=== PATIENT | male | born 1970 | race American Indian/Alaskan Native ===

== ENCOUNTER 2018-09-01 10:14 | Outpatient (CLI) | payer MEDICAID | END 2018-09-01 10:15 | disposition home or self-care (01) | LOC: RAD 10:14 ==

== ENCOUNTER 2018-09-14 21:12 | Inpatient (IN) | payer MEDICAID ==
[2018-09-14] MEDS ORDERED: Sodium Chloride 0.9% 1,000 ML IV STA (21:31)
--- NOTE | 2018-09-14 21:48 | ED PDOC ---
Arrival/HPI - General Chief Complaint: Altered Mental Status Time Seen by Provider: 09/14/18 21:17 Historian: Family EM Caveat: Acuity of Condition - Critical Care Critical Care Minutes: 60 minutes - History of Present Illness Narrative History of Present Illness (Text): 09/14/18 21:47 47 year old male, whose past medical history of craniotomy x 2, hydrocephalus s /p OPEN DIE INSPECTOR shunt(07/19/18), TBI w/intracranial hemorrhage,SEIZURE (1000mg keppra), s/p PEG tube presents to the Emergency Room via EMS accompanied by family with complaint of cough that began today. Per family, the patient with decrease PO intake and decrease responsiveness to external stimuli today. His mothert noted the patient having a blank gaze throughout the day. Patient did not take have his second dose of Keppra today Patient denies any pain at this time. A more complete HPI and ROS are unable to be obtained due to the patient's condition. PMD: Dr. Pena Neurosurgery: Dr. Siegel Time/Duration: Prior to Arrival, 4-6 hours Symptom Course: Unchanged Activities at Onset: Rest, Eating Context: Home Past Medical History - Provider Review Nursing Documentation Reviewed: Yes - Travel History Have you recently traveled outside [place] w/in the past 3 mons?: No - Cardiac Hx Cardiac Disorders: No - Pulmonary Hx Respiratory Disorders: No - Neurological Hx Neurological Disorder: No - HEENT Hx HEENT Disorder: No - Renal Hx Renal Disorder: No - Endocrine/Metabolic Hx Endocrine Disorders: No - Hematological/Oncological Hx Blood Disorders: No Hx AIDS: No - Integumentary Hx Dermatological Disorder: No - Musculoskeletal/Rheumatological Hx Musculoskeletal Disorders: No Hx Falls: No - Gastrointestinal Hx Gastrointestinal Disorders: No Hx Bowel Surgery: Yes (peg tube) - Genitourinary/Gynecological Hx Genitourinary Disorders: Yes Hx Incontinence: Yes - Psychiatric Hx Psychophysiologic Disorder: No Hx Substance Use: No - Surgical History Other/Comment: craniotomyx2 - Anesthesia Hx Anesthesia: Yes Hx Anesthesia Reactions: No Hx Malignant Hyperthermia: No Family/Social History - Physician Review Nursing Documentation Reviewed: Yes Family/Social History: No Known Family HX Smoking Status: Never Smoked Hx Alcohol Use: No Hx Substance Use: No Allergies/Home Meds Allergies/Adverse Reactions: Allergies No Known Allergies Allergy (Verified 07/12/18 11:57) Home Medications: Home Meds Medication Instructions Recorded Confirmed RX: Amantadine [Symmetrel] 20 ml PO QPM 07/12/18 07/21/18 RX: Dantrolene Sodium [Dantrium] 50 mg PO Q8 07/12/18 07/21/18 RX: Vitamin B Complex [Super B-50 1 cap PO DAILY 07/12/18 07/21/18 Complex] RX: levETIRAcetam [Keppra] 500 mg PO Q12 07/12/18 07/21/18 RX: traZODone [Desyrel] 50 mg PO HS 07/12/18 07/21/18 Review of Systems - Physician Review All systems were reviewed & negative as marked: Yes - Review of Systems Systems not reviewed;Unavailable: Acuity of Condition Respiratory: Cough Gastrointestinal: Appetite Changes Physical Exam Vital Signs Reviewed: Yes Temperature: Afebrile Blood Pressure: Hypotensive Pulse: Tachycardic Respiratory Rate: Normal Appearance: Positive for: Well-Appearing, Non-Toxic, Comfortable Pain Distress: None Mental Status: Positive for: other (Alert) - Systems Exam Extroacular Muscles: Present: Other (Horizontal nystagmus ) Respiratory/Chest: Present: Clear to Auscultation. No: Rales, Retracting, Rhonchi Cardiovascular: Present: Tachycardic Abdomen: Present: Feeding Tubes (PEG tube noted to LUQ), Other (Scaphoid). No: Tenderness Rectal: Present: Other (Grade 2 sacral ulcer noted to ) Genitourinary Male: Present: Normal External Genitalia, Circumcised Penis Upper Extremity: Present: Other (Contracted upper extremities b/l) Lower Extremity: Present: Other (Contracted lower extremities b/l w/ feet inversion) Neurological: Present: Other (contracted extremities. Paraplegic) Psychiatric: Present: Alert Medical Decision Making ED Course and Treatment: 09/14/18 21:47 Impression: 47 year old male presents for evaluation of cough, decrease PO intact, and decrease responsiveness to stimuli, as per family. Differential Diagnosis included but are not limited to: --Sepsis --Intracranial bleeding --PNA Plan: -- CT Head -- VBG -- EKG -- labs -- CXR -- Keppra 500mg --Zosyn --Vancomycin --CT a/p --Levophed --IV Fluids -- Blood Culture --Urine Culture -- Urinalysis -- Reassess and disposition Prior Visits: Notes and results from previous visits were reviewed. Progress Notes: 09/14/18 22:23 Labs reviewed with leukocytosis of 35 with shift as well as Hgb 9(previously 11). He still remains hypotensive to 70s SBP. Code sepsis called. Vancomycin and IV Fluids 30CC per kg ordered. 09/14/18 23:19 CTH reviewed with no evidence of intracranial bleed. Nurse states patient has received 2,400mL of fluids with blood pressure largely unchanged. Call placed to Dr. Pelayo(house staff). 09/14/18 23:[address] Pelayo who accepts patient onto ICU service. Call placed to medical educator. 09/14/18 23:38 founder and president updated on patient's status. 09/15/18 00:55 ICU team attempting to obtain consent for lumbar puncture but amenable to central line in the ICU. Patient transferred to ICU. - Lab Interpretations Lab Results: 09/14/18 21:56 09/14/18 21:56 Lab Results 09/14/18 23:23: Urine Color Yellow, Urine Appearance Cloudy, Urine pH 6.0, Ur Specific [place] 1.020, Urine Protein 30 H, Urine Glucose (UA) Negative, Urine K etones Negative, Urine Blood Large H, Urine Nitrate Negative, Urine Bilirubin Negative, Urine Urobilinogen 1.0 H, Ur Leukocyte Esterase Large H, Urine RBC Pending, Urine WBC Pending 09/14/18 22:01: pO2 124 H, VBG pH 7.49 H, VBG pCO2 33.0 L, VBG HCO3 25.1, VBG Total CO2 26.1, VBG O2 Sat (Calc) 100.4 H, VBG Base Excess 2.2 H, VBG Potassium 4.3, Glucose 100, Lactate 2.0, FiO2 21.0, Sodium 137.0, Chloride 104.0, Venous Blood Potassium 4.3 09/14/18 21:56: Sodium 137, Potassium 4.3, Chloride 101, Carbon Dioxide 25, Anion Gap 15, BUN 31 H, Creatinine 1.2, Est GFR ( Amer) > 60, Est GFR (Non-Af Amer) > 60, Random Glucose 104, Calcium 8.9, Phosphorus 4.4, Magnesium 1.9, Total Bilirubin 0.8, AST 244 H D, ALT 177 H, Alkaline Phosphatase 247 H D, Troponin I 0.02, NT-Pro-B Natriuret Pep 945 H, Total Protein 7.4, Albumin 3.4, Globulin 4.0, Albumin/Globulin Ratio 0.8 L 09/14/18 21:56: PT 18.3 H, INR 1.65, APTT 33.9 09/14/18 21:56: WBC 35.9 H*, RBC 3.25 L, Hgb 9.8 L, Hct 29.8 L, MCV 91.7, MCH 30.2, MCHC 32.9, RDW 14.0, Plt Count 523 H, MPV 8.2, Neut % (Auto) 90.8 H, Lymph % (Auto) 5.3 L, [place] % (Auto) 3.8, Eos % (Auto) 0.0 L, Baso % (Auto) 0.1, Lymph # (Auto) 1.9, [place] # (Auto) 1.4 H, Eos # (Auto) 0.0, Baso # (Auto) 0.03, Absolute Neuts (auto) 32.52 H, Neutrophils % (Manual) 86 H, Band Neutrophils % 3 H, Lymphocytes % (Manual) 4 L, Monocytes % (Manual) 5, Metamyelocytes % 2, Platelet Evaluation High 09/14/18 21:49: POC Glucose (mg/dL) 95 I have reviewed the lab results: Yes - RAD Interpretation Narrative RAD Interpretations (Text): 09/15/18 00:30 CXR Impression: As read by me, hyperinflated, prominent vascular markings, no evidence of cardiomegaly, no evidence of consolidation. EXAM: CT Head without Intravenous Contrast. Electronically signed on Sep 15, 2018 12:50:16 AM EST by: Kenia Diez M.D. IMPRESSION: 1. Encephalomalacia is again seen in both frontal lobe regions. This appears little changed. 2. Encephalomalacia of the left cerebellar hemisphere also again noted and appears unchanged. 3. Again noted is severe hydrocephalus including both lateral ventricles as well as the 3rd and 4th ventricle. This appears little changed as well. 4. Again seen is a ventricular shunt catheter which again traverses the lateral ventricles from a right parietal approach. This terminates at the midportion of the body of the left lateral ventricle, unchanged in position. 5. Again seen is evidence of prior left frontal craniotomy and left occipital craniectomy. This also appears unchanged. 6. No convincing evidence for acute intracranial change in comparison with 09/01/2018. Radiology Orders: 09/14/18 21:29 CHEST PORTABLE [RAD] Stat Broth Setter: ED Physician, Radiologist - EKG Interpretation EKG Interpretation (Text): 09/14/18 22:03 EKG shows Sinus Tachycardia at 115 BPM with slightly prolonged QT intervals. No ST elevation. No T wave inversion. Interpreted by me Interpreted by ED Physician: Yes Type: 12 lead EKG - Medication Orders Current Medication Orders: Sodium Chloride (Sodium Chloride 0.9%) 1,000 mls @ 999 mls/hr IV .Q1H1M STA Stop: 09/14/18 22:31 - Scribe Statement The provider has reviewed the documentation as recorded by the Kamran Browning Provider Scribe Attestation: All medical record entries made by the Joselitoibe were at my direction and personally dictated by me. I have reviewed the chart and agree that the record accurately reflects my personal performance of the history, physical exam, medical decision making, and the department course for this patient. I have also personally directed, reviewed, and agree with the discharge instructions and disposition. Disposition/Present on Arrival - Present on Arrival Any Indicators Present on Arrival: No History of DVT/PE: No History of Uncontrolled Diabetes: No Urinary Catheter: No History Surgical Site Infection Following: None - Disposition Have Diagnosis and Disposition been Completed?: Yes Diagnosis: Septic shock Disposition: HOME/ ROUTINE Disposition Time: 23:39 Patient Plan: Admission, ICU Patient Problems: Current Active Problems Problem Status Onset Septic shock Acute Condition: CRITICAL
[2018-09-14] MEDS ORDERED: levETIRAcetam Solution 100 MG/ML BOTTLE PO STA (21:51)
[2018-09-14 21:59] LABS: BASO # 0.03 K/mm3 (0.0-2.0); BASO % 0.1 % (0.0-3.0); HEMOGLOBIN 9.8 g/dL (14.0-18.0); LYMPH # 1.9 (1.2-3.4); LYMPH % 5.3 % (22.0-35.0); MEAN CELL VOLUME 91.7 fl (80.0-105.0); MEAN CORPUSCULAR HEMOGLOBIN 30.2 pg (25.0-35.0); MEAN CORPUSCULAR HGB CONC 32.9 g/dl (31.0-37.0); MEAN PLATELET VOLUME 8.2 fl (7.0-11.0); MONO # 1.4 (0.1-0.6); MONO % 3.8 % (1.0-6.0); PLATELET COUNT 523 10^3/uL (120.0-450.0); RBC 3.25 10^6/uL (3.5-6.1)
[2018-09-14 22:07] LABS: VENOUS BLOOD GAS BASE EXCESS 2.2 mmol/L (0.0-2.0); VENOUS BLOOD GAS PO2 124 mm/Hg (30-55); VENOUS BLOOD PH 7.49 (7.32-7.43)
[2018-09-14 22:08] LABS: INR 1.65; PARTIAL THROMBOPLASTIN TIME 33.9 Seconds (26.9-38.3); PROTHROMBIN TIME 18.3 SECONDS (9.4-12.5)
[2018-09-14 22:10] LABS: ALB/GLOB RATIO 0.8 (1.1-1.8); ALBUMIN 3.4 g/dL (3.0-4.8); ALT/SGPT 177 U/L (7-56); AST/SGOT 244 U/L (17-59); BLOOD UREA NITROGEN 31 mg/dL (7-21); CALCIUM 8.9 mg/dL (8.4-10.5); GFR NON-AFRICAN AMERICAN > 60
[2018-09-14 22:12] LABS: WHITE BLOOD COUNT 35.9 10^3/uL (4.5-11.0)
[2018-09-14 22:18] LABS: BAND 3 % (0-2); LYMPHOCYTE 4 % (22.0-35.0); METAMYELOCYTE 2 %; MONOCYTE 5 % (1.0-6.0); NEUTROPHIL 86 % (50.0-70.0)
[2018-09-14 22:20] LABS: PLATELET ESTIMATE HIGH (NORMAL)
[2018-09-14 22:21] LABS: B-TYPE NATRIURETIC PEPTIDE 945 pg/mL (0-450); TROPONIN I 0.02 ng/mL
[2018-09-14] MEDS ORDERED: Piperacill/Tazo 4.5gm in NS 4.5 GM/100 ML BAG IVPB STA (22:27)
[2018-09-14] MEDS ORDERED: Vancomycin 1gm in NS 250ml 1 GM/250 ML BAG IVPB STA (22:27)
[2018-09-14 23:30] LABS: URINE BILIRUBIN NEGATIVE (NEGATIVE); URINE BLOOD LARGE (NEGATIVE); URINE GLUCOSE (UA) NEGATIVE (NEGATIVE); URINE LEUKOCYTE ESTERASE LARGE Leu/uL (NEGATIVE); URINE PROTEIN 30 mg/dL (<30 mg/dL)
[2018-09-14 23:33] LABS: URINE APPEARANCE CLOUDY (CLEAR); URINE COLOR YELLOW (YELLOW)
[2018-09-14 23:45] LABS: URINE BACTERIA MANY /hpf; URINE EPITHELIAL CELLS 0 - 2 /hpf (0-5); URINE WBC 15 - 20 /hpf (0-6)
--- NOTE | 2018-09-14 23:53 | CP.PCM.CON ---
History of Present Illness - History of Present Illness History of Present Illness: Jerod Ramirez, PGY1 ICU Consult Note for Dr. Pelayo cc: "cough" Patient is a 47 year old male with PMHx CONSULTANT DIETITIAN shunt 2/2 Fall (07/19/18), Brain Injury causing intracranial hemorrhage, Seizure disorder (1000mg keppra), Dysphagia, PEG tube, hypophonic voice, via EMS accompanied by family for complaints of cough that began today. In the ED Vitals: Temp 98.5, HR 102, BP 91/55, RR 18, SaO2 100% (room air). Patient was a code sepsis in the ED. Patient was evaluated for ICU admission. Given that patient is a poor historian, history was obtained from family members present at bedside. Family said that the patient has been having a cough with white phlegm. No recent travel history or sick contacts. As per family, patient was not having any complaints of fever, chills, headache, bowel/bladder changes prior to admission. However, patient does have decreased PO intake recently. Patient also has had diarrhea as per family. Although mental status is poor, patient seems to have a decrease in mental status from his original baseline. From prior history and patient's family at bedside, it was determined that when patient previously had his CONSULTANT DIETITIAN shunt he had blood cultures that grew coagulase negative staph bactermia. Patient follows up with neurosurgeon, Dr. Siegel, for CONSULTANT DIETITIAN shunt. A full 12 point ROS was limited given patient's condition. PMD: Dr. Pena NeuroSx: Dr Siegel PMHX: (from previous records) Brain Injury causing intracranial hemorrhage, , Seizure disorder, Dysphagia, PEG tube, hypophonic voice PShX: (from previous records) 2 Craniotomy's in 02/2018 Medications: Keppra, tylenol, Zofran, nephrovite All: NKDA Sochx: unattainable given mental status and acuity of condition FamHx: non-contributory Review of Systems - Review of Systems All systems: reviewed and no additional remarkable complaints except (as per HPI.) Past Patient History - Past Medical History & Family History Past Medical History?: Yes - Past Social History Smoking Status: Never Smoked - CARDIAC Hx Cardiac Disorders: No - PULMONARY Hx Respiratory Disorders: No - NEUROLOGICAL Hx Neurological Disorder: No - HEENT Hx HEENT Problems: No - RENAL Hx Chronic Kidney Disease: No - ENDOCRINE/METABOLIC Hx Endocrine Disorders: No - HEMATOLOGICAL/ONCOLOGICAL Hx Blood Disorders: No Hx AIDS: No - INTEGUMENTARY Hx Dermatological Problems: No - MUSCULOSKELETAL/RHEUMATOLOGICAL Hx Musculoskeletal Disorders: No Hx Falls: No - GASTROINTESTINAL Hx Gastrointestinal Disorders: No Hx Bowel Surgery: Yes (peg tube) - GENITOURINARY/GYNECOLOGICAL Hx Genitourinary Disorders: Yes Hx Incontinence: Yes - PSYCHIATRIC Hx Psychophysiologic Disorder: No Hx Substance Use: No - SURGICAL HISTORY Other/Comment: craniotomyx2 - ANESTHESIA Hx Anesthesia: Yes Hx Anesthesia Reactions: No Hx Malignant Hyperthermia: No Meds Allergies/Adverse Reactions: Allergies Allergy/AdvReac Type Severity Reaction Status Date / Time No Known Allergies Allergy Verified 07/12/18 11:57 - Medications Medications: Current Medications Vancomycin HCl (Vancomycin 1gm) 1 gm in 250 mls @ 167 mls/hr IVPB STAT STA; Protocol Stop: 09/14/18 23:56 Physical Exam - Constitutional Appears: Confused (Worsened from baseline ), Cachectic - Head Exam Head Exam: ATRAUMATIC, NORMAL INSPECTION, NORMOCEPHALIC Additional comments: Negative Brudsinski sign. No meningeal signs. - Eye Exam Eye Exam: EOMI, Normal appearance Pupil Exam: PERRL - ENT Exam ENT Exam: Mucous Membranes Moist - Respiratory Exam Respiratory Exam: Clear to Auscultation Bilateral. absent: Accessory Muscle Use, Rales, Rhonchi, Wheezes - Cardiovascular Exam Cardiovascular Exam: RRR, +S1, +S2 - GI/Abdominal Exam GI & Abdominal Exam: Normal Bowel Sounds, Soft. absent: Distended, Firm, Guarding, Rigid, Tenderness - Exam Additional comments: Sacral stage IV ulcer was noted. - Extremities Exam Extremities exam: Positive for: normal capillary refill, pedal pulses present. Negative for: joint swelling, pedal edema Additional comments: Patient keeps extremities in a contracted position. - Neurological Exam Neurological exam: Alert Additional comments: Cranial nerve exam difficult to obtain given that patient does not follow commands appropriately. - Skin Skin Exam: Dry, Warm Results - Vital Signs Recent Vital Signs: Last Vital Signs Temp 98.5 F 09/14/18 22:22 Pulse 102 H 09/14/18 23:22 Resp 18 09/14/18 23:22 BP 77/47 L 09/14/18 23:22 Pulse Ox 100 09/14/18 23:22 - Labs Result Diagrams: 09/14/18 21:56 09/14/18 21:56 Labs: Laboratory Results - last 24 hr 09/14/18 09/14/18 09/14/18 21:49 21:56 21:56 WBC 35.9 H* RBC 3.25 L Hgb 9.8 L Hct 29.8 L MCV 91.7 MCH 30.2 MCHC 32.9 RDW 14.0 Plt Count 523 H MPV 8.2 Neut % (Auto) 90.8 H Lymph % (Auto) 5.3 L [place] % (Auto) 3.8 Eos % (Auto) 0.0 L Baso % (Auto) 0.1 Lymph # (Auto) 1.9 [place] # (Auto) 1.4 H Eos # (Auto) 0.0 Baso # (Auto) 0.03 Absolute Neuts (auto) 32.52 H Neutrophils % (Manual) 86 H Band Neutrophils % 3 H Lymphocytes % (Manual) 4 L Monocytes % (Manual) 5 Metamyelocytes % 2 Platelet Evaluation High PT 18.3 H INR 1.65 APTT 33.9 pO2 VBG pH VBG pCO2 VBG HCO3 VBG Total CO2 VBG O2 Sat (Calc) VBG Base Excess VBG Potassium Glucose Lactate FiO2 Sodium Potassium Chloride Carbon Dioxide Anion Gap BUN Creatinine Est GFR ( Amer) Est GFR (Non-Af Amer) POC Glucose (mg/dL) 95 Random Glucose Calcium Phosphorus Magnesium Total Bilirubin AST ALT Alkaline Phosphatase Troponin I NT-Pro-B Natriuret Pep Total Protein Albumin Globulin Albumin/Globulin Ratio Venous Blood Potassium Urine Color Urine Appearance Urine pH Ur Specific [place] Urine Protein Urine Glucose (UA) Urine Ketones Urine Blood Urine Nitrate Urine Bilirubin Urine Urobilinogen Ur Leukocyte Esterase Urine RBC Urine WBC Ur Epithelial Cells Urine Bacteria 09/14/18 09/14/18 09/14/18 21:56 22:01 23:23 WBC RBC Hgb Hct MCV MCH MCHC RDW Plt Count MPV Neut % (Auto) Lymph % (Auto) [place] % (Auto) Eos % (Auto) Baso % (Auto) Lymph # (Auto) [place] # (Auto) Eos # (Auto) Baso # (Auto) Absolute Neuts (auto) Neutrophils % (Manual) Band Neutrophils % Lymphocytes % (Manual) Monocytes % (Manual) Metamyelocytes % Platelet Evaluation PT INR APTT pO2 124 H VBG pH 7.49 H VBG pCO2 33.0 L VBG HCO3 25.1 VBG Total CO2 26.1 VBG O2 Sat (Calc) 100.4 H VBG Base Excess 2.2 H VBG Potassium 4.3 Glucose 100 Lactate 2.0 FiO2 21.0 Sodium 137 137.0 Potassium 4.3 Chloride 101 104.0 Carbon Dioxide 25 Anion Gap 15 BUN 31 H Creatinine 1.2 Est GFR ( Amer) > 60 Est GFR (Non-Af Amer) > 60 POC Glucose (mg/dL) Random Glucose 104 Calcium 8.9 Phosphorus 4.4 Magnesium 1.9 Total Bilirubin 0.8 AST 244 H D ALT 177 H Alkaline Phosphatase 247 H D Troponin I 0.02 NT-Pro-B Natriuret Pep 945 H Total Protein 7.4 Albumin 3.4 Globulin 4.0 Albumin/Globulin Ratio 0.8 L Venous Blood Potassium 4.3 Urine Color Yellow Urine Appearance Cloudy Urine pH 6.0 Ur Specific [place] 1.020 Urine Protein 30 H Urine Glucose (UA) Negative Urine Ketones Negative Urine Blood Large H Urine Nitrate Negative Urine Bilirubin Negative Urine Urobilinogen 1.0 H Ur Leukocyte Esterase Large H Urine RBC 1 - 3 H Urine WBC 15 - 20 H Ur Epithelial Cells 0 - 2 Urine Bacteria Many Assessment & Plan - Assessment and Plan (Free Text) Assessment: Patient is a 47 year old male with PMHx CONSULTANT DIETITIAN shunt 2/2 Fall (07/19/18), Brain Injury causing intracranial hemorrhage, Seizure disorder (1000mg keppra), Dysphagia, PEG tube, hypophonic voice, via EMS accompanied by family for complaints of cough for one day duration and altered mental status. Patient ad mitted for: Septic Shock with MODS: AMS, cardiomyopathy, GEORGINA, ALI, Lactic Acidosis Source: skin, diarrhea, UTI, brain (acquired hospital), hx recent staph bacteremia, ?endocarditis AMS likely 2/2 metabolic encephalopathy due to sepsis, post-ictal state from seizure, meningitis/encephalitis High LDH unlikely hemolytic anemia - trend LDH Elevated CK could be from seizure vs sacral wound vs rhabdo due to nutrient deficiency Chronic [place] cath on leg PEG Diarrhea - r/o c. diff Transaminitis, acute (INR) versus chronic Seizure - neuro, keppra, possible LP Plan: Neuro - AMS likely 2/2 metabolic encephalopathy due to sepsis, post-ictal state from seizure, meningitis/encephalitis - Patient may require lumbar puncture via IR because patient has a stage IV ulcer - Keppra - ativan 1mg q6 prn - EEG - Head CT w/o contrast - Neuro is on consult (Dr. Peterson) - Neurosurgery is on consult (Dr. Siegel) - Seizure precautions, aspiration precautions, fall precautions - Hx CONSULTANT DIETITIAN shunt, Brain injury causing ICH, seizure disorder Cardio - Septic Shock with MODS - Maintain MAP > 65 - Central line was placed at the right femoral - family was refusing central line in the neck but was explained that femoral line is higher risk of infection given stage IV ulcer and diarrhea episode - Administer levophed for BP control - Patient had fluid bolus challenge with 2L and failed resuscitation; caval index was 12.1% - Echo - Strict ins/outs Pulm - Maintain SaO2 > 92% - Saturating well on room air at this time - No evidence of PNA on CXR GI - Acute Liver injury - transaminitis - GI is on consult (Dr. Emmanuel) - NPO - PEG tube - c/w patients diet: eats 3 meals + jevity 1.5 bolus HS with free water flushes 500 BID, if skip 1meal, substitute with jevity Renal - BUN/Cr 31 - Monitor renal function - Avoid nephrotoxic drugs - Elevated CK could be from seizure vs sacral wound vs rhabdo due to nutrient deficiency ID - Septic Shock with MODS 2/2 UTI vs Sacral Decubitus Ulcer vs recent staph bacteremia vs ?endocarditis - vanco and merrem for antibx coverage - UA +blood, large LE, 15-20 wbc, many bacteria - New onset diarrhea; C. diff ordered - Chest/Abdomen/Pelvis CT given septic shock - procal - influenza A/B - wbc 35 in ED with neutrophils 90% - Sacral wound ulcer, stage IV: air mattress, frequent turns, wound care - ID is on consult (Dr. Albright) - Surgery is on consult for sacral ulcer (Dr. Reardon) Heme - LDH elevated - unlikely hemolytic anemia - will trend LDH - Hgb 9.8 DVT ppx: SCD GI ppx: PTX PT is on board Dispo: Patient will be managed in the ICU. Case was discussed and reviewed with Attending Physician, Dr. Pelayo.
[2018-09-15] MEDS ORDERED: Sodium Chloride 0.9% 1,000 ML IV STA (00:22)
[2018-09-15] MEDS ORDERED: Piperacill/Tazo 4.5gm in NS 4.5 GM/100 ML BAG IVPB STA (00:34)
[2018-09-15] MEDS: NOREPINEPHRINE BIT/0.9 % NACL 4 MG/250 ML BAG IV PRN ×2 (00:50→11:28)
[2018-09-15 00:55] LABS: CK-MB 3.9 ng/mL (0.0-3.6)
[2018-09-15 02:03] LABS: VENOUS BLOOD GAS BASE EXCESS -1.5 mmol/L (0.0-2.0); VENOUS BLOOD GAS PO2 34 mm/Hg (30-55); VENOUS BLOOD PH 7.35 (7.32-7.43)
[2018-09-15 04:06] VITALS: BMI 15.6
[2018-09-15] MEDS: Sodium Chloride 0.9% 1,000 ML IV SCH (05:00)
[2018-09-15] MEDS: Meropenem IV 1 gm in NS 1 GM/50 ML BAG IVPB SCH ×3 (05:08→22:15)
--- NOTE | 2018-09-15 05:09 | PCM.PROC ---
Procedures Attestation:: I certify that I have explained the specified Operation(s) or Procedure(s), risks, benefits and reasonable alternatives to the Patient and/or other person responsible. The opportunity was given to ask questions and all questions answered - Central Line Placement Right Femoral Triple Lumen Catheter Aseptic technique was employed throughout the procedure: Hand Hygiene done prior to procedure, Full sterile barriers (mask, hair cover, sterile gown, sterile gloves), Full body sterile drape, Chloraprep Antiseptic: 2 minute prep for Femoral Pt. Placed on Pulse Ox Monitor: Yes Central Line Prep: Chlorhexidine-Alcohol Combination Local Anesthesia Used: Lidocaine 1% Ultrasound Used for Placement: Yes Central Line Lumen Inserted: triple Central Line Length: 20 cm Post Procedure: Sutured in Place Secured by: Suture Post procedure dressing: Chlorhexidine disc (Biopatch) Post Procedure X-Ray: No Immediate Complications: None
[2018-09-15] MEDS ORDERED: Cefepime IV 2 gm in NS 2 GM/100 ML BAG IVPB SCH (06:00)
--- NOTE | 2018-09-15 06:34 | CP.PCM.HP ---
History of Present Illness - History of Present Illness History of Present Illness: Jerod Ramirez, PGY1 ICU Consult Note for Dr. Pelayo cc: "cough" Patient is a 47 year old male with PMHx PASTING INSPECTOR shunt 2/2 Fall (07/19/18), Brain Injury causing intracranial hemorrhage, Seizure disorder (1000mg keppra), Dysphagia, PEG tube, hypophonic voice, via EMS accompanied by family for complaints of cough that began today. In the ED Vitals: Temp 98.5, HR 102, BP 91/55, RR 18, SaO2 100% (room air). Patient was a code sepsis in the ED. Patient was evaluated for ICU admission. Given that patient is a poor historian, history was obtained from family members present at bedside. Family said that the patient has been having a cough with white phlegm. No recent travel history or sick contacts. As per family, patient was not having any complaints of fever, chills, headache, bowel/bladder changes prior to admission. However, patient does have decreased PO intake recently. Patient also has had diarrhea as per family. Although mental status is poor, patient seems to have a decrease in mental status from his original baseline. From prior history and patient's family at bedside, it was determined that when patient previously had his PASTING INSPECTOR shunt he had blood cultures that grew coagulase negative staph bactermia. Patient follows up with neurosurgeon, Dr. Siegel, for PASTING INSPECTOR shunt. A full 12 point ROS was limited given patient's condition. PMD: Dr. Pena NeuroSx: Dr Siegel PMHX: (from previous records) Brain Injury causing intracranial hemorrhage, , Seizure disorder, Dysphagia, PEG tube, hypophonic voice PShX: (from previous records) 2 Craniotomy's in 02/2018 Medications: Keppra, tylenol, Zofran, nephrovite All: NKDA Sochx: unattainable given mental status and acuity of condition FamHx: non-contributory Present on Admission - Present on Admission Any Indicators Present on Admission: Yes Review of Systems - Review of Systems All systems: reviewed and no additional remarkable complaints except (as per HPI) Past Patient History - Past Medical History & Family History Past Medical History?: Yes - Past Social History Smoking Status: Never Smoked - CARDIAC Hx Cardiac Disorders: No - PULMONARY Hx Respiratory Disorders: No - NEUROLOGICAL Hx Neurological Disorder: No - HEENT Hx HEENT Problems: No - RENAL Hx Chronic Kidney Disease: No - ENDOCRINE/METABOLIC Hx Endocrine Disorders: No - HEMATOLOGICAL/ONCOLOGICAL Hx Blood Disorders: No Hx AIDS: No - INTEGUMENTARY Hx Dermatological Problems: No - MUSCULOSKELETAL/RHEUMATOLOGICAL Hx Musculoskeletal Disorders: No Hx Falls: No - GASTROINTESTINAL Hx Gastrointestinal Disorders: No Hx Bowel Surgery: Yes (peg tube) - GENITOURINARY/GYNECOLOGICAL Hx Genitourinary Disorders: Yes Hx Incontinence: Yes - PSYCHIATRIC Hx Psychophysiologic Disorder: No Hx Substance Use: No - SURGICAL HISTORY Other/Comment: craniotomyx2 - ANESTHESIA Hx Anesthesia: Yes Hx Anesthesia Reactions: No Hx Malignant Hyperthermia: No Meds Allergies/Adverse Reactions: Allergies Allergy/AdvReac Type Severity Reaction Status Date / Time No Known Allergies Allergy Verified 07/12/18 11:57 Physical Exam - Constitutional Appears: Confused (Worsened from baseline), Cachectic - Head Exam Head Exam: ATRAUMATIC, NORMAL INSPECTION, NORMOCEPHALIC Additional comments: Negative Brudsinski sign. No meningeal signs. - Eye Exam Eye Exam: EOMI, Normal appearance, PERRL - ENT Exam ENT Exam: Mucous Membranes Moist - Respiratory Exam Respiratory Exam: Clear to Auscultation Bilateral. absent: Accessory Muscle Use, Rales, Rhonchi, Wheezes - Cardiovascular Exam Cardiovascular Exam: RRR, +S1, +S2 - GI/Abdominal Exam GI & Abdominal Exam: Normal Bowel Sounds, Soft. absent: Bruit, Firm, Guarding, Pulsatile Mass, Rebound, Rigid, Tenderness - Exam Additional comments: Sacral stage IV ulcer was noted. - Extremities Exam Extremities exam: Positive for: normal capillary refill, pedal pulses present. Negative for: joint swelling, pedal edema Additional comments: Patient keeps extremities in a contracted position. - Neurological Exam Neurological exam: Alert Additional comments: Cranial nerve exam difficult to obtain given that patient does not follow commands appropriately. Results - Vital Signs Recent Vital Signs: Last Vital Signs Temp 97.5 F L 09/15/18 04:30 Pulse 94 H 09/15/18 04:30 Resp 18 09/15/18 04:30 BP 87/47 L 09/15/18 04:30 Pulse Ox 100 09/15/18 04:30 - Labs Result Diagrams: 09/14/18 21:56 09/14/18 21:56 Labs: Laboratory Results - last 24 hr 09/14/18 09/14/18 09/14/18 21:49 21:56 21:56 WBC 35.9 H* RBC 3.25 L Hgb 9.8 L Hct 29.8 L MCV 91.7 MCH 30.2 MCHC 32.9 RDW 14.0 Plt Count 523 H MPV 8.2 Neut % (Auto) 90.8 H Lymph % (Auto) 5.3 L [place] % (Auto) 3.8 Eos % (Auto) 0.0 L Baso % (Auto) 0.1 Lymph # (Auto) 1.9 [place] # (Auto) 1.4 H Eos # (Auto) 0.0 Baso # (Auto) 0.03 Absolute Neuts (auto) 32.52 H Neutrophils % (Manual) 86 H Band Neutrophils % 3 H Lymphocytes % (Manual) 4 L Monocytes % (Manual) 5 Metamyelocytes % 2 Platelet Evaluation High PT 18.3 H INR 1.65 APTT 33.9 pO2 VBG pH VBG pCO2 VBG HCO3 VBG Total CO2 VBG O2 Sat (Calc) VBG Base Excess VBG Potassium Glucose Lactate FiO2 Crit Value Called To Crit Value Called By Blood Gas Notified Time Sodium Potassium Chloride Carbon Dioxide Anion Gap BUN Creatinine Est GFR ( Amer) Est GFR (Non-Af Amer) POC Glucose (mg/dL) 95 Random Glucose Calcium Phosphorus Magnesium Total Bilirubin AST ALT Alkaline Phosphatase Lactate Dehydrogenase Total Creatine Kinase CK-MB (CK-2) CK-MB (CK-2) % Troponin I NT-Pro-B Natriuret Pep Total Protein Albumin Globulin Albumin/Globulin Ratio Venous Blood Potassium Urine Color Urine Appearance Urine pH Ur Specific [place] Urine Protein Urine Glucose (UA) Urine Ketones Urine Blood Urine Nitrate Urine Bilirubin Urine Urobilinogen Ur Leukocyte Esterase Urine RBC Urine WBC Ur Epithelial Cells Urine Bacteria 09/14/18 09/14/18 09/14/18 21:56 21:56 22:01 WBC RBC Hgb Hct MCV MCH MCHC RDW Plt Count MPV Neut % (Auto) Lymph % (Auto) [place] % (Auto) Eos % (Auto) Baso % (Auto) Lymph # (Auto) [place] # (Auto) Eos # (Auto) Baso # (Auto) Absolute Neuts (auto) Neutrophils % (Manual) Band Neutrophils % Lymphocytes % (Manual) Monocytes % (Manual) Metamyelocytes % Platelet Evaluation PT INR APTT pO2 124 H VBG pH 7.49 H VBG pCO2 33.0 L VBG HCO3 25.1 VBG Total CO2 26.1 VBG O2 Sat (Calc) 100.4 H VBG Base Excess 2.2 H VBG Potassium 4.3 Glucose 100 Lactate 2.0 FiO2 21.0 Crit Value Called To Crit Value Called By Blood Gas Notified Time Sodium 137 137.0 Potassium 4.3 Chloride 101 104.0 Carbon Dioxide 25 Anion Gap 15 BUN 31 H Creatinine 1.2 Est GFR ( Amer) > 60 Est GFR (Non-Af Amer) > 60 POC Glucose (mg/dL) Random Glucose 104 Calcium 8.9 Phosphorus 4.4 Magnesium 1.9 Total Bilirubin 0.8 AST 244 H D ALT 177 H Alkaline Phosphatase 247 H D Lactate Dehydrogenase 1064 H Total Creatine Kinase 505 H CK-MB (CK-2) 3.9 H CK-MB (CK-2) % Cancelled Troponin I 0.02 NT-Pro-B Natriuret Pep 945 H Total Protein 7.4 Albumin 3.4 Globulin 4.0 Albumin/Globulin Ratio 0.8 L Venous Blood Potassium 4.3 Urine Color Urine Appearance Urine pH Ur Specific [place] Urine Protein Urine Glucose (UA) Urine Ketones Urine Blood Urine Nitrate Urine Bilirubin Urine Urobilinogen Ur Leukocyte Esterase Urine RBC Urine WBC Ur Epithelial Cells Urine Bacteria 09/14/18 09/15/18 23:23 01:40 WBC RBC Hgb Hct MCV MCH MCHC RDW Plt Count MPV Neut % (Auto) Lymph % (Auto) [place] % (Auto) Eos % (Auto) Baso % (Auto) Lymph # (Auto) [place] # (Auto) Eos # (Auto) Baso # (Auto) Absolute Neuts (auto) Neutrophils % (Manual) Band Neutrophils % Lymphocytes % (Manual) Monocytes % (Manual) Metamyelocytes % Platelet Evaluation PT INR APTT pO2 34 VBG pH 7.35 VBG pCO2 44.0 VBG HCO3 24.3 VBG Total CO2 25.7 VBG O2 Sat (Calc) 68.3 H VBG Base Excess -1.5 L VBG Potassium 3.8 Glucose 94 Lactate 2.3 H FiO2 21.0 Crit Value Called To Lillian hoffman pattern duplicator Crit Value Called By Jsm Blood Gas Notified Time 202 Sodium 141.0 Potassium Chloride 109.0 H Carbon Dioxide Anion Gap BUN Creatinine Est GFR ( Amer) Est GFR (Non-Af Amer) POC Glucose (mg/dL) Random Glucose Calcium Phosphorus Magnesium Total Bilirubin AST ALT Alkaline Phosphatase Lactate Dehydrogenase Total Creatine Kinase CK-MB (CK-2) CK-MB (CK-2) % Troponin I NT-Pro-B Natriuret Pep Total Protein Albumin Globulin Albumin/Globulin Ratio Venous Blood Potassium 3.8 Urine Color Yellow Urine Appearance Cloudy Urine pH 6.0 Ur Specific [place] 1.020 Urine Protein 30 H Urine Glucose (UA) Negative Urine Ketones Negative Urine Blood Large H Urine Nitrate Negative Urine Bilirubin Negative Urine Urobilinogen 1.0 H Ur Leukocyte Esterase Large H Urine RBC 1 - 3 H Urine WBC 15 - 20 H Ur Epithelial Cells 0 - 2 Urine Bacteria Many Assessment & Plan - Assessment and Plan (Free Text) Assessment: Patient is a 47 year old male with PMHx PASTING INSPECTOR shunt 2/2 Fall (07/19/18), Brain Injury causing intracranial hemorrhage, Seizure disorder (1000mg keppra), Dysphagia, PEG tube, hypophonic voice, via EMS accompanied by family for complaints of cough for one day duration and altered mental status. Patient admitted for: Septic Shock with MODS: AMS, cardiomyopathy, GEORGINA, ALI, Lactic Acidosis Source: skin, diarrhea, UTI, brain ([facility]), hx recent staph bactere milvia, ?endocarditis AMS likely 2/2 metabolic encephalopathy due to sepsis, post-ictal state from seizure, meningitis/encephalitis High LDH unlikely hemolytic anemia - trend LDH Elevated CK could be from seizure vs sacral wound vs rhabdo due to nutrient deficiency Chronic [place] cath on leg PEG Diarrhea - r/o c. diff Transaminitis, acute (INR) versus chronic Seizure - neuro, keppra, possible LP Plan: Neuro - AMS likely 2/2 metabolic encephalopathy due to sepsis, post-ictal state from seizure, meningitis/encephalitis - Patient may require lumbar puncture via IR because patient has a stage IV ulcer - Keppra - ativan 1mg q6 prn - EEG - Head CT w/o contrast - Neuro is on consult (Dr. Peterson) - Neurosurgery is on consult (Dr. Siegel) - Seizure precautions, aspiration precautions, fall precautions - Hx PASTING INSPECTOR shunt, Brain injury causing ICH, seizure disorder Cardio - Septic Shock with MODS - Maintain MAP > 65 - Central line was placed at the right femoral - family was refusing central line in the neck but was explained that femoral line is higher risk of infection given stage IV ulcer and diarrhea episode - Administer levophed for BP control - Patient had fluid bolus challenge with 2L and failed resuscitation; caval index was 12.1% - Echo - Strict ins/outs Pulm - Maintain SaO2 > 92% - Saturating well on room air at this time - No evidence of PNA on CXR GI - Acute Liver injury - transaminitis - GI is on consult (Dr. Emmanuel) - NPO - PEG tube - c/w patients diet: eats 3 meals + jevity 1.5 bolus HS with free water flushes 500 BID, if skip 1meal, substitute with jevity Renal - BUN/Cr 31 - Monitor renal function - Avoid nephrotoxic drugs - Elevated CK could be from seizure vs sacral wound vs rhabdo due to nutrient deficiency ID - Septic Shock with MODS 2/2 UTI vs Sacral Decubitus Ulcer vs recent staph bacteremia vs ?endocarditis - vanco and merrem for antibx coverage - UA +blood, large LE, 15-20 wbc, many bacteria - New onset diarrhea; C. diff ordered - Chest/Abdomen/Pelvis CT given septic shock - procal - influenza A/B - wbc 35 in ED with neutrophils 90% - Sacral wound ulcer, stage IV: air mattress, frequent turns, wound care - ID is on consult (Dr. Albright) - Surgery is on consult for sacral ulcer (Dr. Reardon) Heme - LDH elevated - unlikely hemolytic anemia - will trend LDH - Hgb 9.8 DVT ppx: SCD GI ppx: PTX PT is on board Dispo: Patient will be managed in the ICU. Case was discussed and reviewed with Attending Physician, Dr. Pelayo.
[2018-09-15] MEDS ORDERED: Vancomycin 750mg 750 MG/250 ML BAG IVPB SCH (06:45)
[2018-09-15 08:33] LABS: TROPONIN I 0.01 ng/mL
--- NOTE | 2018-09-15 08:34 | CP.CCUPN ---
<Tal Jeffery - Last Filed: 09/15/18 10:05> CCU Subjective - Physician Review Subjective (Free Text): 09/15/18 08:27 Tal Jeffery PGY1 ICU Progress Note Patient seen and examined at bedside this morning. No acute events reported overnight. Patient currently on levophed at 8 mcg/hr and NS @ 100cc/hr. 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 Patient is lethargic and 12 point ROS is unobtainable at this time. [employer] referral ordered, will resume PEG tube feedings. CCU Objective - Vital Signs / Intake & Output Vital Signs (Last 4 hours): Vital Signs Temp Pulse Resp BP Pulse Ox 09/15/18 07:46 98.1 F 91 H 19 103/66 100 09/15/18 07:40 98.1 F 92 H 14 100 09/15/18 07:30 98.1 F 96 H 17 107/61 100 09/15/18 07:20 97.9 F 88 20 100 09/15/18 07:15 97.9 F 89 16 102/64 100 09/15/18 07:10 97.9 F 90 17 100 09/15/18 07:00 97.9 F 87 18 101/61 100 09/15/18 06:50 97.9 F 91 H 21 100 09/15/18 06:45 97.9 F 88 18 105/64 100 09/15/18 06:40 97.9 F 92 H 19 100 09/15/18 06:30 97.9 F 91 H 16 107/64 100 09/15/18 06:20 97.7 F 95 H 18 100 09/15/18 06:15 97.7 F 94 H 20 101/64 100 09/15/18 06:10 97.7 F 96 H 19 100 09/15/18 06:00 97.5 F L 89 16 100/60 100 09/15/18 05:50 97.5 F L 90 18 100 09/15/18 05:45 97.5 F L 93 H 16 108/64 100 09/15/18 05:40 97.5 F L 93 H 17 100 09/15/18 05:30 97.3 F L 91 H 18 101/66 100 09/15/18 05:20 97.3 F L 89 17 100 09/15/18 05:15 97.3 F L 91 H 20 110/70 100 09/15/18 05:10 97.3 F L 87 22 100 09/15/18 05:00 97.3 F L 88 19 102/64 100 09/15/18 04:56 97.3 F L 88 100 09/15/18 04:50 97.3 F L 84 20 100 09/15/18 04:46 97.3 F L 86 100 09/15/18 04:45 97.3 F L 86 21 101/67 100 09/15/18 04:40 97.3 F L 97 H 20 100 09/15/18 04:30 97.5 F L 94 H 18 87/47 L 100 Intake and Output (Last 8hrs): Intake & Output 09/14/18 09/15/18 09/15/18 22:59 06:59 14:59 Intake Total 215 Output Total 0 Balance 215 Weight 104 lb 100 lb 1.6 oz Intake: IV 215 Right Femoral 200 Output: Urine 0 Condom 0 - Physical Exam Head: Positive for: Normocephalic Pupils: Positive for: PERRL Extroacular Muscles: Positive for: EOMI Mouth: Positive for: Moist Mucous Membranes Respiratory/Chest: Positive for: Clear to Auscultation. Negative for: Respiratory Distress, Accessory Muscle Use, Rales, Retracting, Rhonchi Cardiovascular: Positive for: Normal S1, S2, Peripheal Pulses Present Abdomen: Positive for: Normal Bowel Sounds, Other (Scaphoid, cachextic ). Negative for: Tenderness Upper Extremity: Positive for: Normal Inspection Lower Extremity: Positive for: Normal Inspection, NORMAL PULSES, Other (stage IV decubitus ulcer noted on posteior right hip, no gross drainage appreciated ). Negative for: Tenderness Neurological: Positive for: Other (contracted extremities. Paraplegic, lethargic ) Psychiatric: Positive for: Alert - Medications Active Medications: Active Medications Generic Name Dose Route Start Last Admin Trade Name Freq PRN Reason Stop Dose Admin NOREPINEPHRINE BIT/0.9 % NACL 4 mg in 250 mls @ 15 mls/hr 09/15/18 00:22 09/15/18 05:00 Levophed 4 Mg/ 250 Ml Ns Premixed IV 8 mcg/min .[id number] PRN 30 mls/hr TITRATE PER MD ORDER Titration Protocol 4 MCG/MIN Sodium Chloride 1,000 mls @ 100 mls/hr 09/15/18 00:30 09/15/18 05:00 Sodium Chloride 0.9% IV 100 mls/hr .Q10H KEYON Administration Meropenem 1 gm in 50 mls @ 100 mls/hr 09/15/18 06:00 09/15/18 05:08 Merrem Iv 1 Gm Premix IVPB 09/22/18 06:01 100 mls/hr Q8 KEYON Administration Protocol Levetiracetam 500 mg in 100 mls @ 400 mls/hr 09/15/18 10:00 Keppra 500mg Ivpb IV Q12 KEYON Vancomycin HCl 750 mg in 250 mls @ 167 mls/hr 09/15/18 06:45 Vancomycin 750 Mg In Ns IVPB Q12H KEYON Protocol Acyclovir 450 mg/ Sodium 100 mls @ 100 mls/hr 09/15/18 07:00 Chloride IV Q8 KEYON Protocol Lorazepam 1 mg 09/15/18 04:04 Ativan IVP Q6H PRN Seizure activity Protocol Pantoprazole Sodium 40 mg 09/15/18 10:00 Protonix Inj IVP DAILY KEYON - Patient Studies Lab Studies: Lab Studies 09/15/18 09/15/18 09/15/18 Range/Units 07:00 06:00 01:40 WBC (4.5-11.0) 10^3/uL RBC (3.5-6.1) 10^6/uL Hgb (14.0-18.0) g/dL Hct (42.0-52.0) % MCV (80.0-105.0) fl MCH (25.0-35.0) pg MCHC (31.0-37.0) g/dl RDW (11.5-14.5) % Plt Count (120.0-450.0) 10^3/uL MPV (7.0-11.0) fl Neut % (Auto) (50.0-68.0) % Lymph % (Auto) (22.0-35.0) % [place] % (Auto) (1.0-6.0) % Eos % (Auto) (1.5-5.0) % Baso % (Auto) (0.0-3.0) % Lymph # (Auto) (1.2-3.4) [place] # (Auto) (0.1-0.6) Eos # (Auto) (0.0-0.7) Baso # (Auto) (0.0-2.0) K/mm3 Absolute Neuts (auto) (1.4-6.5) Neutrophils % (Manual) (50.0-70.0) % Band Neutrophils % (0-2) % Lymphocytes % (Manual) (22.0-35.0) % Monocytes % (Manual) (1.0-6.0) % Metamyelocytes % % Platelet Evaluation (NORMAL) PT (9.4-12.5) SECONDS INR APTT (26.9-38.3) Seconds pO2 34 (30-55) mm/Hg VBG pH 7.35 (7.32-7.43) VBG pCO2 44.0 (40-60) VBG HCO3 24.3 (21-28) mmol/l VBG Total CO2 25.7 (22-28) mmol.L VBG O2 Sat (Calc) 68.3 H (40-65) % VBG Base Excess -1.5 L (0.0-2.0) mmol/L VBG Potassium 3.8 (3.6-5.2) mmol/L Glucose 94 (75-110) mg/dl Lactate 2.3 H (0.7-2.1) mmol/L FiO2 21.0 % Crit Value Called To Lillian hoffman [employer] Crit Value Called By [facility] Blood Gas Notified Time 202 Sodium 141.0 (132-148) mmol/L Potassium (3.6-5.0) mmol/L Chloride 109.0 H (98-107) mmol/L Carbon Dioxide (21-33) mmol/L Anion Gap (10-20) BUN (7-21) mg/dL Creatinine (0.8-1.5) mg/dl Est GFR ( Amer) Est GFR (Non-Af Amer) POC Glucose (mg/dL) (65-110) mg/dL Random Glucose (70-110) mg/dL Calcium (8.4-10.5) mg/dL Phosphorus (2.5-4.5) mg/dL Magnesium (1.7-2.2) mg/dL Total Bilirubin (0.2-1.3) mg/dL GGT 150 H (8-78) U/L AST (17-59) U/L ALT (7-56) U/L Alkaline Phosphatase (38-126) U/L Lactate Dehydrogenase 487 (333-699) U/L Total Creatine Kinase 640 H (35-230) U/L CK-MB (CK-2) (0.0-3.6) ng/mL CK-MB (CK-2) % Troponin I ng/mL NT-Pro-B Natriuret Pep (0-450) pg/mL Total Protein (5.8-8.3) g/dL Albumin (3.0-4.8) g/dL Globulin gm/dL Albumin/Globulin Ratio (1.1-1.8) Venous Blood Potassium 3.8 (3.6-5.2) mmol/L Urine Color (YELLOW) Urine Appearance (CLEAR) Urine pH (4.7-8.0) Ur Specific [place] (1.005-1.035) Urine Protein (<30 mg/dL) mg/dL Urine Glucose (UA) (NEGATIVE) mg/dL Urine Ketones (NEGATIVE) mg/dL Urine Blood (NEGATIVE) Urine Nitrate (NEGATIVE) Urine Bilirubin (NEGATIVE) Urine Urobilinogen (<1 E.U./dL) E.U./dL Ur Leukocyte Esterase (NEGATIVE) Cyril/uL Urine RBC (0-2) /hpf Urine WBC (0-6) /hpf Ur Epithelial Cells (0-5) /hpf Urine Bacteria (NONE) /hpf Influenza Typ A,B (EIA) Negative for flu a/b (NEGATIVE) 09/14/18 09/14/18 09/14/18 Range/Units 23:23 22:01 21:56 WBC (4.5-11.0) 10^3/uL RBC (3.5-6.1) 10^6/uL Hgb (14.0-18.0) g/dL Hct (42.0-52.0) % MCV (80.0-105.0) fl MCH (25.0-35.0) pg MCHC (31.0-37.0) g/dl RDW (11.5-14.5) % Plt Count (120.0-450.0) 10^3/uL MPV (7.0-11.0) fl Neut % (Auto) (50.0-68.0) % Lymph % (Auto) (22.0-35.0) % [place] % (Auto) (1.0-6.0) % Eos % (Auto) (1.5-5.0) % Baso % (Auto) (0.0-3.0) % Lymph # (Auto) (1.2-3.4) [place] # (Auto) (0.1-0.6) Eos # (Auto) (0.0-0.7) Baso # (Auto) (0.0-2.0) K/mm3 Absolute Neuts (auto) (1.4-6.5) Neutrophils % (Manual) (50.0-70.0) % Band Neutrophils % (0-2) % Lymphocytes % (Manual) (22.0-35.0) % Monocytes % (Manual) (1.0-6.0) % Metamyelocytes % % Platelet Evaluation (NORMAL) PT (9.4-12.5) SECONDS INR APTT (26.9-38.3) Seconds pO2 124 H (30-55) mm/Hg VBG pH 7.49 H (7.32-7.43) VBG pCO2 33.0 L (40-60) VBG HCO3 25.1 (21-28) mmol/l VBG Total CO2 26.1 (22-28) mmol.L VBG O2 Sat (Calc) 100.4 H (40-65) % VBG Base Excess 2.2 H (0.0-2.0) mmol/L VBG Potassium 4.3 (3.6-5.2) mmol/L Glucose 100 (75-110) mg/dl Lactate 2.0 (0.7-2.1) mmol/L FiO2 21.0 % Crit Value Called To Crit Value Called By Blood Gas Notified Time Sodium 137.0 (132-148) mmol/L Potassium (3.6-5.0) mmol/L Chloride 104.0 (98-107) mmol/L Carbon Dioxide (21-33) mmol/L Anion Gap (10-20) BUN (7-21) mg/dL Creatinine (0.8-1.5) mg/dl Est GFR ( Amer) Est GFR (Non-Af Amer) POC Glucose (mg/dL) (65-110) mg/dL Random Glucose (70-110) mg/dL Calcium (8.4-10.5) mg/dL Phosphorus (2.5-4.5) mg/dL Magnesium (1.7-2.2) mg/dL Total Bilirubin (0.2-1.3) mg/dL GGT (8-78) U/L AST (17-59) U/L ALT (7-56) U/L Alkaline Phosphatase (38-126) U/L Lactate Dehydrogenase 1064 H (333-699) U/L Total Creatine Kinase 505 H (35-230) U/L CK-MB (CK-2) 3.9 H (0.0-3.6) ng/mL CK-MB (CK-2) % Cancelled Troponin I ng/mL NT-Pro-B Natriuret Pep (0-450) pg/mL Total Protein (5.8-8.3) g/dL Albumin (3.0-4.8) g/dL Globulin gm/dL Albumin/Globulin Ratio (1.1-1.8) Venous Blood Potassium 4.3 (3.6-5.2) mmol/L Urine Color Yellow (YELLOW) Urine Appearance Cloudy (CLEAR) Urine pH 6.0 (4.7-8.0) Ur Specific [place] 1.020 (1.005-1.035) Urine Protein 30 H (<30 mg/dL) mg/dL Urine Glucose (UA) Negative (NEGATIVE) mg/dL Urine Ketones Negative (NEGATIVE) mg/dL Urine Blood Large H (NEGATIVE) Urine Nitrate Negative (NEGATIVE) Urine Bilirubin Negative (NEGATIVE) Urine Urobilinogen 1.0 H (<1 E.U./dL) E.U./dL Ur Leukocyte Esterase Large H (NEGATIVE) Cyril/uL Urine RBC 1 - 3 H (0-2) /hpf Urine WBC 15 - 20 H (0-6) /hpf Ur Epithelial Cells 0 - 2 (0-5) /hpf Urine Bacteria Many (NONE) /hpf Influenza Typ A,B (EIA) (NEGATIVE) 09/14/18 09/14/18 09/14/18 Range/Units 21:56 21:56 21:56 WBC 35.9 H* (4.5-11.0) 10^3/uL RBC 3.25 L (3.5-6.1) 10^6/uL Hgb 9.8 L (14.0-18.0) g/dL Hct 29.8 L (42.0-52.0) % MCV 91.7 (80.0-105.0) fl MCH 30.2 (25.0-35.0) pg MCHC 32.9 (31.0-37.0) g/dl RDW 14.0 (11.5-14.5) % Plt Count 523 H (120.0-450.0) 10^3/uL MPV 8.2 (7.0-11.0) fl Neut % (Auto) 90.8 H (50.0-68.0) % Lymph % (Auto) 5.3 L (22.0-35.0) % [place] % (Auto) 3.8 (1.0-6.0) % Eos % (Auto) 0.0 L (1.5-5.0) % Baso % (Auto) 0.1 (0.0-3.0) % Lymph # (Auto) 1.9 (1.2-3.4) [place] # (Auto) 1.4 H (0.1-0.6) Eos # (Auto) 0.0 (0.0-0.7) Baso # (Auto) 0.03 (0.0-2.0) K/mm3 Absolute Neuts (auto) 32.52 H (1.4-6.5) Neutrophils % (Manual) 86 H (50.0-70.0) % Band Neutrophils % 3 H (0-2) % Lymphocytes % (Manual) 4 L (22.0-35.0) % Monocytes % (Manual) 5 (1.0-6.0) % Metamyelocytes % 2 % Platelet Evaluation High (NORMAL) PT 18.3 H (9.4-12.5) SECONDS INR 1.65 APTT 33.9 (26.9-38.3) Seconds pO2 (30-55) mm/Hg VBG pH (7.32-7.43) VBG pCO2 (40-60) VBG HCO3 (21-28) mmol/l VBG Total CO2 (22-28) mmol.L VBG O2 Sat (Calc) (40-65) % VBG Base Excess (0.0-2.0) mmol/L VBG Potassium (3.6-5.2) mmol/L Glucose (75-110) mg/dl Lactate (0.7-2.1) mmol/L FiO2 % Crit Value Called To Crit Value Called By Blood Gas Notified Time Sodium 137 (132-148) mmol/L Potassium 4.3 (3.6-5.0) mmol/L Chloride 101 (98-107) mmol/L Carbon Dioxide 25 (21-33) mmol/L Anion Gap 15 (10-20) BUN 31 H (7-21) mg/dL Creatinine 1.2 (0.8-1.5) mg/dl Est GFR ( Amer) > 60 Est GFR (Non-Af Amer) > 60 POC Glucose (mg/dL) (65-110) mg/dL Random Glucose 104 (70-110) mg/dL Calcium 8.9 (8.4-10.5) mg/dL Phosphorus 4.4 (2.5-4.5) mg/dL Magnesium 1.9 (1.7-2.2) mg/dL Total Bilirubin 0.8 (0.2-1.3) mg/dL GGT (8-78) U/L AST 244 H D (17-59) U/L ALT 177 H (7-56) U/L Alkaline Phosphatase 247 H D (38-126) U/L Lactate Dehydrogenase (333-699) U/L Total Creatine Kinase (35-230) U/L CK-MB (CK-2) (0.0-3.6) ng/mL CK-MB (CK-2) % Troponin I 0.02 ng/mL NT-Pro-B Natriuret Pep 945 H (0-450) pg/mL Total Protein 7.4 (5.8-8.3) g/dL Albumin 3.4 (3.0-4.8) g/dL Globulin 4.0 gm/dL Albumin/Globulin Ratio 0.8 L (1.1-1.8) Venous Blood Potassium (3.6-5.2) mmol/L Urine Color (YELLOW) Urine Appearance (CLEAR) Urine pH (4.7-8.0) Ur Specific [place] (1.005-1.035) Urine Protein (<30 mg/dL) mg/dL Urine Glucose (UA) (NEGATIVE) mg/dL Urine Ketones (NEGATIVE) mg/dL Urine Blood (NEGATIVE) Urine Nitrate (NEGATIVE) Urine Bilirubin (NEGATIVE) Urine Urobilinogen (<1 E.U./dL) E.U./dL Ur Leukocyte Esterase (NEGATIVE) Cyril/uL Urine RBC (0-2) /hpf Urine WBC (0-6) /hpf Ur Epithelial Cells (0-5) /hpf Urine Bacteria (NONE) /hpf Influenza Typ A,B (EIA) (NEGATIVE) 09/14/18 Range/Units 21:49 WBC (4.5-11.0) 10^3/uL RBC (3.5-6.1) 10^6/uL Hgb (14.0-18.0) g/dL Hct (42.0-52.0) % MCV (80.0-105.0) fl MCH (25.0-35.0) pg MCHC (31.0-37.0) g/dl RDW (11.5-14.5) % Plt Count (120.0-450.0) 10^3/uL MPV (7.0-11.0) fl Neut % (Auto) (50.0-68.0) % Lymph % (Auto) (22.0-35.0) % [place] % (Auto) (1.0-6.0) % Eos % (Auto) (1.5-5.0) % Baso % (Auto) (0.0-3.0) % Lymph # (Auto) (1.2-3.4) [place] # (Auto) (0.1-0.6) Eos # (Auto) (0.0-0.7) Baso # (Auto) (0.0-2.0) K/mm3 Absolute Neuts (auto) (1.4-6.5) Neutrophils % (Manual) (50.0-70.0) % Band Neutrophils % (0-2) % Lymphocytes % (Manual) (22.0-35.0) % Monocytes % (Manual) (1.0-6.0) % Metamyelocytes % % Platelet Evaluation (NORMAL) PT (9.4-12.5) SECONDS INR APTT (26.9-38.3) Seconds pO2 (30-55) mm/Hg VBG pH (7.32-7.43) VBG pCO2 (40-60) VBG HCO3 (21-28) mmol/l VBG Total CO2 (22-28) mmol.L VBG O2 Sat (Calc) (40-65) % VBG Base Excess (0.0-2.0) mmol/L VBG Potassium (3.6-5.2) mmol/L Glucose (75-110) mg/dl Lactate (0.7-2.1) mmol/L FiO2 % Crit Value Called To Crit Value Called By Blood Gas Notified Time Sodium (132-148) mmol/L Potassium (3.6-5.0) mmol/L Chloride (98-107) mmol/L Carbon Dioxide (21-33) mmol/L Anion Gap (10-20) BUN (7-21) mg/dL Creatinine (0.8-1.5) mg/dl Est GFR ( Amer) Est GFR (Non-Af Amer) POC Glucose (mg/dL) 95 (65-110) mg/dL Random Glucose (70-110) mg/dL Calcium (8.4-10.5) mg/dL Phosphorus (2.5-4.5) mg/dL Magnesium (1.7-2.2) mg/dL Total Bilirubin (0.2-1.3) mg/dL GGT (8-78) U/L AST (17-59) U/L ALT (7-56) U/L Alkaline Phosphatase (38-126) U/L Lactate Dehydrogenase (333-699) U/L Total Creatine Kinase (35-230) U/L CK-MB (CK-2) (0.0-3.6) ng/mL CK-MB (CK-2) % Troponin I ng/mL NT-Pro-B Natriuret Pep (0-450) pg/mL Total Protein (5.8-8.3) g/dL Albumin (3.0-4.8) g/dL Globulin gm/dL Albumin/Globulin Ratio (1.1-1.8) Venous Blood Potassium (3.6-5.2) mmol/L Urine Color (YELLOW) Urine Appearance (CLEAR) Urine pH (4.7-8.0) Ur Specific [place] (1.005-1.035) Urine Protein (<30 mg/dL) mg/dL Urine Glucose (UA) (NEGATIVE) mg/dL Urine Ketones (NEGATIVE) mg/dL Urine Blood (NEGATIVE) Urine Nitrate (NEGATIVE) Urine Bilirubin (NEGATIVE) Urine Urobilinogen (<1 E.U./dL) E.U./dL Ur Leukocyte Esterase (NEGATIVE) Cyril/uL Urine RBC (0-2) /hpf Urine WBC (0-6) /hpf Ur Epithelial Cells (0-5) /hpf Urine Bacteria (NONE) /hpf Influenza Typ A,B (EIA) (NEGATIVE) Laboratory Results - last 24 hr 09/14/18 09/14/18 09/14/18 21:49 21:56 21:56 WBC 35.9 H* RBC 3.25 L Hgb 9.8 L Hct 29.8 L MCV 91.7 MCH 30.2 MCHC 32.9 RDW 14.0 Plt Count 523 H MPV 8.2 Neut % (Auto) 90.8 H Lymph % (Auto) 5.3 L [place] % (Auto) 3.8 Eos % (Auto) 0.0 L Baso % (Auto) 0.1 Lymph # (Auto) 1.9 [place] # (Auto) 1.4 H Eos # (Auto) 0.0 Baso # (Auto) 0.03 Absolute Neuts (auto) 32.52 H Neutrophils % (Manual) 86 H Band Neutrophils % 3 H Lymphocytes % (Manual) 4 L Monocytes % (Manual) 5 Metamyelocytes % 2 Platelet Evaluation High PT 18.3 H INR 1.65 APTT 33.9 pO2 VBG pH VBG pCO2 VBG HCO3 VBG Total CO2 VBG O2 Sat (Calc) VBG Base Excess VBG Potassium Glucose Lactate FiO2 Crit Value Called To Crit Value Called By Blood Gas Notified Time Sodium Potassium Chloride Carbon Dioxide Anion Gap BUN Creatinine Est GFR ( Amer) Est GFR (Non-Af Amer) POC Glucose (mg/dL) 95 Random Glucose Calcium Phosphorus Magnesium Total Bilirubin GGT AST ALT Alkaline Phosphatase Lactate Dehydrogenase Total Creatine Kinase CK-MB (CK-2) CK-MB (CK-2) % Troponin I NT-Pro-B Natriuret Pep Total Protein Albumin Globulin Albumin/Globulin Ratio Venous Blood Potassium Urine Color Urine Appearance Urine pH Ur Specific [place] Urine Protein Urine Glucose (UA) Urine Ketones Urine Blood Urine Nitrate Urine Bilirubin Urine Urobilinogen Ur Leukocyte Esterase Urine RBC Urine WBC Ur Epithelial Cells Urine Bacteria Influenza Typ A,B (EIA) 09/14/18 09/14/18 09/14/18 21:56 21:56 22:01 WBC RBC Hgb Hct MCV MCH MCHC RDW Plt Count MPV Neut % (Auto) Lymph % (Auto) [place] % (Auto) Eos % (Auto) Baso % (Auto) Lymph # (Auto) [place] # (Auto) Eos # (Auto) Baso # (Auto) Absolute Neuts (auto) Neutrophils % (Manual) Band Neutrophils % Lymphocytes % (Manual) Monocytes % (Manual) Metamyelocytes % Platelet Evaluation PT INR APTT pO2 124 H VBG pH 7.49 H VBG pCO2 33.0 L VBG HCO3 25.1 VBG Total CO2 26.1 VBG O2 Sat (Calc) 100.4 H VBG Base Excess 2.2 H VBG Potassium 4.3 Glucose 100 Lactate 2.0 FiO2 21.0 Crit Value Called To Crit Value Called By Blood Gas Notified Time Sodium 137 137.0 Potassium 4.3 Chloride 101 104.0 Carbon Dioxide 25 Anion Gap 15 BUN 31 H Creatinine 1.2 Est GFR ( Amer) > 60 Est GFR (Non-Af Amer) > 60 POC Glucose (mg/dL) Random Glucose 104 Calcium 8.9 Phosphorus 4.4 Magnesium 1.9 Total Bilirubin 0.8 GGT AST 244 H D ALT 177 H Alkaline Phosphatase 247 H D Lactate Dehydrogenase 1064 H Total Creatine Kinase 505 H CK-MB (CK-2) 3.9 H CK-MB (CK-2) % Cancelled Troponin I 0.02 NT-Pro-B Natriuret Pep 945 H Total Protein 7.4 Albumin 3.4 Globulin 4.0 Albumin/Globulin Ratio 0.8 L Venous Blood Potassium 4.3 Urine Color Urine Appearance Urine pH Ur Specific [place] Urine Protein Urine Glucose (UA) Urine Ketones Urine Blood Urine Nitrate Urine Bilirubin Urine Urobilinogen Ur Leukocyte Esterase Urine RBC Urine WBC Ur Epithelial Cells Urine Bacteria Influenza Typ A,B (EIA) 09/14/18 09/15/18 09/15/18 23:23 01:40 06:00 WBC RBC Hgb Hct MCV MCH MCHC RDW Plt Count MPV Neut % (Auto) Lymph % (Auto) [place] % (Auto) Eos % (Auto) Baso % (Auto) Lymph # (Auto) [place] # (Auto) Eos # (Auto) Baso # (Auto) Absolute Neuts (auto) Neutrophils % (Manual) Band Neutrophils % Lymphocytes % (Manual) Monocytes % (Manual) Metamyelocytes % Platelet Evaluation PT INR APTT pO2 34 VBG pH 7.35 VBG pCO2 44.0 VBG HCO3 24.3 VBG Total CO2 25.7 VBG O2 Sat (Calc) 68.3 H VBG Base Excess -1.5 L VBG Potassium 3.8 Glucose 94 Lactate 2.3 H FiO2 21.0 Crit Value Called To Lillian hoffman [employer] Crit Value Called By m Blood Gas Notified Time 202 Sodium 141.0 Potassium Chloride 109.0 H Carbon Dioxide Anion Gap BUN Creatinine Est GFR ( Amer) Est GFR (Non-Af Amer) POC Glucose (mg/dL) Random Glucose Calcium Phosphorus Magnesium Total Bilirubin GGT AST ALT Alkaline Phosphatase Lactate Dehydrogenase Total Creatine Kinase CK-MB (CK-2) CK-MB (CK-2) % Troponin I NT-Pro-B Natriuret Pep Total Protein Albumin Globulin Albumin/Globulin Ratio Venous Blood Potassium 3.8 Urine Color Yellow Urine Appearance Cloudy Urine pH 6.0 Ur Specific [place] 1.020 Urine Protein 30 H Urine Glucose (UA) Negative Urine Ketones Negative Urine Blood Large H Urine Nitrate Negative Urine Bilirubin Negative Urine Urobilinogen 1.0 H Ur Leukocyte Esterase Large H Urine RBC 1 - 3 H Urine WBC 15 - 20 H Ur Epithelial Cells 0 - 2 Urine Bacteria Many Influenza Typ A,B (EIA) Negative for flu a/b 09/15/18 07:00 WBC RBC Hgb Hct MCV MCH MCHC RDW Plt Count MPV Neut % (Auto) Lymph % (Auto) [place] % (Auto) Eos % (Auto) Baso % (Auto) Lymph # (Auto) [place] # (Auto) Eos # (Auto) Baso # (Auto) Absolute Neuts (auto) Neutrophils % (Manual) Band Neutrophils % Lymphocytes % (Manual) Monocytes % (Manual) Metamyelocytes % Platelet Evaluation PT INR APTT pO2 VBG pH VBG pCO2 VBG HCO3 VBG Total CO2 VBG O2 Sat (Calc) VBG Base Excess VBG Potassium Glucose Lactate FiO2 Crit Value Called To Crit Value Called By Blood Gas Notified Time Sodium Potassium Chloride Carbon Dioxide Anion Gap BUN Creatinine Est GFR ( Amer) Est GFR (Non-Af Amer) POC Glucose (mg/dL) Random Glucose Calcium Phosphorus Magnesium Total Bilirubin GGT 150 H AST ALT Alkaline Phosphatase Lactate Dehydrogenase 487 Total Creatine Kinase 640 H CK-MB (CK-2) CK-MB (CK-2) % Troponin I NT-Pro-B Natriuret Pep Total Protein Albumin Globulin Albumin/Globulin Ratio Venous Blood Potassium Urine Color Urine Appearance Urine pH Ur Specific [place] Urine Protein Urine Glucose (UA) Urine Ketones Urine Blood Urine Nitrate Urine Bilirubin Urine Urobilinogen Ur Leukocyte Esterase Urine RBC Urine WBC Ur Epithelial Cells Urine Bacteria Influenza Typ A,B (EIA) EKG/Cardiology Studies: Cardiology / EKG Studies 09/15/18 07:00 EKG [ELECTROCARDIOGRAM] DAILY Comment: Reason For Exam: r/o demand ischemia 09/15/18 22:03 EKG [ELECTROCARDIOGRAM] Stat Comment: Reason For Exam: general weakness Critical Care Progress Note - Nutrition Nutrition: Nutrition Category Date Time Status NPO Diet [DIET] Diets 09/15/18 Breakfast Ordered Assessment/Plan - Assessment and Plan (Free Text) Assessment: Patient is a 47 year old male with PMHx [employer] shunt 2/2 Fall (07/19/18), Brain Injury causing intracranial hemorrhage, Seizure disorder (1000mg keppra), Dysphagia, PEG tube, hypophonic voice presenting to the hospital for cough for one day duration and altered mental status. Patient admitted to ICU for septic shock 2/2 UTI vs stage IV decubitus ulcer complicated by multi organ dysfunction including GEORGINA, ALI and lactic acidosis. Plan: Septic Shock 2/2 UTI vs stage IV ulcer complicated by multi organ dysfunction (GEORGINA, ALI, lactic acidosis) - AMS likely 2/2 metabolic encephalopathy due to sepsis - hx of chronic [place] cath as well as stage IV decubitus ulcer - afebrile, elevated WBC - continue merrem, vancomycin day 1 - continue acyclovir day 1 to cover for encephalitis - flu negative, procalc pending - ID on consult, Dr. Albright - currently on levophed at 8 mcg/hr - continue NS @ 100cc/hr - maintain MAP > 65 - echo pending - blood, sputum, urine, wound cultures pending, c diff toxin/antigen pending - UA +blood, large LE, 15-20 wbc, many bacteria - CXR shows no acute findings per my read, f/u official read - Neuro is on consult (Dr. Peterson) - Neurointensivist is on consult (Dr. Siegel) - Surgery is on consult for sacral ulcer (Dr. Reardon) - Seizure precautions, aspiration precautions, fall precautions Post-ictal state 2/2 seizure, meningitis/encephalitis - Hx APP[employer] shunt, Brain injury causing ICH, seizure disorder - Continue Keppra 500mg IV BID - EEG pending - ativan 1mg q6 prn Hx of PEG tube -will resume PEG tube feedings, goal of 45cc/hr, flushes 500cc q12h -ALI likely 2/2 shock liver, monitor LFT's -GI on consult, Dr. Emmanuel -CT abd/pelvix pending -hepatitis panel pending DVT ppx: SCD GI ppx: PTX Patient seen and case discussed with attending, Dr. Fuentes <Gautam Fuentes - Last Filed: 09/15/18 10:16> CCU Objective - Vital Signs / Intake & Output Vital Signs (Last 4 hours): Vital Signs Temp Pulse Resp BP Pulse Ox 09/15/18 09:26 91 H 09/15/18 07:46 98.1 F 91 H 19 103/66 100 09/15/18 07:40 98.1 F 92 H 14 100 09/15/18 07:30 98.1 F 96 H 17 107/61 100 09/15/18 07:20 97.9 F 88 20 100 09/15/18 07:15 97.9 F 89 16 102/64 100 09/15/18 07:10 97.9 F 90 17 100 09/15/18 07:00 97.9 F 87 18 101/61 100 09/15/18 06:50 97.9 F 91 H 21 100 09/15/18 06:45 97.9 F 88 18 105/64 100 09/15/18 06:40 97.9 F 92 H 19 100 09/15/18 06:30 97.9 F 91 H 16 107/64 100 09/15/18 06:20 97.7 F 95 H 18 100 09/15/18 06:15 97.7 F 94 H 20 101/64 100 Intake and Output (Last 8hrs): Intake & Output 09/14/18 09/15/18 09/15/18 22:59 06:59 14:59 Intake Total 215 Output Total 0 Balance 215 Weight 104 lb 100 lb 1.6 oz Intake: IV 215 Right Femoral 200 Output: Urine 0 Condom 0 - Medications Active Medications: Active Medications Generic Name Dose Route Start Last Admin Trade Name Freq PRN Reason Stop Dose Admin NOREPINEPHRINE BIT/0.9 % NACL 4 mg in 250 mls @ 15 mls/hr 09/15/18 00:22 09/15/18 05:00 Levophed 4 Mg/ 250 Ml Ns Premixed IV 8 mcg/min .[id number] PRN 30 mls/hr TITRATE PER MD ORDER Titration Protocol 4 MCG/MIN Sodium Chloride 1,000 mls @ 100 mls/hr 09/15/18 00:30 09/15/18 05:00 Sodium Chloride 0.9% IV 100 mls/hr .Q10H KEYON Administration Meropenem 1 gm in 50 mls @ 100 mls/hr 09/15/18 06:00 09/15/18 05:08 Merrem Iv 1 Gm Premix IVPB 09/22/18 06:01 100 mls/hr Q8 KEYON Administration Protocol Levetiracetam 500 mg in 100 mls @ 400 mls/hr 09/15/18 10:00 09/15/18 09:08 Keppra 500mg Ivpb IV 400 mls/hr Q12 KEYON Administration Acyclovir 450 mg/ Sodium 100 mls @ 100 mls/hr 09/15/18 07:00 09/15/18 09:01 Chloride IV 100 mls/hr Q8 KEYON Administration Protocol Vancomycin HCl 750 mg in 250 mls @ 167 mls/hr 09/15/18 09:06 Vancomycin 750 Mg In Ns IVPB 0000,1200 KEYON Protocol Lorazepam 1 mg 09/15/18 04:04 Ativan IVP Q6H PRN Seizure activity Protocol Pantoprazole Sodium 40 mg 09/15/18 10:00 09/15/18 09:08 Protonix Inj IVP 40 mg DAILY KEYON Administration - Patient Studies Lab Studies: Lab Studies 09/15/18 09/15/18 09/15/18 Range/Units 07:00 06:00 01:40 WBC (4.5-11.0) 10^3/uL RBC (3.5-6.1) 10^6/uL Hgb (14.0-18.0) g/dL Hct (42.0-52.0) % MCV (80.0-105.0) fl MCH (25.0-35.0) pg MCHC (31.0-37.0) g/dl RDW (11.5-14.5) % Plt Count (120.0-450.0) 10^3/uL MPV (7.0-11.0) fl Neut % (Auto) (50.0-68.0) % Lymph % (Auto) (22.0-35.0) % [place] % (Auto) (1.0-6.0) % Eos % (Auto) (1.5-5.0) % Baso % (Auto) (0.0-3.0) % Lymph # (Auto) (1.2-3.4) [place] # (Auto) (0.1-0.6) Eos # (Auto) (0.0-0.7) Baso # (Auto) (0.0-2.0) K/mm3 Absolute Neuts (auto) (1.4-6.5) Neutrophils % (Manual) (50.0-70.0) % Band Neutrophils % (0-2) % Lymphocytes % (Manual) (22.0-35.0) % Monocytes % (Manual) (1.0-6.0) % Metamyelocytes % % Platelet Evaluation (NORMAL) PT (9.4-12.5) SECONDS INR APTT (26.9-38.3) Seconds pO2 34 (30-55) mm/Hg VBG pH 7.35 (7.32-7.43) VBG pCO2 44.0 (40-60) VBG HCO3 24.3 (21-28) mmol/l VBG Total CO2 25.7 (22-28) mmol.L VBG O2 Sat (Calc) 68.3 H (40-65) % VBG Base Excess -1.5 L (0.0-2.0) mmol/L VBG Potassium 3.8 (3.6-5.2) mmol/L Glucose 94 (75-110) mg/dl Lactate 2.3 H (0.7-2.1) mmol/L FiO2 21.0 % Crit Value Called To Lillian hoffman rn [facility] Crit Value Called By [facility] Blood Gas Notified Time 202 Sodium 141.0 (132-148) mmol/L Potassium (3.6-5.0) mmol/L Chloride 109.0 H (98-107) mmol/L Carbon Dioxide (21-33) mmol/L Anion Gap (10-20) BUN (7-21) mg/dL Creatinine (0.8-1.5) mg/dl Est GFR ( Amer) Est GFR (Non-Af Amer) POC Glucose (mg/dL) (65-110) mg/dL Random Glucose (70-110) mg/dL Calcium (8.4-10.5) mg/dL Phosphorus (2.5-4.5) mg/dL Magnesium (1.7-2.2) mg/dL Total Bilirubin (0.2-1.3) mg/dL GGT 150 H (8-78) U/L AST (17-59) U/L ALT (7-56) U/L Alkaline Phosphatase (38-126) U/L Lactate Dehydrogenase 487 (333-699) U/L Total Creatine Kinase 640 H (35-230) U/L CK-MB (CK-2) 7.5 H (0.0-3.6) ng/mL CK-MB (CK-2) % 1.2 L Troponin I 0.01 D ng/mL NT-Pro-B Natriuret Pep (0-450) pg/mL Total Protein (5.8-8.3) g/dL Albumin (3.0-4.8) g/dL Globulin gm/dL Albumin/Globulin Ratio (1.1-1.8) Venous Blood Potassium 3.8 (3.6-5.2) mmol/L Urine Color (YELLOW) Urine Appearance (CLEAR) Urine pH (4.7-8.0) Ur Specific [place] (1.005-1.035) Urine Protein (<30 mg/dL) mg/dL Urine Glucose (UA) (NEGATIVE) mg/dL Urine Ketones (NEGATIVE) mg/dL Urine Blood (NEGATIVE) Urine Nitrate (NEGATIVE) Urine Bilirubin (NEGATIVE) Urine Urobilinogen (<1 E.U./dL) E.U./dL Ur Leukocyte Esterase (NEGATIVE) Cyril/uL Urine RBC (0-2) /hpf Urine WBC (0-6) /hpf Ur Epithelial Cells (0-5) /hpf Urine Bacteria (NONE) /hpf Influenza Typ A,B (EIA) Negative for flu a/b (NEGATIVE) 09/14/18 09/14/18 09/14/18 Range/Units 23:23 22:01 21:56 WBC (4.5-11.0) 10^3/uL RBC (3.5-6.1) 10^6/uL Hgb (14.0-18.0) g/dL Hct (42.0-52.0) % MCV (80.0-105.0) fl MCH (25.0-35.0) pg MCHC (31.0-37.0) g/dl RDW (11.5-14.5) % Plt Count (120.0-450.0) 10^3/uL MPV (7.0-11.0) fl Neut % (Auto) (50.0-68.0) % Lymph % (Auto) (22.0-35.0) % [place] % (Auto) (1.0-6.0) % Eos % (Auto) (1.5-5.0) % Baso % (Auto) (0.0-3.0) % Lymph # (Auto) (1.2-3.4) [place] # (Auto) (0.1-0.6) Eos # (Auto) (0.0-0.7) Baso # (Auto) (0.0-2.0) K/mm3 Absolute Neuts (auto) (1.4-6.5) Neutrophils % (Manual) (50.0-70.0) % Band Neutrophils % (0-2) % Lymphocytes % (Manual) (22.0-35.0) % Monocytes % (Manual) (1.0-6.0) % Metamyelocytes % % Platelet Evaluation (NORMAL) PT (9.4-12.5) SECONDS INR APTT (26.9-38.3) Seconds pO2 124 H (30-55) mm/Hg VBG pH 7.49 H (7.32-7.43) VBG pCO2 33.0 L (40-60) VBG HCO3 25.1 (21-28) mmol/l VBG Total CO2 26.1 (22-28) mmol.L VBG O2 Sat (Calc) 100.4 H (40-65) % VBG Base Excess 2.2 H (0.0-2.0) mmol/L VBG Potassium 4.3 (3.6-5.2) mmol/L Glucose 100 (75-110) mg/dl Lactate 2.0 (0.7-2.1) mmol/L FiO2 21.0 % Crit Value Called To Crit Value Called By Blood Gas Notified Time Sodium 137.0 (132-148) mmol/L Potassium (3.6-5.0) mmol/L Chloride 104.0 (98-107) mmol/L Carbon Dioxide (21-33) mmol/L Anion Gap (10-20) BUN (7-21) mg/dL Creatinine (0.8-1.5) mg/dl Est GFR ( Amer) Est GFR (Non-Af Amer) POC Glucose (mg/dL) (65-110) mg/dL Random Glucose (70-110) mg/dL Calcium (8.4-10.5) mg/dL Phosphorus (2.5-4.5) mg/dL Magnesium (1.7-2.2) mg/dL Total Bilirubin (0.2-1.3) mg/dL GGT (8-78) U/L AST (17-59) U/L ALT (7-56) U/L Alkaline Phosphatase (38-126) U/L Lactate Dehydrogenase 1064 H (333-699) U/L Total Creatine Kinase 505 H (35-230) U/L CK-MB (CK-2) 3.9 H (0.0-3.6) ng/mL CK-MB (CK-2) % Cancelled Troponin I ng/mL NT-Pro-B Natriuret Pep (0-450) pg/mL Total Protein (5.8-8.3) g/dL Albumin (3.0-4.8) g/dL Globulin gm/dL Albumin/Globulin Ratio (1.1-1.8) Venous Blood Potassium 4.3 (3.6-5.2) mmol/L Urine Color Yellow (YELLOW) Urine Appearance Cloudy (CLEAR) Urine pH 6.0 (4.7-8.0) Ur Specific [place] 1.020 (1.005-1.035) Urine Protein 30 H (<30 mg/dL) mg/dL Urine Glucose (UA) Negative (NEGATIVE) mg/dL Urine Ketones Negative (NEGATIVE) mg/dL Urine Blood Large H (NEGATIVE) Urine Nitrate Negative (NEGATIVE) Urine Bilirubin Negative (NEGATIVE) Urine Urobilinogen 1.0 H (<1 E.U./dL) E.U./dL Ur Leukocyte Esterase Large H (NEGATIVE) Cyril/uL Urine RBC 1 - 3 H (0-2) /hpf Urine WBC 15 - 20 H (0-6) /hpf Ur Epithelial Cells 0 - 2 (0-5) /hpf Urine Bacteria Many (NONE) /hpf Influenza Typ A,B (EIA) (NEGATIVE) 09/14/18 09/14/18 09/14/18 Range/Units 21:56 21:56 21:56 WBC 35.9 H* (4.5-11.0) 10^3/uL RBC 3.25 L (3.5-6.1) 10^6/uL Hgb 9.8 L (14.0-18.0) g/dL Hct 29.8 L (42.0-52.0) % MCV 91.7 (80.0-105.0) fl MCH 30.2 (25.0-35.0) pg MCHC 32.9 (31.0-37.0) g/dl RDW 14.0 (11.5-14.5) % Plt Count 523 H (120.0-450.0) 10^3/uL MPV 8.2 (7.0-11.0) fl Neut % (Auto) 90.8 H (50.0-68.0) % Lymph % (Auto) 5.3 L (22.0-35.0) % [place] % (Auto) 3.8 (1.0-6.0) % Eos % (Auto) 0.0 L (1.5-5.0) % Baso % (Auto) 0.1 (0.0-3.0) % Lymph # (Auto) 1.9 (1.2-3.4) [place] # (Auto) 1.4 H (0.1-0.6) Eos # (Auto) 0.0 (0.0-0.7) Baso # (Auto) 0.03 (0.0-2.0) K/mm3 Absolute Neuts (auto) 32.52 H (1.4-6.5) Neutrophils % (Manual) 86 H (50.0-70.0) % Band Neutrophils % 3 H (0-2) % Lymphocytes % (Manual) 4 L (22.0-35.0) % Monocytes % (Manual) 5 (1.0-6.0) % Metamyelocytes % 2 % Platelet Evaluation High (NORMAL) PT 18.3 H (9.4-12.5) SECONDS INR 1.65 APTT 33.9 (26.9-38.3) Seconds pO2 (30-55) mm/Hg VBG pH (7.32-7.43) VBG pCO2 (40-60) VBG HCO3 (21-28) mmol/l VBG Total CO2 (22-28) mmol.L VBG O2 Sat (Calc) (40-65) % VBG Base Excess (0.0-2.0) mmol/L VBG Potassium (3.6-5.2) mmol/L Glucose (75-110) mg/dl Lactate (0.7-2.1) mmol/L FiO2 % Crit Value Called To Crit Value Called By Blood Gas Notified Time Sodium 137 (132-148) mmol/L Potassium 4.3 (3.6-5.0) mmol/L Chloride 101 (98-107) mmol/L Carbon Dioxide 25 (21-33) mmol/L Anion Gap 15 (10-20) BUN 31 H (7-21) mg/dL Creatinine 1.2 (0.8-1.5) mg/dl Est GFR ( Amer) > 60 Est GFR (Non-Af Amer) > 60 POC Glucose (mg/dL) (65-110) mg/dL Random Glucose 104 (70-110) mg/dL Calcium 8.9 (8.4-10.5) mg/dL Phosphorus 4.4 (2.5-4.5) mg/dL Magnesium 1.9 (1.7-2.2) mg/dL Total Bilirubin 0.8 (0.2-1.3) mg/dL GGT (8-78) U/L AST 244 H D (17-59) U/L ALT 177 H (7-56) U/L Alkaline Phosphatase 247 H D (38-126) U/L Lactate Dehydrogenase (333-699) U/L Total Creatine Kinase (35-230) U/L CK-MB (CK-2) (0.0-3.6) ng/mL CK-MB (CK-2) % Troponin I 0.02 ng/mL NT-Pro-B Natriuret Pep 945 H (0-450) pg/mL Total Protein 7.4 (5.8-8.3) g/dL Albumin 3.4 (3.0-4.8) g/dL Globulin 4.0 gm/dL Albumin/Globulin Ratio 0.8 L (1.1-1.8) Venous Blood Potassium (3.6-5.2) mmol/L Urine Color (YELLOW) Urine Appearance (CLEAR) Urine pH (4.7-8.0) Ur Specific [place] (1.005-1.035) Urine Protein (<30 mg/dL) mg/dL Urine Glucose (UA) (NEGATIVE) mg/dL Urine Ketones (NEGATIVE) mg/dL Urine Blood (NEGATIVE) Urine Nitrate (NEGATIVE) Urine Bilirubin (NEGATIVE) Urine Urobilinogen (<1 E.U./dL) E.U./dL Ur Leukocyte Esterase (NEGATIVE) Cyril/uL Urine RBC (0-2) /hpf Urine WBC (0-6) /hpf Ur Epithelial Cells (0-5) /hpf Urine Bacteria (NONE) /hpf Influenza Typ A,B (EIA) (NEGATIVE) 09/14/18 Range/Units 21:49 WBC (4.5-11.0) 10^3/uL RBC (3.5-6.1) 10^6/uL Hgb (14.0-18.0) g/dL Hct (42.0-52.0) % MCV (80.0-105.0) fl MCH (25.0-35.0) pg MCHC (31.0-37.0) g/dl RDW (11.5-14.5) % Plt Count (120.0-450.0) 10^3/uL MPV (7.0-11.0) fl Neut % (Auto) (50.0-68.0) % Lymph % (Auto) (22.0-35.0) % [place] % (Auto) (1.0-6.0) % Eos % (Auto) (1.5-5.0) % Baso % (Auto) (0.0-3.0) % Lymph # (Auto) (1.2-3.4) [place] # (Auto) (0.1-0.6) Eos # (Auto) (0.0-0.7) Baso # (Auto) (0.0-2.0) K/mm3 Absolute Neuts (auto) (1.4-6.5) Neutrophils % (Manual) (50.0-70.0) % Band Neutrophils % (0-2) % Lymphocytes % (Manual) (22.0-35.0) % Monocytes % (Manual) (1.0-6.0) % Metamyelocytes % % Platelet Evaluation (NORMAL) PT (9.4-12.5) SECONDS INR APTT (26.9-38.3) Seconds pO2 (30-55) mm/Hg VBG pH (7.32-7.43) VBG pCO2 (40-60) VBG HCO3 (21-28) mmol/l VBG Total CO2 (22-28) mmol.L VBG O2 Sat (Calc) (40-65) % VBG Base Excess (0.0-2.0) mmol/L VBG Potassium (3.6-5.2) mmol/L Glucose (75-110) mg/dl Lactate (0.7-2.1) mmol/L FiO2 % Crit Value Called To Crit Value Called By Blood Gas Notified Time Sodium (132-148) mmol/L Potassium (3.6-5.0) mmol/L Chloride (98-107) mmol/L Carbon Dioxide (21-33) mmol/L Anion Gap (10-20) BUN (7-21) mg/dL Creatinine (0.8-1.5) mg/dl Est GFR ( Amer) Est GFR (Non-Af Amer) POC Glucose (mg/dL) 95 (65-110) mg/dL Random Glucose (70-110) mg/dL Calcium (8.4-10.5) mg/dL Phosphorus (2.5-4.5) mg/dL Magnesium (1.7-2.2) mg/dL Total Bilirubin (0.2-1.3) mg/dL GGT (8-78) U/L AST (17-59) U/L ALT (7-56) U/L Alkaline Phosphatase (38-126) U/L Lactate Dehydrogenase (333-699) U/L Total Creatine Kinase (35-230) U/L CK-MB (CK-2) (0.0-3.6) ng/mL CK-MB (CK-2) % Troponin I ng/mL NT-Pro-B Natriuret Pep (0-450) pg/mL Total Protein (5.8-8.3) g/dL Albumin (3.0-4.8) g/dL Globulin gm/dL Albumin/Globulin Ratio (1.1-1.8) Venous Blood Potassium (3.6-5.2) mmol/L Urine Color (YELLOW) Urine Appearance (CLEAR) Urine pH (4.7-8.0) Ur Specific [place] (1.005-1.035) Urine Protein (<30 mg/dL) mg/dL Urine Glucose (UA) (NEGATIVE) mg/dL Urine Ketones (NEGATIVE) mg/dL Urine Blood (NEGATIVE) Urine Nitrate (NEGATIVE) Urine Bilirubin (NEGATIVE) Urine Urobilinogen (<1 E.U./dL) E.U./dL Ur Leukocyte Esterase (NEGATIVE) Cyril/uL Urine RBC (0-2) /hpf Urine WBC (0-6) /hpf Ur Epithelial Cells (0-5) /hpf Urine Bacteria (NONE) /hpf Influenza Typ A,B (EIA) (NEGATIVE) Laboratory Results - last 24 hr 09/14/18 09/14/18 09/14/18 21:49 21:56 21:56 WBC 35.9 H* RBC 3.25 L Hgb 9.8 L Hct 29.8 L MCV 91.7 MCH 30.2 MCHC 32.9 RDW 14.0 Plt Count 523 H MPV 8.2 Neut % (Auto) 90.8 H Lymph % (Auto) 5.3 L [place] % (Auto) 3.8 Eos % (Auto) 0.0 L Baso % (Auto) 0.1 Lymph # (Auto) 1.9 [place] # (Auto) 1.4 H Eos # (Auto) 0.0 Baso # (Auto) 0.03 Absolute Neuts (auto) 32.52 H Neutrophils % (Manual) 86 H Band Neutrophils % 3 H Lymphocytes % (Manual) 4 L Monocytes % (Manual) 5 Metamyelocytes % 2 Platelet Evaluation High PT 18.3 H INR 1.65 APTT 33.9 pO2 VBG pH VBG pCO2 VBG HCO3 VBG Total CO2 VBG O2 Sat (Calc) VBG Base Excess VBG Potassium Glucose Lactate FiO2 Crit Value Called To Crit Value Called By Blood Gas Notified Time Sodium Potassium Chloride Carbon Dioxide Anion Gap BUN Creatinine Est GFR ( Amer) Est GFR (Non-Af Amer) POC Glucose (mg/dL) 95 Random Glucose Calcium Phosphorus Magnesium Total Bilirubin GGT AST ALT Alkaline Phosphatase Lactate Dehydrogenase Total Creatine Kinase CK-MB (CK-2) CK-MB (CK-2) % Troponin I NT-Pro-B Natriuret Pep Total Protein Albumin Globulin Albumin/Globulin Ratio Venous Blood Potassium Urine Color Urine Appearance Urine pH Ur Specific [place] Urine Protein Urine Glucose (UA) Urine Ketones Urine Blood Urine Nitrate Urine Bilirubin Urine Urobilinogen Ur Leukocyte Esterase Urine RBC Urine WBC Ur Epithelial Cells Urine Bacteria Influenza Typ A,B (EIA) 09/14/18 09/14/18 09/14/18 21:56 21:56 22:01 WBC RBC Hgb Hct MCV MCH MCHC RDW Plt Count MPV Neut % (Auto) Lymph % (Auto) [place] % (Auto) Eos % (Auto) Baso % (Auto) Lymph # (Auto) [place] # (Auto) Eos # (Auto) Baso # (Auto) Absolute Neuts (auto) Neutrophils % (Manual) Band Neutrophils % Lymphocytes % (Manual) Monocytes % (Manual) Metamyelocytes % Platelet Evaluation PT INR APTT pO2 124 H VBG pH 7.49 H VBG pCO2 33.0 L VBG HCO3 25.1 VBG Total CO2 26.1 VBG O2 Sat (Calc) 100.4 H VBG Base Excess 2.2 H VBG Potassium 4.3 Glucose 100 Lactate 2.0 FiO2 21.0 Crit Value Called To Crit Value Called By Blood Gas Notified Time Sodium 137 137.0 Potassium 4.3 Chloride 101 104.0 Carbon Dioxide 25 Anion Gap 15 BUN 31 H Creatinine 1.2 Est GFR ( Amer) > 60 Est GFR (Non-Af Amer) > 60 POC Glucose (mg/dL) Random Glucose 104 Calcium 8.9 Phosphorus 4.4 Magnesium 1.9 Total Bilirubin 0.8 GGT AST 244 H D ALT 177 H Alkaline Phosphatase 247 H D Lactate Dehydrogenase 1064 H Total Creatine Kinase 505 H CK-MB (CK-2) 3.9 H CK-MB (CK-2) % Cancelled Troponin I 0.02 NT-Pro-B Natriuret Pep 945 H Total Protein 7.4 Albumin 3.4 Globulin 4.0 Albumin/Globulin Ratio 0.8 L Venous Blood Potassium 4.3 Urine Color Urine Appearance Urine pH Ur Specific [place] Urine Protein Urine Glucose (UA) Urine Ketones Urine Blood Urine Nitrate Urine Bilirubin Urine Urobilinogen Ur Leukocyte Esterase Urine RBC Urine WBC Ur Epithelial Cells Urine Bacteria Influenza Typ A,B (EIA) 09/14/18 09/15/18 09/15/18 23:23 01:40 06:00 WBC RBC Hgb Hct MCV MCH MCHC RDW Plt Count MPV Neut % (Auto) Lymph % (Auto) [place] % (Auto) Eos % (Auto) Baso % (Auto) Lymph # (Auto) [place] # (Auto) Eos # (Auto) Baso # (Auto) Absolute Neuts (auto) Neutrophils % (Manual) Band Neutrophils % Lymphocytes % (Manual) Monocytes % (Manual) Metamyelocytes % Platelet Evaluation PT INR APTT pO2 34 VBG pH 7.35 VBG pCO2 44.0 VBG HCO3 24.3 VBG Total CO2 25.7 VBG O2 Sat (Calc) 68.3 H VBG Base Excess -1.5 L VBG Potassium 3.8 Glucose 94 Lactate 2.3 H FiO2 21.0 Crit Value Called To Lillian hoffman [employer] Crit Value Called By Sherrill Blood Gas Notified Time 202 Sodium 141.0 Potassium Chloride 109.0 H Carbon Dioxide Anion Gap BUN Creatinine Est GFR ( Amer) Est GFR (Non-Af Amer) POC Glucose (mg/dL) Random Glucose Calcium Phosphorus Magnesium Total Bilirubin GGT AST ALT Alkaline Phosphatase Lactate Dehydrogenase Total Creatine Kinase CK-MB (CK-2) CK-MB (CK-2) % Troponin I NT-Pro-B Natriuret Pep Total Protein Albumin Globulin Albumin/Globulin Ratio Venous Blood Potassium 3.8 Urine Color Yellow Urine Appearance Cloudy Urine pH 6.0 Ur Specific [place] 1.020 Urine Protein 30 H Urine Glucose (UA) Negative Urine Ketones Negative Urine Blood Large H Urine Nitrate Negative Urine Bilirubin Negative Urine Urobilinogen 1.0 H Ur Leukocyte Esterase Large H Urine RBC 1 - 3 H Urine WBC 15 - 20 H Ur Epithelial Cells 0 - 2 Urine Bacteria Many Influenza Typ A,B (EIA) Negative for flu a/b 09/15/18 07:00 WBC RBC Hgb Hct MCV MCH MCHC RDW Plt Count MPV Neut % (Auto) Lymph % (Auto) [place] % (Auto) Eos % (Auto) Baso % (Auto) Lymph # (Auto) [place] # (Auto) Eos # (Auto) Baso # (Auto) Absolute Neuts (auto) Neutrophils % (Manual) Band Neutrophils % Lymphocytes % (Manual) Monocytes % (Manual) Metamyelocytes % Platelet Evaluation PT INR APTT pO2 VBG pH VBG pCO2 VBG HCO3 VBG Total CO2 VBG O2 Sat (Calc) VBG Base Excess VBG Potassium Glucose Lactate FiO2 Crit Value Called To Crit Value Called By Blood Gas Notified Time Sodium Potassium Chloride Carbon Dioxide Anion Gap BUN Creatinine Est GFR ( Amer) Est GFR (Non-Af Amer) POC Glucose (mg/dL) Random Glucose Calcium Phosphorus Magnesium Total Bilirubin GGT 150 H AST ALT Alkaline Phosphatase Lactate Dehydrogenase 487 Total Creatine Kinase 640 H CK-MB (CK-2) 7.5 H CK-MB (CK-2) % 1.2 L Troponin I 0.01 D NT-Pro-B Natriuret Pep Total Protein Albumin Globulin Albumin/Globulin Ratio Venous Blood Potassium Urine Color Urine Appearance Urine pH Ur Specific [place] Urine Protein Urine Glucose (UA) Urine Ketones Urine Blood Urine Nitrate Urine Bilirubin Urine Urobilinogen Ur Leukocyte Esterase Urine RBC Urine WBC Ur Epithelial Cells Urine Bacteria Influenza Typ A,B (EIA) Radiology Impressions: Radiology Impressions Chest X-Ray 09/14/18 21:29 IMPRESSION: No active disease. Head CT 09/14/18 21:47 IMPRESSION: No acute intracranial findings. No change in hydrocephalus. No change in left cerebellar encephalomalacia EKG/Cardiology Studies: Cardiology / EKG Studies 09/15/18 07:00 EKG [ELECTROCARDIOGRAM] DAILY Comment: Reason For Exam: r/o demand ischemia 09/15/18 22:03 EKG [ELECTROCARDIOGRAM] Stat Comment: Reason For Exam: general weakness Attending/Attestation - Attestation I have personally seen and examined this patient.: Yes I have fully participated in the care of the patient.: Yes I have reviewed all pertinent clinical information: Yes Notes (Text): 09/15/18 10:12 The patient was seen and examined at the bedside. Patient care was discussed with resident Medical records, lab studies were reviewed and management issues were discussed and formulated. 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
--- NOTE | 2018-09-15 08:35 | CT ---
Date of service: 09/14/2018 PROCEDURE: CT HEAD WITHOUT CONTRAST. 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 Radiation dose: Total exam DLP = 864.12 mGy-cm. This CT exam was performed using one or more of the following dose reduction techniques: Automated exposure control, adjustment of the mA and/or kV according to patient size, and/or use of iterative reconstruction technique. FINDINGS: HEMORRHAGE: No intracranial hemorrhage. BRAIN: No mass effect or edema. Chronic encephalomalacia is seen in the left cerebellar hemisphere. VENTRICLES: There is severe hydrocephalus which is unchanged. A ventricular shunt catheter is unchanged in position. CALVARIUM: Unremarkable. PARANASAL SINUSES: Unremarkable as visualized. No significant inflammatory changes. MASTOID AIR CELLS: Unremarkable as visualized. No inflammatory changes. OTHER FINDINGS: The report concurs with the preliminary [facility] report IMPRESSION: No acute intracranial findings. No change in hydrocephalus. No change in left cerebellar encephalomalacia
[2018-09-15 08:46] LABS: CK MB% 1.2 % (2.5-3.0); CK-MB 7.5 ng/mL (0.0-3.6)
[2018-09-15] MEDS: Acyclovir 450 MG in Sodium Chloride 0.9% 100 ML IV SCH ×3 (09:01→22:16)
[2018-09-15] MEDS: levETIRAcetam 500mg IVPB 500 MG/100 ML BAG IV SCH ×2 (09:08→22:20)
--- NOTE | 2018-09-15 09:39 | CP.PCM.CON ---
History of Present Illness - History of Present Illness History of Present Illness: Surgery consult note, Dr Mcintosh Re: Sacral decubitis ulcer 47M presented to ED with productive cough . Family was not present for surgical rounds and unable to obtain history from patient because of previous brain injury. Code sepsis was called in ED, patient had altered mental status compared to normal baseline, patient was admitted to CCU. Patient has a 3x3cm grade 4 sacral decubitis ulcer. There is minor bloody/serus leakage from superficial wounds on the scrotum. ROS unable to obtain due to patient's condition PMHX: (from previous records) Brain Injury causing intracranial hemorrhage, Seizure disorder, Dysphagia, PEG tube, hypophonic voice, Hydrocephalus s/p [employer] shunt (07/19/18) PShX: (from previous records) Craniotomy x2 (02/2018) Medications: Keppra, tylenol, Zofran, nephrovite All: NKDA Sochx: unattainable FamHx: non-contributory Past Patient History - Past Medical History & Family History Past Medical History?: Yes - Past Social History Smoking Status: Never Smoked - CARDIAC Hx Cardiac Disorders: No - PULMONARY Hx Respiratory Disorders: No - NEUROLOGICAL Hx Neurological Disorder: No - HEENT Hx HEENT Problems: No - RENAL Hx Chronic Kidney Disease: No - ENDOCRINE/METABOLIC Hx Endocrine Disorders: No - HEMATOLOGICAL/ONCOLOGICAL Hx Blood Disorders: No Hx AIDS: No - INTEGUMENTARY Hx Dermatological Problems: No - MUSCULOSKELETAL/RHEUMATOLOGICAL Hx Musculoskeletal Disorders: No Hx Falls: No - GASTROINTESTINAL Hx Gastrointestinal Disorders: No Hx Bowel Surgery: Yes (peg tube) - GENITOURINARY/GYNECOLOGICAL Hx Genitourinary Disorders: Yes Hx Incontinence: Yes - PSYCHIATRIC Hx Psychophysiologic Disorder: No Hx Substance Use: No - SURGICAL HISTORY Other/Comment: craniotomyx2 - ANESTHESIA Hx Anesthesia: Yes Hx Anesthesia Reactions: No Hx Malignant Hyperthermia: No Meds Allergies/Adverse Reactions: Allergies Allergy/AdvReac Type Severity Reaction Status Date / Time No Known Allergies Allergy Verified 07/12/18 11:57 - Medications Medications: Current Medications NOREPINEPHRINE BIT/0.9 % NACL (Levophed 4 Mg/ 250 Ml Ns Premixed) 4 mg in 250 mls @ 15 mls/hr IV .[id number] PRN; Protocol PRN Reason: TITRATE PER MD ORDER Last Titration: 09/15/18 05:00 Dose: 8 mcg/min, 30 mls/hr Sodium Chloride (Sodium Chloride 0.9%) 1,000 mls @ 100 mls/hr IV .Q10H KEYON Last Admin: 09/15/18 05:00 Dose: 100 mls/hr Meropenem (Merrem Iv 1 Gm Premix) 1 gm in 50 mls @ 100 mls/hr IVPB Q8 KEYON; Protocol Stop: 09/22/18 06:01 Last Admin: 09/15/18 05:08 Dose: 100 mls/hr Levetiracetam (Keppra 500mg Ivpb) 500 mg in 100 mls @ 400 mls/hr IV Q12 KEYON Last Admin: 09/15/18 09:08 Dose: 400 mls/hr Acyclovir 450 mg/ Sodium (Chloride) 100 mls @ 100 mls/hr IV Q8 KEYON; Protocol Last Admin: 09/15/18 09:01 Dose: 100 mls/hr Vancomycin HCl (Vancomycin 750 Mg In Ns) 750 mg in 250 mls @ 167 mls/hr IVPB 0000,1200 KEYON; Protocol Lorazepam (Ativan) 1 mg IVP Q6H PRN; Protocol PRN Reason: Seizure activity Pantoprazole Sodium (Protonix Inj) 40 mg IVP DAILY KEYON Last Admin: 09/15/18 09:08 Dose: 40 mg Physical Exam - Constitutional Appears: Confused, Cachectic, Chronically Ill - Head Exam Head Exam: ATRAUMATIC, NORMAL INSPECTION, NORMOCEPHALIC - ENT Exam ENT Exam: Mucous Membranes Dry - Neck Exam Neck exam: Positive for: Normal Inspection - Respiratory Exam Respiratory Exam: Clear to Auscultation Bilateral, NORMAL BREATHING PATTERN - Cardiovascular Exam Cardiovascular Exam: RRR, +S1, +S2 - GI/Abdominal Exam GI & Abdominal Exam: Normal Bowel Sounds, Soft. absent: Tenderness - Back Exam Additional comments: stage 4 sacral decubitus ulcer with minimal ischar at the edge and pink tissue in ulcer base - Neurological Exam Neurological exam: Altered - Skin Additional comments: sacral decubitus ulcer Results - Vital Signs Recent Vital Signs: Last Vital Signs Temp 98.1 F 09/15/18 07:46 Pulse 91 H 09/15/18 07:46 Resp 19 09/15/18 07:46 BP 103/66 09/15/18 07:46 Pulse Ox 100 09/15/18 07:46 - Labs Result Diagrams: 09/15/18 09:45 09/15/18 09:45 Labs: Laboratory Results - last 24 hr 09/14/18 09/14/18 09/14/18 21:49 21:56 21:56 WBC 35.9 H* RBC 3.25 L Hgb 9.8 L Hct 29.8 L MCV 91.7 MCH 30.2 MCHC 32.9 RDW 14.0 Plt Count 523 H MPV 8.2 Neut % (Auto) 90.8 H Lymph % (Auto) 5.3 L [place] % (Auto) 3.8 Eos % (Auto) 0.0 L Baso % (Auto) 0.1 Lymph # (Auto) 1.9 [place] # (Auto) 1.4 H Eos # (Auto) 0.0 Baso # (Auto) 0.03 Absolute Neuts (auto) 32.52 H Neutrophils % (Manual) 86 H Band Neutrophils % 3 H Lymphocytes % (Manual) 4 L Monocytes % (Manual) 5 Metamyelocytes % 2 Platelet Evaluation High PT 18.3 H INR 1.65 APTT 33.9 pO2 VBG pH VBG pCO2 VBG HCO3 VBG Total CO2 VBG O2 Sat (Calc) VBG Base Excess VBG Potassium Glucose Lactate FiO2 Crit Value Called To Crit Value Called By Blood Gas Notified Time Sodium Potassium Chloride Carbon Dioxide Anion Gap BUN Creatinine Est GFR ( Amer) Est GFR (Non-Af Amer) POC Glucose (mg/dL) 95 Random Glucose Calcium Phosphorus Magnesium Total Bilirubin GGT AST ALT Alkaline Phosphatase Lactate Dehydrogenase Total Creatine Kinase CK-MB (CK-2) CK-MB (CK-2) % Troponin I NT-Pro-B Natriuret Pep Total Protein Albumin Globulin Albumin/Globulin Ratio Venous Blood Potassium Urine Color Urine Appearance Urine pH Ur Specific [place] Urine Protein Urine Glucose (UA) Urine Ketones Urine Blood Urine Nitrate Urine Bilirubin Urine Urobilinogen Ur Leukocyte Esterase Urine RBC Urine WBC Ur Epithelial Cells Urine Bacteria Influenza Typ A,B (EIA) 09/14/18 09/14/18 09/14/18 21:56 21:56 22:01 WBC RBC Hgb Hct MCV MCH MCHC RDW Plt Count MPV Neut % (Auto) Lymph % (Auto) [place] % (Auto) Eos % (Auto) Baso % (Auto) Lymph # (Auto) [place] # (Auto) Eos # (Auto) Baso # (Auto) Absolute Neuts (auto) Neutrophils % (Manual) Band Neutrophils % Lymphocytes % (Manual) Monocytes % (Manual) Metamyelocytes % Platelet Evaluation PT INR APTT pO2 124 H VBG pH 7.49 H VBG pCO2 33.0 L VBG HCO3 25.1 VBG Total CO2 26.1 VBG O2 Sat (Calc) 100.4 H VBG Base Excess 2.2 H VBG Potassium 4.3 Glucose 100 Lactate 2.0 FiO2 21.0 Crit Value Called To Crit Value Called By Blood Gas Notified Time Sodium 137 137.0 Potassium 4.3 Chloride 101 104.0 Carbon Dioxide 25 Anion Gap 15 BUN 31 H Creatinine 1.2 Est GFR ( Amer) > 60 Est GFR (Non-Af Amer) > 60 POC Glucose (mg/dL) Random Glucose 104 Calcium 8.9 Phosphorus 4.4 Magnesium 1.9 Total Bilirubin 0.8 GGT AST 244 H D ALT 177 H Alkaline Phosphatase 247 H D Lactate Dehydrogenase 1064 H Total Creatine Kinase 505 H CK-MB (CK-2) 3.9 H CK-MB (CK-2) % Cancelled Troponin I 0.02 NT-Pro-B Natriuret Pep 945 H Total Protein 7.4 Albumin 3.4 Globulin 4.0 Albumin/Globulin Ratio 0.8 L Venous Blood Potassium 4.3 Urine Color Urine Appearance Urine pH Ur Specific [place] Urine Protein Urine Glucose (UA) Urine Ketones Urine Blood Urine Nitrate Urine Bilirubin Urine Urobilinogen Ur Leukocyte Esterase Urine RBC Urine WBC Ur Epithelial Cells Urine Bacteria Influenza Typ A,B (EIA) 09/14/18 09/15/18 09/15/18 23:23 01:40 06:00 WBC RBC Hgb Hct MCV MCH MCHC RDW Plt Count MPV Neut % (Auto) Lymph % (Auto) [place] % (Auto) Eos % (Auto) Baso % (Auto) Lymph # (Auto) [place] # (Auto) Eos # (Auto) Baso # (Auto) Absolute Neuts (auto) Neutrophils % (Manual) Band Neutrophils % Lymphocytes % (Manual) Monocytes % (Manual) Metamyelocytes % Platelet Evaluation PT INR APTT pO2 34 VBG pH 7.35 VBG pCO2 44.0 VBG HCO3 24.3 VBG Total CO2 25.7 VBG O2 Sat (Calc) 68.3 H VBG Base Excess -1.5 L VBG Potassium 3.8 Glucose 94 Lactate 2.3 H FiO2 21.0 Crit Value Called To Lillian hoffman rn ccu Crit Value Called By Sherrill Blood Gas Notified Time 202 Sodium 141.0 Potassium Chloride 109.0 H Carbon Dioxide Anion Gap BUN Creatinine Est GFR ( Amer) Est GFR (Non-Af Amer) POC Glucose (mg/dL) Random Glucose Calcium Phosphorus Magnesium Total Bilirubin GGT AST ALT Alkaline Phosphatase Lactate Dehydrogenase Total Creatine Kinase CK-MB (CK-2) CK-MB (CK-2) % Troponin I NT-Pro-B Natriuret Pep Total Protein Albumin Globulin Albumin/Globulin Ratio Venous Blood Potassium 3.8 Urine Color Yellow Urine Appearance Cloudy Urine pH 6.0 Ur Specific [place] 1.020 Urine Protein 30 H Urine Glucose (UA) Negative Urine Ketones Negative Urine Blood Large H Urine Nitrate Negative Urine Bilirubin Negative Urine Urobilinogen 1.0 H Ur Leukocyte Esterase Large H Urine RBC 1 - 3 H Urine WBC 15 - 20 H Ur Epithelial Cells 0 - 2 Urine Bacteria Many Influenza Typ A,B (EIA) Negative for flu a/b 09/15/18 07:00 WBC RBC Hgb Hct MCV MCH MCHC RDW Plt Count MPV Neut % (Auto) Lymph % (Auto) [place] % (Auto) Eos % (Auto) Baso % (Auto) Lymph # (Auto) [place] # (Auto) Eos # (Auto) Baso # (Auto) Absolute Neuts (auto) Neutrophils % (Manual) Band Neutrophils % Lymphocytes % (Manual) Monocytes % (Manual) Metamyelocytes % Platelet Evaluation PT INR APTT pO2 VBG pH VBG pCO2 VBG HCO3 VBG Total CO2 VBG O2 Sat (Calc) VBG Base Excess VBG Potassium Glucose Lactate FiO2 Crit Value Called To Crit Value Called By Blood Gas Notified Time Sodium Potassium Chloride Carbon Dioxide Anion Gap BUN Creatinine Est GFR ( Amer) Est GFR (Non-Af Amer) POC Glucose (mg/dL) Random Glucose Calcium Phosphorus Magnesium Total Bilirubin GGT 150 H AST ALT Alkaline Phosphatase Lactate Dehydrogenase 487 Total Creatine Kinase 640 H CK-MB (CK-2) 7.5 H CK-MB (CK-2) % 1.2 L Troponin I 0.01 D NT-Pro-B Natriuret Pep Total Protein Albumin Globulin Albumin/Globulin Ratio Venous Blood Potassium Urine Color Urine Appearance Urine pH Ur Specific [place] Urine Protein Urine Glucose (UA) Urine Ketones Urine Blood Urine Nitrate Urine Bilirubin Urine Urobilinogen Ur Leukocyte Esterase Urine RBC Urine WBC Ur Epithelial Cells Urine Bacteria Influenza Typ A,B (EIA) Assessment & Plan - Assessment and Plan (Free Text) Assessment: 47 y/o male admitted for septic shock, found to have stage 4 sacral decubitus ulcer Plan: -wound care -air mattress, turn q2, dakin -MRI if concerned about osteomyelitis -continue management per primary team -further recs per surgical attending Dr. Arnaldo Strauss, DO
--- NOTE | 2018-09-15 09:43 | RAD ---
Date of service: 09/14/2018 HISTORY: Sepsis Patient COMPARISON: No prior. FINDINGS: LUNGS: No active pulmonary disease. PLEURA: No significant pleural effusion identified, no pneumothorax apparent. CARDIOVASCULAR: No aortic atherosclerotic calcification present. Normal cardiac size. No pulmonary vascular congestion. OSSEOUS STRUCTURES: No significant abnormalities. VISUALIZED UPPER ABDOMEN: Normal. OTHER FINDINGS: Right IJ line terminates in the right atrium. There is no pneumothorax IMPRESSION: No active disease.
[2018-09-15] MEDS ORDERED: Vancomycin 1gm in NS 250ml 1 GM/250 ML BAG IVPB SCH (10:00)
[2018-09-15] MEDS ORDERED: MethylPREDNISolone 40 mg Vial IVP SCH (10:00)
[2018-09-15 10:03] LABS: BASO # 0.02 K/mm3 (0.0-2.0); BASO % 0.1 % (0.0-3.0); EOS % 0.1 % (1.5-5.0); HEMOGLOBIN 8.4 g/dL (14.0-18.0); LYMPH # 1.1 (1.2-3.4); LYMPH % 3.5 % (22.0-35.0); MEAN CELL VOLUME 91.9 fl (80.0-105.0); MEAN CORPUSCULAR HEMOGLOBIN 29.6 pg (25.0-35.0); MEAN CORPUSCULAR HGB CONC 32.2 g/dl (31.0-37.0); MEAN PLATELET VOLUME 8.3 fl (7.0-11.0); MONO # 0.6 (0.1-0.6); MONO % 1.9 % (1.0-6.0); RBC 2.84 10^6/uL (3.5-6.1)
--- NOTE | 2018-09-15 10:11 | CP.PCM.CON ---
<Ramone Chacon - Last Filed: 09/15/18 09:37> History of Present Illness - History of Present Illness History of Present Illness: GI Consult Note for Dr. Emmanuel Reason for Consultation: Transaminitis Patient is a 47 yo M with PMH of hydrocephalus s/p SIGHTSEEING GUIDE shunt (07/2018), ICH, seizures, dysphagia 2/2 PEG tube, and hypophonic voice presents to [facility] [place] initially due to persistent cough and altered mental status. Patient was found to be in septic shock with multiorgan dysfunction 2/2 UTI vs stage IV decubitus ulcer. History was obtained through chart review as patient is non-verbal. GI is con sulted due to elevated liver enzymes. Patient is also noted to have diarrhea. History is significant for coagulase negative staph bacteremia assocaited with his SIGHTSEEING GUIDE shunt. ROS limited 2/2 to patient's current mental status. PMH: as above Surg: Craniotomy x2, SIGHTSEEING GUIDE shunt, IVC filter, PEG tube All: NKDA SH: unable to obtain FHx: unable to obtain Review of Systems - Review of Systems Systems not reviewed;Unavailable: Altered Mental Status Past Patient History - Past Medical History & Family History Past Medical History?: Yes - Past Social History Smoking Status: Never Smoked - CARDIAC Hx Cardiac Disorders: No - PULMONARY Hx Respiratory Disorders: No - NEUROLOGICAL Hx Neurological Disorder: No - HEENT Hx HEENT Problems: No - RENAL Hx Chronic Kidney Disease: No - ENDOCRINE/METABOLIC Hx Endocrine Disorders: No - HEMATOLOGICAL/ONCOLOGICAL Hx Blood Disorders: No Hx AIDS: No - INTEGUMENTARY Hx Dermatological Problems: No - MUSCULOSKELETAL/RHEUMATOLOGICAL Hx Musculoskeletal Disorders: No Hx Falls: No - GASTROINTESTINAL Hx Gastrointestinal Disorders: No Hx Bowel Surgery: Yes (peg tube) - GENITOURINARY/GYNECOLOGICAL Hx Genitourinary Disorders: Yes Hx Incontinence: Yes - PSYCHIATRIC Hx Psychophysiologic Disorder: No Hx Substance Use: No - SURGICAL HISTORY Other/Comment: craniotomyx2 - ANESTHESIA Hx Anesthesia: Yes Hx Anesthesia Reactions: No Hx Malignant Hyperthermia: No Meds Allergies/Adverse Reactions: Allergies Allergy/AdvReac Type Severity Reaction Status Date / Time No Known Allergies Allergy Verified 07/12/18 11:57 - Medications Medications: Current Medications NOREPINEPHRINE BIT/0.9 % NACL (Levophed 4 Mg/ 250 Ml Ns Premixed) 4 mg in 250 mls @ 15 mls/hr IV .[id number] PRN; Protocol PRN Reason: TITRATE PER MD ORDER Last Titration: 09/15/18 05:00 Dose: 8 mcg/min, 30 mls/hr Sodium Chloride (Sodium Chloride 0.9%) 1,000 mls @ 100 mls/hr IV .Q10H KEYON Last Admin: 09/15/18 05:00 Dose: 100 mls/hr Meropenem (Merrem Iv 1 Gm Premix) 1 gm in 50 mls @ 100 mls/hr IVPB Q8 KEYON; Protocol Stop: 09/22/18 06:01 Last Admin: 09/15/18 05:08 Dose: 100 mls/hr Levetiracetam (Keppra 500mg Ivpb) 500 mg in 100 mls @ 400 mls/hr IV Q12 KEYON Last Admin: 09/15/18 09:08 Dose: 400 mls/hr Acyclovir 450 mg/ Sodium (Chloride) 100 mls @ 100 mls/hr IV Q8 KEYON; Protocol Last Admin: 09/15/18 09:01 Dose: 100 mls/hr Vancomycin HCl (Vancomycin 750 Mg In Ns) 750 mg in 250 mls @ 167 mls/hr IVPB 0000,1200 KEYON; Protocol Lorazepam (Ativan) 1 mg IVP Q6H PRN; Protocol PRN Reason: Seizure activity Pantoprazole Sodium (Protonix Inj) 40 mg IVP DAILY KEYON Last Admin: 09/15/18 09:08 Dose: 40 mg Physical Exam - Constitutional Appears: No Acute Distress - Head Exam Head Exam: NORMAL INSPECTION - Eye Exam Eye Exam: Normal appearance - ENT Exam ENT Exam: Mucous Membranes Moist, Normal Exam - Neck Exam Neck exam: Positive for: Normal Inspection - Respiratory Exam Respiratory Exam: Clear to Auscultation Bilateral. absent: Rales, Rhonchi, Wheezes - Cardiovascular Exam Cardiovascular Exam: RRR, +S1, +S2. absent: Diastolic murmur, Gallop, Rubs, Systolic Murmur - GI/Abdominal Exam GI & Abdominal Exam: Soft. absent: Distended, Guarding, Rebound, Tenderness Additional comments: tube extending from neck, chest, and abdomen under skin, consistent with SIGHTSEEING GUIDE shunt - Extremities Exam Extremities exam: Positive for: normal inspection - Back Exam Additional comments: stage IV decubitus ulcer - Neurological Exam Neurological exam: Altered - Skin Skin Exam: Normal Color, Warm Results - Vital Signs Recent Vital Signs: Last Vital Signs Temp 98.1 F 09/15/18 07:46 Pulse 91 H 09/15/18 09:26 Resp 19 09/15/18 07:46 BP 103/66 09/15/18 07:46 Pulse Ox 100 09/15/18 07:46 - Labs Result Diagrams: 09/14/18 21:56 09/14/18 21:56 Labs: Laboratory Results - last 24 hr 09/14/18 09/14/18 09/14/18 21:49 21:56 21:56 WBC 35.9 H* RBC 3.25 L Hgb 9.8 L Hct 29.8 L MCV 91.7 MCH 30.2 MCHC 32.9 RDW 14.0 Plt Count 523 H MPV 8.2 Neut % (Auto) 90.8 H Lymph % (Auto) 5.3 L [place] % (Auto) 3.8 Eos % (Auto) 0.0 L Baso % (Auto) 0.1 Lymph # (Auto) 1.9 [place] # (Auto) 1.4 H Eos # (Auto) 0.0 Baso # (Auto) 0.03 Absolute Neuts (auto) 32.52 H Neutrophils % (Manual) 86 H Band Neutrophils % 3 H Lymphocytes % (Manual) 4 L Monocytes % (Manual) 5 Metamyelocytes % 2 Platelet Evaluation High PT 18.3 H INR 1.65 APTT 33.9 pO2 VBG pH VBG pCO2 VBG HCO3 VBG Total CO2 VBG O2 Sat (Calc) VBG Base Excess VBG Potassium Glucose Lactate FiO2 Crit Value Called To Crit Value Called By Blood Gas Notified Time Sodium Potassium Chloride Carbon Dioxide Anion Gap BUN Creatinine Est GFR ( Amer) Est GFR (Non-Af Amer) POC Glucose (mg/dL) 95 Random Glucose Calcium Phosphorus Magnesium Total Bilirubin GGT AST ALT Alkaline Phosphatase Lactate Dehydrogenase Total Creatine Kinase CK-MB (CK-2) CK-MB (CK-2) % Troponin I NT-Pro-B Natriuret Pep Total Protein Albumin Globulin Albumin/Globulin Ratio Venous Blood Potassium Urine Color Urine Appearance Urine pH Ur Specific [place] Urine Protein Urine Glucose (UA) Urine Ketones Urine Blood Urine Nitrate Urine Bilirubin Urine Urobilinogen Ur Leukocyte Esterase Urine RBC Urine WBC Ur Epithelial Cells Urine Bacteria Influenza Typ A,B (EIA) 09/14/18 09/14/1819 21:56 21:56 22:01 WBC RBC Hgb Hct MCV MCH MCHC RDW Plt Count MPV Neut % (Auto) Lymph % (Auto) [place] % (Auto) Eos % (Auto) Baso % (Auto) Lymph # (Auto) [place] # (Auto) Eos # (Auto) Baso # (Auto) Absolute Neuts (auto) Neutrophils % (Manual) Band Neutrophils % Lymphocytes % (Manual) Monocytes % (Manual) Metamyelocytes % Platelet Evaluation PT INR APTT pO2 124 H VBG pH 7.49 H VBG pCO2 33.0 L VBG HCO3 25.1 VBG Total CO2 26.1 VBG O2 Sat (Calc) 100.4 H VBG Base Excess 2.2 H VBG Potassium 4.3 Glucose 100 Lactate 2.0 FiO2 21.0 Crit Value Called To Crit Value Called By Blood Gas Notified Time Sodium 137 137.0 Potassium 4.3 Chloride 101 104.0 Carbon Dioxide 25 Anion Gap 15 BUN 31 H Creatinine 1.2 Est GFR ( Amer) > 60 Est GFR (Non-Af Amer) > 60 POC Glucose (mg/dL) Random Glucose 104 Calcium 8.9 Phosphorus 4.4 Magnesium 1.9 Total Bilirubin 0.8 GGT AST 244 H D ALT 177 H Alkaline Phosphatase 247 H D Lactate Dehydrogenase 1064 H Total Creatine Kinase 505 H CK-MB (CK-2) 3.9 H CK-MB (CK-2) % Cancelled Troponin I 0.02 NT-Pro-B Natriuret Pep 945 H Total Protein 7.4 Albumin 3.4 Globulin 4.0 Albumin/Globulin Ratio 0.8 L Venous Blood Potassium 4.3 Urine Color Urine Appearance Urine pH Ur Specific [place] Urine Protein Urine Glucose (UA) Urine Ketones Urine Blood Urine Nitrate Urine Bilirubin Urine Urobilinogen Ur Leukocyte Esterase Urine RBC Urine WBC Ur Epithelial Cells Urine Bacteria Influenza Typ A,B (EIA) 09/14/18 09/15/18 09/15/18 23:23 01:40 06:00 WBC RBC Hgb Hct MCV MCH MCHC RDW Plt Count MPV Neut % (Auto) Lymph % (Auto) [place] % (Auto) Eos % (Auto) Baso % (Auto) Lymph # (Auto) [place] # (Auto) Eos # (Auto) Baso # (Auto) Absolute Neuts (auto) Neutrophils % (Manual) Band Neutrophils % Lymphocytes % (Manual) Monocytes % (Manual) Metamyelocytes % Platelet Evaluation PT INR APTT pO2 34 VBG pH 7.35 VBG pCO2 44.0 VBG HCO3 24.3 VBG Total CO2 25.7 VBG O2 Sat (Calc) 68.3 H VBG Base Excess -1.5 L VBG Potassium 3.8 Glucose 94 Lactate 2.3 H FiO2 21.0 Crit Value 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 Crit Value Called By [facility] Blood Gas Notified Time 202 Sodium 141.0 Potassium Chloride 109.0 H Carbon Dioxide Anion Gap BUN Creatinine Est GFR ( Amer) Est GFR (Non-Af Amer) POC Glucose (mg/dL) Random Glucose Calcium Phosphorus Magnesium Total Bilirubin GGT AST ALT Alkaline Phosphatase Lactate Dehydrogenase Total Creatine Kinase CK-MB (CK-2) CK-MB (CK-2) % Troponin I NT-Pro-B Natriuret Pep Total Protein Albumin Globulin Albumin/Globulin Ratio Venous Blood Potassium 3.8 Urine Color Yellow Urine Appearance Cloudy Urine pH 6.0 Ur Specific [place] 1.020 Urine Protein 30 H Urine Glucose (UA) Negative Urine Ketones Negative Urine Blood Large H Urine Nitrate Negative Urine Bilirubin Negative Urine Urobilinogen 1.0 H Ur Leukocyte Esterase Large H Urine RBC 1 - 3 H Urine WBC 15 - 20 H Ur Epithelial Cells 0 - 2 Urine Bacteria Many Influenza Typ A,B (EIA) Negative for flu a/b 09/15/18 07:00 WBC RBC Hgb Hct MCV MCH MCHC RDW Plt Count MPV Neut % (Auto) Lymph % (Auto) [place] % (Auto) Eos % (Auto) Baso % (Auto) Lymph # (Auto) [place] # (Auto) Eos # (Auto) Baso # (Auto) Absolute Neuts (auto) Neutrophils % (Manual) Band Neutrophils % Lymphocytes % (Manual) Monocytes % (Manual) Metamyelocytes % Platelet Evaluation PT INR APTT pO2 VBG pH VBG pCO2 VBG HCO3 VBG Total CO2 VBG O2 Sat (Calc) VBG Base Excess VBG Potassium Glucose Lactate FiO2 Crit Value Called To Crit Value Called By Blood Gas Notified Time Sodium Potassium Chloride Carbon Dioxide Anion Gap BUN Creatinine Est GFR ( Amer) Est GFR (Non-Af Amer) POC Glucose (mg/dL) Random Glucose Calcium Phosphorus Magnesium Total Bilirubin GGT 150 H AST ALT Alkaline Phosphatase Lactate Dehydrogenase 487 Total Creatine Kinase 640 H CK-MB (CK-2) 7.5 H CK-MB (CK-2) % 1.2 L Troponin I 0.01 D NT-Pro-B Natriuret Pep Total Protein Albumin Globulin Albumin/Globulin Ratio Venous Blood Potassium Urine Color Urine Appearance Urine pH Ur Specific [place] Urine Protein Urine Glucose (UA) Urine Ketones Urine Blood Urine Nitrate Urine Bilirubin Urine Urobilinogen Ur Leukocyte Esterase Urine RBC Urine WBC Ur Epithelial Cells Urine Bacteria Influenza Typ A,B (EIA) Assessment & Plan - Assessment and Plan (Free Text) Assessment: 47 yo F with PMH of hydrocephalus s/p SIGHTSEEING GUIDE shunt (07/2018), ICH, seizures, dysphagia 2/2 PEG tube, and hypophonic voice is admitted to [facility] [place] for septic shock with MODS. GI consulted due to elevated liver enzymes. Transaminitis likely due hypoperfusion in the setting of septic shock. 1. Septic Shock with MODS 2/2 UTI vs sacral decub vs SIGHTSEEING GUIDE associated bacteremia 2. Transaminitis likely 2/2 hypoperfusion 3. Diarrhea 4. Stage IV sacral decubitus 5. UTI 6. Hydrocephalus s/p SIGHTSEEING GUIDE shunt 7. PEG tube Plan: - Cont trend LFTs - F/u C. diff - F/u CT C/A/P - F/u Abdomen US - F/u Hepatitis panel - IV abx per ID - Further medical management per primary/ID/neuro Patient discussed with Dr. Emmanuel. Santosh Chacon DO PGY2 <Arianne Emmanuel V - Last Filed: 09/16/18 00:07> Meds - Medications Medications: Current Medications NOREPINEPHRINE BIT/0.9 % NACL (Levophed 4 Mg/ 250 Ml Ns Premixed) 4 mg in 250 mls @ 15 mls/hr IV .[id number] PRN; Protocol PRN Reason: TITRATE PER MD ORDER Last Admin: 09/15/18 11:28 Dose: 8 mcg/min, 30 mls/hr Sodium Chloride (Sodium Chloride 0.9%) 1,000 mls @ 100 mls/hr IV .Q10H KEYON Last Admin: 09/15/18 05:00 Dose: 100 mls/hr Meropenem (Merrem Iv 1 Gm Premix) 1 gm in 50 mls @ 100 mls/hr IVPB Q8 KEYON; Protocol Stop: 09/22/18 06:01 Last Admin: 09/15/18 22:15 Dose: 100 mls/hr Levetiracetam (Keppra 500mg Ivpb) 500 mg in 100 mls @ 400 mls/hr IV Q12 KEYON Last Admin: 09/15/18 22:20 Dose: 400 mls/hr Acyclovir 450 mg/ Sodium (Chloride) 100 mls @ 100 mls/hr IV Q8 KEYON; Protocol Last Admin: 09/15/18 22:16 Dose: 100 mls/hr Vancomycin HCl (Vancomycin 750 Mg In Ns) 750 mg in 250 mls @ 167 mls/hr IVPB 0000,1200 KEYON; Protocol Last Admin: 09/15/18 11:26 Dose: 167 mls/hr Lorazepam (Ativan) 1 mg IVP Q6H PRN; Protocol PRN Reason: Seizure activity Pantoprazole Sodium (Protonix Inj) 40 mg IVP DAILY KEYON Last Admin: 09/15/18 09:08 Dose: 40 mg Sodium Hypochlorite (Dakins Solution 0.5%) 0 ml TOP DAILY KEYON Last Admin: 09/15/18 13:07 Dose: 1 deloris Results - Vital Signs Recent Vital Signs: Last Vital Signs Temp 99.0 F 09/15/18 20:00 Pulse 94 H 09/15/18 20:00 Resp 13 09/15/18 20:00 BP 92/49 L 09/15/18 20:00 Pulse Ox 100 09/15/18 20:00 - Labs Result Diagrams: 09/15/18 09:45 09/15/18 09:45 Labs: Laboratory Results - last 24 hr 09/14/18 09/15/18 09/15/18 21:56 01:40 01:40 WBC RBC Hgb Hct MCV MCH MCHC RDW Plt Count MPV Neut % (Auto) Lymph % (Auto) [place] % (Auto) Eos % (Auto) Baso % (Auto) Lymph # (Auto) [place] # (Auto) Eos # (Auto) Baso # (Auto) Absolute Neuts (auto) pO2 34 VBG pH 7.35 VBG pCO2 44.0 VBG HCO3 24.3 VBG Total CO2 25.7 VBG O2 Sat (Calc) 68.3 H VBG Base Excess -1.5 L VBG Potassium 3.8 Sodium 141.0 Chloride 109.0 H Glucose 94 Lactate 2.3 H FiO2 21.0 Crit Value Called To Lillian hoffman rn ccu Crit Value Called By [facility] Blood Gas Notified Time 202 Potassium Carbon Dioxide Anion Gap BUN Creatinine Est GFR ( Amer) Est GFR (Non-Af Amer) Random Glucose Calcium Total Bilirubin GGT AST ALT Alkaline Phosphatase Lactate Dehydrogenase 1064 H Total Creatine Kinase 505 H CK-MB (CK-2) 3.9 H CK-MB (CK-2) % Cancelled Troponin I Total Protein Albumin Globulin Albumin/Globulin Ratio Procalcitonin > 200.00 H Venous Blood Potassium 3.8 Hepatitis A IgM Ab Hep Bs Antigen Hep B Core IgM Ab Hepatitis C Antibody Influenza Typ A,B (EIA) 09/15/18 09/15/18 09/15/18 06:00 07:00 09:45 WBC RBC Hgb Hct MCV MCH MCHC RDW Plt Count MPV Neut % (Auto) Lymph % (Auto) [place] % (Auto) Eos % (Auto) Baso % (Auto) Lymph # (Auto) [place] # (Auto) Eos # (Auto) Baso # (Auto) Absolute Neuts (auto) pO2 VBG pH VBG pCO2 VBG HCO3 VBG Total CO2 VBG O2 Sat (Calc) VBG Base Excess VBG Potassium Sodium 142 Chloride 111 H Glucose Lactate FiO2 Crit Value Called To Crit Value Called By Blood Gas Notified Time Potassium 3.0 L Carbon Dioxide 23 Anion Gap 11 BUN 21 Creatinine 0.8 Est GFR ( Amer) > 60 Est GFR (Non-Af Amer) > 60 Random Glucose 93 Calcium 8.4 Total Bilirubin 0.5 GGT 150 H AST 110 H D ALT 112 H Alkaline Phosphatase 193 H D Lactate Dehydrogenase 487 445 Total Creatine Kinase 640 H 592 H CK-MB (CK-2) 7.5 H 7.2 H CK-MB (CK-2) % 1.2 L Troponin I 0.01 D 0.01 Total Protein 6.2 Albumin 2.7 L Globulin 3.5 Albumin/Globulin Ratio 0.8 L Procalcitonin Venous Blood Potassium Hepatitis A IgM Ab Hep Bs Antigen Hep B Core IgM Ab Hepatitis C Antibody Influenza Typ A,B (EIA) Negative for flu a/b 09/15/18 09/15/18 09:45 09:45 WBC 30.5 H* RBC 2.84 L Hgb 8.4 L Hct 26.1 L MCV 91.9 MCH 29.6 MCHC 32.2 RDW 14.0 Plt Count 508 H MPV 8.3 Neut % (Auto) 94.4 H Lymph % (Auto) 3.5 L [place] % (Auto) 1.9 Eos % (Auto) 0.1 L Baso % (Auto) 0.1 Lymph # (Auto) 1.1 L [place] # (Auto) 0.6 Eos # (Auto) 0.0 Baso # (Auto) 0.02 Absolute Neuts (auto) 28.79 H pO2 VBG pH VBG pCO2 VBG HCO3 VBG Total CO2 VBG O2 Sat (Calc) VBG Base Excess VBG Potassium Sodium Chloride Glucose Lactate FiO2 Crit Value Called To Crit Value Called By Blood Gas Notified Time Potassium Carbon Dioxide Anion Gap BUN Creatinine Est GFR ( Amer) Est GFR (Non-Af Amer) Random Glucose Calcium Total Bilirubin GGT AST ALT Alkaline Phosphatase Lactate Dehydrogenase Total Creatine Kinase CK-MB (CK-2) CK-MB (CK-2) % Troponin I Total Protein Albumin Globulin Albumin/Globulin Ratio Procalcitonin Venous Blood Potassium Hepatitis A IgM Ab Negative Hep Bs Antigen Negative Hep B Core IgM Ab Negative Hepatitis C Antibody Negative Influenza Typ A,B (EIA) Attending/Attestation - Attestation I have personally seen and examined this patient.: Yes I have fully participated in the care of the patient.: Yes I have reviewed all pertinent clinical information: Yes Notes (Text): morro 09/16/18 00:07
[2018-09-15 10:16] LABS: ALB/GLOB RATIO 0.8 (1.1-1.8); ALBUMIN 2.7 g/dL (3.0-4.8); ALT/SGPT 112 U/L (7-56); AST/SGOT 110 U/L (17-59); BLOOD UREA NITROGEN 21 mg/dL (7-21); CALCIUM 8.4 mg/dL (8.4-10.5); GFR NON-AFRICAN AMERICAN > 60
[2018-09-15 10:19] LABS: WHITE BLOOD COUNT 30.5 10^3/uL (4.5-11.0)
[2018-09-15] MEDS ORDERED: Potassium Chloride 20 mEq ER Tab PO STA (10:19)
[2018-09-15 10:26] LABS: TROPONIN I 0.01 ng/mL
--- NOTE | 2018-09-15 10:26 | CT ---
Date of service: 09/15/2018 PROCEDURE: CT Chest, Abdomen and Pelvis without intravenous contrast HISTORY: Septic shock, anemia. COMPARISON: September 15, 2018. Abdominal ultrasound. TECHNIQUE: Radiation dose: Total exam DLP = 400.58 mGy-cm. This CT exam was performed using one or more of the following dose reduction techniques: Automated exposure control, adjustment of the mA and/or kV according to patient size, and/or use of iterative reconstruction technique. FINDINGS: CT CHEST WITHOUT CONTRAST: LUNGS: Dependent atelectasis at the lung bases. No suspicious pulmonary nodules, masses or infiltrates. MEDIASTINUM: Unremarkable. Normal caliber aorta and pulmonary arterial trunk. Normal size heart. LYMPH NODES: Unremarkable. PLEURA: Unremarkable. No pneumothorax. No pleural fluid. BONES: Unremarkable. OTHER FINDINGS: None. CT ABDOMEN AND PELVIS: LIVER: Unremarkable. No gross lesion or ductal dilatation. GALLBLADDER AND BILE DUCTS: Unremarkable. PANCREAS: Unremarkable. No gross lesion or ductal dilatation. SPLEEN: Unremarkable. ADRENALS: Unremarkable. No mass. KIDNEYS AND URETERS: Bilateral nonobstructing calculi. None larger than 3.5 mm.. No hydronephrosis. No solid mass. VASCULATURE: No aortic atherosclerotic calcification or mural plaque present. Unremarkable. No aortic aneurysm. BOWEL: Unremarkable. No obstruction. No gross mural thickening. Rectal catheter identified. Constipation without fecal impaction or obstruction. Gastrostomy tube identified in satisfactory position. APPENDIX: Normal appendix. PERITONEUM: Unremarkable. No free fluid. No free air. LYMPH NODES: Unremarkable. No enlarged lymph nodes. BLADDER: Unremarkable. REPRODUCTIVE: Unremarkable. BONES: No acute fracture. OTHER FINDINGS: D[employer] shunt catheter identified. IVC filter identified. Vascular access catheter identified inserted via right common femoral vein. Catheter tip is in the distal SVC. IMPRESSION: No significant or acute findings to account for/ related to the clinical presentation. Additional benign and/or incidental findings described above.
[2018-09-15 10:36] LABS: CK-MB 7.2 ng/mL (0.0-3.6)
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
[2018-09-15] MEDS: Vancomycin 750mg 750 MG/250 ML BAG IVPB SCH ×2 (11:26→23:28)
--- NOTE | 2018-09-15 12:11 | US ---
Date of service: 09/15/2018 HISTORY: transaminitis COMPARISON: None. TECHNIQUE: Sonographic evaluation of the abdomen. FINDINGS: LIVER: Measures 19.1 cm. Hepatopedal blood flow. Fatty infiltration manifest ultrasonographically as increased echogenicity of the liver parenchyma. No mass. No intrahepatic bile duct dilatation. GALLBLADDER: Sludge identified, otherwise unremarkable. No gallstones. COMMON BILE DUCT: Measures 5.5 mm. No stones. No dilatation. PANCREAS: Unremarkable as visualized. No mass. No ductal dilatation. RIGHT KIDNEY: Measures 4.1 x 10.0cm. Normal echogenicity. No calculus, mass, or hydronephrosis. Incidental simple cyst lower pole 10 mm. LEFT KIDNEY: Measures 4.5 x 9.4 iscm. Normal echogenicity. No calculus, mass, or hydronephrosis. SPLEEN: Normal in size and contour. No mass. AORTA: No aneurysmal dilatation. IVC: Unremarkable. OTHER FINDINGS: None. IMPRESSION: No significant or acute findings to account for/ related to the clinical presentation. Nonvisualization of small calculi identified on concurrent CT. Tumefactive sludge identified
[2018-09-15] MEDS: Dakin's Topical 0.5%-Full Strength (480 ml) TOP SCH (13:07)
--- NOTE | 2018-09-15 15:31 | CARD ---
APPROVED REPORT Date of service: 09/15/2018 EKG Measurement Heart [id number] <Conclusion> Sinus tachycardia Nonspecific T wave abnormality Abnormal ECG
--- NOTE | 2018-09-15 16:18 | CP.PCM.PN ---
Subjective - Date & Time of Evaluation Date of Evaluation: 09/15/18 Time of Evaluation: 16:18 - Subjective Subjective: UTI - Septic shock on Levophed with coagulopathy would have no recommendations at this time/scenario Objective - Vital Signs/Intake and Output Vital Signs (last 24 hours): Temp Pulse Resp BP Pulse Ox 98.1 F 103 H 17 123/65 100 09/15/18 11:30 09/15/18 11:30 09/15/18 11:30 09/15/18 11:30 09/15/18 11:30 Intake and Output: 09/15/18 09/15/18 06:59 18:59 Intake Total 215 235 Output Total 0 Balance 215 235 - Medications Medications: Current Medications NOREPINEPHRINE BIT/0.9 % NACL (Levophed 4 Mg/ 250 Ml Ns Premixed) 4 mg in 250 mls @ 15 mls/hr IV .[id number] PRN; Protocol PRN Reason: TITRATE PER MD ORDER Last Admin: 09/15/18 11:28 Dose: 8 mcg/min, 30 mls/hr Sodium Chloride (Sodium Chloride 0.9%) 1,000 mls @ 100 mls/hr IV .Q10H KEYON Last Admin: 09/15/18 05:00 Dose: 100 mls/hr Meropenem (Merrem Iv 1 Gm Premix) 1 gm in 50 mls @ 100 mls/hr IVPB Q8 KEYON; Protocol Stop: 09/22/18 06:01 Last Admin: 09/15/18 13:06 Dose: 100 mls/hr Levetiracetam (Keppra 500mg Ivpb) 500 mg in 100 mls @ 400 mls/hr IV Q12 KEYON Last Admin: 09/15/18 09:08 Dose: 400 mls/hr Acyclovir 450 mg/ Sodium (Chloride) 100 mls @ 100 mls/hr IV Q8 KEYON; Protocol Last Admin: 09/15/18 14:07 Dose: 100 mls/hr Vancomycin HCl (Vancomycin 750 Mg In Ns) 750 mg in 250 mls @ 167 mls/hr IVPB 0000,1200 KEYON; Protocol Last Admin: 09/15/18 11:26 Dose: 167 mls/hr Lorazepam (Ativan) 1 mg IVP Q6H PRN; Protocol PRN Reason: Seizure activity Pantoprazole Sodium (Protonix Inj) 40 mg IVP DAILY KEYON Last Admin: 09/15/18 09:08 Dose: 40 mg Sodium Hypochlorite (Dakins Solution 0.5%) 0 ml TOP DAILY KEYON Last Admin: 09/15/18 13:07 Dose: 1 deloris - Labs Labs: 09/15/18 09:45 09/15/18 09:45 PT 18.3 SECONDS (9.4-12.5) H 09/14/18 21:56 INR 1.65 09/14/18 21:56 APTT 33.9 Seconds (26.9-38.3) 09/14/18 21:56
--- NOTE | 2018-09-15 16:21 | CARD ---
APPROVED REPORT Date of service: 09/15/2018 EXAM: Two-dimensional and M-mode echocardiogram with Doppler and color Doppler. INDICATION elevated bnp R/O HEART STRAIN CARDIOMYOPATHY 2D DIMENSIONS Left Atrium (2D)3.0 (1.6-4.0cm)IVSd1.1 (0.7-1.1cm) LVDd4.2 (3.9-5.9cm)PWd1.1 (0.7-1.1cm) LVDs2.7 (2.5-4.0cm)FS (%) 36.8 % LVEF (%)67.0 (>50%) M-Mode DIMENSIONS Aortic Root3.10 (2.2-3.7cm)Aortic Cusp Exc.2.00 (1.5-2.0cm) Aortic Valve AoV Peak Hiiaqllz039.0cm/Krish Peak GR.7mmHg Mitral Valve E/A ratio0.0 TDI E/Lateral E'0.0E/Medial E'0.0 Tricuspid Valve TR Peak [id number] [id number] Peak Gr.32mmHg [id number] LEFT VENTRICLE The left ventricle is normal size. There is normal left ventricular wall thickness. The left ventricular function is normal. The left ventricular ejection fraction is within the normal range. There is normal LV segmental wall motion. The left ventricular diastolic function is normal. RIGHT VENTRICLE The right ventricle is normal size. There is normal right ventricular wall thickness. The right ventricular systolic function is normal. ATRIA The left atrium size is normal. The right atrium size is normal. AORTIC VALVE The aortic valve is not well visualized. No aortic regurgitation is present. There is no aortic valvular stenosis. MITRAL VALVE The mitral valve is normal in structure. There is no mitral valve regurgitation noted. There is no mitral valve stenosis. TRICUSPID VALVE The tricuspid valve is normal in structure. There is mild tricuspid regurgitation. There is mild pulmonary hypertension. PULMONIC VALVE The pulmonary valve is normal in structure. There is trace pulmonic valvular regurgitation. GREAT VESSELS The aortic root is normal in size. The IVC is normal in size and collapses >50% with inspiration. PERICARDIAL EFFUSION There is no pericardial effusion. <Conclusion> There is normal left ventricular wall thickness. The left ventricular function is normal. The left ventricular ejection fraction is within the normal range. There is normal LV segmental wall motion. The left ventricular diastolic function is normal. There is mild tricuspid regurgitation. There is mild pulmonary hypertension.
[2018-09-15 16:39] LABS: HEPATITIS B SURFACE AG Negative (NEGATIVE)
[2018-09-15 16:44] LABS: HEPATITIS A IGM NEGATIVE (NEGATIVE); HEPATITIS B CORE AB NEGATIVE (NEGATIVE)
[2018-09-15 16:56] LABS: HEPATITIS C ANTIBODY NEGATIVE (NEGATIVE)
--- NOTE | 2018-09-15 17:32 | CARD ---
APPROVED REPORT Date of service: 09/14/2018 EKG Measurement Heart [id number] <Conclusion> Sinus tachycardia Left axis deviation Abnormal ECG
[2018-09-16] MEDS: Sodium Chloride 0.9% 1,000 ML IV SCH ×2 (00:53→15:44)
[2018-09-16] MEDS: Meropenem IV 1 gm in NS 1 GM/50 ML BAG IVPB SCH ×3 (05:39→21:19)
[2018-09-16] MEDS: Acyclovir 450 MG in Sodium Chloride 0.9% 100 ML IV SCH (05:43)
[2018-09-16 06:04] LABS: BASO # 0.03 K/mm3 (0.0-2.0); BASO % 0.1 % (0.0-3.0); EOS # 0.1 (0.0-0.7); EOS % 0.3 % (1.5-5.0); HEMOGLOBIN 9.7 g/dL (14.0-18.0); LYMPH # 1.7 (1.2-3.4); LYMPH % 6.4 % (22.0-35.0); MEAN CELL VOLUME 94.2 fl (80.0-105.0); MEAN CORPUSCULAR HEMOGLOBIN 29.6 pg (25.0-35.0); MEAN CORPUSCULAR HGB CONC 31.4 g/dl (31.0-37.0); MEAN PLATELET VOLUME 8.4 fl (7.0-11.0); MONO # 0.7 (0.1-0.6); MONO % 2.6 % (1.0-6.0); RBC 3.28 10^6/uL (3.5-6.1); RED CELL DISTRIBUTION WIDTH 14.3 % (11.5-14.5)
[2018-09-16 06:22] LABS: WHITE BLOOD COUNT 26.9 10^3/uL (4.5-11.0)
[2018-09-16 06:32] LABS: ARTERIAL BLOOD GAS HCO3 20.3 mmol/L (21-28); ARTERIAL BLOOD GAS O2 SAT 99.2 % (95-98); ARTERIAL BLOOD GAS PCO2 32 mm/Hg (35-45); ARTERIAL BLOOD GAS PH 7.41 (7.35-7.45); ARTERIAL BLOOD GAS TCO2 21.3 mmol.L (22-28)
[2018-09-16 06:37] LABS: ALB/GLOB RATIO 0.8 (1.1-1.8); ALBUMIN 2.9 g/dL (3.0-4.8); ALT/SGPT 87 U/L (7-56); AST/SGOT 80 U/L (17-59); BLOOD UREA NITROGEN 13 mg/dL (7-21); CALCIUM 8.8 mg/dL (8.4-10.5); GFR NON-AFRICAN AMERICAN > 60
[2018-09-16] MEDS: NOREPINEPHRINE BIT/0.9 % NACL 4 MG/250 ML BAG IV PRN (09:05)
[2018-09-16] MEDS: levETIRAcetam 500mg IVPB 500 MG/100 ML BAG IV SCH ×2 (09:06→21:21)
[2018-09-16] MEDS: Dakin's Topical 0.5%-Full Strength (480 ml) TOP SCH (09:07)
[2018-09-16 10:06] LABS: URINE BILIRUBIN NEGATIVE (NEGATIVE); URINE BLOOD NEGATIVE (NEGATIVE); URINE GLUCOSE (UA) NEGATIVE (NEGATIVE); URINE LEUKOCYTE ESTERASE SMALL Leu/uL (NEGATIVE); URINE PROTEIN NEGATIVE mg/dL (<30 mg/dL); URINE UROBILINOGEN 0.2 E.U./dL (<1 E.U./dL)
[2018-09-16 10:07] LABS: URINE APPEARANCE CLEAR (CLEAR); URINE COLOR YELLOW (YELLOW)
[2018-09-16 10:43] LABS: URINE AMORPHOUS SEDIMENT SMALL /hpf; URINE BACTERIA MANY /hpf
--- NOTE | 2018-09-16 11:46 | PN ---
DATE: 09/16/2018 SUBJECTIVE: The patient is awake, but still has altered mental status and respond to questions. The patient is on Levophed to support his blood pressure and has no respiratory distress on room air. The patient does have some upper extremity contractions secondary to traumatic brain injury and hydrocephalous. PHYSICAL EXAMINATION: VITAL SIGNS: His temperature is 97.2, pulse is 111, respirations of 21 and his BP is 95/64. O2 saturation is 100%. HEENT: Head is atraumatic, normocephalic. Eyes; reactive to light. Ears, nose, and throat seemed to be within normal limits. NECK: Supple. No JVD. No thyroid enlargement or lymph nodes. HEART: Has regular rate and rhythm. Normal S1, S2. LUNGS: Reveal decreased breath sounds at the bases. ABDOMEN: Soft. Decreased bowel sounds. GENITALIA: Deferred. RECTAL: Deferred. MUSCULOSKELETAL: Note that there is some upper extremity hand contractions. EXTREMITIES: Lower extremity 1+ edema. NEUROLOGIC: The patient has altered mental status and decreased function secondary to hydrocephalus and traumatic brain injury. LABORATORY DATA: As far as his laboratories are concerned; white count is 26.9, hemoglobin is 9.7, hematocrit 30.9 with platelets of 564,000. Sodium is 144, potassium 3.7, chloride 115, CO2 of 25. BUN of 13 with a creatinine of 0.5 and a glucose of 93. IMPRESSION: This patient has septic shock with a Gram-negative sepsis from urinary tract infection. 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 He has altered mental status as well as anemia. The patient does have upper extremity contractions. PLAN: We will continue with Levophed to support his blood pressure. The patient is getting some Ativan and is having a potassium given to correct his K. He is on Keppra and meropenem as stated above Levophed, Protonix, IV fluids, vancomycin, and acyclovir. We will continue to treat aggressively along with the other consultants and the primary care doctor. Jovani Thurston MD
--- NOTE | 2018-09-16 12:24 | CP.PCM.PN ---
<Chris Ortez - Last Filed: 09/16/18 21:20> Subjective - Date & Time of Evaluation Date of Evaluation: 09/16/18 Time of Evaluation: 12:21 - Subjective Subjective: INTERNAL MEDICINE PROGRESS NOTE FOR DR. SAMEER Ortez PGY1 Pt seen and examined at bedside this am. Pt appears more awake and alert today. He is responsive to commands. He denies ROS Objective - Vital Signs/Intake and Output Vital Signs (last 24 hours): Temp Pulse Resp BP Pulse Ox 97.2 F L 91 H 21 95/64 L 100 09/16/18 05:50 09/16/18 10:00 09/16/18 05:50 09/16/18 05:31 09/16/18 05:50 Intake and Output: 09/16/18 09/16/18 06:59 18:59 Intake Total 2600 100 Output Total 800 Balance 1800 100 - Medications Medications: Current Medications NOREPINEPHRINE BIT/0.9 % NACL (Levophed 4 Mg/ 250 Ml Ns Premixed) 4 mg in 250 mls @ 15 mls/hr IV .[id number] PRN; Protocol PRN Reason: TITRATE PER MD ORDER Last Admin: 09/16/18 09:05 Dose: 5 mcg/min, 18.75 mls/hr Sodium Chloride (Sodium Chloride 0.9%) 1,000 mls @ 100 mls/hr IV .Q10H KEYON Last Admin: 09/16/18 00:53 Dose: 100 mls/hr Meropenem (Merrem Iv 1 Gm Premix) 1 gm in 50 mls @ 100 mls/hr IVPB Q8 KEYON; P rotocol Stop: 09/22/18 06:01 Last Admin: 09/16/18 05:39 Dose: 100 mls/hr Levetiracetam (Keppra 500mg Ivpb) 500 mg in 100 mls @ 400 mls/hr IV Q12 KEYON Last Admin: 09/16/18 09:06 Dose: 400 mls/hr Lorazepam (Ativan) 1 mg IVP Q6H PRN; Protocol PRN Reason: Seizure activity Pantoprazole Sodium (Protonix Inj) 40 mg IVP DAILY KEYON Last Admin: 09/16/18 09:06 Dose: 40 mg Sodium Hypochlorite (Dakins Solution 0.5%) 0 ml TOP DAILY KEYON Last Admin: 09/16/18 09:07 Dose: 1 deloris - Labs Labs: 09/16/18 05:00 09/16/18 05:00 PT 18.3 SECONDS (9.4-12.5) H 09/14/18 21:56 INR 1.65 09/14/18 21:56 APTT 33.9 Seconds (26.9-38.3) 09/14/18 21:56 - Constitutional Appears: Unkempt, Cachectic, Chronically Ill - Head Exam Additional comments: craniotomy scars noted - Eye Exam Eye Exam: Nystagmus Pupil Exam: PERRL - ENT Exam ENT Exam: Mucous Membranes Moist, Normal Exam - Neck Exam Neck Exam: Normal Inspection. absent: Meningismus, Tenderness Additional comments: subcutaneous palpable MILKING WORKER line along R neck - Respiratory Exam Respiratory Exam: Clear to Ausculation Bilateral, NORMAL BREATHING PATTERN - Cardiovascular Exam Cardiovascular Exam: Tachycardia, REGULAR RHYTHM, +S1, +S2 - GI/Abdominal Exam GI & Abdominal Exam: Soft. absent: Distended, Guarding, Rigid - Exam Additional comments: soliman in place, draining non-bloody urine - Extremities Exam Extremities Exam: Normal Inspection. 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 Plan: Septic Shock w/ MODS Wound culture:GNR, GPC. Blood Culture: GNR. Urine Culture: GNR 2/2 sacral decubitus ulcer vs UTI wound care per surgery team. air mattress, turn q2, dakin solution continue meropenem continue NS@100 continue levophed titration to maintain MAP>65 ID following. recs appreciated Hx of seizures continue ativan 1mg Q6H continue Keppra seizures precautions/aspiration precautions f/u EEG neurology following Diarrhea f/u stool c.diff continue meropenem Transaminitis likely 2/2 hypoperfusion in the setting of septic shock currently receiving tube feedings Hydrocephalus s/p ICH Neurosurgery following. No surgical intervention at this time Case seen, examined and discussed with attending physician, Dr. Sameer Ortez PGY1 <Escobar Johnson - Last Filed: 09/17/18 12:30> Objective - Vital Signs/Intake and Output Vital Signs (last 24 hours): Temp Pulse Resp BP Pulse Ox 97.3 F L 79 14 102/64 100 09/17/18 05:04 09/17/18 05:06 09/17/18 05:00 09/17/18 05:00 09/17/18 05:00 Intake and Output: 09/17/18 09/17/18 06:59 18:59 Intake Total 1427.5 Output Total 550 Balance 877.5 - Medications Medications: Current Medications Enoxaparin Sodium (Lovenox) 40 mg SC DAILY KEYON; Protocol NOREPINEPHRINE BIT/0.9 % NACL (Levophed 4 Mg/ 250 Ml Ns Premixed) 4 mg in 250 mls @ 15 mls/hr IV .[id number] PRN; Protocol PRN Reason: TITRATE PER MD ORDER Last Titration: 09/16/18 19:30 Dose: 0 mcg/min, 0 mls/hr Sodium Chloride (Sodium Chloride 0.9%) 1,000 mls @ 100 mls/hr IV .Q10H KEYON Last Admin: 09/17/18 02:45 Dose: 100 mls/hr Meropenem (Merrem Iv 1 Gm Premix) 1 gm in 50 mls @ 100 mls/hr IVPB Q8 KEYON; Protocol Stop: 09/22/18 06:01 Last Admin: 09/17/18 05:35 Dose: 100 mls/hr Levetiracetam (Keppra 500mg Ivpb) 500 mg in 100 mls @ 400 mls/hr IV Q12 KEYON Last Admin: 09/16/18 21:21 Dose: 400 mls/hr Potassium Phosphate 30 mmole/ (Sodium Chloride) 260 mls @ 42.5 mls/hr IVPB ONCE ONE Stop: 09/17/18 15:07 Lorazepam (Ativan) 1 mg IVP Q6H PRN; Protocol PRN Reason: Seizure activity Pantoprazole Sodium (Protonix Inj) 40 mg IVP DAILY [facility] Last Admin: 09/16/18 09:06 Dose: 40 mg Sodium Hypochlorite (Dakins Solution 0.5%) 0 ml TOP DAILY [facility] Last Admin: 09/16/18 09:07 Dose: 1 deloris - Labs Labs: 09/17/18 05:20 09/17/18 05:20 PT 18.3 SECONDS (9.4-12.5) H 09/14/18 21:56 INR 1.65 09/14/18 21:56 APTT 33.9 Seconds (26.9-38.3) 09/14/18 21:56 Attending/Attestation - Attestation I have personally seen and examined this patient.: Yes I have fully participated in the care of the patient.: Yes I have reviewed all pertinent clinical information, including history, physical exam and plan: Yes Notes (Text): 09/17/18 11:53 Attending note; Patient seen and examined with resident in ICU. Patient is alert and awake. Currently on IV Levophed drip. Not in any acute distress. Patient is a 47 year old male with PMHx of craniotomy x 2, hydrocephalus s/p MILKING WORKER shunt(07/19/18), TBI w/intracranial hemorrhage,SEIZURE (1000mg keppra), Dysphagia, PEG tube, hypophonic voice presents to the Emergency Room via EMS accompanied by family with complaint of cough that began today. 1. Altered mental status/lethargy; mostly secondary to toxic metabolic encephalopathy. Currently in septic shock. Continue IV fluids. Continue IV Levophed. Monitor closely in ICU. Blood culture, urine culture ordered. currently on IV Merem. Patient had stage IV decubitus. Wound culture ordered. ID evaluation appreciated. possible seizure. 2. past craniotomy x 2, hydrocephalus s/p MILKING WORKER shunt(07/19/18), TBI w/intracranial hemorrhage. Follow-up with neurosurgery. 3. seizure: continue ativan 1mg Q6H .continue Keppra seizures precautions/aspiration precautions 4.Transaminitis; likely 2/2 hypoperfusion in the setting of septic shock 5. PEG feeding;currently receiving tube feedings with Jevity. 6. Stage IV sacral decubitus; continue wound care. Surgery evaluation requested. Continue to monitor the patient closely in ICU. 09/17/18 12:30
--- NOTE | 2018-09-16 12:32 | CP.PCM.PN ---
<CourtjuanperfectoShad - Last Filed: 09/16/18 13:18> Subjective - Date & Time of Evaluation Date of Evaluation: 09/16/18 Time of Evaluation: 12:29 - Subjective Subjective: patient examined at bedside. He is not oriented but is awake. He is currently on low-dose IV pressors and tube feeds are running. Patient does not appear to be in pain or uncomfortable. Objective - Vital Signs/Intake and Output Vital Signs (last 24 hours): Temp Pulse Resp BP Pulse Ox 97.2 F L 91 H 21 95/64 L 100 09/16/18 05:50 09/16/18 10:00 09/16/18 05:50 09/16/18 05:31 09/16/18 05:50 Intake and Output: 09/16/18 09/16/18 06:59 18:59 Intake Total 2600 100 Output Total 800 Balance 1800 100 - Medications Medications: Current Medications NOREPINEPHRINE BIT/0.9 % NACL (Levophed 4 Mg/ 250 Ml Ns Premixed) 4 mg in 250 mls @ 15 mls/hr IV .[id number] PRN; Protocol PRN Reason: TITRATE PER MD ORDER Last Admin: 09/16/18 09:05 Dose: 5 mcg/min, 18.75 mls/hr Sodium Chloride (Sodium Chloride 0.9%) 1,000 mls @ 100 mls/hr IV .Q10H KEYON Last Admin: 09/16/18 00:53 Dose: 100 mls/hr Meropenem (Merrem Iv 1 Gm Premix) 1 gm in 50 mls @ 100 mls/hr IVPB Q8 KEYON; Protocol Stop: 09/22/18 06:01 Last Admin: 09/16/18 05:39 Dose: 100 mls/hr Levetiracetam (Keppra 500mg Ivpb) 500 mg in 100 mls @ 400 mls/hr IV Q12 KEYON Last Admin: 09/16/18 09:06 Dose: 400 mls/hr Lorazepam (Ativan) 1 mg IVP Q6H PRN; Protocol PRN Reason: Seizure activity Pantoprazole Sodium (Protonix Inj) 40 mg IVP DAILY KEYON Last Admin: 09/16/18 09:06 Dose: 40 mg Sodium Hypochlorite (Dakins Solution 0.5%) 0 ml TOP DAILY KEYON Last Admin: 09/16/18 09:07 Dose: 1 deloris - Labs Labs: 09/16/18 05:00 09/16/18 05:00 PT 18.3 SECONDS (9.4-12.5) H 09/14/18 21:56 INR 1.65 09/14/18 21:56 APTT 33.9 Seconds (26.9-38.3) 09/14/18 21:56 - Constitutional Appears: Non-toxic, No Acute Distress, Confused, Chronically Ill - Eye Exam Eye Exam: EOMI, Normal appearance - Respiratory Exam Respiratory Exam: Clear to Ausculation Bilateral, NORMAL BREATHING PATTERN - GI/Abdominal Exam GI & Abdominal Exam: Soft, Normal Bowel Sounds. absent: Tenderness - Neurological Exam Neurological Exam: Alert, Awake. absent: Oriented x3 - Psychiatric Exam Psychiatric exam: Flat Affect - Skin Skin Exam: Normal Color, Warm Assessment and Plan - Assessment and Plan (Free Text) Assessment: 47 yo F with PMH of hydrocephalus s/p SOD STRIPPER shunt (07/2018), ICH, seizures, dysphagia 2/2 PEG tube, and hypophonic voice is admitted to [facility] for septic shock with MODS. GI consulted due to elevated liver enzymes. Transaminitis likely due hypoperfusion in the setting of septic shock. 1. Septic Shock with MODS 2/2 UTI vs sacral decub vs SOD STRIPPER associated GNR bacteremia 2. Transaminitis likely 2/2 hypoperfusion 3. Diarrhea 4. Stage IV sacral decubitus 5. UTI 6. Hydrocephalus s/p SOD STRIPPER shunt 7. PEG tube Plan: - Cont trend LFTs - F/u C. diff - IV abx per ID - Further medical management per primary/ID/neuro -nursing states patient is being weaned off vasopressors at this time. I advised to stop tube foods if patient remains on pressor support. There is a risk of gastric or small bowel ischemia with continued tube feeds and hypotension. Patient discussed with Dr. Emmanuel. <Arianne Emmanuel V - Last Filed: 09/17/18 00:44> Objective - Vital Signs/Intake and Output Vital Signs (last 24 hours): Temp Pulse Resp BP Pulse Ox 98.2 F 79 16 99/63 L 100 09/16/18 19:31 09/16/18 19:31 09/16/18 19:31 09/16/18 19:30 09/16/18 19:29 Intake and Output: 09/16/18 09/17/18 18:59 06:59 Intake Total 2340 187.5 Output Total 800 Balance 1540 187.5 - Medications Medications: Current Medications Enoxaparin Sodium (Lovenox) 40 mg SC DAILY KEYON; Protocol NOREPINEPHRINE BIT/0.9 % NACL (Levophed 4 Mg/ 250 Ml Ns Premixed) 4 mg in 250 mls @ 15 mls/hr IV .[id number] PRN; Protocol PRN Reason: TITRATE PER MD ORDER Last Titration: 09/16/18 19:30 Dose: 0 mcg/min, 0 mls/hr Sodium Chloride (Sodium Chloride 0.9%) 1,000 mls @ 100 mls/hr IV .Q10H KEYON Last Admin: 09/16/18 15:44 Dose: 100 mls/hr Meropenem (Merrem Iv 1 Gm Premix) 1 gm in 50 mls @ 100 mls/hr IVPB Q8 KEYON; Protocol Stop: 09/22/18 06:01 Last Admin: 09/16/18 21:19 Dose: 100 mls/hr Levetiracetam (Keppra 500mg Ivpb) 500 mg in 100 mls @ 400 mls/hr IV Q12 KEYON Last Admin: 09/16/18 21:21 Dose: 400 mls/hr Lorazepam (Ativan) 1 mg IVP Q6H PRN; Protocol PRN Reason: Seizure activity Pantoprazole Sodium (Protonix Inj) 40 mg IVP DAILY KEYON Last Admin: 09/16/18 09:06 Dose: 40 mg Sodium Hypochlorite (Dakins Solution 0.5%) 0 ml TOP DAILY KEYON Last Admin: 09/16/18 09:07 Dose: 1 deloris - Labs Labs: 09/16/18 05:00 09/16/18 05:00 PT 18.3 SECONDS (9.4-12.5) H 09/14/18 21:56 INR 1.65 09/14/18 21:56 APTT 33.9 Seconds (26.9-38.3) 09/14/18 21:56 Attending/Attestation - Attestation I have personally seen and examined this patient.: Yes I have fully participated in the care of the patient.: Yes I have reviewed all pertinent clinical information, including history, physical exam and plan: Yes Notes (Text): morro 09/17/18 00:31
--- NOTE | 2018-09-16 13:38 | PN ---
DATE: 09/16/2018 SUBJECTIVE: The patient is in bed, in no acute distress, nontoxic. OBJECTIVE: VITAL SIGNS: Temperature is 98, blood pressure is 95/60, respiratory rate of 21, heart rate of 107. HEENT: Unremarkable. NECK: Supple. LUNGS: Have decreased breath sounds. HEART: Normal S1 and S2. ABDOMEN: Soft, nontender. LABORATORY EXAMINATION: Reveals a white count this morning is 26,900, hemoglobin of 9, platelets of 564. Chemistries reveals a BUN of 13, creatinine of 0.5. Urinalysis is noted. Patient's serology, influenza is negative. Hepatitis profile is negative. Microbiology reveals the blood cultures have gram-negative rods as is in the urine culture is gram-negative rods and review of orders reveals the patient to be on meropenem and intermittent vancomycin... The patient is also on acyclovir. LFTs are also elevated. Blood cultures are reported to be a gram-negative. I was not notified of these results as of this morning. ASSESSMENT AND PLAN: This is a 47-year-old male who was in the ICU 129, bed 4 with septic shock, currently on Levophed with gram-negative nupur bacteremia secondary to gram-negative nupur in the urine as the source. We will discontinue the vancomycin, continue the meropenem. We will also discontinue the acyclovir. We will check on the identification and sensitivity of the gram-negative nupur in blood and the urine, must also rule out GI as the source. The patient did have a CAT scan of the abdomen and pelvis, which reveals the gallbladder and biliary system to be unremarkable, the liver to be unremarkable. No biliary dilatation. We will follow closely with you, should have urology evaluation and a PSA to rule out underlying prostate disease in this male with gram-negative nupur, septic shock and in the blood and in the urine. Santi Jones MD
--- NOTE | 2018-09-16 17:40 | CP.PCM.PN ---
Subjective - Date & Time of Evaluation Date of Evaluation: 09/16/18 Time of Evaluation: 17:13 - Subjective Subjective: Surgery PT seen and examined. dressing changed by nursing w dakin solution. Denies ferver, nausea, vomiting, diarrhea. WOund appears clean. Objective - Vital Signs/Intake and Output Vital Signs (last 24 hours): Temp Pulse Resp BP Pulse Ox 97.2 F L 89 21 95/64 L 100 09/16/18 05:50 09/16/18 14:00 09/16/18 05:50 09/16/18 05:31 09/16/18 05:50 Intake and Output: 09/16/18 09/16/18 06:59 18:59 Intake Total 2600 100 Output Total 800 Balance 1800 100 - Medications Medications: Current Medications NOREPINEPHRINE BIT/0.9 % NACL (Levophed 4 Mg/ 250 Ml Ns Premixed) 4 mg in 250 mls @ 15 mls/hr IV .[id number] PRN; Protocol PRN Reason: TITRATE PER MD ORDER Last Admin: 09/16/18 09:05 Dose: 5 mcg/min, 18.75 mls/hr Sodium Chloride (Sodium Chloride 0.9%) 1,000 mls @ 100 mls/hr IV .Q10H KEYON Last Admin: 09/16/18 15:44 Dose: 100 mls/hr Meropenem (Merrem Iv 1 Gm Premix) 1 gm in 50 mls @ 100 mls/hr IVPB Q8 KEYON; Protocol Stop: 09/22/18 06:01 Last Admin: 09/16/18 14:00 Dose: 100 mls/hr Levetiracetam (Keppra 500mg Ivpb) 500 mg in 100 mls @ 400 mls/hr IV Q12 KEYON Last Admin: 09/16/18 09:06 Dose: 400 mls/hr Lorazepam (Ativan) 1 mg IVP Q6H PRN; Protocol PRN Reason: Seizure activity Pantoprazole Sodium (Protonix Inj) 40 mg IVP DAILY KEYON Last Admin: 09/16/18 09:06 Dose: 40 mg Sodium Hypochlorite (Dakins Solution 0.5%) 0 ml TOP DAILY KEYON Last Admin: 09/16/18 09:07 Dose: 1 deloris - Labs Labs: 09/16/18 05:00 09/16/18 05:00 PT 18.3 SECONDS (9.4-12.5) H 09/14/18 21:56 INR 1.65 09/14/18 21:56 APTT 33.9 Seconds (26.9-38.3) 09/14/18 21:56 - Constitutional Appears: No Acute Distress - Head Exam Head Exam: ATRAUMATIC, NORMAL INSPECTION, NORMOCEPHALIC - Eye Exam Eye Exam: EOMI, Normal appearance, PERRL Pupil Exam: NORMAL ACCOMODATION, PERRL - ENT Exam ENT Exam: Mucous Membranes Moist - Neck Exam Neck Exam: Normal Inspection - Respiratory Exam Respiratory Exam: NORMAL BREATHING PATTERN - Cardiovascular Exam Cardiovascular Exam: REGULAR RHYTHM - GI/Abdominal Exam GI & Abdominal Exam: Soft - Rectal Exam Rectal Exam: NORMAL INSPECTION - Exam Exam: NORMAL INSPECTION - Extremities Exam Extremities Exam: absent: Full ROM - Back Exam Back Exam: absent: NORMAL INSPECTION Additional comments: sacral wound [id number] sacral ulcer stage 4. fibrinic tissues, - Neurological Exam Neurological Exam: Alert, Awake, Oriented x3 - Psychiatric Exam Psychiatric exam: Normal Affect, Normal Mood - Skin Skin Exam: Erythema, Warm. absent: Intact Assessment and Plan - Assessment and Plan (Free Text) Assessment: 47 y/o male admitted for septic shock, found to have stage 4 sacral decubitus ulcer Plan: -wound care -air mattress, turn q2, dakin -MRI if concerned about osteomyelitis -continue management per primary team -further recs per surgical attending Dr. Mcintosh
[2018-09-17] MEDS: Sodium Chloride 0.9% 1,000 ML IV SCH (02:45)
[2018-09-17] MEDS: Meropenem IV 1 gm in NS 1 GM/50 ML BAG IVPB SCH ×3 (05:35→21:44)
[2018-09-17 05:46] LABS: BASO # 0.02 K/mm3 (0.0-2.0); BASO % 0.2 % (0.0-3.0); EOS # 0.1 (0.0-0.7); EOS % 0.9 % (1.5-5.0); HEMOGLOBIN 8.7 g/dL (14.0-18.0); LYMPH # 1.9 (1.2-3.4); MEAN CELL VOLUME 92.3 fl (80.0-105.0); MEAN CORPUSCULAR HEMOGLOBIN 29.2 pg (25.0-35.0); MEAN CORPUSCULAR HGB CONC 31.6 g/dl (31.0-37.0); MEAN PLATELET VOLUME 8.1 fl (7.0-11.0); MONO # 0.5 (0.1-0.6); RBC 2.98 10^6/uL (3.5-6.1); RED CELL DISTRIBUTION WIDTH 14.3 % (11.5-14.5); WHITE BLOOD COUNT 11.9 10^3/uL (4.5-11.0)
[2018-09-17 06:04] LABS: ALB/GLOB RATIO 0.7 (1.1-1.8); ALBUMIN 2.3 g/dL (3.0-4.8); ALT/SGPT 66 U/L (7-56); AST/SGOT 50 U/L (17-59); BLOOD UREA NITROGEN 8 mg/dL (7-21); GFR NON-AFRICAN AMERICAN > 60
[2018-09-17] MEDS ORDERED: Potassium Phosphate 3 mmol/ml Inj IV STA (07:46)
[2018-09-17] MEDS ORDERED: Calcium Chloride 1000 mg/10 ml Syringe IV ONE (07:47)
[2018-09-17] MEDS ORDERED: Potassium Phosphate 30 MMOLE in Sodium Chloride 0.9% 250 ML IVPB ONE (09:00)
[2018-09-17] MEDS: Dakin's Topical 0.5%-Full Strength (480 ml) TOP SCH (09:40)
[2018-09-17] MEDS: Enoxaparin 40 mg Syringe SC SCH (09:40)
[2018-09-17] MEDS: levETIRAcetam 500mg IVPB 500 MG/100 ML BAG IV SCH ×2 (09:40→21:44)
--- NOTE | 2018-09-17 11:00 | CP.PCM.PN ---
<Chris Ortez - Last Filed: 09/17/18 10:57> Subjective - Date & Time of Evaluation Date of Evaluation: 09/17/18 Time of Evaluation: 10:57 - Subjective Subjective: INTERNAL MEDICINE PROGRESS NOTE FOR DR. SAMEER Ortez PGY1 Pt seen and examined at bedside this am. Pt is awake, still on PEG tube feeds. He has been off vasopressors upon interview. Currently still on IVF. Denies complaints upon questioning. Objective - Vital Signs/Intake and Output Vital Signs (last 24 hours): Temp Pulse Resp BP Pulse Ox 97.3 F L 79 14 102/64 100 09/17/18 05:04 09/17/18 05:06 09/17/18 05:00 09/17/18 05:00 09/17/18 05:00 Intake and Output: 09/17/18 09/17/18 06:59 18:59 Intake Total 1427.5 Output Total 550 Balance 877.5 - Medications Medications: Current Medications Enoxaparin Sodium (Lovenox) 40 mg SC DAILY KEYON; Protocol NOREPINEPHRINE BIT/0.9 % NACL (Levophed 4 Mg/ 250 Ml Ns Premixed) 4 mg in 250 mls @ 15 mls/hr IV .[id number] PRN; Protocol PRN Reason: TITRATE PER MD ORDER Last Titration: 09/16/18 19:30 Dose: 0 mcg/min, 0 mls/hr Sodium Chloride (Sodium Chloride 0.9%) 1,000 mls @ 100 mls/hr IV .Q10H KEYON Last Admin: 09/17/18 02:45 Dose: 100 mls/hr Meropenem (Merrem Iv 1 Gm Premix) 1 gm in 50 mls @ 100 mls/hr IVPB Q8 KEYON; Protocol Stop: 09/22/18 06:01 Last Admin: 09/17/18 05:35 Dose: 100 mls/hr Levetiracetam (Keppra 500mg Ivpb) 500 mg in 100 mls @ 400 mls/hr IV Q12 KEYON Last Admin: 09/16/18 21:21 Dose: 400 mls/hr Potassium Chloride (Potassium Chloride 20 Meq/100 Ml) 20 meq in 100 mls @ 50 mls/hr IVPB Q2H KEYON Stop: 09/17/18 11:44 Last Admin: 09/17/18 08:11 Dose: 50 mls/hr Potassium Phosphate 30 mmole/ (Sodium Chloride) 260 mls @ 42.5 mls/hr IVPB ONCE ONE Stop: 09/17/18 15:07 Lorazepam (Ativan) 1 mg IVP Q6H PRN; Protocol PRN Reason: Seizure activity Pantoprazole Sodium (Protonix Inj) 40 mg IVP DAILY KEYON Last Admin: 09/16/18 09:06 Dose: 40 mg Sodium Hypochlorite (Dakins Solution 0.5%) 0 ml TOP DAILY KEYON Last Admin: 09/16/18 09:07 Dose: 1 deloris - Labs Labs: 09/17/18 05:20 09/17/18 05:20 PT 18.3 SECONDS (9.4-12.5) H 09/14/18 21:56 INR 1.65 09/14/18 21:56 APTT 33.9 Seconds (26.9-38.3) 09/14/18 21:56 - Additional Findings Additional findings: - Constitutional Appears: Unkempt, Cachectic, Chronically Ill - Head Exam Additional comments: craniotomy scars noted. C/D/I, well healed - Eye Exam Eye Exam: Nystagmus Pupil Exam: PERRL - ENT Exam ENT Exam: Mucous Membranes Moist, Normal Exam - Neck Exam Neck Exam: Normal Inspection. absent: Meningismus, Tenderness Additional comments: subcutaneous palpable MATCHING MACHINE OPERATOR line along R neck - Respiratory Exam Respiratory Exam: Clear to Ausculation Bilateral, NORMAL BREATHING PATTERN - Cardiovascular Exam Cardiovascular Exam: Tachycardia, REGULAR RHYTHM, +S1, +S2 - GI/Abdominal Exam GI & Abdominal Exam: Soft. absent: Distended, Guarding, Rigid PEG tube in place. No purulence/erythema - Exam Additional comments: soliman in place, draining non-bloody urine - Extremities Exam Extremities Exam: Normal Inspection. 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 Plan: Septic Shock w/ MODS Wound culture:GNR, GPC. Blood Culture: GNR. Urine Culture: GNR. Leukocytosis improving. Remains afebrile 2/2 sacral decubitus ulcer vs UTI wound care per surgery team. air mattress, turn q2, dakin solution continue meropenem continue NS@100 continue levophed titration to maintain MAP>65 ID following. recs appreciated Hx of seizures continue ativan 1mg Q6H continue Keppra seizures precautions/aspiration precautions f/u EEG Diarrhea f/u stool c.diff continue meropenem Transaminitis likely 2/2 hypoperfusion in the setting of septic shock currently receiving tube feedings Hydrocephalus s/p ICH Neurosurgery following. No surgical intervention at this time DVT/GI: Lovenox/protonix Case seen, examined and discussed with attending physician, Dr. Sameer Ortez PGY <Escobar Johnson - Last Filed: 09/17/18 12:40> Objective - Vital Signs/Intake and Output Vital Signs (last 24 hours): Temp Pulse Resp BP Pulse Ox 97.3 F L 79 14 102/64 100 09/17/18 05:04 09/17/18 05:06 09/17/18 05:00 09/17/18 05:00 09/17/18 05:00 Intake and Output: 09/17/18 09/17/18 06:59 18:59 Intake Total 1427.5 Output Total 550 Balance 877.5 - Medications Medications: Current Medications Enoxaparin Sodium (Lovenox) 40 mg SC DAILY KEYON; Protocol Last Admin: 09/17/18 09:40 Dose: 40 mg NOREPINEPHRINE BIT/0.9 % NACL (Levophed 4 Mg/ 250 Ml Ns Premixed) 4 mg in 250 mls @ 15 mls/hr IV .[id number] PRN; Protocol PRN Reason: TITRATE PER MD ORDER Last Titration: 09/16/18 19:30 Dose: 0 mcg/min, 0 mls/hr Sodium Chloride (Sodium Chloride 0.9%) 1,000 mls @ 100 mls/hr IV .Q10H KEYON Last Admin: 09/17/18 02:45 Dose: 100 mls/hr Meropenem (Merrem Iv 1 Gm Premix) 1 gm in 50 mls @ 100 mls/hr IVPB Q8 KEYON; Protocol Stop: 09/22/18 06:01 Last Admin: 09/17/18 05:35 Dose: 100 mls/hr Levetiracetam (Keppra 500mg Ivpb) 500 mg in 100 mls @ 400 mls/hr IV Q12 KEYON Last Admin: 09/17/18 09:40 Dose: 400 mls/hr Potassium Phosphate 30 mmole/ (Sodium Chloride) 260 mls @ 42.5 mls/hr IVPB ONCE ONE Stop: 09/17/18 15:07 Last Admin: 09/17/18 09:45 Dose: 42.5 mls/hr Lorazepam (Ativan) 1 mg IVP Q6H PRN; Protocol PRN Reason: Seizure activity Pantoprazole Sodium (Protonix Inj) 40 mg IVP DAILY KEYON Last Admin: 09/17/18 09:40 Dose: 40 mg Sodium Hypochlorite (Dakins Solution 0.5%) 0 ml TOP DAILY KEYON Last Admin: 09/17/18 09:40 Dose: 1 dose - Labs Labs: 09/17/18 05:20 09/17/18 05:20 PT 18.3 SECONDS (9.4-12.5) H 09/14/18 21:56 INR 1.65 09/14/18 21:56 APTT 33.9 Seconds (26.9-38.3) 09/14/18 21:56 Attending/Attestation - Attestation I have personally seen and examined this patient.: Yes I have fully participated in the care of the patient.: Yes I have reviewed all pertinent clinical information, including history, physical exam and plan: Yes Notes (Text): 09/17/18 12:31 Attending note; Patient seen and examined with resident in ICU. Patient is alert and awake. able to answer few questions. Currently off Levophed drip. Patient is a 47 year old male with PMHx of craniotomy x 2, hydrocephalus s/p MATCHING MACHINE OPERATOR shunt(07/19/18), TBI w/intracranial hemorrhage,SEIZURE (1000mg keppra), Dysphagia, PEG tube, hypophonic voice presents to the Emergency Room via EMS accompanied by family with complaint of cough that began today. 1. Altered mental status/lethargy; mostly secondary to toxic metabolic encephalopathy. septic shock: resolving. off levophed. Continue IV fluids. Leukocytosis improved from 35-11.9. Monitor closely in ICU. Blood culture is positive for gram-negative rods. urine culture showed Escherichia coli and enterococcus. Follow-up sensitivity. currently on IV Merem. ID evaluation appreciated. 2. past craniotomy x 2, hydrocephalus s/p MATCHING MACHINE OPERATOR shunt(07/19/18), TBI w/intracranial hemorrhage. Neurosurgery evaluation appreciated. 3. seizure: continue ativan 1mg Q6H .continue Keppra seizures precautions/aspiration precautions 4.Transaminitis; likely 2/2 hypoperfusion in the setting of septic shock. LFTs improving slowly. 5. PEG feeding;currently receiving tube feedings with Jevity. 6. Stage IV sacral decubitus; continue wound care. Surgery evaluation appreciated. Continue to monitor the patient closely in ICU.
--- NOTE | 2018-09-17 12:25 | PN ---
DATE: 09/17/2018 CONTINUING EDUCATION SPECIALIST NOTE SUBJECTIVE: The patient is resting in bed. No respiratory distress. He is tolerating his PEG feedings, hemodynamically stable at this time and is off pressors. The patient is comfortable on room air. OBJECTIVE: VITAL SIGNS: His temperature is 97.3, his pulse is 79, respirations of 14 and BP is 102/64. SKIN: Warm and dry. HEENT: Head is atraumatic, normocephalic. Eyes, reactive to light. Ears, nose and throat seem to be within normal limits. NECK: Supple. No JVD. No thyroid enlargement. No lymph nodes. HEART: Regular rate and rhythm. Normal S1 and S2. LUNGS: Reveal good breath sounds bilaterally. ABDOMEN: Soft. Decreased bowel sounds. GENITALIA AND RECTAL: Deferred. MUSCULOSKELETAL: Note that the patient does have upper extremity hands and finger contractions. EXTREMITIES: Reveal positive lower extremity edema. NEUROLOGIC: The patient has altered mental status secondary to traumatic brain injury. LABORATORY DATA:. As far as his laboratories are concerned, his white count is 11.9, hemoglobin is 8.7, hematocrit 27.5 with platelets of 483,000. The patient's sodium is 143, potassium 3.0, chloride 114, CO2 of 26, BUN of 8 with a creatinine of 0.5 and a glucose of 107. IMPRESSION: As far as my impression, this patient presented with septic shock, but he is off pressors at this time, septic shock was secondary to gram-negative. The patient had a history of traumatic brain injury, hydrocephalus as well as ventriculoperitoneal shunt. He has altered mental status and anemia and his upper extremities hands are contracted. PLAN: As far as our plan, we will continue with pulmonary toilet. The patient is getting Ativan and potassium and he is on Keppra and meropenem as well as Protonix, IV fluids, vancomycin and acyclovir. We will continue to treat aggressively along with the other consultants and the primary care doctor. Jovani Thurston MD
--- NOTE | 2018-09-17 14:17 | CP.PCM.PN ---
<Shad Perales - Last Filed: 09/17/18 14:16> Subjective - Date & Time of Evaluation Date of Evaluation: 09/17/18 Time of Evaluation: 14:16 - Subjective Subjective: No clinical changes. tolerating feeds. Objective - Vital Signs/Intake and Output Vital Signs (last 24 hours): Temp Pulse Resp BP Pulse Ox 97.5 F L 88 11 L 107/72 100 09/17/18 14:00 09/17/18 14:00 09/17/18 14:00 09/17/18 14:00 09/17/18 14:00 Intake and Output: 09/17/18 09/17/18 06:59 18:59 Intake Total 1427.5 Output Total 550 Balance 877.5 - Medications Medications: Current Medications Enoxaparin Sodium (Lovenox) 40 mg SC DAILY KEYON; Protocol Last Admin: 09/17/18 09:40 Dose: 40 mg NOREPINEPHRINE BIT/0.9 % NACL (Levophed 4 Mg/ 250 Ml Ns Premixed) 4 mg in 250 mls @ 15 mls/hr IV .[id number] PRN; Protocol PRN Reason: TITRATE PER MD ORDER Last Titration: 09/16/18 19:30 Dose: 0 mcg/min, 0 mls/hr Sodium Chloride (Sodium Chloride 0.9%) 1,000 mls @ 100 mls/hr IV .Q10H KEYON Last Admin: 09/17/18 02:45 Dose: 100 mls/hr Meropenem (Merrem Iv 1 Gm Premix) 1 gm in 50 mls @ 100 mls/hr IVPB Q8 KEYON; Protocol Stop: 09/22/18 06:01 Last Admin: 09/17/18 13:59 Dose: 100 mls/hr Levetiracetam (Keppra 500mg Ivpb) 500 mg in 100 mls @ 400 mls/hr IV Q12 KEYON Last Admin: 09/17/18 09:40 Dose: 400 mls/hr Potassium Phosphate 30 mmole/ (Sodium Chloride) 260 mls @ 42.5 mls/hr IVPB ONCE ONE Stop: 09/17/18 15:07 Last Admin: 09/17/18 09:45 Dose: 42.5 mls/hr Lorazepam (Ativan) 1 mg IVP Q6H PRN; Protocol PRN Reason: Seizure activity Pantoprazole Sodium (Protonix Inj) 40 mg IVP DAILY KEYON Last Admin: 09/17/18 09:40 Dose: 40 mg Sodium Hypochlorite (Dakins Solution 0.5%) 0 ml TOP DAILY KEYON Last Admin: 09/17/18 09:40 Dose: 1 dose - Labs Labs: 09/17/18 05:20 09/17/18 05:20 PT 18.3 SECONDS (9.4-12.5) H 09/14/18 21:56 INR 1.65 09/14/18 21:56 APTT 33.9 Seconds (26.9-38.3) 09/14/18 21:56 - Constitutional Appears: Non-toxic, No Acute Distress, Chronically Ill - Eye Exam Eye Exam: EOMI, Normal appearance - ENT Exam ENT Exam: Mucous Membranes Moist, Normal Exam - Respiratory Exam Respiratory Exam: Clear to Ausculation Bilateral, NORMAL BREATHING PATTERN - Cardiovascular Exam Cardiovascular Exam: REGULAR RHYTHM, +S1, +S2 - GI/Abdominal Exam GI & Abdominal Exam: Soft, Normal Bowel Sounds. absent: Tenderness - Neurological Exam Neurological Exam: Altered, Awake - Psychiatric Exam Psychiatric exam: Flat Affect - Skin Skin Exam: Normal Color, Warm Assessment and Plan - Assessment and Plan (Free Text) Assessment: 47 yo F with PMH of hydrocephalus s/p WOOD CRAFTER shunt (07/2018), ICH, seizures, dysphagia 2/2 PEG tube, and hypophonic voice is admitted to [facility] [place] for septic shock with MODS. GI consulted due to elevated liver enzymes. Transaminitis likely due hypoperfusion in the setting of septic shock. 1. Septic Shock with MODS 2/2 UTI vs sacral decub vs WOOD CRAFTER associated GNR bacteremia 2. Transaminitis likely 2/2 hypoperfusion 3. Diarrhea 4. Stage IV sacral decubitus 5. UTI 6. Hydrocephalus s/p WOOD CRAFTER shunt 7. PEG tube Plan: - Cont trend LFTs - F/u C. diff - IV abx per ID - Further medical management per primary/ID/neuro - OK to continue tube feeds. Patient discussed with Dr. Emmanuel. <Arianne Emmanuel V - Last Filed: 09/17/18 23:25> Objective - Vital Signs/Intake and Output Vital Signs (last 24 hours): Temp Pulse Resp BP Pulse Ox 97.9 F 84 13 117/74 100 09/17/18 17:30 09/17/18 18:00 09/17/18 17:30 09/17/18 17:30 09/17/18 17:30 Intake and Output: 09/17/18 09/18/18 18:59 06:59 Intake Total 3110 Output Total 1500 Balance 1610 - Medications Medications: Current Medications Enoxaparin Sodium (Lovenox) 40 mg SC DAILY KEYON; Protocol Last Admin: 09/17/18 09:40 Dose: 40 mg NOREPINEPHRINE BIT/0.9 % NACL (Levophed 4 Mg/ 250 Ml Ns Premixed) 4 mg in 250 mls @ 15 mls/hr IV .[id number] PRN; Protocol PRN Reason: TITRATE PER MD ORDER Last Titration: 09/16/18 19:30 Dose: 0 mcg/min, 0 mls/hr Sodium Chloride (Sodium Chloride 0.9%) 1,000 mls @ 100 mls/hr IV .Q10H KEYON Last Admin: 09/17/18 02:45 Dose: 100 mls/hr Meropenem (Merrem Iv 1 Gm Premix) 1 gm in 50 mls @ 100 mls/hr IVPB Q8 KEYON; Protocol Stop: 09/22/18 06:01 Last Admin: 09/17/18 21:44 Dose: 100 mls/hr Levetiracetam (Keppra 500mg Ivpb) 500 mg in 100 mls @ 400 mls/hr IV Q12 KEYON Last Admin: 09/17/18 21:44 Dose: 400 mls/hr Lorazepam (Ativan) 1 mg IVP Q6H PRN; Protocol PRN Reason: Seizure activity Pantoprazole Sodium (Protonix Inj) 40 mg IVP DAILY KEYON Last Admin: 09/17/18 09:40 Dose: 40 mg Sodium Hypochlorite (Dakins Solution 0.5%) 0 ml TOP DAILY KEYON Last Admin: 09/17/18 09:40 Dose: 1 dose - Labs Labs: 09/17/18 05:20 09/17/18 05:20 PT 18.3 SECONDS (9.4-12.5) H 09/14/18 21:56 INR 1.65 09/14/18 21:56 APTT 33.9 Seconds (26.9-38.3) 09/14/18 21:56 Attending/Attestation - Attestation I have personally seen and examined this patient.: Yes I have fully participated in the care of the patient.: Yes I have reviewed all pertinent clinical information, including history, physical exam and plan: Yes Notes (Text): This is an addendum to GI progress report dictated by the GI Fellow. The patient was seen and examined earlier. Medical records, lab studies, imagings were reviewed. Last 24 hours events reviewed. Agreed with the above treatment plan as outlined in GI Fellow 's notes with the addition of the following Clinically improving Follow-up LFT Discussed with the ICU staff 09/17/18 23:24
--- NOTE | 2018-09-17 15:45 | CP.PCM.PN ---
Subjective - Date & Time of Evaluation Date of Evaluation: 09/17/18 Time of Evaluation: 08:50 - Subjective Subjective: Patient is still weak but not in distress, no fevers overnight. Objective - Vital Signs/Intake and Output Vital Signs (last 24 hours): Temp Pulse Resp BP Pulse Ox 97.3 F L 79 14 102/64 100 09/17/18 05:04 09/17/18 05:06 09/17/18 05:00 09/17/18 05:00 09/17/18 05:00 Intake and Output: 09/17/18 09/17/18 06:59 18:59 Intake Total 187.5 Balance 187.5 - Medications Medications: Current Medications Enoxaparin Sodium (Lovenox) 40 mg SC DAILY KEYON; Protocol NOREPINEPHRINE BIT/0.9 % NACL (Levophed 4 Mg/ 250 Ml Ns Premixed) 4 mg in 250 mls @ 15 mls/hr IV .[id number] PRN; Protocol PRN Reason: TITRATE PER MD ORDER Last Titration: 09/16/18 19:30 Dose: 0 mcg/min, 0 mls/hr Sodium Chloride (Sodium Chloride 0.9%) 1,000 mls @ 100 mls/hr IV .Q10H KEYON Last Admin: 09/17/18 02:45 Dose: 100 mls/hr Meropenem (Merrem Iv 1 Gm Premix) 1 gm in 50 mls @ 100 mls/hr IVPB Q8 KEYON; Protocol Stop: 09/22/18 06:01 Last Admin: 09/17/18 05:35 Dose: 100 mls/hr Levetiracetam (Keppra 500mg Ivpb) 500 mg in 100 mls @ 400 mls/hr IV Q12 KEYON Last Admin: 09/16/18 21:21 Dose: 400 mls/hr Lorazepam (Ativan) 1 mg IVP Q6H PRN; Protocol PRN Reason: Seizure activity Pantoprazole Sodium (Protonix Inj) 40 mg IVP DAILY KEYON Last Admin: 09/16/18 09:06 Dose: 40 mg Sodium Hypochlorite (Dakins Solution 0.5%) 0 ml TOP DAILY KEYON Last Admin: 09/16/18 09:07 Dose: 1 deloris - Labs Labs: 09/17/18 05:20 09/17/18 05:20 PT 18.3 SECONDS (9.4-12.5) H 09/14/18 21:56 INR 1.65 09/14/18 21:56 APTT 33.9 Seconds (26.9-38.3) 09/14/18 21:56 - Constitutional Appears: Cachectic, Chronically Ill - Respiratory Exam Respiratory Exam: Decreased Breath Sounds - Cardiovascular Exam Cardiovascular Exam: +S1, +S2 - GI/Abdominal Exam GI & Abdominal Exam: Soft. absent: Tenderness Assessment and Plan - Assessment and Plan (Free Text) Plan: Assessment Severe sepsis due to gram negative bacilli bacteremia, probably urine as the so urce with ESBL E. coli in the urine noted sacral decubitus ulcer growing ESBL E. 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 faecalis in the sacral ulcer is probably a colonizer will get repeat blood cx will monitor clinically
[2018-09-18] MEDS: Meropenem IV 1 gm in NS 1 GM/50 ML BAG IVPB SCH ×3 (05:47→22:08)
[2018-09-18 07:18] LABS: BASO # 0.01 K/mm3 (0.0-2.0); BASO % 0.1 % (0.0-3.0); EOS # 0.1 (0.0-0.7); EOS % 1.3 % (1.5-5.0); HEMOGLOBIN 9.3 g/dL (14.0-18.0); LYMPH # 1.7 (1.2-3.4); LYMPH % 22.4 % (22.0-35.0); MEAN CELL VOLUME 91.9 fl (80.0-105.0); MEAN CORPUSCULAR HGB CONC 31.5 g/dl (31.0-37.0); MEAN PLATELET VOLUME 8.5 fl (7.0-11.0); MONO # 0.4 (0.1-0.6); MONO % 5.1 % (1.0-6.0); RBC 3.21 10^6/uL (3.5-6.1); RED CELL DISTRIBUTION WIDTH 14.1 % (11.5-14.5); WHITE BLOOD COUNT 7.7 10^3/uL (4.5-11.0)
[2018-09-18 07:35] LABS: ALB/GLOB RATIO 0.7 (1.1-1.8); ALBUMIN 2.3 g/dL (3.0-4.8); ALT/SGPT 52 U/L (7-56); AST/SGOT 61 U/L (17-59); BLOOD UREA NITROGEN 6 mg/dL (7-21); CALCIUM 8.3 mg/dL (8.4-10.5); GFR NON-AFRICAN AMERICAN > 60
--- NOTE | 2018-09-18 07:50 | CP.PCM.PN ---
Subjective - Date & Time of Evaluation Date of Evaluation: 09/18/18 Time of Evaluation: 07:50 - Subjective Subjective: Dejan Hoang DO, PGY-1 Hospitalist Progress Note for Dr. Richi Reid Patient was seen and examined at bedside this AM. Objective - Vital Signs/Intake and Output Vital Signs (last 24 hours): Temp Pulse Resp BP Pulse Ox 96.4 F L 78 12 93/62 L 99 09/18/18 07:00 09/18/18 07:00 09/18/18 07:00 09/18/18 07:00 09/18/18 07:00 Intake and Output: 09/18/18 09/18/18 06:59 18:59 Intake Total 2440 Output Total 850 Balance 1590 - Medications Medications: Current Medications Enoxaparin Sodium (Lovenox) 40 mg SC DAILY KEYON; Protocol Last Admin: 09/17/18 09:40 Dose: 40 mg NOREPINEPHRINE BIT/0.9 % NACL (Levophed 4 Mg/ 250 Ml Ns Premixed) 4 mg in 250 m ls @ 15 mls/hr IV .[id number] PRN; Protocol PRN Reason: TITRATE PER MD ORDER Last Titration: 09/16/18 19:30 Dose: 0 mcg/min, 0 mls/hr Sodium Chloride (Sodium Chloride 0.9%) 1,000 mls @ 100 mls/hr IV .Q10H KEYON Last Admin: 09/17/18 02:45 Dose: 100 mls/hr Meropenem (Merrem Iv 1 Gm Premix) 1 gm in 50 mls @ 100 mls/hr IVPB Q8 KEYON; Protocol Stop: 09/22/18 06:01 Last Admin: 09/18/18 05:47 Dose: 100 mls/hr Levetiracetam (Keppra 500mg Ivpb) 500 mg in 100 mls @ 400 mls/hr IV Q12 KEYON Last Admin: 09/17/18 21:44 Dose: 400 mls/hr Lorazepam (Ativan) 1 mg IVP Q6H PRN; Protocol PRN Reason: Seizure activity Pantoprazole Sodium (Protonix Inj) 40 mg IVP DAILY KEYON Last Admin: 09/17/18 09:40 Dose: 40 mg Sodium Hypochlorite (Dakins Solution 0.5%) 0 ml TOP DAILY KEYON Last Admin: 09/17/18 09:40 Dose: 1 dose - Labs Labs: 09/18/18 06:00 09/18/18 06:00 PT 18.3 SECONDS (9.4-12.5) H 09/14/18 21:56 INR 1.65 09/14/18 21:56 APTT 33.9 Seconds (26.9-38.3) 09/14/18 21:56
[2018-09-18] MEDS: levETIRAcetam 500mg IVPB 500 MG/100 ML BAG IV SCH ×2 (10:13→21:09)
[2018-09-18] MEDS: Enoxaparin 40 mg Syringe SC SCH (10:14)
[2018-09-18] MEDS: Dakin's Topical 0.5%-Full Strength (480 ml) TOP SCH (10:47)
[2018-09-18] MEDS ORDERED: Magnesium Sulfate 1 gm in D5W 1 GM/100 ML BAG IVPB ONE (12:28)
--- NOTE | 2018-09-18 12:40 | RAD ---
Date of service: 09/18/2018 HISTORY: fluix iverkoad COMPARISON: No prior. FINDINGS: LUNGS: No active pulmonary disease. PLEURA: No significant pleural effusion identified, no pneumothorax apparent. CARDIOVASCULAR: No aortic atherosclerotic calcification present. Normal cardiac size. No pulmonary vascular congestion. OSSEOUS STRUCTURES: No significant abnormalities. VISUALIZED UPPER ABDOMEN: Normal. OTHER FINDINGS: None. IMPRESSION: No active disease.
--- NOTE | 2018-09-18 13:24 | CP.PCM.PN ---
Subjective - Date & Time of Evaluation Date of Evaluation: 09/18/18 Time of Evaluation: 10:10 - Subjective Subjective: Not in distress, no fevers, no diarrhea. Objective - Vital Signs/Intake and Output Vital Signs (last 24 hours): Temp Pulse Resp BP Pulse Ox 97.5 F L 88 11 L 107/72 100 09/17/18 14:00 09/17/18 14:00 09/17/18 14:00 09/17/18 14:00 09/17/18 14:00 Intake and Output: 09/17/18 09/17/18 06:59 18:59 Intake Total 1427.5 Output Total 550 Balance 877.5 - Medications Medications: Current Medications Enoxaparin Sodium (Lovenox) 40 mg SC DAILY KEYON; Protocol Last Admin: 09/17/18 09:40 Dose: 40 mg NOREPINEPHRINE BIT/0.9 % NACL (Levophed 4 Mg/ 250 Ml Ns Premixed) 4 mg in 250 mls @ 15 mls/hr IV .[id number] PRN; Protocol PRN Reason: TITRATE PER MD ORDER Last Titration: 09/16/18 19:30 Dose: 0 mcg/min, 0 mls/hr Sodium Chloride (Sodium Chloride 0.9%) 1,000 mls @ 100 mls/hr IV .Q10H KEOYN Last Admin: 09/17/18 02:45 Dose: 100 mls/hr Meropenem (Merrem Iv 1 Gm Premix) 1 gm in 50 mls @ 100 mls/hr IVPB Q8 KEYON; Protocol Stop: 09/22/18 06:01 Last Admin: 09/17/18 13:59 Dose: 100 mls/hr Levetiracetam (Keppra 500mg Ivpb) 500 mg in 100 mls @ 400 mls/hr IV Q12 KEYON Last Admin: 09/17/18 09:40 Dose: 400 mls/hr Lorazepam (Ativan) 1 mg IVP Q6H PRN; Protocol PRN Reason: Seizure activity Pantoprazole Sodium (Protonix Inj) 40 mg IVP DAILY KEYON Last Admin: 09/17/18 09:40 Dose: 40 mg Sodium Hypochlorite (Dakins Solution 0.5%) 0 ml TOP DAILY KEYON Last Admin: 09/17/18 09:40 Dose: 1 dose - Labs Labs: 09/17/18 05:20 09/17/18 05:20 PT 18.3 SECONDS (9.4-12.5) H 09/14/18 21:56 INR 1.65 09/14/18 21:56 APTT 33.9 Seconds (26.9-38.3) 09/14/18 21:56 - Constitutional Appears: Chronically Ill - ENT Exam ENT Exam: Mucous Membranes Moist - Respiratory Exam Respiratory Exam: Decreased Breath Sounds - Cardiovascular Exam Cardiovascular Exam: +S1, +S2 - GI/Abdominal Exam GI & Abdominal Exam: Soft. absent: Tenderness Assessment and Plan - Assessment and Plan (Free Text) Plan: Assessment Severe sepsis due to ESBL E. coli bacteremia, with urine as the source with ESBL E. coli in the urine noted (probable pyelonephritis) sacral decubitus ulcer growing ESBL E. 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 faecalis in the sacral ulcer is probably a colonizer follow up repeat blood cx will continue to monitor clinically
--- NOTE | 2018-09-18 13:50 | CP.PCM.PN ---
<Arlene Reid - Last Filed: 09/18/18 13:55> Subjective - Date & Time of Evaluation Date of Evaluation: 09/18/18 Time of Evaluation: 08:00 - Subjective Subjective: PGY5 GI Follow-up Pt seen and examined bedside denies any abd pain tolerating diet drowsy, but answering questions tube feeds, continuing ROS: 12 point ROS conducted, neg other than above Objective - Vital Signs/Intake and Output Vital Signs (last 24 hours): Temp Pulse Resp BP Pulse Ox 96.4 F L 78 12 93/62 L 99 09/18/18 07:00 09/18/18 07:00 09/18/18 07:00 09/18/18 07:00 09/18/18 07:00 Intake and Output: 09/18/18 09/18/18 06:59 18:59 Intake Total 2440 Output Total 850 Balance 1590 - Medications Medications: Current Medications Enoxaparin Sodium (Lovenox) 40 mg SC DAILY [facility]; Protocol Last Admin: 09/18/18 10:14 Dose: 40 mg NOREPINEPHRINE BIT/0.9 % NACL (Levophed 4 Mg/ 250 Ml Ns Premixed) 4 mg in 250 mls @ 15 mls/hr IV .[id number] PRN; Protocol PRN Reason: TITRATE PER MD ORDER Last Titration: 09/16/18 19:30 Dose: 0 mcg/min, 0 mls/hr Meropenem (Merrem Iv 1 Gm Premix) 1 gm in 50 mls @ 100 mls/hr IVPB Q8 [facility]; Protocol Stop: 09/22/18 06:01 Last Admin: 09/18/18 05:47 Dose: 100 mls/hr Levetiracetam (Keppra 500mg Ivpb) 500 mg in 100 mls @ 400 mls/hr IV Q12 [facility] Last Admin: 09/18/18 10:13 Dose: 400 mls/hr Lorazepam (Ativan) 1 mg IVP Q6H PRN; Protocol PRN Reason: Seizure activity Pantoprazole Sodium (Protonix Ec Tab) 40 mg PO 0600 [facility] Sodium Hypochlorite (Dakins Solution 0.5%) 0 ml TOP DAILY [facility] Last Admin: 09/18/18 10:47 Dose: 1 dose - Labs Labs: 09/18/18 06:00 09/18/18 06:00 PT 18.3 SECONDS (9.4-12.5) H 09/14/18 21:56 INR 1.65 09/14/18 21:56 APTT 33.9 Seconds (26.9-38.3) 09/14/18 21:56 - Constitutional Appears: Well, No Acute Distress - Head Exam Head Exam: ATRAUMATIC, NORMOCEPHALIC - Eye Exam Eye Exam: Normal appearance - ENT Exam ENT Exam: Mucous Membranes Moist, Normal Exam - Neck Exam Neck Exam: Normal Inspection - Respiratory Exam Respiratory Exam: Clear to Ausculation Bilateral, NORMAL BREATHING PATTERN. absent: Rales, Rhonchi, Wheezes, Respiratory Distress - Cardiovascular Exam Cardiovascular Exam: REGULAR RHYTHM, +S1, +S2 - GI/Abdominal Exam GI & Abdominal Exam: Soft, Normal Bowel Sounds. absent: Distended, Firm, Guarding, Rigid, Tenderness, Organomegaly - Extremities Exam Extremities Exam: Normal Inspection. absent: Joint Swelling, Pedal Edema, Tenderness - Neurological Exam Neurological Exam: Awake - Psychiatric Exam Psychiatric exam: Flat Affect - Skin Skin Exam: Dry, Intact, Normal Color, Warm Assessment and Plan - Assessment and Plan (Free Text) Assessment: 47 yo F with PMH of hydrocephalus s/p [employer] shunt (07/2018), ICH, seizures, dysphagia 2/2 PEG tube, and hypophonic voice is admitted to [facility] for septic shock with MODS. GI consulted due to elevated liver enzymes. Transaminitis likely due hypoperfusion in the setting of septic shock. 1. Septic Shock with MODS 2/2 UTI vs sacral decub vs [employer] associated GNR bacteremia 2. Transaminitis likely 2/2 hypoperfusion 3. Diarrhea 4. Stage IV sacral decubitus 5. UTI 6. Hydrocephalus s/p [employer] shunt 7. PEG tube Plan: - Cont trend LFTs - F/u C. diff - IV abx per ID - Further medical management per primary/ID/neuro - OK to continue tube feeds. Patient discussed with Dr. Emmanuel. <Arianne Emmanuel V - Last Filed: 09/18/18 22:44> Objective - Vital Signs/Intake and Output Vital Signs (last 24 hours): Temp Pulse Resp BP Pulse Ox 97.7 F 80 14 111/70 96 09/18/18 17:14 09/18/18 17:14 09/18/18 17:14 09/18/18 16:30 09/18/18 17:03 Intake and Output: 09/18/18 09/19/18 18:59 06:59 Intake Total 1040 Output Total 600 Balance 440 - Medications Medications: Current Medications Enoxaparin Sodium (Lovenox) 40 mg SC DAILY [facility]; Protocol Last Admin: 09/18/18 10:14 Dose: 40 mg Meropenem (Merrem Iv 1 Gm Premix) 1 gm in 50 mls @ 100 mls/hr IVPB Q8 [facility]; Protocol Stop: 09/22/18 06:01 Last Admin: 09/18/18 22:08 Dose: 100 mls/hr Levetiracetam (Keppra 500mg Ivpb) 500 mg in 100 mls @ 400 mls/hr IV Q12 [facility] Last Admin: 09/18/18 21:09 Dose: 400 mls/hr Lorazepam (Ativan) 1 mg IVP Q6H PRN; Protocol PRN Reason: Seizure activity Pantoprazole Sodium (Protonix Ec Tab) 40 mg PO 0600 [facility] Sodium Hypochlorite (Dakins Solution 0.5%) 0 ml TOP DAILY [facility] Last Admin: 09/18/18 10:47 Dose: 1 dose - Labs Labs: 09/18/18 06:00 09/18/18 18:33 PT 18.3 SECONDS (9.4-12.5) H 09/14/18 21:56 INR 1.65 09/14/18 21:56 APTT 33.9 Seconds (26.9-38.3) 09/14/18 21:56 Attending/Attestation - Attestation I have personally seen and examined this patient.: Yes I have fully participated in the care of the patient.: Yes I have reviewed all pertinent clinical information, including history, physical exam and plan: Yes Notes (Text): This is an addendum to GI progress report dictated by the GI Fellow. The patient was seen and examined earlier. Medical records, lab studies, imagings were reviewed. Last 24 hours events reviewed. Agreed with the above treatment plan as outlined in GI Fellow 's notes with the addition of the following 09/18/18 22:43
--- NOTE | 2018-09-18 13:57 | CP.PCM.PN ---
<Jerod Ramirez - Last Filed: 09/18/18 13:53> Subjective - Date & Time of Evaluation Date of Evaluation: 09/18/18 Time of Evaluation: 08:00 - Subjective Subjective: Jerod Ramirez PGY1 Medicine Progress Note for Dr. Reid Patient was seen and examined at bedside this morning. Vital signs: Temp 96.4, BP 93/62 during time of interview. Patient is a poor historian. He has hypophonic voice and is minimally verbal. No adverse overnight events. A full 12 point ROS was unable to be obtained given patient's mental status. Objective - Vital Signs/Intake and Output Vital Signs (last 24 hours): Temp Pulse Resp BP Pulse Ox 96.4 F L 78 12 93/62 L 99 09/18/18 07:00 09/18/18 07:00 09/18/18 07:00 09/18/18 07:00 09/18/18 07:00 Intake and Output: 09/18/18 09/18/18 06:59 18:59 Intake Total 2440 Output Total 850 Balance 1590 - Medications Medications: Current Medications Enoxaparin Sodium (Lovenox) 40 mg SC DAILY [facility]; Protocol Last Admin: 09/18/18 10:14 Dose: 40 mg NOREPINEPHRINE BIT/0.9 % NACL (Levophed 4 Mg/ 250 Ml Ns Premixed) 4 mg in 250 mls @ 15 mls/hr IV .[id number] PRN; Protocol PRN Reason: TITRATE PER MD ORDER Last Titration: 09/16/18 19:30 Dose: 0 mcg/min, 0 mls/hr Meropenem (Merrem Iv 1 Gm Premix) 1 gm in 50 mls @ 100 mls/hr IVPB Q8 [facility]; Pr otocol Stop: 09/22/18 06:01 Last Admin: 09/18/18 05:47 Dose: 100 mls/hr Levetiracetam (Keppra 500mg Ivpb) 500 mg in 100 mls @ 400 mls/hr IV Q12 [facility] Last Admin: 09/18/18 10:13 Dose: 400 mls/hr Lorazepam (Ativan) 1 mg IVP Q6H PRN; Protocol PRN Reason: Seizure activity Pantoprazole Sodium (Protonix Ec Tab) 40 mg PO 0600 [facility] Sodium Hypochlorite (Dakins Solution 0.5%) 0 ml TOP DAILY [facility] Last Admin: 09/18/18 10:47 Dose: 1 dose - Labs Labs: 09/18/18 06:00 09/18/18 06:00 PT 18.3 SECONDS (9.4-12.5) H 09/14/18 21:56 INR 1.65 09/14/18 21:56 APTT 33.9 Seconds (26.9-38.3) 09/14/18 21:56 - Constitutional Appears: No Acute Distress, Cachectic, Chronically Ill - Head Exam Head Exam: ATRAUMATIC, NORMAL INSPECTION, NORMOCEPHALIC - Eye Exam Eye Exam: EOMI, Normal appearance Pupil Exam: NORMAL ACCOMODATION - ENT Exam ENT Exam: Mucous Membranes Moist - Respiratory Exam Respiratory Exam: Clear to Ausculation Bilateral. absent: Accessory Muscle Use, Chest Wall Tenderness, Rales, Rhonchi, Wheezes - Cardiovascular Exam Cardiovascular Exam: RRR, +S1, +S2 - GI/Abdominal Exam GI & Abdominal Exam: Soft, Normal Bowel Sounds. absent: Tenderness Additional comments: PEG Tube in place - Extremities Exam Extremities Exam: Normal Capillary Refill. absent: Calf Tenderness, Tenderness Additional comments: R-femoral line in the groin. No signs of infection. - Back Exam Additional comments: Stage 4 sacral wound ulcer. - Neurological Exam Neurological Exam: absent: Alert, Awake, Oriented x3 Additional comments: Responds to verbal and painful stimuli. Minimally verbal. - Skin Skin Exam: Dry, Intact, Normal Color, Warm Assessment and Plan - Assessment and Plan (Free Text) Assessment: Patient is a 47 year old male with PMHx [employer] shunt 2/2 Fall (07/19/18), Brain Injury causing intracranial hemorrhage, Seizure disorder (1000mg keppra), Dysphagia, PEG tube, hypophonic voice who presented to the ED via EMS accompanied by family for complaints of cough for one day duration and altered mental status. Patient admitted for septic shock with MODS 2/2 Sacral Decubitus Ulcer vs UTI vs [employer] Associated Bacteremia. Plan: Septic Shock with MODS 2/2 UTI vs Stage IV Sacral Decubitus Ulcer vs [employer] associated Bacteremia - Wound culture: grew E. Coli and Enterococcus Faecalis. - UCx grew E. Coli; repeat UCx negative - Blood Cx grew E. Coli; repeat blood cx negative (prelim) - MRSA negative - Hypothermia, monitor temp; maintain normothermia - c/w merrem for antibiotic coverage - Leukocytosis downtrending - c/w wound care, air mattress, q2 turns, dakin solution - Surgery on consult (Dr. Mcintosh). No surgical intervention at this time. - BP still low, c/w levophed and maintain MAP > 65. Will not remove central line yet given fluctuating BP and possible need for pressor. - ID following (Dr. Benítez). Recs appreciated. - Repeat Procal level was 0.6 Transaminitis 2/2 Hypoperfusion from Septic Shock - AST/ALT downtrending - GI on board. Recs were appreciated. - c/w tube feeds HypoK and HypoMg - repleted - continue to monitor daily labs Hx [employer] Shunt - Hydrocephalus s/p ICH - No further recommendations at this time - Neurosurgery is on board (Dr. Siegel). Recs appreciated. Hx Dysphagia with PEG Tube - c/w tube feeds - discontinued IVF since patinet is back on tube feeds with free water flushes - Will obtain CXR to make sure patient is not fluid overloaded - switched to PO protonix Hx Seizures - c/w ativan 1mg Q6H prn - continue Keppra - seizures precautions/aspiration precautions - f/u EEG Diarrhea - f/u stool c.diff DVT/GI: Lovenox/protonix Dispo: Continue to monitor patient in the ICU. Case was discussed and reviewed with Attending Physician, Dr. Reid. <Keke Reid R - Last Filed: 09/19/18 16:10> Objective - Vital Signs/Intake and Output Vital Signs (last 24 hours): Temp Pulse Resp BP Pulse Ox 97.5 F L 76 52 H 130/98 H 71 L 09/19/18 14:29 09/19/18 14:29 09/19/18 14:29 09/19/18 14:30 09/19/18 01:00 - Medications Medications: Current Medications Enoxaparin Sodium (Lovenox) 40 mg SC DAILY [facility]; Protocol Last Admin: 09/19/18 09:20 Dose: 40 mg Meropenem (Merrem Iv 1 Gm Premix) 1 gm in 50 mls @ 100 mls/hr IVPB Q8 [facility]; Protocol Stop: 09/22/18 06:01 Last Admin: 09/19/18 15:08 Dose: 100 mls/hr Levetiracetam (Keppra 500mg Ivpb) 500 mg in 100 mls @ 400 mls/hr IV Q12 [facility] Last Admin: 09/19/18 09:20 Dose: 400 mls/hr Lorazepam (Ativan) 1 mg IVP Q6H PRN; Protocol PRN Reason: Seizure activity Pantoprazole Sodium (Protonix Ec Tab) 40 mg PO 0600 [facility] Last Admin: 09/19/18 05:42 Dose: 40 mg Sodium Hypochlorite (Dakins Solution 0.5%) 0 ml TOP DAILY [facility] Last Admin: 09/19/18 09:21 Dose: 1 dose - Labs Labs: 09/19/18 06:00 09/19/18 06:00 PT 18.3 SECONDS (9.4-12.5) H 09/14/18 21:56 INR 1.65 09/14/18 21:56 APTT 33.9 Seconds (26.9-38.3) 09/14/18 21:56 Attending/Attestation - Attestation I have personally seen and examined this patient.: Yes I have fully participated in the care of the patient.: Yes I have reviewed all pertinent clinical information, including history, physical exam and plan: Yes Notes (Text): Patient seen and examined by me with resident at 9:45AM on 09/18/18. Case including HPI, physical exam, and assessment and plan discussed with resident. Agree with above with following additions/corrections. Patient is a 47-year-old male with past medical history significant for [employer] shunt, traumatic brain injury causing intracranial hemorrhage, seizure disorder, dysphagia s/p PEG, and hypophonic voice that presented to the emergency room with a cough. Patient opens eyes to verbal stimuli. Not answering questions today. Patient off pressors. Afebrile. Unable to obtain any review of systems from patient. Physical exam: General: Awake and alert lying in bed in no acute distress HEENT: Normocephalic, atraumatic. Extraocular muscles intact, pupils equal and reactive, no scleral icterus. Positive nystagmus bilateral eyes. Neck is supple. Cardiovascular: Regular rhythm. Normal S1 and S2. No murmurs, rubs, or gallops appreciated Pulmonary: Normal respiratory effort. No rhonchi, rales, or wheezing appreciated. Gastrointestinal: Soft, nondistended. Nontender. Positive bowel sounds all 4 quadrants. No guarding. Musculoskeletal: Bilateral upper extremities contracted. Lower extremities with no edema. Central nervous system: Awake and alert. Not responding to questions today. Dermatologic: Skin warm and dry. Assessment and plan: Patient is a 47 year old male with past medical history significant for [employer] shunt, traumatic brain injury causing intracranial hemorrhage, seizure disorder, dysphagia s/p PEG, and hypophonic voice that presented to the emergency room with a cough. 1. Septic shock with multiorgan dysfunction syndrome. Now off levophed. LFTs improving. Urine culture positive for E. Coli. Sacral decubitus ulcer wound culture positive for E. Coli and Enterococcus Faecalis. One blood culture positive for gram negative rods. Repeat urine culture with no growth. ID following, recommendations appreciated. Repeat blood cultures pending. Continue Merrem. Leukocytosis resolved. Patient is afebrile. Chest/Abd/pelvis CT per radiologist showed no significant or acute findings to account for/related to the clinical presentation. Abdominal ultrasound per radiologist showed no significant or acute findings to account for/related to the clinical presentation, nonvisualization of small calculi identified on concurrent CT, tumefactive sludge identified. 2. Toxic metabolic encephalopathy. Likely secondary to septic shock. EEG results pending. Continue to treat underlying cause. Continue supportive care. 3. Sacral decubitus ulcer present on admission. Surgery recommendations appreciated. Continue wound care. Continue to turn patient q2hrs. Wound culture positive for E. Coli and Enterococcus Faecalis. ID following, recommendations appreciated. Continue Merrem. 4. Transaminitis. Likely secondary to septic shock and hypoperfusion. Downtrending. Continue to monitor LFTs. 5. Diarrhea. Stool for c-diff pending. No diarrhea now 6. Seizure Disorder. Continue Keppra. Continue seizure precautions. EEG pending. 7. Hydrocephalus. S/P [employer] shunt. CT head per radiologist showed no acute intracranial findings, no change in hydrocephalus, no change in left cerebellar encephalomalacia. Neurosurgery recommendations appreciated. 8. Dysphagia. S/P PEG. Continue with tube feeds. 9. GI/DVT prophylaxis. Protonix/Lovenox 10. Patient is a full code. Case was discussed in detail with the patient regarding current diagnosis and treatment plan. All questions answered.
--- NOTE | 2018-09-18 16:44 | PCM.EEG ---
Electroencephalogram Report - Electroencephalogram Report Procedure Date: 09/18/18 Medication: Keppra, Meropenem, Pantoprazole. Interpretation: Technical Information: This was a 16 -channel EEG, 1-channel EKG routine EEG performed using an [employer] machine. Electrodes were applied using the 10/20 international placement system. Start; 10;45 End; 11;30 Total; 45 min Clinical Information: seizures. During resting wakefulness there was a symmetric posterior dominant rhythm at 8.5-9.5 Hz, 30-50 uV, which was reactive to eye opening and closing. Drowsiness (11;15) was associated with fragmentation of the posterior dominant rhythm and with slow roving eye movements. Light sleep (11;06) was recorded and was characterized by central sleep spindles, and bilateral theta slowing. Hyperventilation was not performed. Photic stimulation was performed and there were no changes on the record. Focal abnormality; none ECG was associated with a normal sinus rhythm. Impression: This is a normal awake drowsy and sleep electroencephalogram.
[2018-09-18 19:06] LABS: ALB/GLOB RATIO 0.7 (1.1-1.8); ALBUMIN 2.6 g/dL (3.0-4.8); ALT/SGPT 65 U/L (7-56); AST/SGOT 60 U/L (17-59); BLOOD UREA NITROGEN 6 mg/dL (7-21); CALCIUM 8.3 mg/dL (8.4-10.5); GFR NON-AFRICAN AMERICAN > 60
[2018-09-19] MEDS: Pantoprazole 40 mg EC Tab PO SCH (05:42)
[2018-09-19] MEDS: Meropenem IV 1 gm in NS 1 GM/50 ML BAG IVPB SCH ×3 (05:43→21:15)
[2018-09-19 06:24] LABS: BASO # 0.02 K/mm3 (0.0-2.0); BASO % 0.2 % (0.0-3.0); EOS # 0.1 (0.0-0.7); HEMOGLOBIN 10.1 g/dL (14.0-18.0); LYMPH # 1.9 (1.2-3.4); LYMPH % 18.2 % (22.0-35.0); MEAN CELL VOLUME 91.6 fl (80.0-105.0); MEAN CORPUSCULAR HEMOGLOBIN 29.3 pg (25.0-35.0); MONO # 0.5 (0.1-0.6); MONO % 4.7 % (1.0-6.0); RBC 3.45 10^6/uL (3.5-6.1); RED CELL DISTRIBUTION WIDTH 13.8 % (11.5-14.5); WHITE BLOOD COUNT 10.3 10^3/uL (4.5-11.0)
[2018-09-19 06:42] LABS: ALB/GLOB RATIO 0.7 (1.1-1.8); ALBUMIN 2.7 g/dL (3.0-4.8); ALT/SGPT 59 U/L (7-56); AST/SGOT 53 U/L (17-59); BLOOD UREA NITROGEN 7 mg/dL (7-21); CALCIUM 8.2 mg/dL (8.4-10.5); GFR NON-AFRICAN AMERICAN > 60
--- NOTE | 2018-09-19 07:45 | CP.PCM.PN ---
<Jerod Ramirez - Last Filed: 09/19/18 11:53> Subjective - Date & Time of Evaluation Date of Evaluation: 09/19/18 Time of Evaluation: 08:00 - Subjective Subjective: Jerod Ramirez PGY1 Medicine Progress Note for Dr. Reid Patient was seen and examined at bedside this morning. Vitals: Temp 97.2, HR 72, BP 137/64, RR 13. Patient is poor historian. Minimally verbal. Patient was more awake today. Still unable to obtain a ROS due to patient's mental status and patient's hx of brain injury. No adverse overnight events. Tube feeds are cur rently running. R-femoral central line in place. Condom cath in place. A full 12 point ROS unable to be obtained given patient's mental status. Objective - Vital Signs/Intake and Output Vital Signs (last 24 hours): Temp Pulse Resp BP Pulse Ox 97.2 F L 72 13 137/64 71 L 09/19/18 03:52 09/19/18 03:52 09/19/18 03:52 09/19/18 03:31 09/19/18 01:00 - Medications Medications: Current Medications Enoxaparin Sodium (Lovenox) 40 mg SC DAILY KEYON; Protocol Last Admin: 09/18/18 10:14 Dose: 40 mg Meropenem (Merrem Iv 1 Gm Premix) 1 gm in 50 mls @ 100 mls/hr IVPB Q8 KEYON; Protocol Stop: 09/22/18 06:01 Last Admin: 09/19/18 05:43 Dose: 100 mls/hr Levetiracetam (Keppra 500mg Ivpb) 500 mg in 100 mls @ 400 mls/hr IV Q12 KEYON Last Admin: 09/18/18 21:09 Dose: 400 mls/hr Lorazepam (Ativan) 1 mg IVP Q6H PRN; Protocol PRN Reason: Seizure activity Pantoprazole Sodium (Protonix Ec Tab) 40 mg PO 0600 KEYON Last Admin: 09/19/18 05:42 Dose: 40 mg Sodium Hypochlorite (Dakins Solution 0.5%) 0 ml TOP DAILY KEYON Last Admin: 09/18/18 10:47 Dose: 1 dose - Labs Labs: 09/19/18 06:00 09/19/18 06:00 PT 18.3 SECONDS (9.4-12.5) H 09/14/18 21:56 INR 1.65 09/14/18 21:56 APTT 33.9 Seconds (26.9-38.3) 09/14/18 21:56 - Constitutional Appears: No Acute Distress, Cachectic, Chronically Ill - Eye Exam Eye Exam: EOMI - ENT Exam ENT Exam: Mucous Membranes Moist - Respiratory Exam Respiratory Exam: Clear to Ausculation Bilateral. absent: Accessory Muscle Use, Chest Wall Tenderness, Rales, Rhonchi, Wheezes - Cardiovascular Exam Cardiovascular Exam: REGULAR RHYTHM, +S1, +S2 - GI/Abdominal Exam GI & Abdominal Exam: Soft, Normal Bowel Sounds. absent: Tenderness Additional comments: PEG tube in place. - Extremities Exam Extremities Exam: Normal Capillary Refill. absent: Calf Tenderness, Tenderness - Back Exam Additional comments: Stage 4 Sacral decubitus ulcer. - Neurological Exam Neurological Exam: Alert, Awake. absent: Oriented x3 - Skin Skin Exam: Dry, Intact, Normal Color, Warm Assessment and Plan - Assessment and Plan (Free Text) Assessment: Patient is a 47 year old male with PMHx INFORMATION TECHNOLOGY COORDINATOR shunt 2/2 Fall (07/19/18), Brain Injury causing intracranial hemorrhage, Seizure disorder, Dysphagia with PEG tube, hypophonic voice who presented to the ED via EMS accompanied by family for complaints of cough for one day duration and altered mental status. Patient admitted for septic shock with MODS 2/2 Sacral Decubitus Ulcer vs UTI vs INFORMATION TECHNOLOGY COORDINATOR Associated Bacteremia. Plan: Septic Shock with MODS 2/2 UTI vs Stage IV Sacral Decubitus Ulcer vs INFORMATION TECHNOLOGY COORDINATOR associated Bacteremia - Maintain MAP > 65. May consider removal of R-femoral central line given improving BP. Patient is off pressors. - c/w merrem for antibiotic coverage (Day 5 of 10) - Mild Hypothermia still present; continue to maintain normothermia - Wound culture: grew E. Coli and Enterococcus Faecalis. - UCx grew E. Coli; repeat UCx negative - Blood Cx grew E. Coli; repeat blood cx negative (prelim) - MRSA negative - Leukocytosis resolved - c/w wound care, air mattress, q2 turns, dakin solution - Surgery on consult (Dr. Mcintosh). No surgical intervention at this time. - ID following (Dr. Benítez). Recs appreciated. Transaminitis 2/2 Hypoperfusion from Septic Shock - improving - AST/ALT downtrending - GI on board. Recs were appreciated. - Hep panel negative HypoK and HypoMg - resolved - repleted appropriately - daily labs Hx INFORMATION TECHNOLOGY COORDINATOR Shunt - Hydrocephalus s/p ICH - No further recommendations at this time - Neurosurgery is on board (Dr. Siegel). Recs appreciated. Hx Dysphagia with PEG Tube - c/w tube feeds and free water flushes - Adjust Jevity diet as patient's albumin is low, 2.7 - CXR (09/18): no evidence of fluid overload after discontinuing IVF. Hx Seizures - EEG study was normal - c/w ativan 1mg Q6H prn - continue Keppra - seizures precautions/aspiration precautions Diarrhea - f/u stool c.diff DVT/GI: Lovenox/protonix Dispo: Continue to monitor patient in the ICU. Case was discussed and reviewed with Attending Physician, Dr. Reid. <Keke Reid R - Last Filed: 09/19/18 16:19> Objective - Vital Signs/Intake and Output Vital Signs (last 24 hours): Temp Pulse Resp BP Pulse Ox 97.5 F L 76 52 H 130/98 H 71 L 09/19/18 14:29 09/19/18 14:29 09/19/18 14:29 09/19/18 14:30 09/19/18 01:00 - Medications Medications: Current Medications Enoxaparin Sodium (Lovenox) 40 mg SC DAILY KEYON; Protocol Last Admin: 09/19/18 09:20 Dose: 40 mg Meropenem (Merrem Iv 1 Gm Premix) 1 gm in 50 mls @ 100 mls/hr IVPB Q8 KEYON; Protocol Stop: 09/22/18 06:01 Last Admin: 09/19/18 15:08 Dose: 100 mls/hr Levetiracetam (Keppra 500mg Ivpb) 500 mg in 100 mls @ 400 mls/hr IV Q12 KEYON Last Admin: 09/19/18 09:20 Dose: 400 mls/hr Lorazepam (Ativan) 1 mg IVP Q6H PRN; Protocol PRN Reason: Seizure activity Pantoprazole Sodium (Protonix Ec Tab) 40 mg PO 0600 KEYON Last Admin: 09/19/18 05:42 Dose: 40 mg Sodium Hypochlorite (Dakins Solution 0.5%) 0 ml TOP DAILY KEYON Last Admin: 09/19/18 09:21 Dose: 1 dose - Labs Labs: 09/19/18 06:00 09/19/18 06:00 PT 18.3 SECONDS (9.4-12.5) H 09/14/18 21:56 INR 1.65 09/14/18 21:56 APTT 33.9 Seconds (26.9-38.3) 09/14/18 21:56 Attending/Attestation - Attestation I have personally seen and examined this patient.: Yes I have fully participated in the care of the patient.: Yes I have reviewed all pertinent clinical information, including history, physical exam and plan: Yes Notes (Text): Patient seen and examined by me with resident at 9:15AM on 09/19/18. Case including HPI, physical exam, and assessment and plan discussed with resident. Agree with above with following additions/corrections. Patient is a 47-year-old male with past medical history significant for INFORMATION TECHNOLOGY COORDINATOR shunt, traumatic brain injury causing intracranial hemorrhage, seizure disorder, dysphagia s/p PEG, and hypophonic voice that presented to the emergency room with a cough. Patient more awake and alert today. Answering a few questions. State he is having "a little pain" but is unable to say where. Patient states he is feeling "ok." Not answering any other questions. Patient is Afebrile. Unable to obtain any review of systems from patient. Physical exam: General: Awake and alert lying in bed in no acute distress HEENT: Normocephalic, atraumatic. Extraocular muscles intact, pupils equal and reactive, no scleral icterus. Positive nystagmus bilateral eyes. Neck is stevenson pple. Cardiovascular: Regular rhythm. Normal S1 and S2. No murmurs, rubs, or gallops appreciated Pulmonary: Normal respiratory effort. No rhonchi, rales, or wheezing appreciated. Gastrointestinal: Soft, nondistended. Nontender. Positive bowel sounds all 4 quadrants. No guarding. Musculoskeletal: Bilateral upper extremities conracted. Lower extremities with no edema. Left lower extremity contracted. Central nervous system: Awake and alert. Responds to a few questions. Dermatologic: Skin warm and dry. Assessment and plan: Patient is a 47 year old male with past medical history significant for INFORMATION TECHNOLOGY COORDINATOR shunt, traumatic brain injury causing intracranial hemorrhage, seizure disorder, dysphagia s/p PEG, and hypophonic voice that presented to the emergency room with a cough. 1. Septic shock with multiorgan dysfunction syndrome. Off pressors. Transaminitis resolving. Urine culture positive for E. Coli. Repeat urine culture with no growth. Sacral decubitus ulcer wound culture positive for E. Col i and Enterococcus Faecalis. One blood culture positive for Ecoli. ID following, recommendations appreciated. Repeat blood cultures pending. Continue Merrem. Leukocytosis resolved. Patient is afebrile. Chest/Abd/pelvis CT per radiologist showed no significant or acute findings to account for/related to the clinical presentation. Abdominal ultrasound per radiologist showed no significant or acute findings to account for/related to the clinical presentation, nonvisualization of small calculi identified on concurrent CT, tumefactive sludge identified. 2. Toxic metabolic encephalopathy. Likely secondary to septic shock. EEG per neurologist showed normal awake, drowsy, and sleep electroencephalogram. Continue to treat underlying cause. Continue supportive care. 3. Sacral decubitus ulcer present on admission. Surgery recommendations appreciated. Continue wound care. Continue to turn patient q2hrs. Wound culture positive for E. Coli and Enterococcus Faecalis. ID following, recommendations appreciated. Continue Merrem. 4. Transaminitis. Likely secondary to septic shock and hypoperfusion. Resolving. Continue to monitor LFTs. 5. Diarrhea. Resolved for now. C-diff uncollected. 6. Seizure Disorder. Continue Keppra. Continue seizure precautions. EEG per neurologist showed normal awake, drowsy, and sleep electroencephalogram 7. Hydrocephalus. S/P INFORMATION TECHNOLOGY COORDINATOR shunt. CT head per radiologist showed no acute intracranial findings, no change in hydrocephalus, no change in left cerebellar encephalomalacia. Neurosurgery recommendations appreciated. 8. Dysphagia. S/P PEG. Continue with tube feeds. 9. GI/DVT prophylaxis. Protonix/Lovenox 10. Patient is a full code. Case was discussed in detail with the patient regarding current diagnosis and treatment plan. All questions answered.
[2018-09-19] MEDS: levETIRAcetam 500mg IVPB 500 MG/100 ML BAG IV SCH ×2 (09:20→21:15)
[2018-09-19] MEDS: Enoxaparin 40 mg Syringe SC SCH (09:20)
[2018-09-19] MEDS: Dakin's Topical 0.5%-Full Strength (480 ml) TOP SCH (09:21)
--- NOTE | 2018-09-19 12:13 | CP.PCM.PN ---
Subjective - Date & Time of Evaluation Date of Evaluation: 09/19/18 Time of Evaluation: 08:10 - Subjective Subjective: Patient is under a warming blanket, not in distress but still somewhat lethargic, no diarrhea. Objective - Vital Signs/Intake and Output Vital Signs (last 24 hours): Temp Pulse Resp BP Pulse Ox 96.4 F L 78 12 93/62 L 99 09/18/18 07:00 09/18/18 07:00 09/18/18 07:00 09/18/18 07:00 09/18/18 07:00 Intake and Output: 09/18/18 09/18/18 06:59 18:59 Intake Total 2440 Output Total 850 Balance 1590 - Medications Medications: Current Medications Enoxaparin Sodium (Lovenox) 40 mg SC DAILY KEYON; Protocol Last Admin: 09/18/18 10:14 Dose: 40 mg NOREPINEPHRINE BIT/0.9 % NACL (Levophed 4 Mg/ 250 Ml Ns Premixed) 4 mg in 250 mls @ 15 mls/hr IV .[id number] PRN; Protocol PRN Reason: TITRATE PER MD ORDER Last Titration: 09/16/18 19:30 Dose: 0 mcg/min, 0 mls/hr Meropenem (Merrem Iv 1 Gm Premix) 1 gm in 50 mls @ 100 mls/hr IVPB Q8 KEYON; Protocol Stop: 09/22/18 06:01 Last Admin: 09/18/18 05:47 Dose: 100 mls/hr Levetiracetam (Keppra 500mg Ivpb) 500 mg in 100 mls @ 400 mls/hr IV Q12 KEYON Last Admin: 09/18/18 10:13 Dose: 400 mls/hr Potassium Chloride (Potassium Chloride 20 Meq/100 Ml) 20 meq in 100 mls @ 50 mls/hr IVPB Q2H KEYON Stop: 09/18/18 13:44 Last Admin: 09/18/18 10:14 Dose: 50 mls/hr Magnesium Sulfate/Dextrose (Magnesium Sulfate 1 Gm/100 Ml D5w) 1 gm in 100 mls @ 100 mls/hr IVPB ONCE ONE Stop: 09/18/18 13:27 Lorazepam (Ativan) 1 mg IVP Q6H PRN; Protocol PRN Reason: Seizure activity Pantoprazole Sodium (Protonix Ec Tab) 40 mg PO 0600 [facility] Sodium Hypochlorite (Dakins Solution 0.5%) 0 ml TOP DAILY KEYON Last Admin: 09/18/18 10:47 Dose: 1 dose - Labs Labs: 09/18/18 06:00 09/18/18 06:00 PT 18.3 SECONDS (9.4-12.5) H 09/14/18 21:56 INR 1.65 09/14/18 21:56 APTT 33.9 Seconds (26.9-38.3) 09/14/18 21:56 - Constitutional Appears: Chronically Ill - Respiratory Exam Respiratory Exam: Decreased Breath Sounds - Cardiovascular Exam Cardiovascular Exam: +S1, +S2 - GI/Abdominal Exam GI & Abdominal Exam: Soft. absent: Tenderness Assessment and Plan - Assessment and Plan (Free Text) Plan: Assessment Severe sepsis due to ESBL E. coli bacteremia, with urine as the source with ESBL E. coli in the urine noted (probable pyelonephritis) sacral decubitus ulcer growing ESBL E. coli S/P EMBROIDERY SPECIALIST shunt placement after traumatic brain injury S/P PEG tube placement history of hydrocephalus Plan continue Merrem day 5 of 10-14 days E. faecalis in the sacral ulcer is probably a colonizer repeat blood cx are negative will continue to monitor clinically
[2018-09-20] MEDS: Pantoprazole 40 mg EC Tab PO SCH (05:28)
[2018-09-20] MEDS: Meropenem IV 1 gm in NS 1 GM/50 ML BAG IVPB SCH ×3 (05:28→22:11)
[2018-09-20 06:46] LABS: BASO # 0.01 K/mm3 (0.0-2.0); BASO % 0.1 % (0.0-3.0); EOS # 0.1 (0.0-0.7); EOS % 0.8 % (1.5-5.0); HEMOGLOBIN 10.5 g/dL (14.0-18.0); LYMPH # 2.2 (1.2-3.4); LYMPH % 27.6 % (22.0-35.0); MEAN CELL VOLUME 90.2 fl (80.0-105.0); MEAN CORPUSCULAR HEMOGLOBIN 29.3 pg (25.0-35.0); MEAN CORPUSCULAR HGB CONC 32.5 g/dl (31.0-37.0); MEAN PLATELET VOLUME 8.6 fl (7.0-11.0); MONO # 0.5 (0.1-0.6); MONO % 6.5 % (1.0-6.0); RBC 3.58 10^6/uL (3.5-6.1); RED CELL DISTRIBUTION WIDTH 13.4 % (11.5-14.5); WHITE BLOOD COUNT 7.8 10^3/uL (4.5-11.0)
[2018-09-20 07:35] LABS: ALB/GLOB RATIO 0.8 (1.1-1.8); ALBUMIN 2.8 g/dL (3.0-4.8); ALT/SGPT 45 U/L (7-56); AST/SGOT 46 U/L (17-59); BLOOD UREA NITROGEN 6 mg/dL (7-21); CALCIUM 8.7 mg/dL (8.4-10.5); GFR NON-AFRICAN AMERICAN > 60
[2018-09-20] MEDS: levETIRAcetam 500mg IVPB 500 MG/100 ML BAG IV SCH ×2 (09:08→23:03)
[2018-09-20] MEDS: Enoxaparin 40 mg Syringe SC SCH (09:08)
[2018-09-20] MEDS: Dakin's Topical 0.5%-Full Strength (480 ml) TOP SCH (09:09)
--- NOTE | 2018-09-20 11:19 | CP.PCM.PN ---
<Jerod Ramirez - Last Filed: 09/20/18 11:53> Subjective - Date & Time of Evaluation Date of Evaluation: 09/20/18 Time of Evaluation: 08:00 - Subjective Subjective: Jerod Ramirez PGY1 Medicine Progress Note for Dr. Reid Patient was seen and evaluated at bedside this morning. Vital signs are stable. Patient responds to verbal stimuli. Awake, alert. ROS unable to be obtained given mental status and hx of brain injury. No adverse overnight events. Tube feeds running. R-femoral central line was removed yesterday by ICU team. Condom cath is in place. A full 12 point ROS unable to be obtained given patient's mental status and history of brain injury. Objective - Vital Signs/Intake and Output Vital Signs (last 24 hours): Temp Pulse Resp BP Pulse Ox 98.1 F 84 11 L 117/59 L 99 09/20/18 08:30 09/20/18 08:30 09/20/18 08:30 09/20/18 08:30 09/20/18 08:30 Intake and Output: 09/20/18 09/20/18 06:59 18:59 Intake Total 300 Output Total 1800 Balance -1500 - Medications Medications: Current Medications Amino Acid Protein (Prostat 15 G Packet) 15 gm GT DAILY KEYON Enoxaparin Sodium (Lovenox) 40 mg SC DAILY KEYON; Protocol Last Admin: 09/20/18 09:08 Dose: 40 mg Meropenem (Merrem Iv 1 Gm Premix) 1 gm in 50 mls @ 100 mls/hr IVPB Q8 KEYON; Protocol Stop: 09/22/18 06:01 Last Admin: 09/20/18 05:28 Dose: 100 mls/hr Levetiracetam (Keppra 500mg Ivpb) 500 mg in 100 mls @ 400 mls/hr IV Q12 KEYON Last Admin: 09/20/18 09:08 Dose: 400 mls/hr Lorazepam (Ativan) 1 mg IVP Q6H PRN; Protocol PRN Reason: Seizure activity Pantoprazole Sodium (Protonix Ec Tab) 40 mg PO 0600 KEYON Last Admin: 09/20/18 05:28 Dose: 40 mg Sodium Hypochlorite (Dakins Solution 0.5%) 0 ml TOP DAILY KEYON Last Admin: 09/20/18 09:09 Dose: 1 dose - Labs Labs: 09/20/18 05:40 09/20/18 05:40 PT 18.3 SECONDS (9.4-12.5) H 09/14/18 21:56 INR 1.65 09/14/18 21:56 APTT 33.9 Seconds (26.9-38.3) 09/14/18 21:56 - Constitutional Appears: No Acute Distress, Cachectic, Chronically Ill - Head Exam Head Exam: ATRAUMATIC, NORMAL INSPECTION, NORMOCEPHALIC - Eye Exam Eye Exam: Normal appearance - ENT Exam ENT Exam: Mucous Membranes Moist - Respiratory Exam Respiratory Exam: Clear to Ausculation Bilateral, NORMAL BREATHING PATTERN. absent: Chest Wall Tenderness, Decreased Breath Sounds, Rales, Rhonchi, Wheezes - Cardiovascular Exam Cardiovascular Exam: RRR, +S1, +S2 - GI/Abdominal Exam GI & Abdominal Exam: Soft, Normal Bowel Sounds. absent: Tenderness Additional comments: PEG Tube is in place. No signs of infection. - Extremities Exam Extremities Exam: Normal Capillary Refill. absent: Calf Tenderness, Joint Swelling, Pedal Edema Additional comments: Patient keeps all extremities in contracted position. - Back Exam Additional comments: Stage 4 Sacral Decubitus Ulcer. - Neurological Exam Neurological Exam: Alert, Awake. 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 Patient admitted for septic shock with MODS 2/2 ESBL E. Coli Bacteremia, UTI, and Stage IV Sacral Decubitus Ulcer. Plan: Septic Shock with MODS 2/2 ESBL E. Coli Bacteremia, UTI, and Stage IV Sacral Decubitus Ulcer - Toxic metabolic encephalopathy was 2/2 septic shock - c/w merrem for antibiotic coverage (Day 6 of ) - Central line was removed on 09/20; BP is well controlled and MAP > 65 - Hypothermia resolved with warming blanket - Leukocytosis resolved - Wound culture: grew E. Coli and Enterococcus Faecalis. - UCx grew E. Coli; repeat UCx negative - Blood Cx grew E. Coli; repeat blood cx negative (prelim) - MRSA negative - c/w wound care, air mattress, q2 turns, dakin solution for management of Stage IV Sacral Decubitus Ulcer - Surgery on consult (Dr. Mcintosh). No surgical intervention at this time. - ID following (Dr. Benítez). Recs appreciated. Transaminitis 2/2 Hypoperfusion from Septic Shock - resolved - AST/ALT within normal limits - GI on board. Recs were appreciated. Hx ENDOSCOPY SPECIALTY TECHNICIAN Shunt - Hydrocephalus s/p ICH - No further recommendations at this time - Neurosurgery is on board (Dr. Siegel). Recs appreciated. Hx Dysphagia with PEG Tube - c/w tube feeds and free water flushes Hx Seizures - EEG study was within normal limits - c/w ativan 1mg Q6H prn - continue Keppra 500mg BID - seizures precautions/aspiration precautions Diarrhea - resolved - f/u stool c.diff (uncollected) DVT/GI: Lovenox/protonix Dispo: Continue to monitor patient. Pending bed on remote telemetry. Continue with IV antibiotics. Case was discussed and reviewed with Attending Physician, Dr. Reid. <Keke Reid R - Last Filed: 09/21/18 07:45> Objective - Vital Signs/Intake and Output Vital Signs (last 24 hours): Temp Pulse Resp BP Pulse Ox 98.1 F 84 16 133/67 89 L 09/20/18 22:00 09/20/18 22:00 09/20/18 22:00 09/20/18 22:00 09/20/18 22:00 Intake and Output: 09/21/18 09/21/18 06:59 18:59 Output Total 1400 Balance -1400 - Medications Medications: Current Medications Amino Acid Protein (Prostat 15 G Packet) 15 gm GT DAILY KEYON Last Admin: 09/20/18 11:57 Dose: 15 gm Enoxaparin Sodium (Lovenox) 40 mg SC DAILY KEYON; Protocol Last Admin: 09/20/18 09:08 Dose: 40 mg Meropenem (Merrem Iv 1 Gm Premix) 1 gm in 50 mls @ 100 mls/hr IVPB Q8 KEYON; Protocol Stop: 09/22/18 06:01 Last Admin: 09/21/18 05:35 Dose: 100 mls/hr Levetiracetam (Keppra 500mg Ivpb) 500 mg in 100 mls @ 400 mls/hr IV Q12 KEYON Last Admin: 09/20/18 23:03 Dose: 400 mls/hr Lorazepam (Ativan) 1 mg IVP Q6H PRN; Protocol PRN Reason: Seizure activity Pantoprazole Sodium (Protonix Ec Tab) 40 mg PO 0600 KEYON Last Admin: 09/20/18 05:28 Dose: 40 mg Sodium Hypochlorite (Dakins Solution 0.5%) 0 ml TOP DAILY KEYON Last Admin: 09/20/18 09:09 Dose: 1 dose - Labs Labs: 09/21/18 07:00 09/20/18 05:40 PT 18.3 SECONDS (9.4-12.5) H 09/14/18 21:56 INR 1.65 09/14/18 21:56 APTT 33.9 Seconds (26.9-38.3) 09/14/18 21:56 Attending/Attestation - Attestation I have personally seen and examined this patient.: Yes I have fully participated in the care of the patient.: Yes I have reviewed all pertinent clinical information, including history, physical exam and plan: Yes Notes (Text): Patient seen and examined by me with resident at 9:10AM on 09/20/18. Case including HPI, physical exam, and assessment and plan discussed with resident. Agree with above with following additions/corrections. Patient is a 47-year-old male with past medical history significant for ENDOSCOPY SPECIALTY TECHNICIAN shunt, traumatic brain injury causing intracranial hemorrhage, seizure disorder, dysphagia s/p PEG, and hypophonic voice that presented to the emergency room with a cough. Patient not answering any questions today. Remains afebrile. Unable to obtain any review of systems from patient. No new issues overnight per patient's nurse. Physical exam: General: Awake and alert lying in bed in no acute distress HEENT: Normocephalic, atraumatic. Extraocular muscles intact, pupils equal and reactive, no scleral icterus. Neck is supple. Cardiovascular: Regular rhythm. Normal S1 and S2. No murmurs, rubs, or gallops appreciated Pulmonary: Normal respiratory effort. No rhonchi, rales, or wheezing appreciated. Gastrointestinal: Soft, nondistended. Nontender. Positive bowel sounds all 4 quadrants. No guarding. Musculoskeletal: Bilateral upper extremities conracted. Lower extremities with no edema. Left lower extremity contracted. Central nervous system: Awake and alert. Not responsing to questions or commands today. Dermatologic: Skin warm and dry. Assessment and plan: Patient is a 47 year old male with past medical history significant for ENDOSCOPY SPECIALTY TECHNICIAN shunt, traumatic brain injury causing intracranial hemorrhage, seizure disorder, dysphagia s/p PEG, and hypophonic voice that presented to the emergency room with a cough. 1. Septic shock with multiorgan dysfunction syndrome. ESBL UTI, ESBL sacral decub infection, and ESBL Bacteremia. Off pressors. Transaminitis resolved. Septic shock resolved. Urine culture positive for ESBL. Repeat urine culture with no growth. Sacral decubitus ulcer wound culture positive for ESBL and Enterococcus Faecalis. One blood culture positive for ESBL. ID following, recommendations appreciated. Repeat blood cultures with no growth. Continue Merrem. Leukocytosis resolved. Patient is afebrile. Chest/Abd/pelvis CT per radiologist showed no significant or acute findings to account for/related to the clinical presentation. Abdominal ultrasound per radiologist showed no significant or acute findings to account for/related to the clinical presentation, nonvisualization of small calculi identified on concurrent CT, tumefactive sludge identified. 2. Toxic metabolic encephalopathy. Likely secondary to septic shock. EEG per neurologist showed normal awake, drowsy, and sleep electroencephalogram. Continue to treat underlying cause. Continue supportive care. 3. Sacral decubitus ulcer present on admission. ID following, recommendations appreciated. Continue Merrem. Surgery recommendations appreciated. Continue wound care. Continue to turn patient q2hrs. Wound culture positive for E. Coli and Enterococcus Faecalis 4. Transaminitis. Likely secondary to septic shock and hypoperfusion. Resolved. Continue to monitor LFTs. 5. Diarrhea. Resolved for now. C-diff uncollected. 6. Seizure Disorder. Continue Keppra. Continue seizure precautions. EEG per neurologist showed normal awake, drowsy, and sleep electroencephalogram. Patient 's neurologist consulted, follow up recommendations. 7. Hydrocephalus. S/P ENDOSCOPY SPECIALTY TECHNICIAN shunt. CT head per radiologist showed no acute intracranial findings, no change in hydrocephalus, no change in left cerebellar encephalomalacia. Neurosurgery recommendations appreciated. 8. Dysphagia. S/P PEG. Continue with tube feeds. 9. GI/DVT prophylaxis. Protonix/Lovenox 10. Patient is a full code.
[2018-09-20] MEDS: Prostat 15 g packet GT SCH (11:57)
--- NOTE | 2018-09-20 12:18 | CP.PCM.PN ---
Subjective - Date & Time of Evaluation Date of Evaluation: 09/20/18 Time of Evaluation: 09:30 - Subjective Subjective: Patient is not in distress, no fevers. Objective - Vital Signs/Intake and Output Vital Signs (last 24 hours): Temp Pulse Resp BP Pulse Ox 96.3 F L 83 11 L 93/40 L 71 L 09/19/18 08:46 09/19/18 08:46 09/19/18 08:46 09/19/18 08:30 09/19/18 01:00 - Medications Medications: Current Medications Enoxaparin Sodium (Lovenox) 40 mg SC DAILY [facility]; Protocol Last Admin: 09/19/18 09:20 Dose: 40 mg Meropenem (Merrem Iv 1 Gm Premix) 1 gm in 50 mls @ 100 mls/hr IVPB Q8 [facility]; Protocol Stop: 09/22/18 06:01 Last Admin: 09/19/18 05:43 Dose: 100 mls/hr Levetiracetam (Keppra 500mg Ivpb) 500 mg in 100 mls @ 400 mls/hr IV Q12 [facility] Last Admin: 09/19/18 09:20 Dose: 400 mls/hr Lorazepam (Ativan) 1 mg IVP Q6H PRN; Protocol PRN Reason: Seizure activity Pantoprazole Sodium (Protonix Ec Tab) 40 mg PO 0600 [facility] Last Admin: 09/19/18 05:42 Dose: 40 mg Sodium Hypochlorite (Dakins Solution 0.5%) 0 ml TOP DAILY [facility] Last Admin: 09/19/18 09:21 Dose: 1 dose - Labs Labs: 09/19/18 06:00 09/19/18 06:00 PT 18.3 SECONDS (9.4-12.5) H 09/14/18 21:56 INR 1.65 09/14/18 21:56 APTT 33.9 Seconds (26.9-38.3) 09/14/18 21:56 - Constitutional Appears: Chronically Ill - Head Exam Head Exam: NORMAL INSPECTION - Respiratory Exam Respiratory Exam: Decreased Breath Sounds - Cardiovascular Exam Cardiovascular Exam: +S1, +S2 - GI/Abdominal Exam GI & Abdominal Exam: Soft. absent: Tenderness Assessment and Plan - Assessment and Plan (Free Text) Plan: Assessment Severe sepsis due to ESBL E. coli bacteremia, with urine as the source with ESBL E. coli in the urine noted (probable pyelonephritis), slowly improving sacral decubitus ulcer growing ESBL E. coli S/P FIT MODEL shunt placement after traumatic brain injury S/P PEG tube placement history of hydrocephalus Plan continue Merrem day 6 of 10-14 days E. faecalis in the sacral ulcer is probably a colonizer repeat blood cx are negative will continue to monitor clinically
[2018-09-21] MEDS: Meropenem IV 1 gm in NS 1 GM/50 ML BAG IVPB SCH ×3 (05:35→22:34)
[2018-09-21 07:25] LABS: BASO # 0.01 K/mm3 (0.0-2.0); BASO % 0.1 % (0.0-3.0); EOS # 0.1 (0.0-0.7); EOS % 1.3 % (1.5-5.0); LYMPH % 28.1 % (22.0-35.0); MEAN CELL VOLUME 90.9 fl (80.0-105.0); MEAN CORPUSCULAR HEMOGLOBIN 29.2 pg (25.0-35.0); MEAN CORPUSCULAR HGB CONC 32.1 g/dl (31.0-37.0); MEAN PLATELET VOLUME 8.7 fl (7.0-11.0); MONO # 0.5 (0.1-0.6); MONO % 6.8 % (1.0-6.0); RBC 3.08 10^6/uL (3.5-6.1); RED CELL DISTRIBUTION WIDTH 13.8 % (11.5-14.5); WHITE BLOOD COUNT 7.2 10^3/uL (4.5-11.0)
[2018-09-21 07:51] LABS: ALB/GLOB RATIO 0.8 (1.1-1.8); ALBUMIN 2.9 g/dL (3.0-4.8); ALT/SGPT 48 U/L (7-56); AST/SGOT 41 U/L (17-59); BLOOD UREA NITROGEN 12 mg/dL (7-21); CALCIUM 8.7 mg/dL (8.4-10.5); GFR NON-AFRICAN AMERICAN > 60
[2018-09-21] MEDS: Dakin's Topical 0.5%-Full Strength (480 ml) TOP SCH (09:10)
[2018-09-21] MEDS: Enoxaparin 40 mg Syringe SC SCH (09:10)
--- NOTE | 2018-09-21 09:38 | CP.PCM.PN ---
<Jerod Ramirez - Last Filed: 09/21/18 12:42> Subjective - Date & Time of Evaluation Date of Evaluation: 09/21/18 Time of Evaluation: 08:00 - Subjective Subjective: Jerod Ramirez PGY1 Medicine Progress Note for Dr. Reid Patient was seen and examined at bedside this morning. Vital signs stable. Patient is awake, alert. He is unable to provide an appropriate ROS given his hx of traumatic brain injury and that he is minimally verbal. Patient did have some episodes of hypoxia overnight (SaO2 83-89) however it resolved. Spoke to wound care nurse, patient has a new left hip stage I pressure ulcer. Objective - Vital Signs/Intake and Output Vital Signs (last 24 hours): Temp Pulse Resp BP Pulse Ox 98.1 F 84 16 133/67 89 L 09/20/18 22:00 09/20/18 22:00 09/20/18 22:00 09/20/18 22:00 09/20/18 22:00 Intake and Output: 09/21/18 09/21/18 06:59 18:59 Intake Total 1130 Output Total 2830 Balance -1700 - Medications Medications: Current Medications Amino Acid Protein (Prostat 15 G Packet) 15 gm GT DAILY [facility] Last Admin: 09/20/18 11:57 Dose: 15 gm Enoxaparin Sodium (Lovenox) 40 mg SC DAILY [facility]; Protocol Last Admin: 09/21/18 09:10 Dose: 40 mg Meropenem (Merrem Iv 1 Gm Premix) 1 gm in 50 mls @ 100 mls/hr IVPB Q8 [facility]; Protocol Stop: 09/22/18 06:01 Last Admin: 09/21/18 05:35 Dose: 100 mls/hr Levetiracetam (Keppra 500mg Ivpb) 500 mg in 100 mls @ 400 mls/hr IV Q12 [facility] Last Admin: 09/20/18 23:03 Dose: 400 mls/hr Lorazepam (Ativan) 1 mg IVP Q6H PRN; Protocol PRN Reason: Seizure activity Pantoprazole Sodium (Protonix Ec Tab) 40 mg PO 0600 [facility] Last Admin: 09/20/18 05:28 Dose: 40 mg Sodium Hypochlorite (Dakins Solution 0.5%) 0 ml TOP DAILY [facility] Last Admin: 09/21/18 09:10 Dose: 1 dose - Labs Labs: 09/21/18 07:00 09/21/18 07:00 PT 18.3 SECONDS (9.4-12.5) H 09/14/18 21:56 INR 1.65 09/14/18 21:56 APTT 33.9 Seconds (26.9-38.3) 09/14/18 21:56 - Constitutional Appears: No Acute Distress - Head Exam Head Exam: ATRAUMATIC, NORMAL INSPECTION, NORMOCEPHALIC - Eye Exam Eye Exam: EOMI, Normal appearance - ENT Exam ENT Exam: Mucous Membranes Moist - Respiratory Exam Respiratory Exam: Clear to Ausculation Bilateral, NORMAL BREATHING PATTERN. absent: Rales, Rhonchi, Wheezes - Cardiovascular Exam Cardiovascular Exam: RRR, +S1, +S2 - GI/Abdominal Exam GI & Abdominal Exam: Soft, Normal Bowel Sounds. absent: Tenderness Additional comments: PEG Tube is in place. No signs of infection. - Extremities Exam Extremities Exam: Normal Capillary Refill. absent: Calf Tenderness, Joint Swelling, Tenderness Additional comments: Patient keeps all extremities in contracted position. - Back Exam Additional comments: Stage 4 Sacral Decubitus Ulcer. Stage I hip pressure ulcer. - Neurological Exam Neurological Exam: Alert, Awake. 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 Patient admitted for septic shock with MODS 2/2 ESBL Bacteremia, UTI, and Stage IV Sacral Decubitus Ulcer. Plan: Septic Shock with MODS 2/2 ESBL Bacteremia, UTI, and Stage IV Sacral Decubitus Ulcer - Toxic metabolic encephalopathy was 2/2 septic shock - New stage I left hip pressure ulcer. No further recs as per surgical team. - c/w merrem for antibiotic coverage (Day 7 of - total) - BP is well controlled - Hypothermia resolved - Leukocytosis resolved - Wound culture: grew E. Coli and Enterococcus Faecalis. - UCx grew E. Coli; repeat UCx negative - Blood Cx grew E. Coli; repeat blood cx negative (prelim) - MRSA negative - c/w wound care, air mattress, q2 turns, dakin solution for management of Stage IV Sacral Decubitus Ulcer - Surgery on consult (Dr. Mcintosh). No surgical intervention at this time. - ID following (Dr. Benítez). Recs appreciated. Transaminitis 2/2 Hypoperfusion from Septic Shock - resolved - AST/ALT within normal limits - GI on board. Recs were appreciated. Hx SPECIAL NEEDS TEACHER Shunt - Hydrocephalus s/p ICH - No further recommendations at this time - Neurosurgery is on board (Dr. Siegel). Recs appreciated. Hx Dysphagia with PEG Tube - c/w tube feeds and free water flushes Hx Seizures - EEG study was within normal limits - c/w ativan 1mg Q6H prn - continue Keppra 500mg BID - seizures precautions/aspiration precautions Diarrhea - resolved - f/u stool c.diff (uncollected) DVT/GI: Lovenox/protonix Dispo: Continue to monitor patient on the floor. Continue with IV antibiotics. Case was discussed and reviewed with Attending Physician, Dr. Reid. <Keke Reid R - Last Filed: 09/22/18 08:37> Objective - Vital Signs/Intake and Output Vital Signs (last 24 hours): Temp Pulse Resp BP Pulse Ox 98.2 F 93 H 17 128/83 98 09/21/18 14:00 09/21/18 14:00 09/21/18 14:00 09/21/18 14:00 09/21/18 14:00 Intake and Output: 09/22/18 09/22/18 06:59 18:59 Intake Total 0 Output Total 1999 Balance -1999 - Medications Medications: Current Medications Amino Acid Protein (Prostat 15 G Packet) 15 gm GT DAILY [facility] Last Admin: 09/21/18 14:08 Dose: 15 gm Collagenase (Santyl) 0 gm TOP DAILY [facility] Last Admin: 09/21/18 14:09 Dose: Not Given Enoxaparin Sodium (Lovenox) 40 mg SC DAILY [facility]; Protocol Last Admin: 09/21/18 09:10 Dose: 40 mg Levetiracetam (Keppra 500mg Ivpb) 500 mg in 100 mls @ 400 mls/hr IV Q12 [facility] Last Admin: 09/21/18 21:32 Dose: 400 mls/hr Lorazepam (Ativan) 1 mg IVP Q6H PRN; Protocol PRN Reason: Seizure activity Pantoprazole Sodium (Protonix Ec Tab) 40 mg PO 0600 [facility] Last Admin: 09/22/18 05:46 Dose: Not Given Sodium Hypochlorite (Dakins Solution 0.5%) 0 ml TOP DAILY [facility] Last Admin: 09/21/18 09:10 Dose: 1 dose - Labs Labs: 09/22/18 07:20 09/22/18 07:20 PT 18.3 SECONDS (9.4-12.5) H 09/14/18 21:56 INR 1.65 09/14/18 21:56 APTT 33.9 Seconds (26.9-38.3) 09/14/18 21:56 Attending/Attestation - Attestation I have personally seen and examined this patient.: Yes I have fully participated in the care of the patient.: Yes I have reviewed all pertinent clinical information, including history, physical exam and plan: Yes Notes (Text): Patient seen and examined by me with resident at 10:45 AM on 09/21/18. Case including HPI, physical exam, and assessment and plan discussed with resident. Agree with above with following additions/corrections. Patient is a 47-year-old male with past medical history significant for SPECIAL NEEDS TEACHER shunt, traumatic brain injury causing intracranial hemorrhage, seizure disorder, dysphagia s/p PEG, and hypophonic voice that presented to the emergency room with a cough. Patient awake and alert. States he is feeling "good." Denies any pain. Does not answer any other questions. Remains afebrile. Unable to obtain any review of systems from patient. No new issues overnight per patient's nurse. Physical exam: General: Awake and alert lying in bed in no acute distress HEENT: Normocephalic, atraumatic. Extraocular muscles intact, pupils equal and reactive, no scleral icterus. Neck is supple. Cardiovascular: Regular rhythm. Normal S1 and S2. No murmurs, rubs, or gallops appreciated Pulmonary: Normal respiratory effort. No rhonchi, rales, or wheezing appreciated. Gastrointestinal: Soft, nondistended. Nontender. Positive bowel sounds all 4 quadrants. No guarding. Musculoskeletal: Bilateral upper extremities conracted. Lower extremities with no edema. Left lower extremity contracted. Central nervous system: Awake and alert. Not responsing to questions or commands today. Dermatologic: Skin warm and dry. Sacral wound dressing clean, dry, and intact. New left hip superficial ulcer (DTI). Assessment and plan: Patient is a 47 year old male with past medical history significant for SPECIAL NEEDS TEACHER shunt, traumatic brain injury causing intracranial hemorrhage, seizure disorder, dysphagia s/p PEG, and hypophonic voice that presented to the emergency room with a cough. 1. Septic shock with multiorgan dysfunction syndrome. ESBL UTI, ESBL sacral decub infection, and ESBL Bacteremia. Off pressors. Transaminitis resolved. Septic shock resolved. Pending IV antibiotic arrangement. Urine culture positive for ESBL. Repeat urine culture with no growth. Sacral decubitus ulcer wound culture positive for ESBL and Enterococcus Faecalis. One blood culture positive for ESBL. ID following, recommendations appreciated. Repeat blood cultures with no growth. Continue Merrem. Leukocytosis resolved. Patient is afebrile. Chest/Abd/pelvis CT per radiologist showed no significant or acute findings to account for/related to the clinical presentation. Abdominal ultrasound per radiologist showed no significant or acute findings to account for/related to the clinical presentation, nonvisualization of small calculi identified on concurrent CT, tumefactive sludge identified. 2. Toxic metabolic encephalopathy. Likely secondary to septic shock. EEG per neurologist showed normal awake, drowsy, and sleep electroencephalogram. Continue to treat underlying cause. Continue supportive care. May be back to baseline. 3. Sacral decubitus ulcer present on admission. New left hip DTI. ID following, recommendations appreciated. Continue Merrem. Surgery recommendations appreciated. Continue wound care. Continue to turn patient q2hrs. Wound culture positive for E. Coli and Enterococcus Faecalis 4. Transaminitis. Likely secondary to septic shock and hypoperfusion. Resolved. Continue to monitor LFTs. 5. Diarrhea. Resolved. C-diff uncollected. 6. Seizure Disorder. Continue Keppra. Continue seizure precautions. EEG per neurologist showed normal awake, drowsy, and sleep electroencephalogram. 7. Hydrocephalus. S/P SPECIAL NEEDS TEACHER shunt. CT head per radiologist showed no acute intracranial findings, no change in hydrocephalus, no change in left cerebellar encephalomalacia. Neurosurgery recommendations appreciated. 8. Dysphagia. S/P PEG. Continue with tube feeds. 9. GI/DVT prophylaxis. Protonix/Lovenox 10. Patient is a full code. Case was discussed in detail with the patient regarding current diagnosis and treatment plan. All questions answered
[2018-09-21] MEDS: levETIRAcetam 500mg IVPB 500 MG/100 ML BAG IV SCH ×2 (10:11→21:32)
[2018-09-21] MEDS: Prostat 15 g packet GT SCH (14:08)
[2018-09-21] MEDS: Collagenase 250 Units/gm Ointment(30 gm) TOP SCH (14:09)
--- NOTE | 2018-09-21 15:13 | CP.PCM.PN ---
Subjective - Date & Time of Evaluation Date of Evaluation: 09/21/18 Time of Evaluation: 12:40 - Subjective Subjective: Not in distress, no fevers. Objective - Vital Signs/Intake and Output Vital Signs (last 24 hours): Temp Pulse Resp BP Pulse Ox 98.1 F 84 11 L 117/59 L 99 09/20/18 08:30 09/20/18 08:30 09/20/18 08:30 09/20/18 08:30 09/20/18 08:30 Intake and Output: 09/20/18 09/20/18 06:59 18:59 Intake Total 300 Output Total 1800 Balance -1500 - Medications Medications: Current Medications Amino Acid Protein (Prostat 15 G Packet) 15 gm GT DAILY [facility] Last Admin: 09/20/18 11:57 Dose: 15 gm Enoxaparin Sodium (Lovenox) 40 mg SC DAILY [facility]; Protocol Last Admin: 09/20/18 09:08 Dose: 40 mg Meropenem (Merrem Iv 1 Gm Premix) 1 gm in 50 mls @ 100 mls/hr IVPB Q8 [facility]; Protocol Stop: 09/22/18 06:01 Last Admin: 09/20/18 05:28 Dose: 100 mls/hr Levetiracetam (Keppra 500mg Ivpb) 500 mg in 100 mls @ 400 mls/hr IV Q12 [facility] Last Admin: 09/20/18 09:08 Dose: 400 mls/hr Lorazepam (Ativan) 1 mg IVP Q6H PRN; Protocol PRN Reason: Seizure activity Pantoprazole Sodium (Protonix Ec Tab) 40 mg PO 0600 [facility] Last Admin: 09/20/18 05:28 Dose: 40 mg Sodium Hypochlorite (Dakins Solution 0.5%) 0 ml TOP DAILY [facility] Last Admin: 09/20/18 09:09 Dose: 1 dose - Labs Labs: 09/20/18 05:40 09/20/18 05:40 PT 18.3 SECONDS (9.4-12.5) H 09/14/18 21:56 INR 1.65 09/14/18 21:56 APTT 33.9 Seconds (26.9-38.3) 09/14/18 21:56 - Constitutional Appears: Chronically Ill - Head Exam Head Exam: NORMAL INSPECTION - Respiratory Exam Respiratory Exam: Decreased Breath Sounds - Cardiovascular Exam Cardiovascular Exam: +S1, +S2 - GI/Abdominal Exam GI & Abdominal Exam: Soft. absent: Tenderness Assessment and Plan - Assessment and Plan (Free Text) Plan: Assessment Severe sepsis due to ESBL E. coli bacteremia, with urine as the source with ESBL E. coli in the urine noted (probable pyelonephritis), slowly improving sacral decubitus ulcer growing ESBL E. 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 faecalis in the sacral ulcer is probably a colonizer repeat blood cx are negative will continue to follow clinically
[2018-09-22] MEDS: Meropenem IV 1 gm in NS 1 GM/50 ML BAG IVPB SCH ×3 (05:44→21:47)
[2018-09-22] MEDS: Pantoprazole 40 mg EC Tab PO SCH (05:46)
[2018-09-22 07:36] LABS: BASO # 0.02 K/mm3 (0.0-2.0); BASO % 0.2 % (0.0-3.0); EOS # 0.1 (0.0-0.7); EOS % 1.4 % (1.5-5.0); HEMOGLOBIN 8.8 g/dL (14.0-18.0); LYMPH # 2.2 (1.2-3.4); LYMPH % 26.8 % (22.0-35.0); MEAN CELL VOLUME 92.1 fl (80.0-105.0); MEAN CORPUSCULAR HEMOGLOBIN 28.9 pg (25.0-35.0); MEAN CORPUSCULAR HGB CONC 31.4 g/dl (31.0-37.0); MEAN PLATELET VOLUME 8.7 fl (7.0-11.0); MONO # 0.7 (0.1-0.6); MONO % 8.5 % (1.0-6.0); RBC 3.04 10^6/uL (3.5-6.1); RED CELL DISTRIBUTION WIDTH 14.1 % (11.5-14.5); WHITE BLOOD COUNT 8.1 10^3/uL (4.5-11.0)
[2018-09-22 08:15] LABS: ALB/GLOB RATIO 0.8 (1.1-1.8); ALBUMIN 2.9 g/dL (3.0-4.8); ALT/SGPT 38 U/L (7-56); AST/SGOT 42 U/L (17-59); BLOOD UREA NITROGEN 17 mg/dL (7-21); CALCIUM 8.7 mg/dL (8.4-10.5); GFR NON-AFRICAN AMERICAN > 60
[2018-09-22] MEDS: Collagenase 250 Units/gm Ointment(30 gm) TOP SCH (11:43)
[2018-09-22] MEDS: Dakin's Topical 0.5%-Full Strength (480 ml) TOP SCH (11:44)
--- NOTE | 2018-09-22 11:45 | CP.PCM.PN ---
Subjective - Date & Time of Evaluation Date of Evaluation: 09/22/18 Time of Evaluation: 10:35 - Subjective Subjective: Surgery Progress note. Dr. Mcintosh Pt seen and examined at bedside. No acute events reported. Wound care staff reached out regarding trial of VeraFlo therapy for sacral decubitus. No contraindications. Assisted the wound care team with placement of the vac today. Objective - Vital Signs/Intake and Output Vital Signs (last 24 hours): Temp Pulse Resp BP Pulse Ox 98.9 F 90 18 103/54 L 99 09/22/18 06:00 09/22/18 06:00 09/22/18 06:00 09/22/18 06:00 09/22/18 06:00 Intake and Output: 09/22/18 09/22/18 06:59 18:59 Intake Total 0 Output Total 1999 Balance -1999 - Medications Medications: Current Medications Amino Acid Protein (Prostat 15 G Packet) 15 gm GT DAILY [facility] Last Admin: 09/21/18 14:08 Dose: 15 gm Collagenase (Santyl) 0 gm TOP DAILY [facility] Last Admin: 09/21/18 14:09 Dose: Not Given Enoxaparin Sodium (Lovenox) 40 mg SC DAILY [facility]; Protocol Last Admin: 09/21/18 09:10 Dose: 40 mg Levetiracetam (Keppra 500mg Ivpb) 500 mg in 100 mls @ 400 mls/hr IV Q12 [facility] Last Admin: 09/21/18 21:32 Dose: 400 mls/hr Lorazepam (Ativan) 1 mg IVP Q6H PRN; Protocol PRN Reason: Seizure activity Pantoprazole Sodium (Protonix Ec Tab) 40 mg PO 0600 [facility] Last Admin: 09/22/18 05:46 Dose: Not Given Sodium Hypochlorite (Dakins Solution 0.5%) 0 ml TOP DAILY [facility] Last Admin: 09/21/18 09:10 Dose: 1 dose - Labs Labs: 09/22/18 07:20 09/22/18 07:20 PT 18.3 SECONDS (9.4-12.5) H 09/14/18 21:56 INR 1.65 09/14/18 21:56 APTT 33.9 Seconds (26.9-38.3) 09/14/18 21:56 - Constitutional Appears: Non-toxic, Cachectic - Head Exam Head Exam: ATRAUMATIC, NORMAL INSPECTION, NORMOCEPHALIC - Eye Exam Eye Exam: EOMI, Normal appearance. absent: Scleral icterus - ENT Exam ENT Exam: Mucous Membranes Moist - Respiratory Exam Respiratory Exam: NORMAL BREATHING PATTERN. absent: Accessory Muscle Use, Respiratory Distress - Cardiovascular Exam Cardiovascular Exam: absent: JVD - GI/Abdominal Exam GI & Abdominal Exam: Soft. absent: Distended, Firm, Guarding, Rebound - Rectal Exam Additional comments: Sacral decubitus approximately 4cm x 3cm with some necrotic wound base. Wound vac with veraflo therapy placed - Extremities Exam Additional comments: Chronic lower extremity stricture - Neurological Exam Neurological Exam: Alert Additional comments: Aphasic Assessment and Plan - Assessment and Plan (Free Text) Assessment: 47yo M with sacral decub Plan: - Changed wound vac therapy to Veraflo. - Settings: 125mm Hg suction for 3 hours and 10 min soak with 14cc saline. - Next wound vac change Tuesday, 09/24 - Consider replacing back to regular wound vac at that time - Continue management as per wound care recs Further recs as per Dr. Arnaldo Chambers PGY2 surgery
[2018-09-22] MEDS: levETIRAcetam 500mg IVPB 500 MG/100 ML BAG IV SCH (11:52)
[2018-09-22] MEDS: Enoxaparin 40 mg Syringe SC SCH (11:52)
[2018-09-22] MEDS: Prostat 15 g packet GT SCH (11:53)
--- NOTE | 2018-09-22 14:39 | CP.PCM.PN ---
Subjective - Date & Time of Evaluation Date of Evaluation: 09/22/18 Time of Evaluation: 11:55 - Subjective Subjective: No fevers, not in distress. Objective - Vital Signs/Intake and Output Vital Signs (last 24 hours): Temp Pulse Resp BP Pulse Ox 99 F 108 H 16 94/53 L 97 09/21/18 06:00 09/21/18 06:00 09/21/18 06:00 09/21/18 06:00 09/21/18 06:00 Intake and Output: 09/21/18 09/21/18 06:59 18:59 Intake Total 1130 Output Total 2830 Balance -1700 - Medications Medications: Current Medications Amino Acid Protein (Prostat 15 G Packet) 15 gm GT DAILY [facility] Last Admin: 09/21/18 14:08 Dose: 15 gm Collagenase (Santyl) 0 gm TOP DAILY [facility] Last Admin: 09/21/18 14:09 Dose: Not Given Enoxaparin Sodium (Lovenox) 40 mg SC DAILY [facility]; Protocol Last Admin: 09/21/18 09:10 Dose: 40 mg Meropenem (Merrem Iv 1 Gm Premix) 1 gm in 50 mls @ 100 mls/hr IVPB Q8 [facility]; Protocol Stop: 09/22/18 06:01 Last Admin: 09/21/18 14:06 Dose: 100 mls/hr Levetiracetam (Keppra 500mg Ivpb) 500 mg in 100 mls @ 400 mls/hr IV Q12 [facility] Last Admin: 09/21/18 10:11 Dose: 400 mls/hr Lorazepam (Ativan) 1 mg IVP Q6H PRN; Protocol PRN Reason: Seizure activity Pantoprazole Sodium (Protonix Ec Tab) 40 mg PO 0600 [facility] Last Admin: 09/20/18 05:28 Dose: 40 mg Sodium Hypochlorite (Dakins Solution 0.5%) 0 ml TOP DAILY [facility] Last Admin: 09/21/18 09:10 Dose: 1 dose - Labs Labs: 09/21/18 07:00 09/21/18 07:00 PT 18.3 SECONDS (9.4-12.5) H 09/14/18 21:56 INR 1.65 09/14/18 21:56 APTT 33.9 Seconds (26.9-38.3) 09/14/18 21:56 - Constitutional Appears: Chronically Ill - Head Exam Head Exam: NORMAL INSPECTION - Neck Exam Neck Exam: absent: Meningismus - Respiratory Exam Respiratory Exam: Decreased Breath Sounds - Cardiovascular Exam Cardiovascular Exam: +S1, +S2 - GI/Abdominal Exam GI & Abdominal Exam: Soft. absent: Tenderness Assessment and Plan - Assessment and Plan (Free Text) Plan: Assessment Severe sepsis due to ESBL E. coli bacteremia, with urine as the source with ESBL E. coli in the urine noted (probable pyelonephritis), slowly improving sacral decubitus ulcer growing ESBL E. 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 faecalis in the sacral ulcer is probably a colonizer repeat blood cx are negative will continue to follow clinically
--- NOTE | 2018-09-22 19:06 | CP.PCM.PN ---
<Jerod Ramirez - Last Filed: 09/22/18 19:06> Subjective - Date & Time of Evaluation Date of Evaluation: 09/22/18 Time of Evaluation: 08:00 - Subjective Subjective: Jerod Ramirez PGY1 Medicine Progress Note for Dr. Reid Patient was seen and examined at bedside this morning. Vital signs stable. Patient is awake, alert. He is unable to provide an appropriate ROS given his hx of traumatic brain injury and that he is minimally verbal. Family was present at bedside (daughter) and all appropriate questions were answered. Objective - Vital Signs/Intake and Output Vital Signs (last 24 hours): Temp Pulse Resp BP Pulse Ox 98.9 F 103 H 18 97/59 L 98 09/22/18 14:00 09/22/18 14:00 09/22/18 14:00 09/22/18 14:00 09/22/18 14:00 - Medications Medications: Current Medications Amino Acid Protein (Prostat 15 G Packet) 15 gm GT DAILY [facility] Last Admin: 09/22/18 11:53 Dose: 15 gm Collagenase (Santyl) 0 gm TOP DAILY [facility] Last Admin: 09/22/18 11:43 Dose: Not Given Enoxaparin Sodium (Lovenox) 40 mg SC DAILY [facility]; Protocol Last Admin: 09/22/18 11:52 Dose: 40 mg Levetiracetam (Keppra 500mg Ivpb) 500 mg in 100 mls @ 400 mls/hr IV Q12 [facility] Last Admin: 09/22/18 11:52 Dose: 400 mls/hr Meropenem (Merrem Iv 1 Gm Premix) 1 gm in 50 mls @ 100 mls/hr IVPB Q8 [facility]; Protocol Stop: 09/29/18 14:01 Last Admin: 09/22/18 18:22 Dose: Not Given Lorazepam (Ativan) 1 mg IVP Q6H PRN; Protocol PRN Reason: Seizure activity Pantoprazole Sodium (Protonix Ec Tab) 40 mg PO 0600 [facility] Last Admin: 09/22/18 05:46 Dose: Not Given Sodium Hypochlorite (Dakins Solution 0.5%) 0 ml TOP DAILY [facility] Last Admin: 09/22/18 11:44 Dose: Not Given - Labs Labs: 09/22/18 07:20 09/22/18 07:20 PT 18.3 SECONDS (9.4-12.5) H 09/14/18 21:56 INR 1.65 09/14/18 21:56 APTT 33.9 Seconds (26.9-38.3) 09/14/18 21:56 - Constitutional Appears: No Acute Distress - Head Exam Head Exam: ATRAUMATIC, NORMAL INSPECTION, NORMOCEPHALIC - Eye Exam Eye Exam: EOMI, Normal appearance - ENT Exam ENT Exam: Mucous Membranes Moist - Respiratory Exam Respiratory Exam: Clear to Ausculation Bilateral, NORMAL BREATHING PATTERN. absent: Rales, Rhonchi, Wheezes - Cardiovascular Exam Cardiovascular Exam: RRR, +S1, +S2 - GI/Abdominal Exam GI & Abdominal Exam: Soft, Normal Bowel Sounds. absent: Tenderness Additional comments: PEG Tube is in place. No signs of infection. - Extremities Exam Extremities Exam: Normal Capillary Refill. absent: Calf Tenderness, Joint Swelling, Tenderness Additional comments: Patient keeps all extremities in contracted position. - Back Exam Additional comments: Stage 4 Sacral Decubitus Ulcer. Left hip stage I pressure ulcer. Assessment and Plan - Assessment and Plan (Free Text) Assessment: Patient is a 47 year old male with PMHx [employer] shunt 2/2 Fall (07/19/18), Brain Injury causing intracranial hemorrhage, Seizure disorder, Dysphagia with PEG tube, hypophonic voice who presented to the ED via EMS accompanied by family for complaints of cough for one day duration and altered mental status. Patient admitted for septic shock with MODS 2/2 ESBL Bacteremia, UTI, and Stage IV Sacral Decubitus Ulcer. Plan: Septic Shock with MODS 2/2 ESBL Bacteremia, UTI, and Stage IV Sacral Decubitus Ulcer - Toxic metabolic encephalopathy was 2/2 septic shock - Surgery placed wound vac for pressure ulcer - c/w merrem for antibiotic coverage (Day 8 of 10-14 total) - BP, hypothermia, leukocytosis improved - Wound culture: grew E. Coli and Enterococcus Faecalis. - UCx grew E. Coli; repeat UCx negative - Blood Cx grew E. Coli; repeat blood cx negative (prelim) x2 - c/w wound care, air mattress, q2 turns, dakin solution for management of Stage IV Sacral Decubitus Ulcer - Surgery on consult (Dr. Mcintosh). No surgical intervention at this time. - ID following (Dr. Benítez). Recs appreciated. - Transaminitis 2/2 Septic Shock is resolved. GI was on board but no further recs given improvement. Hx [employer] Shunt - Hydrocephalus s/p ICH - No further recommendations at this time - Neurosurgery is on board (Dr. Siegel). Recs appreciated. Hx Dysphagia with PEG Tube - Speech/Swallow eval - c/w tube feeds and free water flushes Hx Seizures - EEG study was within normal limits - c/w ativan 1mg Q6H prn - continue Keppra 500mg BID - seizures precautions/aspiration precautions DVT/GI: Lovenox/protonix Dispo: Continue to monitor patient on the floor. New wound vac was placed by surgical team. Continue with IV antibiotics. Case was discussed and reviewed with Attending Physician, Dr. Reid. <Keke Reid R - Last Filed: 09/23/18 15:42> Objective - Vital Signs/Intake and Output Vital Signs (last 24 hours): Temp Pulse Resp BP Pulse Ox 99.1 F 105 H 18 97/58 L 97 09/23/18 14:00 09/23/18 14:00 09/23/18 14:00 09/23/18 14:00 09/23/18 14:00 Intake and Output: 09/23/18 09/23/18 06:59 18:59 Intake Total 150 0 Output Total 2430 350 Balance -2280 -350 - Medications Medications: Current Medications Amino Acid Protein (Prostat 15 G Packet) 15 gm GT DAILY [facility] Last Admin: 09/23/18 09:00 Dose: 15 gm Collagenase (Santyl) 0 gm TOP DAILY [facility] Last Admin: 09/23/18 08:59 Dose: Not Given Docusate Sodium (Colace Liquid) 100 mg PEG DAILY [facility] Last Admin: 09/23/18 12:33 Dose: 100 mg Enoxaparin Sodium (Lovenox) 40 mg SC DAILY [facility]; Protocol Last Admin: 09/23/18 09:00 Dose: 40 mg Levetiracetam (Keppra 500mg Ivpb) 500 mg in 100 mls @ 400 mls/hr IV Q12 [facility] Last Admin: 09/23/18 09:00 Dose: 400 mls/hr Meropenem (Merrem Iv 1 Gm Premix) 1 gm in 50 mls @ 100 mls/hr IVPB Q8 [facility]; Protocol Stop: 09/29/18 14:01 Last Admin: 09/23/18 12:59 Dose: 100 mls/hr Lorazepam (Ativan) 1 mg IVP Q6H PRN; Protocol PRN Reason: Seizure activity Pantoprazole Sodium (Protonix Ec Tab) 40 mg PO 0600 [facility] Last Admin: 09/23/18 05:17 Dose: 40 mg Sodium Hypochlorite (Dakins Solution 0.5%) 0 ml TOP DAILY [facility] Last Admin: 09/23/18 08:59 Dose: Not Given - Labs Labs: 09/23/18 07:20 09/23/18 07:20 PT 18.3 SECONDS (9.4-12.5) H 09/14/18 21:56 INR 1.65 09/14/18 21:56 APTT 33.9 Seconds (26.9-38.3) 09/14/18 21:56 Attending/Attestation - Attestation I have personally seen and examined this patient.: Yes I have fully participated in the care of the patient.: Yes I have reviewed all pertinent clinical information, including history, physical exam and plan: Yes Notes (Text): Patient seen and examined by me with resident at 11 AM on 09/22/18. Case i ncluding HPI, physical exam, and assessment and plan discussed with resident. Agree with above with following additions/corrections. Patient is a 47-year-old male with past medical history significant for [employer]DIVING [employer] shunt, traumatic brain injury causing intracranial hemorrhage, seizure disorder, dysphagia s/p PEG, and hypophonic voice that presented to the emergency room with a cough. Patient awake and alert. States he is feeling "fine." Denies any pain. Does not answer any other questions. Unable to obtain any review of systems from patient. No new issues overnight per patient's nurse. Patient is afebrile. Mother at bedside. Wound vac being changed to a different wound vac. Physical exam: General: Awake and alert lying in bed in no acute distress HEENT: Normocephalic, atraumatic. Extraocular muscles intact, pupils equal and reactive, no scleral icterus. Neck is supple. Positive dry mucous membranes. Cardiovascular: Regular rhythm. Normal S1 and S2. No murmurs, rubs, or gallops appreciated Pulmonary: Normal respiratory effort. No rhonchi, rales, or wheezing appreciated. Gastrointestinal: Soft, nondistended. Nontender. Positive bowel sounds all 4 quadrants. No guarding. Positive PEG with no signs of infection. Musculoskeletal: Bilateral upper extremities conracted. Lower extremities with no edema. Left lower extremity contracted. Central nervous system: Awake and alert. Not responsing to questions or commands today. Dermatologic: Skin warm and dry. Sacral wound with new wound vac. Stable left hip superficial ulcer (DTI). Assessment and plan: Patient is a 47 year old male with past medical history significant for SKYDIVING [employer] shunt, traumatic brain injury causing intracranial hemorrhage , seizure disorder, dysphagia s/p PEG, and hypophonic voice that presented to the emergency room with a cough. 1. Sacral decubitus ulcer present on admission. Stable new left hip DTI. ID following, recommendations appreciated. Continue Merrem. Surgery recommendations appreciated. Continue wound care. Continue to turn patient q2hrs. Continue air mattress. Wound culture positive for E. Coli and Enterococcus Faecalis. New wound vac placed today. 2. Septic shock with multiorgan dysfunction syndrome. ESBL UTI, ESBL sacral decub infection, and ESBL Bacteremia. Off pressors. Transaminitis resolved. Septic shock resolved. Continue Merrem. Urine culture positive for ESBL. Repeat urine culture with no growth. Sacral decubitus ulcer wound culture positive for ESBL and Enterococcus Faecalis. One blood culture positive for ESBL. ID following, recommendations appreciated. Repeat blood cultures with no growth. Leukocytosis resolved. Patient is afebrile. Chest/Abd/pelvis CT per radiologist showed no significant or acute findings to account for/related to the clinical presentation. Abdominal ultrasound per radiologist showed no significant or acute findings to account for/related to the clinical presentation, nonvisualization of small calculi identified on concurrent CT, tumefactive sludge identified. 3. Toxic metabolic encephalopathy. Likely secondary to septic shock. EEG per neurologist showed normal awake, drowsy, and sleep electroencephalogram. Continue to treat underlying cause. Continue supportive care. Back to baseline. 4. Transaminitis. Likely secondary to septic shock and hypoperfusion. Resolved. Continue to monitor LFTs. 5. Diarrhea. Resolved. C-diff uncollected. 6. Seizure Disorder. Continue Keppra. Continue seizure precautions. EEG per neurologist showed normal awake, drowsy, and sleep electroencephalogram. 7. Hydrocephalus. S/P SKYDIVING [employer] shunt. CT head per radiologist showed no acute intracranial findings, no change in hydrocephalus, no change in left cerebellar encephalomalacia. Neurosurgery recommendations appreciated. 8. Dysphagia. S/P PEG. Continue with tube feeds. Will get swallow eval as patient's mother states patient also takes in oral feeds. 9. GI/DVT prophylaxis. Protonix/Lovenox 10. Patient is a full code. Case was discussed in detail with the patient's mother at bedside regarding current diagnosis and treatment plan. All questions answered.
[2018-09-23] MEDS: levETIRAcetam 500mg IVPB 500 MG/100 ML BAG IV SCH ×3 (00:07→23:24)
[2018-09-23] MEDS: Meropenem IV 1 gm in NS 1 GM/50 ML BAG IVPB SCH ×3 (05:16→22:31)
[2018-09-23] MEDS: Pantoprazole 40 mg EC Tab PO SCH (05:17)
[2018-09-23 08:01] LABS: HEMOGLOBIN 8.8 g/dL (14.0-18.0); MEAN CELL VOLUME 91.8 fl (80.0-105.0); MEAN CORPUSCULAR HEMOGLOBIN 28.9 pg (25.0-35.0); MEAN CORPUSCULAR HGB CONC 31.5 g/dl (31.0-37.0); MEAN PLATELET VOLUME 8.8 fl (7.0-11.0); RBC 3.04 10^6/uL (3.5-6.1); RED CELL DISTRIBUTION WIDTH 14.1 % (11.5-14.5); WHITE BLOOD COUNT 9.4 10^3/uL (4.5-11.0)
[2018-09-23 08:23] LABS: ALB/GLOB RATIO 0.8 (1.1-1.8); ALBUMIN 3.2 g/dL (3.0-4.8); ALT/SGPT 39 U/L (7-56); AST/SGOT 34 U/L (17-59); BLOOD UREA NITROGEN 21 mg/dL (7-21); CALCIUM 8.9 mg/dL (8.4-10.5); GFR NON-AFRICAN AMERICAN > 60
[2018-09-23] MEDS: Collagenase 250 Units/gm Ointment(30 gm) TOP SCH (08:59)
[2018-09-23] MEDS: Dakin's Topical 0.5%-Full Strength (480 ml) TOP SCH (08:59)
[2018-09-23] MEDS: Prostat 15 g packet GT SCH (09:00)
[2018-09-23] MEDS: Enoxaparin 40 mg Syringe SC SCH (09:00)
--- NOTE | 2018-09-23 11:49 | CP.PCM.PN ---
<Jerod Ramirez - Last Filed: 09/23/18 11:34> Subjective - Date & Time of Evaluation Date of Evaluation: 09/23/18 Time of Evaluation: 08:00 - Subjective Subjective: Jerod Ramirez PGY1 Medicine Progress Note for Dr. Reid Patient was seen and examined at bedside this morning. Vital signs stable. Patient is awake, alert. He is unable to provide an appropriate ROS given his hx of traumatic brain injury and that he is minimally verbal. Objective - Vital Signs/Intake and Output Vital Signs (last 24 hours): Temp Pulse Resp BP Pulse Ox 98.6 F 100 H 17 100/58 L 98 09/23/18 06:00 09/23/18 06:00 09/23/18 06:00 09/23/18 06:00 09/23/18 06:00 Intake and Output: 09/23/18 09/23/18 06:59 18:59 Intake Total 150 Output Total 2430 Balance -2280 - Medications Medications: Current Medications Amino Acid Protein (Prostat 15 G Packet) 15 gm GT DAILY [facility] Last Admin: 09/23/18 09:00 Dose: 15 gm Collagenase (Santyl) 0 gm TOP DAILY [facility] Last Admin: 09/23/18 08:59 Dose: Not Given Enoxaparin Sodium (Lovenox) 40 mg SC DAILY [facility]; Protocol Last Admin: 09/23/18 09:00 Dose: 40 mg Levetiracetam (Keppra 500mg Ivpb) 500 mg in 100 mls @ 400 mls/hr IV Q12 [facility] Last Admin: 09/23/18 09:00 Dose: 400 mls/hr Meropenem (Merrem Iv 1 Gm Premix) 1 gm in 50 mls @ 100 mls/hr IVPB Q8 [facility]; Protocol Stop: 09/29/18 14:01 Last Admin: 09/23/18 05:16 Dose: 100 mls/hr Lorazepam (Ativan) 1 mg IVP Q6H PRN; Protocol PRN Reason: Seizure activity Pantoprazole Sodium (Protonix Ec Tab) 40 mg PO 0600 [facility] Last Admin: 09/23/18 05:17 Dose: 40 mg Sodium Hypochlorite (Dakins Solution 0.5%) 0 ml TOP DAILY [facility] Last Admin: 09/23/18 08:59 Dose: Not Given - Labs Labs: 09/23/18 07:20 02/16/19 07:20 PT 18.3 SECONDS (9.4-12.5) H 09/14/18 21:56 INR 1.65 09/14/18 21:56 APTT 33.9 Seconds (26.9-38.3) 09/14/18 21:56 - Constitutional Appears: No Acute Distress - Head Exam Head Exam: ATRAUMATIC, NORMAL INSPECTION, NORMOCEPHALIC - Eye Exam Eye Exam: EOMI, Normal appearance - ENT Exam ENT Exam: Mucous Membranes Moist - Respiratory Exam Respiratory Exam: Clear to Ausculation Bilateral, NORMAL BREATHING PATTERN. absent: Rales, Rhonchi, Wheezes - Cardiovascular Exam Cardiovascular Exam: RRR, +S1, +S2 - GI/Abdominal Exam GI & Abdominal Exam: Soft, Normal Bowel Sounds. absent: Tenderness Additional comments: PEG Tube is in place. No signs of infection. - Extremities Exam Extremities Exam: Normal Capillary Refill. absent: Calf Tenderness, Joint Swelling, Tenderness Additional comments: Patient keeps all extremities in contracted position. - Back Exam Additional comments: Stage 4 Sacral Decubitus Ulcer. Left hip stage I pressure ulcer. Assessment and Plan - Assessment and Plan (Free Text) Assessment: Patient is a 47 year old male with PMHx [employer] shunt 2/2 Fall (07/19/18), Brain Injury causing intracranial hemorrhage, Seizure disorder, Dysphagia with PEG tube, hypophonic voice who presented to the ED via EMS accompanied by family for complaints of cough for one day duration and altered mental status. Patient admitted for septic shock with MODS 2/2 ESBL Bacteremia, UTI, and Stage IV Sacral Decubitus Ulcer. Plan: Septic Shock with MODS 2/2 ESBL Bacteremia, UTI, and Stage IV Sacral Decubitus Ulcer - Toxic metabolic encephalopathy was 2/2 septic shock - mental status improved - As per surgery, c/w wound vac (Placed on 09/22) - c/w merrem for antibiotic coverage (Day 9 of -14 total) - BP, hypothermia, leukocytosis improved - Wound culture: grew E. Coli and Enterococcus Faecalis. - UCx grew E. Coli; repeat UCx negative - Blood Cx grew E. Coli; repeat blood cx negative (prelim) x2 - c/w wound care, air mattress, q2 turns, dakin solution for management of Stage IV Sacral Decubitus Ulcer - Surgery on consult (Dr. Mcintosh). No surgical intervention at this time. - ID following (Dr. Benítez). Recs appreciated. - Transaminitis 2/2 Septic Shock is resolved. GI was on board but no further recs given improvement. Hx [employer] Shunt - Hydrocephalus s/p ICH - No further recommendations at this time - Neurosurgery is on board (Dr. Siegel). Recs appreciated. Hx Dysphagia with PEG Tube - Speech/Swallow eval pending - c/w tube feeds and free water flushes Hx Seizures - EEG study was within normal limits - c/w ativan 1mg Q6H prn - continue Keppra 500mg BID - seizures precautions/aspiration precautions DVT/GI: Lovenox/protonix Dispo: Continue to monitor patient on the floor. Continue with wound vac as per surgery. Complete course of IV merrem. Case was discussed and reviewed with Attending Physician, Dr. Reid. <Keke Reid R - Last Filed: 09/23/18 15:49> Objective - Vital Signs/Intake and Output Vital Signs (last 24 hours): Temp Pulse Resp BP Pulse Ox 99.1 F 105 H 18 97/58 L 97 09/23/18 14:00 09/23/18 14:00 09/23/18 14:00 09/23/18 14:00 09/23/18 14:00 Intake and Output: 09/23/18 09/23/18 06:59 18:59 Intake Total 150 0 Output Total 2430 350 Balance -2280 -350 - Medications Medications: Current Medications Amino Acid Protein (Prostat 15 G Packet) 15 gm GT DAILY [facility] Last Admin: 09/23/18 09:00 Dose: 15 gm Collagenase (Santyl) 0 gm TOP DAILY [facility] Last Admin: 09/23/18 08:59 Dose: Not Given Docusate Sodium (Colace Liquid) 100 mg PEG DAILY [facility] Last Admin: 09/23/18 12:33 Dose: 100 mg Enoxaparin Sodium (Lovenox) 40 mg SC DAILY [facility]; Protocol Last Admin: 09/23/18 09:00 Dose: 40 mg Levetiracetam (Keppra 500mg Ivpb) 500 mg in 100 mls @ 400 mls/hr IV Q12 [facility] Last Admin: 09/23/18 09:00 Dose: 400 mls/hr Meropenem (Merrem Iv 1 Gm Premix) 1 gm in 50 mls @ 100 mls/hr IVPB Q8 [facility]; Protocol Stop: 09/29/18 14:01 Last Admin: 09/23/18 12:59 Dose: 100 mls/hr Lorazepam (Ativan) 1 mg IVP Q6H PRN; Protocol PRN Reason: Seizure activity Pantoprazole Sodium (Protonix Ec Tab) 40 mg PO 0600 [facility] Last Admin: 09/23/18 05:17 Dose: 40 mg Sodium Hypochlorite (Dakins Solution 0.5%) 0 ml TOP DAILY [facility] Last Admin: 09/23/18 08:59 Dose: Not Given - Labs Labs: 09/23/18 07:20 09/23/18 07:20 PT 18.3 SECONDS (9.4-12.5) H 09/14/18 21:56 INR 1.65 09/14/18 21:56 APTT 33.9 Seconds (26.9-38.3) 09/14/18 21:56 Attending/Attestation - Attestation I have personally seen and examined this patient.: Yes I have fully participated in the care of the patient.: Yes I have reviewed all pertinent clinical information, including history, physical exam and plan: Yes Notes (Text): Patient seen and examined by me with resident at 9:50 AM on 09/23/18. Case including HPI, physical exam, and assessment and plan discussed with resident. Agree with above with following additions/corrections. 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 Patient awake and alert. Does not answer any questions. Unable to obtain any review of systems from patient. Patient is afebrile. Physical exam: General: Awake and alert lying in bed in no acute distress, cachectic appearing HEENT: Normocephalic, atraumatic. Extraocular muscles intact, pupils equal and reactive, no scleral icterus. Neck is supple. Positive dry mucous membranes. Cardiovascular: Regular rhythm. Normal S1 and S2. No murmurs, rubs, or gallops appreciated Pulmonary: Normal respiratory effort. No rhonchi, rales, or wheezing appreciated. Gastrointestinal: Soft, nondistended. Nontender. Positive bowel sounds all 4 quadrants. No guarding. Positive PEG with no signs of infection. Musculoskeletal: Bilateral upper extremities contracted. Lower extremities with no edema. Central nervous system: Awake and alert. Not responding to questions or commands. Dermatologic: Skin warm and dry. Sacral wound with new wound vac. Stable left hip superficial ulcer (DTI). Assessment and plan: Patient is a 47 year old male with past medical history significant for [employer] shunt, traumatic brain injury causing intracranial he morrhage, seizure disorder, dysphagia s/p PEG, and hypophonic voice that presented to the emergency room with a cough. 1. Sacral decubitus ulcer present on admission. Stable new left hip DTI. ID following, recommendations appreciated. Continue Merrem. Surgery recommendations appreciated. Continue wound care. Continue with wound vac. Wound vac to be changed on 09/25/18. Continue to turn patient q2hrs. Continue air mattress. Wound culture positive for E. Coli and Enterococcus Faecalis. 2. Septic shock with multiorgan dysfunction syndrome. ESBL UTI, ESBL sacral decub infection, and ESBL Bacteremia. Septic shock resolved. Off pressors. Transaminitis resolved. Continue Merrem. Urine culture positive for ESBL. Repeat urine culture with no growth. Sacral decubitus ulcer wound culture positive for ESBL and Enterococcus Faecalis. One blood culture positive for ESBL. ID following, recommendations appreciated. Repeat blood cultures with no growth. Leukocytosis resolved. Patient is afebrile. Chest/Abd/pelvis CT per radiologist showed no significant or acute findings to account for/related to t he clinical presentation. Abdominal ultrasound per radiologist showed no significant or acute findings to account for/related to the clinical presentation, nonvisualization of small calculi identified on concurrent CT, tumefactive sludge identified. 3. Toxic metabolic encephalopathy. Likely secondary to septic shock. Back to baseline. EEG per neurologist showed normal awake, drowsy, and sleep elec troencephalogram. Continue to treat underlying cause. Continue supportive care. 4. Transaminitis. Likely secondary to septic shock and hypoperfusion. Resolved. Continue to monitor LFTs. 5. Diarrhea. Resolved. C-diff uncollected. 6. Seizure Disorder. Continue Keppra. Continue seizure precautions. EEG per neurologist showed normal awake, drowsy, and sleep electroencephalogram. 7. Hydrocephalus. S/P [employer] shunt. CT head per radiologist showed no acute intracranial findings, no change in hydrocephalus, no change in left cerebellar encephalomalacia. Neurosurgery recommendations appreciated. 8. Dysphagia. S/P PEG. Continue with tube feeds. Pending swallow evaluation. 9. GI/DVT prophylaxis. Protonix/Lovenox 10. Patient is a full code.
--- NOTE | 2018-09-23 14:37 | CP.PCM.PN ---
Subjective - Date & Time of Evaluation Date of Evaluation: 09/23/18 Time of Evaluation: 11:40 - Subjective Subjective: Comfortable, no fevers. Objective - Vital Signs/Intake and Output Vital Signs (last 24 hours): Temp Pulse Resp BP Pulse Ox 98.9 F 90 18 103/54 L 99 09/22/18 06:00 09/22/18 06:00 09/22/18 06:00 09/22/18 06:00 09/22/18 06:00 Intake and Output: 09/22/18 09/22/18 06:59 18:59 Intake Total 0 Output Total 1999 Balance -1999 - Medications Medications: Current Medications Amino Acid Protein (Prostat 15 G Packet) 15 gm GT DAILY [facility] Last Admin: 09/22/18 11:53 Dose: 15 gm Collagenase (Santyl) 0 gm TOP DAILY [facility] Last Admin: 09/22/18 11:43 Dose: Not Given Enoxaparin Sodium (Lovenox) 40 mg SC DAILY [facility]; Protocol Last Admin: 09/22/18 11:52 Dose: 40 mg Levetiracetam (Keppra 500mg Ivpb) 500 mg in 100 mls @ 400 mls/hr IV Q12 [facility] Last Admin: 09/22/18 11:52 Dose: 400 mls/hr Meropenem (Merrem Iv 1 Gm Premix) 1 gm in 50 mls @ 100 mls/hr IVPB Q8 [facility]; Prot ocol Stop: 09/29/18 14:01 Lorazepam (Ativan) 1 mg IVP Q6H PRN; Protocol PRN Reason: Seizure activity Pantoprazole Sodium (Protonix Ec Tab) 40 mg PO 0600 [facility] Last Admin: 09/22/18 05:46 Dose: Not Given Sodium Hypochlorite (Dakins Solution 0.5%) 0 ml TOP DAILY [facility] Last Admin: 09/22/18 11:44 Dose: Not Given - Labs Labs: 09/22/18 07:20 09/22/18 07:20 PT 18.3 SECONDS (9.4-12.5) H 09/14/18 21:56 INR 1.65 09/14/18 21:56 APTT 33.9 Seconds (26.9-38.3) 09/14/18 21:56 - Constitutional Appears: Chronically Ill - Head Exam Head Exam: NORMAL INSPECTION - Respiratory Exam Respiratory Exam: Decreased Breath Sounds - Cardiovascular Exam Cardiovascular Exam: +S1, +S2 - GI/Abdominal Exam GI & Abdominal Exam: Soft. absent: Tenderness Assessment and Plan - Assessment and Plan (Free Text) Plan: Assessment Severe sepsis due to ESBL E. coli bacteremia, with urine as the source with ESBL E. coli in the urine noted (probable pyelonephritis), slowly improving sacral decubitus ulcer growing ESBL E. coli S/P LOG CLERK shunt placement after traumatic brain injury S/P PEG tube placement history of hydrocephalus Plan continue Merrem day 9 of 10-14 days E. faecalis in the sacral ulcer is probably a colonizer repeat blood cx are negative will continue to follow clinically
[2018-09-24] MEDS: Meropenem IV 1 gm in NS 1 GM/50 ML BAG IVPB SCH ×3 (05:51→23:33)
[2018-09-24] MEDS: Pantoprazole 40 mg EC Tab PO SCH (05:51)
[2018-09-24 07:53] LABS: HEMOGLOBIN 8.8 g/dL (14.0-18.0); MEAN CELL VOLUME 92.2 fl (80.0-105.0); MEAN CORPUSCULAR HEMOGLOBIN 29.7 pg (25.0-35.0); MEAN CORPUSCULAR HGB CONC 32.2 g/dl (31.0-37.0); MEAN PLATELET VOLUME 8.8 fl (7.0-11.0); RBC 2.96 10^6/uL (3.5-6.1); RED CELL DISTRIBUTION WIDTH 14.3 % (11.5-14.5); WHITE BLOOD COUNT 9.6 10^3/uL (4.5-11.0)
[2018-09-24 08:34] LABS: ALB/GLOB RATIO 0.9 (1.1-1.8); ALBUMIN 3.4 g/dL (3.0-4.8); ALT/SGPT 35 U/L (7-56); AST/SGOT 32 U/L (17-59); BLOOD UREA NITROGEN 20 mg/dL (7-21); CALCIUM 9.2 mg/dL (8.4-10.5); GFR NON-AFRICAN AMERICAN > 60
--- NOTE | 2018-09-24 11:02 | CP.PCM.PN ---
Subjective - Date & Time of Evaluation Date of Evaluation: 09/24/18 Time of Evaluation: 09:55 - Subjective Subjective: Patient is a little more awake today, no fevers. Objective - Vital Signs/Intake and Output Vital Signs (last 24 hours): Temp Pulse Resp BP Pulse Ox 98.6 F 100 H 17 100/58 L 98 09/23/18 06:00 09/23/18 06:00 09/23/18 06:00 09/23/18 06:00 09/23/18 06:00 Intake and Output: 09/23/18 09/23/18 06:59 18:59 Intake Total 150 Output Total 2430 Balance -2280 - Medications Medications: Current Medications Amino Acid Protein (Prostat 15 G Packet) 15 gm GT DAILY [facility] Last Admin: 09/23/18 09:00 Dose: 15 gm Collagenase (Santyl) 0 gm TOP DAILY [facility] Last Admin: 09/23/18 08:59 Dose: Not Given Docusate Sodium (Colace Liquid) 100 mg PEG DAILY [facility] Last Admin: 09/23/18 12:33 Dose: 100 mg Enoxaparin Sodium (Lovenox) 40 mg SC DAILY [facility]; Protocol Last Admin: 09/23/18 09:00 Dose: 40 mg Levetiracetam (Keppra 500mg Ivpb) 500 mg in 100 mls @ 400 mls/hr IV Q12 [facility] Last Admin: 09/23/18 09:00 Dose: 400 mls/hr Meropenem (Merrem Iv 1 Gm Premix) 1 gm in 50 mls @ 100 mls/hr IVPB Q8 [facility]; Protocol Stop: 09/29/18 14:01 Last Admin: 09/23/18 12:59 Dose: 100 mls/hr Lorazepam (Ativan) 1 mg IVP Q6H PRN; Protocol PRN Reason: Seizure activity Pantoprazole Sodium (Protonix Ec Tab) 40 mg PO 0600 [facility] Last Admin: 09/23/18 05:17 Dose: 40 mg Sodium Hypochlorite (Dakins Solution 0.5%) 0 ml TOP DAILY [facility] Last Admin: 09/23/18 08:59 Dose: Not Given - Labs Labs: 09/23/18 07:20 09/23/18 07:20 PT 18.3 SECONDS (9.4-12.5) H 09/14/18 21:56 INR 1.65 09/14/18 21:56 APTT 33.9 Seconds (26.9-38.3) 09/14/18 21:56 - Constitutional Appears: Chronically Ill - Head Exam Head Exam: NORMAL INSPECTION - Respiratory Exam Respiratory Exam: Decreased Breath Sounds - Cardiovascular Exam Cardiovascular Exam: +S1, +S2 - GI/Abdominal Exam GI & Abdominal Exam: Soft. absent: Tenderness Assessment and Plan - Assessment and Plan (Free Text) Plan: Assessment Severe sepsis due to ESBL E. coli bacteremia, with urine as the source with ESBL E. coli in the urine noted (probable pyelonephritis), clinically improving sacral decubitus ulcer growing ESBL E. 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 faecalis in the sacral ulcer is probably a colonizer repeat blood cx are negative will continue to follow clinically
[2018-09-24] MEDS: levETIRAcetam 500mg IVPB 500 MG/100 ML BAG IV SCH ×2 (11:09→23:14)
[2018-09-24] MEDS: Enoxaparin 40 mg Syringe SC SCH (11:09)
[2018-09-24] MEDS: Dakin's Topical 0.5%-Full Strength (480 ml) TOP SCH (11:10)
[2018-09-24] MEDS: Prostat 15 g packet GT SCH (11:13)
[2018-09-24] MEDS: Collagenase 250 Units/gm Ointment(30 gm) TOP SCH (11:13)
--- NOTE | 2018-09-24 15:57 | CP.PCM.PN ---
<Jerod Ramirez - Last Filed: 09/24/18 15:48> Subjective - Date & Time of Evaluation Date of Evaluation: 09/24/18 Time of Evaluation: 08:00 - Subjective Subjective: Jerod Ramirez PGY1 Medicine Progress Note for Dr. Reid Patient was seen and examined at bedside this morning. Vital signs stable. Patient is more awake, alert from previous encounters. He is unable to provide an appropriate ROS given his hx of traumatic brain injury and that he is minimally verbal. Wound vac is present. Tube feeds are running. Condom cath in place. Objective - Vital Signs/Intake and Output Vital Signs (last 24 hours): Temp Pulse Resp BP Pulse Ox 98.3 F 100 H 18 103/64 96 09/24/18 06:00 09/24/18 06:00 09/24/18 06:00 09/24/18 06:00 09/24/18 06:00 Intake and Output: 09/24/18 09/24/18 06:59 18:59 Intake Total 150 Output Total 380 Balance -230 - Medications Medications: Current Medications Amino Acid Protein (Prostat 15 G Packet) 15 gm GT DAILY [facility] Last Admin: 09/24/18 11:13 Dose: 15 gm Collagenase (Santyl) 0 gm TOP DAILY [facility] Last Admin: 09/24/18 11:13 Dose: Not Given Docusate Sodium (Colace Liquid) 100 mg PEG DAILY [facility] Last Admin: 09/24/18 11:08 Dose: 100 mg Enoxaparin Sodium (Lovenox) 40 mg SC DAILY [facility]; Protocol Last Admin: 09/24/18 11:09 Dose: 40 mg Levetiracetam (Keppra 500mg Ivpb) 500 mg in 100 mls @ 400 mls/hr IV Q12 [facility] Last Admin: 09/24/18 11:09 Dose: 400 mls/hr Meropenem (Merrem Iv 1 Gm Premix) 1 gm in 50 mls @ 100 mls/hr IVPB Q8 [facility]; Protocol Stop: 09/29/18 14:01 Last Admin: 09/24/18 14:42 Dose: 100 mls/hr Lorazepam (Ativan) 1 mg IVP Q6H PRN; Protocol PRN Reason: Seizure activity Pantoprazole Sodium (Protonix Ec Tab) 40 mg PO 0600 [facility] Last Admin: 09/24/18 05:51 Dose: 40 mg Sodium Hypochlorite (Dakins Solution 0.5%) 0 ml TOP DAILY [facility] Last Admin: 09/24/18 11:10 Dose: Not Given - Labs Labs: 09/24/18 07:30 09/24/18 07:30 PT 18.3 SECONDS (9.4-12.5) H 09/14/18 21:56 INR 1.65 09/14/18 21:56 APTT 33.9 Seconds (26.9-38.3) 09/14/18 21:56 - Constitutional Appears: No Acute Distress - Head Exam Head Exam: ATRAUMATIC, NORMAL INSPECTION, NORMOCEPHALIC - Eye Exam Eye Exam: EOMI, Normal appearance - ENT Exam ENT Exam: Mucous Membranes Moist - Respiratory Exam Respiratory Exam: Clear to Ausculation Bilateral, NORMAL BREATHING PATTERN. absent: Rales, Rhonchi, Wheezes - Cardiovascular Exam Cardiovascular Exam: RRR, +S1, +S2 - GI/Abdominal Exam GI & Abdominal Exam: Soft, Normal Bowel Sounds. absent: Tenderness Additional comments: PEG Tube is in place. No signs of infection. - Extremities Exam Extremities Exam: Normal Capillary Refill. absent: Calf Tenderness, Joint Swelling, Tenderness Additional comments: Patient keeps all extremities in contracted position. - Back Exam Additional comments: Stage 4 Sacral Decubitus Ulcer; wound vac in place. Left hip stage I pressure ulcer. 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 Patient admitted for septic shock with MODS 2/2 ESBL Bacteremia, UTI, and Stage IV Sacral Decubitus Ulcer. Plan: Septic Shock with MODS 2/2 ESBL Bacteremia, UTI, and Stage IV Sacral Decubitus Ulcer - Toxic metabolic encephalopathy was 2/2 septic shock - mental status improved - As per surgery, c/w Veraflo wound vac (Placed on 09/22). Will switch to regular wound vac on 09/25. - completed 10 days of merrem (10-14 days were recommended) - Blood Cx grew E. Coli; repeat blood cx negative x2 - Wound culture: grew E. Coli and Enterococcus Faecalis. - UCx grew E. Coli; repeat UCx negative - BP, hypothermia, leukocytosis improved during hospital course - c/w wound care, air mattress, q2 turns, dakin solution for management of Stage IV Sacral Decubitus Ulcer - Surgery on consult (Dr. Mcintosh). No surgical intervention at this time. - ID following (Dr. Benítez). Recs appreciated. - PT Dysphagia with PEG Tube - Speech/Swallow recommended puree diet with extra gravy, with nectar thick liquids for pleasure in addition to PEG tube feedings as primary source of nutrition - S&S eval passed - Calorie count - c/w PEG tube feeds - Electronics Engineering Technologist is on the case HANDBAG FRAMES INSPECTOR Shunt - Hydrocephalus s/p ICH - No further recommendations at this time - Neurosurgery is on board (Dr. Siegel). Recs appreciated. Seizures - c/w ativan 1mg Q6H prn - continue Keppra 500mg BID - c/w seizures precautions/aspiration precautions DVT/GI: Lovenox/protonix Dispo: Continue to monitor patient on the floor. Continue with Veraflo wound vac as per surgery and switch to regular wound vac tomorrow. Continue with PT. Case was discussed and reviewed with Attending Physician, Dr. Reid. <Keke Reid R - Last Filed: 09/24/18 18:12> Objective - Vital Signs/Intake and Output Vital Signs (last 24 hours): Temp Pulse Resp BP Pulse Ox 98.7 F 107 H 18 95/55 L 99 09/24/18 14:00 09/24/18 14:00 09/24/18 14:00 09/24/18 14:00 09/24/18 14:00 Intake and Output: 09/24/18 09/24/18 06:59 18:59 Intake Total 150 Output Total 380 Balance -230 - Medications Medications: Current Medications Amino Acid Protein (Prostat 15 G Packet) 15 gm GT DAILY [facility] Last Admin: 09/24/18 11:13 Dose: 15 gm Collagenase (Santyl) 0 gm TOP DAILY [facility] Last Admin: 09/24/18 11:13 Dose: Not Given Docusate Sodium (Colace Liquid) 100 mg PEG DAILY [facility] Last Admin: 09/24/18 11:08 Dose: 100 mg Enoxaparin Sodium (Lovenox) 40 mg SC DAILY [facility]; Protocol Last Admin: 09/24/18 11:09 Dose: 40 mg Levetiracetam (Keppra 500mg Ivpb) 500 mg in 100 mls @ 400 mls/hr IV Q12 [facility] Last Admin: 09/24/18 11:09 Dose: 400 mls/hr Meropenem (Merrem Iv 1 Gm Premix) 1 gm in 50 mls @ 100 mls/hr IVPB Q8 [facility]; Protocol Stop: 09/29/18 14:01 Last Admin: 09/24/18 14:42 Dose: 100 mls/hr Lorazepam (Ativan) 1 mg IVP Q6H PRN; Protocol PRN Reason: Seizure activity Pantoprazole Sodium (Protonix Ec Tab) 40 mg PO 0600 [facility] Last Admin: 09/24/18 05:51 Dose: 40 mg Sodium Hypochlorite (Dakins Solution 0.5%) 0 ml TOP DAILY [facility] Last Admin: 09/24/18 11:10 Dose: Not Given - Labs Labs: 09/24/18 07:30 09/24/18 07:30 PT 18.3 SECONDS (9.4-12.5) H 09/14/18 21:56 INR 1.65 09/14/18 21:56 APTT 33.9 Seconds (26.9-38.3) 09/14/18 21:56 Attending/Attestation - Attestation I have personally seen and examined this patient.: Yes I have fully participated in the care of the patient.: Yes I have reviewed all pertinent clinical information, including history, physical exam and plan: Yes Notes (Text): Patient seen and examined by me with resident at approximately 9:40 AM on 09/24/18. Case including HPI, physical exam, and assessment and plan discussed with resident. Agree with above with following additions/corrections. Patient is a 47-year-old male with past medical history significant for HANDBAG FRAMES INSPECTOR shunt, traumatic brain injury causing intracranial hemorrhage, seizure disorder, dysphagia s/p PEG, and hypophonic voice that presented to the emergency room with a cough. Patient awake and alert. Slowly states he feels "fine." He denies any pain. Leos s not answer other questions. Unable to obtain any review of systems from patient. Patient is afebrile. Physical exam: General: Awake and alert lying in bed in no acute distress, cachectic appearing HEENT: Normocephalic, atraumatic. Extraocular muscles intact, pupils equal and reactive, no scleral icterus. Neck is supple. Positive dry mucous membranes. Cardiovascular: Regular rhythm. Normal S1 and S2. No murmurs, rubs, or gallops appreciated Pulmonary: Normal respiratory effort. No rhonchi, rales, or wheezing appreciated. Gastrointestinal: Soft, nondistended. Nontender. Positive bowel sounds all 4 quadrants. No guarding. Positive PEG with no signs of infection. Musculoskeletal: Bilateral upper extremities contracted. Lower extremities with no edema. Central nervous system: Awake and alert. Not responsing to questions or commands. Dermatologic: Skin warm and dry. Sacral wound with new wound vac in place. Stable left hip superficial ulcer (DTI). Assessment and plan: Patient is a 47 year old male with past medical history significant for HANDBAG FRAMES INSPECTOR shunt, traumatic brain injury causing intracranial hemorrhage, seizure disorder, dysphagia s/p PEG, and hypophonic voice that presented to the emergency room with a cough. 1. Sacral decubitus ulcer present on admission. Stable new left hip DTI. Wound vac in place. Wound vac being changed tomorrow. ID following, recommendations appreciated. Continue Merrem. Surgery recommendations appreciated. Continue wound care. Continue to turn patient q2hrs. Continue with air mattress. Wound culture positive for E. Coli and Enterococcus Faecalis. 2. Septic shock with multiorgan dysfunction syndrome. ESBL UTI, ESBL sacral decubitus ulcer infection, and ESBL Bacteremia. Septic shock resolved. Off pressors. Transaminitis resolved. Continue Merrem. Urine culture positive for ESBL. Repeat urine culture with no growth. Sacral decubitus ulcer wound culture positive for ESBL and Enterococcus Faecalis. One blood culture positive for ESBL. ID following, recommendations appreciated. Repeat blood cultures with no growth. Leukocytosis resolved. Patient is afebrile. Chest/Abd/pelvis CT per radiologist showed no significant or acute findings to account for/related to the clinical presentation. Abdominal ultrasound per radiologist showed no significant or acute findings to account for/related to the clinical presentation, nonvisualization of small calculi identified on concurrent CT, tumefactive sludge identified. 3. Toxic metabolic encephalopathy. Likely secondary to septic shock. Back to baseline. EEG per neurologist showed normal awake, drowsy, and sleep electroencephalogram. Continue supportive care. 4. Transaminitis. Likely secondary to septic shock and hypoperfusion. Resolved. Continue to monitor LFTs. 5. Diarrhea. Resolved. C-diff uncollected. 6. Seizure Disorder. Continue Keppra. Continue seizure precautions. EEG per neurologist showed normal awake, drowsy, and sleep electroencephalogram. 7. Hydrocephalus. S/P HANDBAG FRAMES INSPECTOR shunt. CT head per radiologist showed no acute intracranial findings, no change in hydrocephalus, no change in left cerebellar encephalomalacia. Neurosurgery recommendations appreciated. 8. Dysphagia. S/P PEG. Continue with tube feeds. Patient also on oral dysphagia diet per speech and swallow. Continue calorie count, tube feeds decreased. 9. GI/DVT prophylaxis. Protonix/Lovenox 10. Patient is a full code.
[2018-09-25] MEDS: Meropenem IV 1 gm in NS 1 GM/50 ML BAG IVPB SCH ×3 (07:02→22:13)
[2018-09-25] MEDS: Pantoprazole 40 mg EC Tab PO SCH ×2 (07:06→07:08)
[2018-09-25 07:11] LABS: HEMOGLOBIN 8.7 g/dL (14.0-18.0); MEAN CORPUSCULAR HGB CONC 31.5 g/dl (31.0-37.0); MEAN PLATELET VOLUME 8.7 fl (7.0-11.0); RED CELL DISTRIBUTION WIDTH 14.4 % (11.5-14.5); WHITE BLOOD COUNT 14.3 10^3/uL (4.5-11.0)
[2018-09-25 07:38] LABS: ALB/GLOB RATIO 0.9 (1.1-1.8); ALBUMIN 3.4 g/dL (3.0-4.8); ALT/SGPT 39 U/L (7-56); AST/SGOT 41 U/L (17-59); BLOOD UREA NITROGEN 17 mg/dL (7-21); CALCIUM 9.4 mg/dL (8.4-10.5); GFR NON-AFRICAN AMERICAN > 60
[2018-09-25] MEDS: levETIRAcetam 500mg IVPB 500 MG/100 ML BAG IV SCH ×2 (10:59→22:14)
[2018-09-25] MEDS: Dakin's Topical 0.5%-Full Strength (480 ml) TOP SCH (11:00)
[2018-09-25] MEDS: Enoxaparin 40 mg Syringe SC SCH (11:00)
[2018-09-25] MEDS: Collagenase 250 Units/gm Ointment(30 gm) TOP SCH (11:01)
[2018-09-25] MEDS: Prostat 15 g packet GT SCH (11:08)
--- NOTE | 2018-09-25 14:41 | CP.PCM.PN ---
Subjective - Date & Time of Evaluation Date of Evaluation: 09/25/18 Time of Evaluation: 11:55 - Subjective Subjective: Not in distress, afebrile. Objective - Vital Signs/Intake and Output Vital Signs (last 24 hours): Temp Pulse Resp BP Pulse Ox 98.3 F 100 H 18 103/64 96 09/24/18 06:00 09/24/18 06:00 09/24/18 06:00 09/24/18 06:00 09/24/18 06:00 Intake and Output: 09/24/18 09/24/18 06:59 18:59 Intake Total 150 Output Total 380 Balance -230 - Medications Medications: Current Medications Amino Acid Protein (Prostat 15 G Packet) 15 gm GT DAILY [facility] Last Admin: 09/23/18 09:00 Dose: 15 gm Collagenase (Santyl) 0 gm TOP DAILY [facility] Last Admin: 09/23/18 08:59 Dose: Not Given Docusate Sodium (Colace Liquid) 100 mg PEG DAILY [facility] Last Admin: 09/23/18 12:33 Dose: 100 mg Enoxaparin Sodium (Lovenox) 40 mg SC DAILY [facility]; Protocol Last Admin: 09/23/18 09:00 Dose: 40 mg Levetiracetam (Keppra 500mg Ivpb) 500 mg in 100 mls @ 400 mls/hr IV Q12 [facility] Last Admin: 09/23/18 23:24 Dose: 400 mls/hr Meropenem (Merrem Iv 1 Gm Premix) 1 gm in 50 mls @ 100 mls/hr IVPB Q8 [facility]; Prot ocol Stop: 09/29/18 14:01 Last Admin: 09/24/18 05:51 Dose: 100 mls/hr Lorazepam (Ativan) 1 mg IVP Q6H PRN; Protocol PRN Reason: Seizure activity Pantoprazole Sodium (Protonix Ec Tab) 40 mg PO 0600 [facility] Last Admin: 09/24/18 05:51 Dose: 40 mg Sodium Hypochlorite (Dakins Solution 0.5%) 0 ml TOP DAILY [facility] Last Admin: 09/23/18 08:59 Dose: Not Given - Labs Labs: 09/24/18 07:30 09/24/18 07:30 PT 18.3 SECONDS (9.4-12.5) H 09/14/18 21:56 INR 1.65 09/14/18 21:56 APTT 33.9 Seconds (26.9-38.3) 09/14/18 21:56 - Constitutional Appears: Chronically Ill - Head Exam Head Exam: NORMAL INSPECTION - Respiratory Exam Respiratory Exam: Decreased Breath Sounds - Cardiovascular Exam Cardiovascular Exam: +S1, +S2 - GI/Abdominal Exam GI & Abdominal Exam: Soft. absent: Tenderness Assessment and Plan - Assessment and Plan (Free Text) Plan: Assessment Severe sepsis due to ESBL E. coli bacteremia, with urine as the source with ESBL E. coli in the urine noted (probable pyelonephritis), clinically improving sacral decubitus ulcer growing ESBL E. 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 faecalis in the sacral ulcer is probably a colonizer repeat blood cx are negative will continue to follow clinically discussed with Dr. Johnson
--- NOTE | 2018-09-25 14:48 | CP.PCM.PCO ---
Physician Communication Note - Physician Communication Note Physician Communication Note: Pt family combative to idea of debridment, wound vac sufficient
--- NOTE | 2018-09-25 18:03 | CP.PCM.PN ---
<Jerod Ramirez - Last Filed: 09/25/18 17:55> Subjective - Date & Time of Evaluation Date of Evaluation: 09/25/18 Time of Evaluation: 08:00 - Subjective Subjective: Jerod Ramirez, PGY1 Medicine Progress Note for Dr. Johnson Patient was seen and examined at bedside this morning. Vital signs stable. Patient is awake and alert. He is unable to provide an appropriate ROS given his hx of traumatic brain injury and that he is minimally verbal. Wound vac is present. Tube feeds are running. Condom cath in place. Objective - Vital Signs/Intake and Output Vital Signs (last 24 hours): Temp Pulse Resp BP Pulse Ox 98 F 102 H 18 96/55 L 95 09/25/18 06:00 09/25/18 06:00 09/25/18 06:00 09/25/18 06:00 09/25/18 12:56 Intake and Output: 09/25/18 09/25/18 06:59 18:59 Output Total 700 400 Balance -700 -400 - Medications Medications: Current Medications Amino Acid Protein (Prostat 15 G Packet) 15 gm GT DAILY [facility] Last Admin: 09/25/18 11:08 Dose: Not Given Collagenase (Santyl) 0 gm TOP DAILY [facility] Last Admin: 09/25/18 11:01 Dose: Not Given Docusate Sodium (Colace Liquid) 100 mg PEG DAILY [facility] Last Admin: 09/25/18 11:00 Dose: 100 mg Levetiracetam (Keppra 500mg Ivpb) 500 mg in 100 mls @ 400 mls/hr IV Q12 [facility] Last Admin: 09/25/18 10:59 Dose: 400 mls/hr Meropenem (Merrem Iv 1 Gm Premix) 1 gm in 50 mls @ 100 mls/hr IVPB Q8 [facility]; Protocol Stop: 09/29/18 22:01 Lorazepam (Ativan) 1 mg IVP Q6H PRN; Protocol PRN Reason: Seizure activity Pantoprazole Sodium (Protonix Ec Tab) 40 mg PO 0600 [facility] Last Admin: 09/25/18 07:08 Dose: 40 mg Sodium Hypochlorite (Dakins Solution 0.5%) 0 ml TOP DAILY [facility] Last Admin: 09/25/18 11:00 Dose: Not Given - Labs Labs: 09/25/18 06:40 09/25/18 06:40 PT 18.3 SECONDS (9.4-12.5) H 09/14/18 21:56 INR 1.65 09/14/18 21:56 APTT 33.9 Seconds (26.9-38.3) 09/14/18 21:56 - Constitutional Appears: No Acute Distress - Head Exam Head Exam: ATRAUMATIC, NORMAL INSPECTION, NORMOCEPHALIC - Eye Exam Eye Exam: EOMI, Normal appearance - ENT Exam ENT Exam: Mucous Membranes Moist - Respiratory Exam Respiratory Exam: Clear to Ausculation Bilateral, NORMAL BREATHING PATTERN. absent: Rales, Rhonchi, Wheezes - Cardiovascular Exam Cardiovascular Exam: RRR, +S1, +S2 - GI/Abdominal Exam GI & Abdominal Exam: Soft, Normal Bowel Sounds. absent: Tenderness Additional comments: PEG Tube is in place. No signs of infection. - Extremities Exam Extremities Exam: Normal Capillary Refill. absent: Calf Tenderness, Joint Swelling, Tenderness Additional comments: Patient keeps all extremities in contracted position. - Back Exam Additional comments: Stage 4 Sacral Decubitus Ulcer; wound vac in place. Left hip stage I pressure ulcer. Assessment and Plan - Assessment and Plan (Free Text) Assessment: Patient is a 47 year old male with PMHx WARP TESTER shunt 2/2 Fall (07/19/18), Brain Injury causing intracranial hemorrhage, Seizure disorder, Dysphagia with PEG tube, hypophonic voice who presented to the ED via EMS accompanied by family for complaints of cough for one day duration and altered mental status. Patient adm itted for septic shock with MODS 2/2 ESBL Bacteremia, UTI, and Stage IV Sacral Decubitus Ulcer. Plan: Septic Shock with MODS 2/2 ESBL Bacteremia, UTI, and Stage IV Sacral Decubitus Ulcer - Toxic metabolic encephalopathy was 2/2 septic shock - mental status improved - Surgical team changed wound vac today from Veraflo to regular wound vac. However, they want to do bedside debridement. As per surgical team, family members were combative to the idea. - leukocytosis with wbc 14.3, uptrending. - restarted on merrem (Day 11 of 10-14 days total) as per ID recs. - Blood Cx grew E. Coli; repeat blood cx negative x2 - Wound culture: grew E. Coli and Enterococcus Faecalis. - UCx grew E. Coli; repeat UCx negative - c/w wound care, air mattress, q2 turns, dakin solution for management of Stage IV Sacral Decubitus Ulcer - Surgery on consult (Dr. Mcintosh). No surgical intervention at this time. - ID following (Dr. Benítez). Recs appreciated. - PT Dysphagia with PEG Tube - c/w puree diet with extra gravy, with nectar thick liquids for pleasure in addition to PEG tube feedings as primary source of nutrition - S&S eval passed - Calorie count - c/w PEG tube feeds - General Internal Medicine Physician is on the case WARP TESTER Shunt - Hydrocephalus s/p ICH - No further recommendations at this time - Neurosurgery is on board (Dr. Siegel). Recs appreciated. Seizures - c/w ativan 1mg Q6H prn - continue Keppra 500mg BID - c/w seizures precautions/aspiration precautions GI ppx: ptx Dispo: Patient needs additional days of antibiotics. Wound vac in place. Pending authorization from facility as per social work. Case was discussed and reviewed with Attending Physician, Dr. Johnson. <Escobar Johnson - Last Filed: 09/26/18 16:47> Objective - Vital Signs/Intake and Output Vital Signs (last 24 hours): Temp Pulse Resp BP Pulse Ox 97.3 F L 90 17 101/66 100 09/26/18 06:00 09/26/18 06:00 09/26/18 06:00 09/26/18 06:00 09/26/18 06:00 Intake and Output: 09/26/18 09/26/18 06:59 18:59 Intake Total 1820 Output Total 525 400 Balance 1295 -400 - Medications Medications: Current Medications Amino Acid Protein (Prostat 15 G Packet) 15 gm GT DAILY [facility] Last Admin: 09/25/18 11:08 Dose: Not Given Collagenase (Santyl) 0 gm TOP DAILY [facility] Last Admin: 09/25/18 11:01 Dose: Not Given Docusate Sodium (Colace Liquid) 100 mg PEG DAILY [facility] Last Admin: 09/26/18 09:02 Dose: 100 mg Levetiracetam (Keppra 500mg Ivpb) 500 mg in 100 mls @ 400 mls/hr IV Q12 [facility] Last Admin: 09/26/18 09:02 Dose: 400 mls/hr Meropenem (Merrem Iv 1 Gm Premix) 1 gm in 50 mls @ 100 mls/hr IVPB Q8 [facility]; Protocol Stop: 09/29/18 22:01 Last Admin: 09/26/18 05:30 Dose: 100 mls/hr Lorazepam (Ativan) 1 mg IVP Q6H PRN; Protocol PRN Reason: Seizure activity Pantoprazole Sodium (Protonix Ec Tab) 40 mg PO 0600 [facility] Last Admin: 09/25/18 07:08 Dose: 40 mg Sodium Hypochlorite (Dakins Solution 0.5%) 0 ml TOP DAILY [facility] Last Admin: 09/25/18 11:00 Dose: Not Given - Labs Labs: 09/26/18 07:00 09/26/18 07:00 PT 18.3 SECONDS (9.4-12.5) H 09/14/18 21:56 INR 1.65 09/14/18 21:56 APTT 33.9 Seconds (26.9-38.3) 09/14/18 21:56 Attending/Attestation - Attestation I have personally seen and examined this patient.: Yes I have fully participated in the care of the patient.: Yes I have reviewed all pertinent clinical information, including history, physical exam and plan: Yes Notes (Text): 09/26/18 11:55 Attending note; Patient seen and examined with resident during rounds. Patient's mother and father by the bed side. patient is alert and awake. Patient is a 47 year old male with past medical history significant for WARP TESTER shunt, traumatic brain injury causing intracranial hemorrhage, seizure disorder, dysphagia s/p PEG, and hypophonic voice that presented to the emergency room with a cough. 1. Sacral decubitus ulcer; Wound vac in place. Wound vac changed today. prescription for wound vac given by surgery. Case discussed with ID in detail. Continue Merrem. complete 14 day course. Surgery recommendations appreciated. Continue wound care. Continue to turn patient q2hrs. Continue with air mattress. Wound culture positive for E. Coli and Enterococcus Faecalis. 2. Septic shock with multiorgan dysfunction syndrome. resolved. ESBL UTI, ESBL sacral decubitus ulcer infection, and ESBL Bacteremia. Repeat blood cultures with no growth. Leukocytosis resolved. Patient is afebrile. 3. Toxic metabolic encephalopathy. resolved. Likely secondary to septic shock. Back to baseline. EEG per neurologist showed normal awake, drowsy, and sleep electroencephalogram. Continue supportive care. 4. Transaminitis. Likely secondary to septic shock and hypoperfusion. Resolved. Continue to monitor LFTs. 5. Seizure Disorder. Continue Keppra. Continue seizure precautions. 6. Hydrocephalus. S/P WARP TESTER shunt. 8. Dysphagia. S/P PEG. Continue with tube feeds. Patient also on oral dysphagia diet per speech and swallow. Continue calorie count, tube feeds decreased. 9. GI/DVT prophylaxis. Protonix/Lovenox 10. Patient is a full code. case discussed with shelter case manager in detail. plan for [facility].
[2018-09-26] MEDS: Meropenem IV 1 gm in NS 1 GM/50 ML BAG IVPB SCH ×3 (05:30→23:56)
[2018-09-26 07:11] LABS: HEMOGLOBIN 9.6 g/dL (14.0-18.0); MEAN CELL VOLUME 92.8 fl (80.0-105.0); MEAN CORPUSCULAR HEMOGLOBIN 28.8 pg (25.0-35.0); MEAN CORPUSCULAR HGB CONC 31.1 g/dl (31.0-37.0); MEAN PLATELET VOLUME 8.7 fl (7.0-11.0); RBC 3.33 10^6/uL (3.5-6.1); RED CELL DISTRIBUTION WIDTH 14.4 % (11.5-14.5); WHITE BLOOD COUNT 9.2 10^3/uL (4.5-11.0)
[2018-09-26 07:37] LABS: ALB/GLOB RATIO 0.9 (1.1-1.8); ALBUMIN 3.4 g/dL (3.0-4.8); ALT/SGPT 37 U/L (7-56); AST/SGOT 47 U/L (17-59); BLOOD UREA NITROGEN 18 mg/dL (7-21); CALCIUM 9.4 mg/dL (8.4-10.5); GFR NON-AFRICAN AMERICAN > 60
[2018-09-26] MEDS: levETIRAcetam 500mg IVPB 500 MG/100 ML BAG IV SCH (09:02)
[2018-09-26] MEDS: Collagenase 250 Units/gm Ointment(30 gm) TOP SCH (13:56)
[2018-09-26] MEDS: Dakin's Topical 0.5%-Full Strength (480 ml) TOP SCH (13:56)
[2018-09-26] MEDS: Prostat 15 g packet GT SCH (14:04)
--- NOTE | 2018-09-26 14:43 | CP.PCM.PN ---
Subjective - Date & Time of Evaluation Date of Evaluation: 09/26/18 Time of Evaluation: 08:50 - Subjective Subjective: Afebrile, not in distress. Objective - Vital Signs/Intake and Output Vital Signs (last 24 hours): Temp Pulse Resp BP Pulse Ox 98 F 102 H 18 96/55 L 95 09/25/18 06:00 09/25/18 06:00 09/25/18 06:00 09/25/18 06:00 09/25/18 12:56 Intake and Output: 09/25/18 09/25/18 06:59 18:59 Output Total 700 Balance -700 - Medications Medications: Current Medications Amino Acid Protein (Prostat 15 G Packet) 15 gm GT DAILY [facility] Last Admin: 09/25/18 11:08 Dose: Not Given Collagenase (Santyl) 0 gm TOP DAILY [facility] Last Admin: 09/25/18 11:01 Dose: Not Given Docusate Sodium (Colace Liquid) 100 mg PEG DAILY [facility] Last Admin: 09/25/18 11:00 Dose: 100 mg Levetiracetam (Keppra 500mg Ivpb) 500 mg in 100 mls @ 400 mls/hr IV Q12 [facility] Last Admin: 09/25/18 10:59 Dose: 400 mls/hr Lorazepam (Ativan) 1 mg IVP Q6H PRN; Protocol PRN Reason: Seizure activity Pantoprazole Sodium (Protonix Ec Tab) 40 mg PO 0600 [facility] Last Admin: 09/25/18 07:08 Dose: 40 mg Sodium Hypochlorite (Dakins Solution 0.5%) 0 ml TOP DAILY [facility] Last Admin: 09/25/18 11:00 Dose: Not Given - Labs Labs: 09/25/18 06:40 09/25/18 06:40 PT 18.3 SECONDS (9.4-12.5) H 09/14/18 21:56 INR 1.65 09/14/18 21:56 APTT 33.9 Seconds (26.9-38.3) 09/14/18 21:56 - Constitutional Appears: Chronically Ill - Head Exam Head Exam: NORMAL INSPECTION - Respiratory Exam Respiratory Exam: Decreased Breath Sounds - Cardiovascular Exam Cardiovascular Exam: +S1, +S2 - GI/Abdominal Exam GI & Abdominal Exam: Soft. absent: Tenderness Assessment and Plan - Assessment and Plan (Free Text) Plan: Assessment Severe sepsis due to ESBL E. coli bacteremia, with urine as the source with ESBL E. coli in the urine noted (probable pyelonephritis), clinically improving sacral decubitus ulcer growing ESBL E. 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 faecalis in the sacral ulcer is probably a colonizer repeat blood cx are negative will continue to follow clinically discussed with Dr. Johnson
--- NOTE | 2018-09-26 15:40 | CP.PCM.PN ---
<Jerod Ramirez - Last Filed: 09/26/18 15:34> Subjective - Date & Time of Evaluation Date of Evaluation: 09/26/18 Time of Evaluation: 08:00 - Subjective Subjective: Jerod Ramirez PGY1 Medicine Progress Note for Dr. Johnson Patient was seen and examined at bedside this morning. Vital signs stable. Patient is awake and alert. He is unable to provide an appropriate ROS given his hx of traumatic brain injury and that he is minimally verbal. Wound vac is present, approximately 150cc noted. Tube feeds are running. Condom cath in place . Objective - Vital Signs/Intake and Output Vital Signs (last 24 hours): Temp Pulse Resp BP Pulse Ox 97.3 F L 90 17 101/66 100 09/26/18 06:00 09/26/18 06:00 09/26/18 06:00 09/26/18 06:00 09/26/18 06:00 Intake and Output: 09/26/18 09/26/18 06:59 18:59 Intake Total 1820 120 Output Total 525 950 Balance 1295 -830 - Medications Medications: Current Medications Amino Acid Protein (Prostat 15 G Packet) 15 gm GT DAILY [facility] Last Admin: 09/26/18 14:04 Dose: 15 gm Collagenase (Santyl) 0 gm TOP DAILY [facility] Last Admin: 09/26/18 13:56 Dose: Not Given Docusate Sodium (Colace Liquid) 100 mg PEG DAILY [facility] Last Admin: 09/26/18 09:02 Dose: 100 mg Levetiracetam (Keppra 500mg Ivpb) 500 mg in 100 mls @ 400 mls/hr IV Q12 [facility] Last Admin: 09/26/18 09:02 Dose: 400 mls/hr Meropenem (Merrem Iv 1 Gm Premix) 1 gm in 50 mls @ 100 mls/hr IVPB Q8 [facility]; Protocol Stop: 09/29/18 22:01 Last Admin: 09/26/18 14:04 Dose: 100 mls/hr Lorazepam (Ativan) 1 mg IVP Q6H PRN; Protocol PRN Reason: Seizure activity Pantoprazole Sodium (Protonix Ec Tab) 40 mg PO 0600 [facility] Last Admin: 09/25/18 07:08 Dose: 40 mg Sodium Hypochlorite (Dakins Solution 0.5%) 0 ml TOP DAILY [facility] Last Admin: 09/26/18 13:56 Dose: Not Given - Labs Labs: 09/26/18 07:00 09/26/18 07:00 PT 18.3 SECONDS (9.4-12.5) H 09/14/18 21:56 INR 1.65 09/14/18 21:56 APTT 33.9 Seconds (26.9-38.3) 09/14/18 21:56 - Constitutional Appears: No Acute Distress - Head Exam Head Exam: ATRAUMATIC, NORMAL INSPECTION, NORMOCEPHALIC - Eye Exam Eye Exam: EOMI, Normal appearance - ENT Exam ENT Exam: Mucous Membranes Moist - Respiratory Exam Respiratory Exam: Clear to Ausculation Bilateral, NORMAL BREATHING PATTERN. absent: Rales, Rhonchi, Wheezes - Cardiovascular Exam Cardiovascular Exam: RRR, +S1, +S2 - GI/Abdominal Exam GI & Abdominal Exam: Soft, Normal Bowel Sounds. absent: Tenderness Additional comments: PEG Tube is in place. No signs of infection. - Extremities Exam Extremities Exam: Normal Capillary Refill. absent: Calf Tenderness, Joint Swelling, Tenderness Additional comments: Patient keeps all extremities in contracted position. - Back Exam Additional comments: Stage 4 Sacral Decubitus Ulcer; wound vac in place. Left hip stage I pressure ulcer. Assessment and Plan - Assessment and Plan (Free Text) Assessment: Patient is a 47 year old male with PMHx PRUNE WASHER shunt 2/2 Fall (07/19/18), Brain Injury causing intracranial hemorrhage, Seizure disorder, Dysphagia with PEG tube, hypophonic voice who presented to the ED via EMS accompanied by family for complaints of cough for one day duration and altered mental status. Patient admitted for septic shock with MODS 2/2 ESBL Bacteremia, UTI, and Stage IV Sacral Decubitus Ulcer. Plan: Septic Shock with MODS 2/2 ESBL Bacteremia, UTI, and Stage IV Sacral Decubitus Ulcer - resolved - Toxic metabolic encephalopathy was 2/2 septic shock - mental status improved - c/w merrem (Day 12 of 14 days total) as per ID recs. - As per surgical team, c/w wound vac. Family refused bedside debridement. - leukocytosis downtrending - Blood Cx grew E. Coli; repeat blood cx negative x2 - Wound culture: grew E. Coli and Enterococcus Faecalis. - UCx grew E. Coli; repeat UCx negative - c/w wound care, air mattress, q2 turns, dakin solution for management of Stage IV Sacral Decubitus Ulcer - Surgery on consult (Dr. Mcintosh). No surgical intervention at this time. - ID following (Dr. Benítez). Recs appreciated. - PT Dysphagia with PEG Tube - c/w puree diet with extra gravy, with nectar thick liquids for pleasure in addition to PEG tube feedings as primary source of nutrition - S&S eval passed - c/w PEG tube feeds - Radiology Transporter following PRUNE WASHER Shunt - Hydrocephalus s/p ICH - No further recommendations at this time - Neurosurgery is on board (Dr. Siegel). Recs appreciated. Seizures - c/w ativan 1mg Q6H prn - continue Keppra 500mg BID - c/w seizures precautions/aspiration precautions GI ppx: ptx DVT ppx: scd Dispo: Patient needs to complete 14 days total of antibiotics prior to discharge. Wound vac in place. Denied from facility, pending further SW recs. Case was discussed and reviewed with Attending Physician, Dr. Johnson. <Escobar Johnson - Last Filed: 09/26/18 16:49> Objective - Vital Signs/Intake and Output Vital Signs (last 24 hours): Temp Pulse Resp BP Pulse Ox 98.9 F 111 H 16 107/70 99 09/26/18 14:00 09/26/18 14:00 09/26/18 14:00 09/26/18 14:00 09/26/18 14:00 Intake and Output: 09/26/18 09/26/18 06:59 18:59 Intake Total 1820 120 Output Total 525 950 Balance 1295 -830 - Medications Medications: Current Medications Amino Acid Protein (Prostat 15 G Packet) 15 gm GT DAILY [facility] Last Admin: 09/26/18 14:04 Dose: 15 gm Collagenase (Santyl) 0 gm TOP DAILY [facility] Last Admin: 09/26/18 13:56 Dose: Not Given Docusate Sodium (Colace Liquid) 100 mg PEG DAILY [facility] Last Admin: 09/26/18 09:02 Dose: 100 mg Meropenem (Merrem Iv 1 Gm Premix) 1 gm in 50 mls @ 100 mls/hr IVPB Q8 [facility]; Protocol Stop: 09/29/18 22:01 Last Admin: 09/26/18 14:04 Dose: 100 mls/hr Levetiracetam (Keppra) 500 mg PO BID [facility] Lorazepam (Ativan) 1 mg IVP Q6H PRN; Protocol PRN Reason: Seizure activity Pantoprazole Sodium (Protonix Ec Tab) 40 mg PO 0600 [facility] Last Admin: 09/25/18 07:08 Dose: 40 mg Sodium Hypochlorite (Dakins Solution 0.5%) 0 ml TOP DAILY [facility] Last Admin: 09/26/18 13:56 Dose: Not Given - Labs Labs: 09/26/18 07:00 09/26/18 07:00 PT 18.3 SECONDS (9.4-12.5) H 09/14/18 21:56 INR 1.65 09/14/18 21:56 APTT 33.9 Seconds (26.9-38.3) 09/14/18 21:56 Attending/Attestation - Attestation I have personally seen and examined this patient.: Yes I have fully participated in the care of the patient.: Yes I have reviewed all pertinent clinical information, including history, physical exam and plan: Yes Notes (Text): 09/26/18 16:47 Attending note; Patient seen and examined with resident during rounds. patient is alert and awake. Patient is a 47 year old male with past medical history significant for PRUNE WASHER shunt, traumatic brain injury causing intracranial hemorrhage, seizure disorder, dysphagia s/p PEG, and hypophonic voice that presented to the emergency room with a cough. 1. Sacral decubitus ulcer; Wound vac in place. Wound vac changed yesterday. prescription for wound vac given by surgery. Case discussed with ID in detail. Continue Merrem. complete 14 day course. Surgery recommendations appreciated. Continue wound care. Continue to turn patient q2hrs. Continue with air mattress. Wound culture positive for E. Coli and Enterococcus Faecalis. 2. Septic shock with multiorgan dysfunction syndrome. resolved. ESBL UTI, ESBL sacral decubitus ulcer infection, and ESBL Bacteremia. Repeat blood cultures with no growth. Leukocytosis resolved. Patient is afebrile. 3. Toxic metabolic encephalopathy. resolved. Likely secondary to septic shock. Back to baseline. EEG per neurologist showed normal awake, drowsy, and sleep electroencephalogram. Continue supportive care. 4. Transaminitis. Likely secondary to septic shock and hypoperfusion. Resolved. Continue to monitor LFTs. 5. Seizure Disorder. Continue Keppra. Continue seizure precautions. 6. Hydrocephalus. S/P PRUNE WASHER shunt. 8. Dysphagia. S/P PEG. Continue with tube feeds. Patient also on oral dysphagia diet per speech and swallow. Continue calorie count, tube feeds decreased. 9. GI/DVT prophylaxis. Protonix/Lovenox 10. Patient is a full code. case discussed with case planner/ manager social in detail. plan for [facility] or home with services after completion of antibiotics. 09/26/18 16:48
--- NOTE | 2018-09-26 17:16 | PCM.SURG1 ---
Surgeon's Initial Post Op Note - Surgeon's Notes Surgeon: Dr. Mcintosh Traffic I Manager: Trish PGY2; Arun MS3 Type of Anesthesia: None Pre-Operative Diagnosis: Sacral Decubitus Operative Findings: Written consent obtained from Father. Necrotic Skin Edges at sacral decubitus, debrided without any complications. Post-Operative Diagnosis: same Operation Performed: Bedside sharp debridement of sacral decubitus. Wound vac placement Specimen/Specimens Removed: none Estimated Blood Loss: EBL {In ML}: 0 Blood Products Given: N/A Drains Used: Wound Vac Post-Op Condition: Good Date of Surgery/Procedure: 09/26/18 Time of Surgery/Procedure: 17:15
[2018-09-27] MEDS: Meropenem IV 1 gm in NS 1 GM/50 ML BAG IVPB SCH ×3 (05:36→21:08)
[2018-09-27] MEDS: Pantoprazole 40 mg EC Tab PO SCH (05:38)
[2018-09-27 06:28] LABS: HEMOGLOBIN 8.7 g/dL (14.0-18.0); MEAN CORPUSCULAR HGB CONC 31.9 g/dl (31.0-37.0); MEAN PLATELET VOLUME 8.3 fl (7.0-11.0); RED CELL DISTRIBUTION WIDTH 14.3 % (11.5-14.5)
[2018-09-27 06:44] LABS: ALB/GLOB RATIO 0.9 (1.1-1.8); ALBUMIN 3.4 g/dL (3.0-4.8); ALT/SGPT 35 U/L (7-56); AST/SGOT 41 U/L (17-59); BLOOD UREA NITROGEN 17 mg/dL (7-21); CALCIUM 9.4 mg/dL (8.4-10.5); GFR NON-AFRICAN AMERICAN > 60
[2018-09-27] MEDS: Collagenase 250 Units/gm Ointment(30 gm) TOP SCH (09:59)
[2018-09-27] MEDS: Dakin's Topical 0.5%-Full Strength (480 ml) TOP SCH (09:59)
[2018-09-27] MEDS: Prostat 15 g packet GT SCH (13:17)
--- NOTE | 2018-09-27 13:42 | CP.PCM.PN ---
<Jerod Ramirez - Last Filed: 09/27/18 13:33> Subjective - Date & Time of Evaluation Date of Evaluation: 09/27/18 Time of Evaluation: 08:00 - Subjective Subjective: Jerod Ramirez, PGY1 Medicine Progress Note for Dr. Johnson Patient was seen and examined at bedside this morning. Vital signs stable. Patient is awake and alert. Overall mental status improved since admission. He is unable to provide an appropriate ROS given his hx of traumatic brain injury and that he is minimally verbal. Wound vac is present, approximately 100cc not ed. Tube feeds are running. Condom cath in place. Objective - Vital Signs/Intake and Output Vital Signs (last 24 hours): Temp Pulse Resp BP Pulse Ox 99 F 90 18 111/64 100 09/27/18 06:00 09/27/18 06:00 09/27/18 06:00 09/27/18 06:00 09/27/18 06:00 Intake and Output: 09/27/18 09/27/18 06:59 18:59 Output Total 600 900 Balance -600 -900 - Medications Medications: Current Medications Amino Acid Protein (Prostat 15 G Packet) 15 gm GT DAILY [facility] Last Admin: 09/27/18 13:17 Dose: 15 gm Collagenase (Santyl) 0 gm TOP DAILY [facility] Last Admin: 09/27/18 09:59 Dose: Not Given Docusate Sodium (Colace Liquid) 100 mg PEG DAILY [facility] Last Admin: 09/27/18 09:59 Dose: 100 mg Meropenem (Merrem Iv 1 Gm Premix) 1 gm in 50 mls @ 100 mls/hr IVPB Q8 [facility]; Protocol Stop: 09/29/18 22:01 Last Admin: 09/27/18 13:17 Dose: 100 mls/hr Levetiracetam (Keppra) 500 mg PO BID [facility] Last Admin: 09/27/18 09:59 Dose: 500 mg Lorazepam (Ativan) 1 mg IVP Q6H PRN; Protocol PRN Reason: Seizure activity Pantoprazole Sodium (Protonix Ec Tab) 40 mg PO 0600 [facility] Last Admin: 09/27/18 05:38 Dose: 40 mg Sodium Hypochlorite (Dakins Solution 0.5%) 0 ml TOP DAILY [facility] Last Admin: 09/27/18 09:59 Dose: Not Given - Labs Labs: 09/27/18 06:10 09/27/18 06:10 PT 18.3 SECONDS (9.4-12.5) H 09/14/18 21:56 INR 1.65 09/14/18 21:56 APTT 33.9 Seconds (26.9-38.3) 09/14/18 21:56 - Constitutional Appears: No Acute Distress - Head Exam Head Exam: ATRAUMATIC, NORMAL INSPECTION, NORMOCEPHALIC - Eye Exam Eye Exam: EOMI, Normal appearance - ENT Exam ENT Exam: Mucous Membranes Moist - Respiratory Exam Respiratory Exam: Clear to Ausculation Bilateral, NORMAL BREATHING PATTERN. absent: Rales, Rhonchi, Wheezes - Cardiovascular Exam Cardiovascular Exam: RRR, +S1, +S2 - GI/Abdominal Exam GI & Abdominal Exam: Soft, Normal Bowel Sounds. absent: Tenderness Additional comments: PEG Tube is in place. No signs of infection. - Extremities Exam Extremities Exam: Normal Capillary Refill. absent: Calf Tenderness, Joint Swelling, Tenderness Additional comments: Patient keeps all extremities in contracted position. - Back Exam Additional comments: Stage 4 Sacral Decubitus Ulcer; wound vac in place draining appropriately. Left hip stage I pressure ulcer. Assessment and Plan - Assessment and Plan (Free Text) Assessment: Patient is a 47 year old male with PMHx PYROTECHNICS PRESS TENDER shunt / Fall (07/19/18), Brain Injury causing intracranial hemorrhage, Seizure disorder, Dysphagia with PEG tube, hypophonic voice who presented to the ED via EMS accompanied by family for complaints of cough for one day duration and altered mental status. Patient admi tted for septic shock with MODS 2/2 ESBL Bacteremia, UTI, and Stage IV Sacral Decubitus Ulcer. Plan: Septic Shock with MODS 2/2 ESBL Bacteremia, UTI, and Stage IV Sacral Decubitus Ulcer - resolved - Toxic metabolic encephalopathy was 2/2 septic shock - mental status improved - c/w merrem (Day 13 of 14 days total) as per ID recs. Patient will complete antibiotics on night. - Bedside sacral debridement on 09/26 - Blood Cx grew E. Coli; repeat blood cx negative x2 - Wound culture: grew E. Coli and Enterococcus Faecalis. - UCx grew E. Coli; repeat UCx negative - c/w wound care, air mattress, q2 turns, dakin solution for management of Stage IV Sacral Decubitus Ulcer - Surgery on consult (Dr. Mcintosh). No surgical intervention at this time. - ID following (Dr. Benítez). Recs appreciated. - PT Dysphagia with PEG Tube - c/w puree nectar thick diet with PEG tube feeds - S&S eval passed - [employer] following PYROTECHNICS PRESS TENDER Shunt - Hydrocephalus s/p ICH - No further recommendations at this time - Neurosurgery is on board (Dr. Siegel). Recs appreciated. Seizures - c/w ativan 1mg Q6H prn - continue Keppra 500mg BID - c/w seizures precautions/aspiration precautions GI ppx: ptx DVT ppx: scd Dispo: Patient will complete IV antibiotics on night. Anticipate discharge on Tuesday morning. Further recs from . Case was discussed and reviewed with Attending Physician, Dr. Johnson. <Escobar Johnson - Last Filed: 09/27/18 18:29> Objective - Vital Signs/Intake and Output Vital Signs (last 24 hours): Temp Pulse Resp BP Pulse Ox 99 F 90 18 111/64 100 09/27/18 06:00 09/27/18 06:00 09/27/18 06:00 09/27/18 06:00 09/27/18 06:00 Intake and Output: 09/27/18 09/27/18 06:59 18:59 Output Total 600 900 Balance -600 -900 - Medications Medications: Current Medications Amino Acid Protein (Prostat 15 G Packet) 15 gm GT DAILY [facility] Last Admin: 09/27/18 13:17 Dose: 15 gm Collagenase (Santyl) 0 gm TOP DAILY [facility] Last Admin: 09/27/18 09:59 Dose: Not Given Docusate Sodium (Colace Liquid) 100 mg PEG DAILY [facility] Last Admin: 09/27/18 09:59 Dose: 100 mg Meropenem (Merrem Iv 1 Gm Premix) 1 gm in 50 mls @ 100 mls/hr IVPB Q8 [facility]; Protocol Stop: 09/29/18 22:01 Last Admin: 09/27/18 13:17 Dose: 100 mls/hr Levetiracetam (Keppra) 500 mg PO BID [facility] Last Admin: 09/27/18 09:59 Dose: 500 mg Lorazepam (Ativan) 1 mg IVP Q6H PRN; Protocol PRN Reason: Seizure activity Pantoprazole Sodium (Protonix Ec Tab) 40 mg PO 0600 [facility] Last Admin: 09/27/18 05:38 Dose: 40 mg Polyethylene Glycol (Miralax) 17 gm PEG BID [facility] Sodium Hypochlorite (Dakins Solution 0.5%) 0 ml TOP DAILY [facility] Last Admin: 09/27/18 09:59 Dose: Not Given - Labs Labs: 09/27/18 06:10 09/27/18 06:10 PT 18.3 SECONDS (9.4-12.5) H 09/14/18 21:56 INR 1.65 09/14/18 21:56 APTT 33.9 Seconds (26.9-38.3) 09/14/18 21:56 Attending/Attestation - Attestation I have personally seen and examined this patient.: Yes I have fully participated in the care of the patient.: Yes I have reviewed all pertinent clinical information, including history, physical exam and plan: Yes Notes (Text): 09/27/18 18:24 Attending note; Patient seen and examined with resident during rounds. patient is alert and awake. Patient is a 47 year old male with past medical history significant for PYROTECHNICS PRESS TENDER shunt, traumatic brain injury causing intracranial hemorrhage, seizure disorder, dysphagia s/p PEG, and hypophonic voice that presented to the emergency room with a cough. 1. Sacral decubitus ulcer; Wound vac in place. Wound vac changed. prescription for wound vac given by surgery. Case discussed with ID in detail. Continue Merrem. Today id day 13/14. Surgery recommendations appreciated. Continue wound care. Continue to turn patient q2hrs. Continue with air mattress. Wound culture positive for E. Coli and Enterococcus Faecalis. 2. Septic shock with multiorgan dysfunction syndrome. resolved. ESBL UTI, ESBL sacral decubitus ulcer infection, and ESBL Bacteremia. Repeat blood cultures with no growth. Leukocytosis resolved. Patient is afebrile. 3. Toxic metabolic encephalopathy. resolved. Likely secondary to septic shock. Back to baseline. EEG per neurologist showed normal awake, drowsy, and sleep electroencephalogram. Continue supportive care. 4. Transaminitis. Likely secondary to septic shock and hypoperfusion. Resolved. Continue to monitor LFTs. 5. Seizure Disorder. Continue Keppra. Continue seizure precautions. 6. Hydrocephalus. S/P PYROTECHNICS PRESS TENDER shunt. 8. Dysphagia. S/P PEG. Continue with tube feeds. Patient also on oral dysphagia diet per speech and swallow. Continue calorie count, tube feeds decreased. 9. GI/DVT prophylaxis. Protonix/Lovenox 10. Patient is a full code. family informed about discharge plan. Patient was referred to [facility] of family's choice but denied. case discussed with case worker/ psychosocial rehabilitation counselor in detail. discharge home after completing antibiotics.
--- NOTE | 2018-09-27 16:30 | CP.PCM.PN ---
Subjective - Date & Time of Evaluation Date of Evaluation: 09/27/18 Time of Evaluation: 09:40 - Subjective Subjective: Being fed by aide without issues, no fevers, not in distress. Objective - Vital Signs/Intake and Output Vital Signs (last 24 hours): Temp Pulse Resp BP Pulse Ox 97.3 F L 90 17 101/66 100 09/26/18 06:00 09/26/18 06:00 09/26/18 06:00 09/26/18 06:00 09/26/18 06:00 Intake and Output: 09/26/18 09/26/18 06:59 18:59 Intake Total 1820 Output Total 525 400 Balance 1295 -400 - Medications Medications: Current Medications Amino Acid Protein (Prostat 15 G Packet) 15 gm GT DAILY [facility] Last Admin: 09/26/18 14:04 Dose: 15 gm Collagenase (Santyl) 0 gm TOP DAILY [facility] Last Admin: 09/26/18 13:56 Dose: Not Given Docusate Sodium (Colace Liquid) 100 mg PEG DAILY [facility] Last Admin: 09/26/18 09:02 Dose: 100 mg Levetiracetam (Keppra 500mg Ivpb) 500 mg in 100 mls @ 400 mls/hr IV Q12 [facility] Last Admin: 09/26/18 09:02 Dose: 400 mls/hr Meropenem (Merrem Iv 1 Gm Premix) 1 gm in 50 mls @ 100 mls/hr IVPB Q8 [facility]; Protocol Stop: 09/29/18 22:01 Last Admin: 09/26/18 14:04 Dose: 100 mls/hr Lorazepam (Ativan) 1 mg IVP Q6H PRN; Protocol PRN Reason: Seizure activity Pantoprazole Sodium (Protonix Ec Tab) 40 mg PO 0600 [facility] Last Admin: 09/25/18 07:08 Dose: 40 mg Sodium Hypochlorite (Dakins Solution 0.5%) 0 ml TOP DAILY [facility] Last Admin: 09/26/18 13:56 Dose: Not Given - Labs Labs: 09/26/18 07:00 09/26/18 07:00 PT 18.3 SECONDS (9.4-12.5) H 09/14/18 21:56 INR 1.65 09/14/18 21:56 APTT 33.9 Seconds (26.9-38.3) 09/14/18 21:56 - Constitutional Appears: Chronically Ill - Head Exam Head Exam: NORMAL INSPECTION - Respiratory Exam Respiratory Exam: Decreased Breath Sounds - Cardiovascular Exam Cardiovascular Exam: +S1, +S2 - GI/Abdominal Exam GI & Abdominal Exam: Soft. absent: Tenderness Assessment and Plan - Assessment and Plan (Free Text) Plan: Assessment Severe sepsis due to ESBL E. coli bacteremia, with urine as the source with ESBL E. coli in the urine noted (probable pyelonephritis), clinically improving sacral decubitus ulcer growing ESBL E. coli S/P SIDE PANEL PADDER shunt placement after traumatic brain injury S/P PEG tube placement history of hydrocephalus Plan continue Merrem day 12 of 10-14 days E. faecalis in the sacral ulcer is probably a colonizer repeat blood cx are negative will continue to follow clinically discussed with Dr. Johnson previously
[2018-09-28] MEDS: Meropenem IV 1 gm in NS 1 GM/50 ML BAG IVPB SCH ×3 (06:22→21:50)
[2018-09-28] MEDS: Pantoprazole 40 mg EC Tab PO SCH (06:22)
[2018-09-28 07:09] LABS: HEMOGLOBIN 9.1 g/dL (14.0-18.0); MEAN CELL VOLUME 89.7 fl (80.0-105.0); MEAN CORPUSCULAR HEMOGLOBIN 29.3 pg (25.0-35.0); MEAN CORPUSCULAR HGB CONC 32.6 g/dl (31.0-37.0); MEAN PLATELET VOLUME 8.3 fl (7.0-11.0); RBC 3.11 10^6/uL (3.5-6.1); RED CELL DISTRIBUTION WIDTH 14.2 % (11.5-14.5); WHITE BLOOD COUNT 9.2 10^3/uL (4.5-11.0)
[2018-09-28 07:15] LABS: ALB/GLOB RATIO 0.9 (1.1-1.8); ALBUMIN 3.6 g/dL (3.0-4.8); ALT/SGPT 30 U/L (7-56); AST/SGOT 47 U/L (17-59); BLOOD UREA NITROGEN 19 mg/dL (7-21); CALCIUM 9.5 mg/dL (8.4-10.5); GFR NON-AFRICAN AMERICAN > 60
[2018-09-28] MEDS: Dakin's Topical 0.5%-Full Strength (480 ml) TOP SCH (11:03)
[2018-09-28] MEDS: POLYETHYLENE GLYCOL 3350 17 GM/Dose PACKET PEG SCH ×2 (11:03→18:00)
[2018-09-28] MEDS: Collagenase 250 Units/gm Ointment(30 gm) TOP SCH (11:03)
[2018-09-28] MEDS: Prostat 15 g packet GT SCH (11:03)
--- NOTE | 2018-09-28 15:28 | CP.PCM.PN ---
<Jerod Ramirez - Last Filed: 09/28/18 15:20> Subjective - Date & Time of Evaluation Date of Evaluation: 09/28/18 Time of Evaluation: 08:00 - Subjective Subjective: Jerod Ramirez PGY1 Medicine Progress Note for Dr. Johnson Patient was seen and examined at bedside this morning. Vital signs stable. Patient is awake and alert. Overall mental status improved since admission. He is unable to provide an appropriate ROS given his hx of traumatic brain injury and that he is minimally verbal. Wound vac is present, approximately 100cc not ed. Tube feeds are running. Condom cath in place. Objective - Vital Signs/Intake and Output Vital Signs (last 24 hours): Temp Pulse Resp BP Pulse Ox 98 F 104 H 16 118/69 97 09/27/18 22:56 09/27/18 22:56 09/27/18 22:56 09/27/18 22:56 09/27/18 22:56 Intake and Output: 09/28/18 09/28/18 06:59 18:59 Intake Total 2070 Output Total 1700 Balance 370 - Medications Medications: Current Medications Amino Acid Protein (Prostat 15 G Packet) 15 gm GT DAILY [facility] Last Admin: 09/28/18 11:03 Dose: 15 gm Collagenase (Santyl) 0 gm TOP DAILY [facility] Last Admin: 09/28/18 11:03 Dose: Not Given Docusate Sodium (Colace Liquid) 100 mg PEG DAILY [facility] Last Admin: 09/28/18 11:02 Dose: 100 mg Meropenem (Merrem Iv 1 Gm Premix) 1 gm in 50 mls @ 100 mls/hr IVPB Q8 [facility]; Protocol Stop: 09/29/18 22:01 Last Admin: 09/28/18 06:22 Dose: 100 mls/hr Levetiracetam (Keppra) 500 mg PO BID [facility] Last Admin: 09/28/18 11:05 Dose: 500 mg Lorazepam (Ativan) 1 mg IVP Q6H PRN; Protocol PRN Reason: Seizure activity Pantoprazole Sodium (Protonix Ec Tab) 40 mg PO 0600 [facility] Last Admin: 09/28/18 06:22 Dose: 40 mg Polyethylene Glycol (Miralax) 17 gm PEG BID [facility] Last Admin: 09/28/18 11:03 Dose: 17 gm Sodium Hypochlorite (Dakins Solution 0.5%) 0 ml TOP DAILY [facility] Last Admin: 09/28/18 11:03 Dose: Not Given - Labs Labs: 09/28/18 06:15 09/28/18 06:15 PT 18.3 SECONDS (9.4-12.5) H 09/14/18 21:56 INR 1.65 09/14/18 21:56 APTT 33.9 Seconds (26.9-38.3) 09/14/18 21:56 - Constitutional Appears: No Acute Distress - Head Exam Head Exam: ATRAUMATIC, NORMAL INSPECTION, NORMOCEPHALIC - Eye Exam Eye Exam: EOMI, Normal appearance - ENT Exam ENT Exam: Mucous Membranes Moist - Respiratory Exam Respiratory Exam: Clear to Ausculation Bilateral, NORMAL BREATHING PATTERN. absent: Rales, Rhonchi, Wheezes - Cardiovascular Exam Cardiovascular Exam: RRR, +S1, +S2 - GI/Abdominal Exam GI & Abdominal Exam: Soft, Normal Bowel Sounds. absent: Tenderness Additional comments: PEG Tube is in place. No signs of infection. - Extremities Exam Extremities Exam: Normal Capillary Refill. absent: Calf Tenderness, Joint Swelling, Tenderness Additional comments: Patient keeps all extremities in contracted position. - Back Exam Additional comments: Stage 4 Sacral Decubitus Ulcer; wound vac in place draining appropriately. Left hip stage I pressure ulcer. 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 Patient admitted for septic shock with MODS 2/2 ESBL Bacteremia, UTI, and Stage IV Sacral Decubitus Ulcer. Plan: Septic Shock with MODS 2/2 ESBL Bacteremia, UTI, and Stage IV Sacral Decubitus Ulcer - resolved - Toxic metabolic encephalopathy was 2/2 septic shock - mental status improved - c/w merrem (Day 14 of 14 days total) as per ID recs. Patient will complete antibiotics tonight. Anticipate discharge tomorrow. - Bedside sacral debridement on 09/26 - Blood Cx grew E. Coli; repeat blood cx negative x2 - Wound culture: grew E. Coli and Enterococcus Faecalis. - UCx grew E. Coli; repeat UCx negative - c/w wound care, air mattress, q2 turns, dakin solution for management of Stage IV Sacral Decubitus Ulcer - Surgery on consult (Dr. Mcintosh). No surgical intervention at this time. - ID following (Dr. Benítez). Recs appreciated. - PT Dysphagia with PEG Tube - Discontinued free water flushes since patient was getting hyponatremic - c/w puree nectar thick diet with PEG tube feeds - [employer] following DELIMBER OPERATOR Shunt - Hydrocephalus s/p ICH - No further recommendations at this time - Neurosurgery is on board (Dr. Siegel). Recs appreciated. Seizures - c/w ativan 1mg Q6H prn - continue Keppra 500mg BID - c/w seizures precautions/aspiration precautions GI ppx: ptx DVT ppx: scd Dispo: Patient will complete IV antibiotics tonight. Anticipate discharge tomorrow morning. Discussed with family. Case was discussed and reviewed with Attending Physician, Dr. Johnson. <Escobar Johnson - Last Filed: 09/30/18 18:12> Objective - Vital Signs/Intake and Output Vital Signs (last 24 hours): Temp Pulse Resp BP Pulse Ox 97.9 F 103 H 18 108/65 99 09/29/18 15:16 09/29/18 15:16 09/29/18 15:16 09/29/18 15:16 09/29/18 15:16 - Labs Labs: 09/28/18 06:15 09/28/18 06:15 PT 18.3 SECONDS (9.4-12.5) H 09/14/18 21:56 INR 1.65 09/14/18 21:56 APTT 33.9 Seconds (26.9-38.3) 09/14/18 21:56 Attending/Attestation - Attestation I have personally seen and examined this patient.: Yes I have fully participated in the care of the patient.: Yes I have reviewed all pertinent clinical information, including history, physical exam and plan: Yes Notes (Text): 09/30/18 18:12 Attending note; Patient seen and examined with resident during rounds. patient is alert and awake. Patient is a 47 year old male with past medical history significant for DELIMBER OPERATOR shunt, traumatic brain injury causing intracranial hemorrhage, seizure disorder, dysphagia s/p PEG, and hypophonic voice that presented to the emergency room with a cough. 1. Sacral decubitus ulcer; Wound vac in place. Wound vac changed. prescription for wound vac given by surgery. Case discussed with ID in detail. Continue Merrem. Today id day . Surgery recommendations appreciated. Continue wound care. Continue to turn patient q2hrs. Continue with air mattress. Wound culture positive for E. Coli and Enterococcus Faecalis. 2. Septic shock with multiorgan dysfunction syndrome. resolved. ESBL UTI, ESBL sacral decubitus ulcer infection, and ESBL Bacteremia. Repeat blood cultures with no growth. Leukocytosis resolved. Patient is afebrile. 3. Toxic metabolic encephalopathy. resolved. Likely secondary to septic shock. Back to baseline. EEG per neurologist showed normal awake, drowsy, and sleep electroencephalogram. Continue supportive care. 4. Transaminitis. Likely secondary to septic shock and hypoperfusion. Resolved. Continue to monitor LFTs. 5. Seizure Disorder. Continue Keppra. Continue seizure precautions. 6. Hydrocephalus. S/P DELIMBER OPERATOR shunt. 8. Dysphagia. S/P PEG. Continue with tube feeds. Patient also on oral dysphagia diet per speech and swallow. Continue calorie count, tube feeds decreased. 9. GI/DVT prophylaxis. Protonix/Lovenox 10. Patient is a full code. family informed about discharge plan. Patient was referred to [facility] of family's choice but denied. case discussed with immigration case manager/ social service liaison in detail. discharge home after completing antibiotics.
[2018-09-28 16:27] VITALS: RESP 18
--- NOTE | 2018-09-28 22:55 | CP.PCM.PN ---
Subjective - Date & Time of Evaluation Date of Evaluation: 09/28/18 Time of Evaluation: 12:35 - Subjective Subjective: No fevers, not in distress. Objective - Vital Signs/Intake and Output Vital Signs (last 24 hours): Temp Pulse Resp BP Pulse Ox 99 F 90 18 111/64 100 09/27/18 06:00 09/27/18 06:00 09/27/18 06:00 09/27/18 06:00 09/27/18 06:00 Intake and Output: 09/27/18 09/27/18 06:59 18:59 Output Total 600 900 Balance -600 -900 - Medications Medications: Current Medications Amino Acid Protein (Prostat 15 G Packet) 15 gm GT DAILY [facility] Last Admin: 09/27/18 13:17 Dose: 15 gm Collagenase (Santyl) 0 gm TOP DAILY [facility] Last Admin: 09/27/18 09:59 Dose: Not Given Docusate Sodium (Colace Liquid) 100 mg PEG DAILY [facility] Last Admin: 09/27/18 09:59 Dose: 100 mg Meropenem (Merrem Iv 1 Gm Premix) 1 gm in 50 mls @ 100 mls/hr IVPB Q8 [facility]; Protocol Stop: 09/29/18 22:01 Last Admin: 09/27/18 13:17 Dose: 100 mls/hr Levetiracetam (Keppra) 500 mg PO BID [facility] Last Admin: 09/27/18 09:59 Dose: 500 mg Lorazepam (Ativan) 1 mg IVP Q6H PRN; Protocol PRN Reason: Seizure activity Pantoprazole Sodium (Protonix Ec Tab) 40 mg PO 0600 [facility] Last Admin: 09/27/18 05:38 Dose: 40 mg Sodium Hypochlorite (Dakins Solution 0.5%) 0 ml TOP DAILY [facility] Last Admin: 09/27/18 09:59 Dose: Not Given - Labs Labs: 09/27/18 06:10 09/27/18 06:10 PT 18.3 SECONDS (9.4-12.5) H 09/14/18 21:56 INR 1.65 09/14/18 21:56 APTT 33.9 Seconds (26.9-38.3) 09/14/18 21:56 - Constitutional Appears: Chronically Ill - Head Exam Head Exam: NORMAL INSPECTION - Respiratory Exam Respiratory Exam: Decreased Breath Sounds - Cardiovascular Exam Cardiovascular Exam: +S1, +S2 - GI/Abdominal Exam GI & Abdominal Exam: Soft. absent: Tenderness Assessment and Plan - Assessment and Plan (Free Text) Plan: Assessment Severe sepsis due to ESBL E. coli bacteremia, with urine as the source with ESBL E. coli in the urine noted (probable pyelonephritis), clinically improving sacral decubitus ulcer growing ESBL E. coli S/P RIGGER CHIEF shunt placement after traumatic brain injury S/P PEG tube placement history of hydrocephalus Plan continue Merrem day 13 of 10-14 days E. faecalis in the sacral ulcer is probably a colonizer repeat blood cx are negative will continue to follow clinically discussed with Dr. Johnson previously
[2018-09-29] MEDS: Pantoprazole 40 mg EC Tab PO SCH (05:41)
[2018-09-29] MEDS: Meropenem IV 1 gm in NS 1 GM/50 ML BAG IVPB SCH ×2 (05:41→15:00)
[2018-09-29] MEDS: POLYETHYLENE GLYCOL 3350 17 GM/Dose PACKET PEG SCH (10:16)
[2018-09-29] MEDS: Collagenase 250 Units/gm Ointment(30 gm) TOP SCH (10:17)
[2018-09-29] MEDS: Prostat 15 g packet GT SCH (10:18)
[2018-09-29] MEDS: Dakin's Topical 0.5%-Full Strength (480 ml) TOP SCH (10:37)
[2018-09-29 15:16] VITALS: BP 108/65; PULSE 103; TEMP 97.9; O2SAT 99
--- NOTE | 2018-09-29 17:47 | CP.PCM.DIS ---
<JamesJerod - Last Filed: 09/29/18 17:43> Provider - Provider Date of Admission: 09/14/18 23:39 Attending physician: Escobar Johnson MD Consults: 09/15/18 00:27 Infectious Disease Consult Routine Comment: Consulting Provider: Minesh Albright Consulting Physician: Minesh Albright Reason for Consult: Septic shock 09/15/18 02:03 Nursing Referral for Palliative Care Routine Comment: Physician Instructions: Reason For Exam: Pls evaluate pt. As per Nsg Adm/ Lives w/ family. Social Work Referral Routine Comment: Lives with family. Physician Instructions: Reason For Exam: Pls evaluate pt. PMH: TBI/ Craniotomy/PEG/seizure. 09/15/18 03:24 Neurointerventional consult Routine Comment: lumbar puncture, OIL RAG WASHER shunt fluid, r/o meningitis Consulting Provider: Robert Siegel Consulting Physician: Robert Siegel Reason for Consult: lumbar puncture, OIL RAG WASHER shunt fluid, r/o meningitis, hx bactermia 09/15/18 03:32 Physician Consult Routine Comment: Consulting Provider: Junior Reardon Consulting Physician: Junior Reardon Reason for Consult: Stage 4 sacral ulcer 09/15/18 03:47 Gastroenterology Consult Routine Comment: Consulting Provider: Arianne Emmanuel V Consulting Physician: Arianne Emmanuel V Reason for Consult: transaminitis 09/15/18 04:17 Nursing Referral for Wound Care Routine Comment: Physician Instructions: Reason For Exam: sacral ulcers 09/15/18 04:19 Nursing Referral for Wound Care Routine Comment: Physician Instructions: Reason For Exam: SACRAL DECUB 09/20/18 08:35 Neurology Consult Routine Comment: Consulting Provider: Chris Peterson Consulting Physician: Chris Peterson Reason for Consult: ams, h/o OIL RAG WASHER shunt and TBI 09/26/18 14:58 Nursing Referral for Wound Care Routine Comment: Physician Instructions: Reason For Exam: left hip wound vac Time Spent in preparation of Discharge (in minutes): 35 Hospital Course - Lab Results Lab Results: Micro Results 09/18/18 11:45 Blood-Venous Blood Culture - Final NO GROWTH AFTER 5 DAYS 09/18/18 11:45 Blood-Venous Gram Stain - Final TEST NOT PERFORMED 09/18/18 11:30 Blood-Venous Blood Culture - Final NO GROWTH AFTER 5 DAYS 09/18/18 11:30 Blood-Venous Gram Stain - Final TEST NOT PERFORMED 09/14/18 21:50 Blood Blood Culture - Final NO GROWTH AFTER 5 DAYS 09/14/18 21:50 Blood Gram Stain - Final TEST NOT PERFORMED 09/14/18 21:30 Blood Blood Culture - Final Escherichia Coli 09/14/18 21:30 Blood Gram Stain - Final 09/15/18 06:00 Other: Please Indicate Gram Stain - Final 09/15/18 06:00 Other: Please Indicate Wound Culture - Final Escherichia Coli Enterococcus Faecalis 09/14/18 23:23 Urine,Catheterized Urine Culture - Final Escherichia Coli 09/16/18 09:30 Naris MRSA Culture (Admit) - Final MRSA NOT DETECTED 09/16/18 09:30 Urine,Jaeger Urine Culture - Final No Growth (<1,000 CFU/ML) Most Recent Lab Values WBC 9.2 10^3/uL (4.5-11.0) 09/28/18 06:15 RBC 3.11 10^6/uL (3.5-6.1) L 09/28/18 06:15 Hgb 9.1 g/dL (14.0-18.0) L 09/28/18 06:15 Hct 27.9 % (42.0-52.0) L 09/28/18 06:15 MCV 89.7 fl (80.0-105.0) 09/28/18 06:15 MCH 29.3 pg (25.0-35.0) 09/28/18 06:15 MCHC 32.6 g/dl (31.0-37.0) 09/28/18 06:15 RDW 14.2 % (11.5-14.5) 09/28/18 06:15 Plt Count 692 10^3/uL (120.0-450.0) H 09/28/18 06:15 MPV 8.3 fl (7.0-11.0) 09/28/18 06:15 Neut % (Auto) 63.1 % (50.0-68.0) 09/22/18 07:20 Lymph % (Auto) 26.8 % (22.0-35.0) 09/22/18 07:20 [place] % (Auto) 8.5 % (1.0-6.0) H 09/22/18 07:20 Eos % (Auto) 1.4 % (1.5-5.0) L 09/22/18 07:20 Baso % (Auto) 0.2 % (0.0-3.0) 09/22/18 07:20 Lymph # (Auto) 2.2 (1.2-3.4) 09/22/18 07:20 [place] # (Auto) 0.7 (0.1-0.6) H 09/22/18 07:20 Eos # (Auto) 0.1 (0.0-0.7) 09/22/18 07:20 Baso # (Auto) 0.02 K/mm3 (0.0-2.0) 09/22/18 07:20 Absolute Neuts (auto) 5.10 (1.4-6.5) 09/22/18 07:20 Neutrophils % (Manual) 86 % (50.0-70.0) H 09/14/18 21:56 Band Neutrophils % 3 % (0-2) H 09/14/18 21:56 Lymphocytes % (Manual) 4 % (22.0-35.0) L 09/14/18 21:56 Monocytes % (Manual) 5 % (1.0-6.0) 09/14/18 21:56 Metamyelocytes % 2 % 09/14/18 21:56 Platelet Evaluation High (NORMAL) 09/14/18 21:56 PT 18.3 SECONDS (9.4-12.5) H 09/14/18 21:56 INR 1.65 09/14/18 21:56 APTT 33.9 Seconds (26.9-38.3) 09/14/18 21:56 pCO2 32 mm/Hg (35-45) L 09/16/18 06:00 pO2 96.0 mm/Hg (80-100) 09/16/18 06:00 HCO3 20.3 mmol/L (21-28) L 09/16/18 06:00 ABG pH 7.41 (7.35-7.45) 09/16/18 06:00 ABG Total CO2 21.3 mmol.L (22-28) L 09/16/18 06:00 ABG O2 Saturation 99.2 % (95-98) H 09/16/18 06:00 ABG Base Excess -3.4 mmol/L (-2.0-3.0) L 09/16/18 06:00 ABG Potassium 3.2 mmol/L (3.6-5.2) L 09/16/18 06:00 VBG pH 7.35 (7.32-7.43) 09/15/18 01:40 VBG pCO2 44.0 (40-60) 09/15/18 01:40 VBG HCO3 24.3 mmol/l (21-28) 09/15/18 01:40 VBG Total CO2 25.7 mmol.L (22-28) 09/15/18 01:40 VBG O2 Sat (Calc) 68.3 % (40-65) H 09/15/18 01:40 VBG Base Excess -1.5 mmol/L (0.0-2.0) L 09/15/18 01:40 VBG Potassium 3.8 mmol/L (3.6-5.2) 09/15/18 01:40 Sodium 144.0 mmol/L (132-148) 09/16/18 06:00 Chloride 117.0 mmol/L (98-107) H 09/16/18 06:00 Glucose 93 mg/dl (75-110) 09/16/18 06:00 Lactate 0.6 mmol/L (0.7-2.1) L 09/16/18 06:00 FiO2 21.0 % 09/16/18 06:00 Crit Value Called To Lillian hoffman rn ccu 09/15/18 01:40 Crit Value Called By Sherrill 09/15/18 01:40 Blood Gas Notified Time 202 09/15/18 01:40 Sodium 130 mmol/L (132-148) L 09/28/18 06:15 Potassium 4.3 mmol/L (3.6-5.0) 09/28/18 06:15 Chloride 92 mmol/L (98-107) L 09/28/18 06:15 Carbon Dioxide 30 mmol/L (21-33) 09/28/18 06:15 Anion Gap 13 (10-20) 09/28/18 06:15 BUN 19 mg/dL (7-21) 09/28/18 06:15 Creatinine 0.5 mg/dl (0.8-1.5) L 09/28/18 06:15 Est GFR ( Amer) > 60 09/28/18 06:15 Est GFR (Non-Af Amer) > 60 09/28/18 06:15 POC Glucose (mg/dL) 95 mg/dL (65-110) 09/14/18 21:49 Random Glucose 95 mg/dL (70-110) 09/28/18 06:15 Calcium 9.5 mg/dL (8.4-10.5) 09/28/18 06:15 Phosphorus 2.8 mg/dL (2.5-4.5) 09/22/18 07:20 Magnesium 2.0 mg/dL (1.7-2.2) 09/22/18 07:20 Total Bilirubin 0.4 mg/dL (0.2-1.3) 09/28/18 06:15 GGT 150 U/L (8-78) H 09/15/18 07:00 AST 47 U/L (17-59) 09/28/18 06:15 ALT 30 U/L (7-56) 09/28/18 06:15 Alkaline Phosphatase 92 U/L (38-126) 09/28/18 06:15 Lactate Dehydrogenase 445 U/L (333-699) 09/15/18 09:45 Total Creatine Kinase 592 U/L (35-230) H 09/15/18 09:45 CK-MB (CK-2) 7.2 ng/mL (0.0-3.6) H 09/15/18 09:45 CK-MB (CK-2) % 1.2 % (2.5-3.0) L 09/15/18 07:00 Troponin I 0.01 ng/mL 09/15/18 09:45 NT-Pro-B Natriuret Pep 945 pg/mL (0-450) H 09/14/18 21:56 Total Protein 7.7 g/dL (5.8-8.3) 09/28/18 06:15 Albumin 3.6 g/dL (3.0-4.8) 09/28/18 06:15 Globulin 4.1 gm/dL 09/28/18 06:15 Albumin/Globulin Ratio 0.9 (1.1-1.8) L 09/28/18 06:15 Prostate Specific Ag 0.6 ng/mL (0.00-2.5) 09/16/18 12:20 Procalcitonin > 200.00 NG/ML (0.19-0.49) H 09/15/18 01:40 Arterial Blood Potassium 3.2 mmol/L (3.6-5.2) L 09/16/18 06:00 Venous Blood Potassium 3.8 mmol/L (3.6-5.2) 09/15/18 01:40 Urine Color Yellow (YELLOW) 09/16/18 09:30 Urine Appearance Clear (CLEAR) 09/16/18 09:30 Urine pH 6.0 (4.7-8.0) 09/16/18 09:30 Ur Specific [place] >= 1.030 (1.005-1.035) 09/16/18 09:30 Urine Protein Negative mg/dL (<30 mg/dL) 09/16/18 09:30 Urine Glucose (UA) Negative mg/dL (NEGATIVE) 09/16/18 09:30 Urine Ketones 15 mg/dL (NEGATIVE) H 09/16/18 09:30 Urine Blood Negative (NEGATIVE) 09/16/18 09:30 Urine Nitrate Negative (NEGATIVE) 09/16/18 09:30 Urine Bilirubin Negative (NEGATIVE) 09/16/18 09:30 Urine Urobilinogen 0.2 E.U./dL (<1 E.U./dL) 09/16/18 09:30 Ur Leukocyte Esterase Small Cyril/uL (NEGATIVE) H 09/16/18 09:30 Urine RBC 1 - 3 /hpf (0-2) H 09/16/18 09:30 Urine WBC 10 - 15 /hpf (0-6) H 09/16/18 09:30 Ur Epithelial Cells 3 - 4 /hpf (0-5) 09/16/18 09:30 Amorphous Sediment Small /hpf (NONE) 09/16/18 09:30 Urine Bacteria Many /hpf (NONE) 09/16/18 09:30 Levetiracetam 31.8 mcg/mL 09/14/18 21:56 Hepatitis A IgM Ab Negative (NEGATIVE) 09/15/18 09:45 Hep Bs Antigen Negative (NEGATIVE) 09/15/18 09:45 Hep B Core IgM Ab Negative (NEGATIVE) 09/15/18 09:45 Hepatitis C Antibody Negative (NEGATIVE) 09/15/18 09:45 Influenza Typ A,B (EIA) Negative for flu a/b (NEGATIVE) 09/15/18 06:00 - Hospital Course Hospital Course: Jerod Ramirez, PGY1 Medicine Progress Note for Dr. Johnson Patient is a 47 year old male with PMHx OIL RAG WASHER shunt 2/2 Fall (07/19/18) with hypophonic voice, Traumatic Brain Injury with intracranial hemorrhage, Seizure disorder, Dysphagia, PEG tube who presented to the ED on 09/14 via EMS accompanied by family for complaints of altered mental status and poor PO intake. Patient was a code sepsis in the ED. Head CT showed no acute intracranial findings. Medical team evaluated patient. Given patient's mental status and co- morbidities, history was obtained from family. He was noted to have a stage IV sacral decubitus ulcer. Patient was admitted for septic shock with MODS 2/2 UTI vs sacral decubitus ulcer vs Bacteremia. He was admitted to the ICU. Given that his blood pressure was dropping with fluid resuscitation, decision was made to put in a central line and start vasopressors. However, family was reluctant to do an IJ/EJ and prefer that medical team insert central line in the femoral instead, even given the risks of infection. As a result, R-femoral line was done and BP improved. Patient was eventually transferred out of the ICU. Patient also presented with transaminitis due to septic shock, which resolved. ID was consulted. Neurosurgery was consulted given hx of OIL RAG WASHER shunt however no further recs were made. Surgery was also consulted for sacral decubitus ulcer management, they recommended conservative management such as wound care, air mattress, q2 turns. Blood cultures, sacral wound ulcers, and urine were all positive for ESBL. Patient was on merropenem for antibiotic coverage. During hospital course, patient's mental status improved to his baseline. EEG was negative for seizures, however, patient remained on seizure prophylaxis medications. He was also restarted on PEG tube feeds and eventually puree diet with nectar thick liquids as supplement as per speech/swallow recs (he was able to tolerate PO prior to admission). Surgical team eventually placed wound vac for the patient and also conducted a bedside debridement. PT was on board as gerson phillips. Overall, patient completed a full course of IV merrem for 14 days. Since admission, patient's BP, temperature, and leukoyctosis has resolved. Repeat blood and urine cx are negative. Given that patient's sepsis is resolved, mental status has improved and he is able to tolerate his feeds again, he is stable for discharge. He will resume his previous home medications and be discharged with wound vac for his sacral ulcer. Patient will follow up with PMD, surgery, and neurosurgery as outpatient. He will also receive PT at home. Patient's family are the main caretakers and all discharge instructions were explained to them; they verbalized understanding. Please refer to chart for any further information. Discharge Exam - Head Exam Head Exam: ATRAUMATIC, NORMAL INSPECTION, NORMOCEPHALIC - Eye Exam Eye Exam: EOMI, Normal appearance - ENT Exam ENT Exam: Mucous Membranes Moist - Respiratory Exam Respiratory Exam: Clear to PA & Lateral. absent: Rales, Rhonchi, Wheezes, Respiratory Distress - Cardiovascular Exam Cardiovascular Exam: RRR, +S1, +S2 - GI/Abdominal Exam GI & Abdominal Exam: Normal Bowel Sounds. absent: Firm, Guarding, Rebound Additional comments: PEG tube in place. - Extremities Exam Extremities exam: normal capillary refill, pedal pulses present - Back Exam Additional comments: Stage 4 sacral decubitus ulcer. Wound vac in place. - Neurological Exam Neurological exam: Alert - Psychiatric Exam Additional comments: Hypophonic voice. Minimally verbal. - Skin Skin Exam: Dry, Intact, Warm - Additional Findings Additional findings: Cachectic appearing. Discharge Plan - Follow Up Plan Condition: STABLE Disposition: HOME/ ROUTINE Patient education suggested?: Yes Instructions: Pressure Sores (DC), How to Prevent Pressure Sores, Percutaneous Endoscopic Gastrostomy (DC), How to Give a Tube Feeding Additional Instructions: -Please follow up with your PMD within 3-5 days of discharge. -Please call Dr. Harmon to make appointment and establish care -Please continue to take your home medications as prescribed. -Please resume with approved diet regimen which was discussed at time of discharge -Please continue with your wound vac for management of your sacral decubitus ulcer -You will be receiving home with services as physical therapy -Please follow up with surgical team within 1 week of discharge. -Please follow up with your nerurosurgeon within 1 week of discharge. -Please return to the nearest emergency department if your symptoms reoccur (change in mental status) Referrals: Nicolas Harmon, DO [Staff Provider] - <sEcobar Johnson - Last Filed: 09/30/18 18:13> Provider - Provider Date of Admission: 09/14/18 23:39 Attending physician: Escobar Johnson MD Consults: 09/15/18 00:27 Infectious Disease Consult Routine Comment: Consulting Provider: Minesh Albright Consulting Physician: Minesh Albright Reason for Consult: Septic shock 09/15/18 02:03 Nursing Referral for Palliative Care Routine Comment: Physician Instructions: Reason For Exam: Pls evaluate pt. As per Nsg Adm/ Lives w/ family. Social Work Referral Routine Comment: Lives with family. Physician Instructions: Reason For Exam: Pls evaluate pt. PMH: TBI/ Craniotomy/PEG/seizure. 09/15/18 03:24 Neurointerventional consult Routine Comment: lumbar puncture, OIL RAG WASHER shunt fluid, r/o meningitis Consulting Provider: Robert Siegel Consulting Physician: Robert Siegel Reason for Consult: lumbar puncture, OIL RAG WASHER shunt fluid, r/o meningitis, hx bactermia 09/15/18 03:32 Physician Consult Routine Comment: Consulting Provider: Junior Reardon Consulting Physician: Junior Reardon Reason for Consult: Stage 4 sacral ulcer 09/15/18 03:47 Gastroenterology Consult Routine Comment: Consulting Provider: Arianne Emmanuel V Consulting Physician: Arianne Emmanuel V Reason for Consult: transaminitis 09/15/18 04:17 Nursing Referral for Wound Care Routine Comment: Physician Instructions: Reason For Exam: sacral ulcers 09/15/18 04:19 Nursing Referral for Wound Care Routine Comment: Physician Instructions: Reason For Exam: SACRAL DECUB 09/20/18 08:35 Neurology Consult Routine Comment: Consulting Provider: Chris Peterson Consulting Physician: Chris Peterson Reason for Consult: ams, h/o OIL RAG WASHER shunt and TBI 09/26/18 14:58 Nursing Referral for Wound Care Routine Comment: Physician Instructions: Reason For Exam: left hip wound vac Hospital Course - Lab Results Lab Results: Micro Results 09/18/18 11:45 Blood-Venous Blood Culture - Final NO GROWTH AFTER 5 DAYS 09/18/18 11:45 Blood-Venous Gram Stain - Final TEST NOT PERFORMED 09/18/18 11:30 Blood-Venous Blood Culture - Final NO GROWTH AFTER 5 DAYS 09/18/18 11:30 Blood-Venous Gram Stain - Final TEST NOT PERFORMED 09/14/18 21:50 Blood Blood Culture - Final NO GROWTH AFTER 5 DAYS 09/14/18 21:50 Blood Gram Stain - Final TEST NOT PERFORMED 09/14/18 21:30 Blood Blood Culture - Final Escherichia Coli 09/14/18 21:30 Blood Gram Stain - Final 09/15/18 06:00 Other: Please Indicate Gram Stain - Final 09/15/18 06:00 Other: Please Indicate Wound Culture - Final Escherichia Coli Enterococcus Faecalis 09/14/18 23:23 Urine,Catheterized Urine Culture - Final Escherichia Coli 09/16/18 09:30 Naris MRSA Culture (Admit) - Final MRSA NOT DETECTED 09/16/18 09:30 Urine,Jaeger Urine Culture - Final No Growth (<1,000 CFU/ML) Most Recent Lab Values WBC 9.2 10^3/uL (4.5-11.0) 09/28/18 06:15 RBC 3.11 10^6/uL (3.5-6.1) L 09/28/18 06:15 Hgb 9.1 g/dL (14.0-18.0) L 09/28/18 06:15 Hct 27.9 % (42.0-52.0) L 09/28/18 06:15 MCV 89.7 fl (80.0-105.0) 09/28/18 06:15 MCH 29.3 pg (25.0-35.0) 09/28/18 06:15 MCHC 32.6 g/dl (31.0-37.0) 09/28/18 06:15 RDW 14.2 % (11.5-14.5) 09/28/18 06:15 Plt Count 692 10^3/uL (120.0-450.0) H 09/28/18 06:15 MPV 8.3 fl (7.0-11.0) 09/28/18 06:15 Neut % (Auto) 63.1 % (50.0-68.0) 09/22/18 07:20 Lymph % (Auto) 26.8 % (22.0-35.0) 09/22/18 07:20 [place] % (Auto) 8.5 % (1.0-6.0) H 09/22/18 07:20 Eos % (Auto) 1.4 % (1.5-5.0) L 09/22/18 07:20 Baso % (Auto) 0.2 % (0.0-3.0) 09/22/18 07:20 Lymph # (Auto) 2.2 (1.2-3.4) 09/22/18 07:20 [place] # (Auto) 0.7 (0.1-0.6) H 09/22/18 07:20 Eos # (Auto) 0.1 (0.0-0.7) 09/22/18 07:20 Baso # (Auto) 0.02 K/mm3 (0.0-2.0) 09/22/18 07:20 Absolute Neuts (auto) 5.10 (1.4-6.5) 09/22/18 07:20 Neutrophils % (Manual) 86 % (50.0-70.0) H 09/14/18 21:56 Band Neutrophils % 3 % (0-2) H 09/14/18 21:56 Lymphocytes % (Manual) 4 % (22.0-35.0) L 09/14/18 21:56 Monocytes % (Manual) 5 % (1.0-6.0) 09/14/18 21:56 Metamyelocytes % 2 % 09/14/18 21:56 Platelet Evaluation High (NORMAL) 09/14/18 21:56 PT 18.3 SECONDS (9.4-12.5) H 09/14/18 21:56 INR 1.65 09/14/18 21:56 APTT 33.9 Seconds (26.9-38.3) 09/14/18 21:56 pCO2 32 mm/Hg (35-45) L 09/16/18 06:00 pO2 96.0 mm/Hg (80-100) 09/16/18 06:00 HCO3 20.3 mmol/L (21-28) L 09/16/18 06:00 ABG pH 7.41 (7.35-7.45) 09/16/18 06:00 ABG Total CO2 21.3 mmol.L (22-28) L 09/16/18 06:00 ABG O2 Saturation 99.2 % (95-98) H 09/16/18 06:00 ABG Base Excess -3.4 mmol/L (-2.0-3.0) L 09/16/18 06:00 ABG Potassium 3.2 mmol/L (3.6-5.2) L 09/16/18 06:00 VBG pH 7.35 (7.32-7.43) 09/15/18 01:40 VBG pCO2 44.0 (40-60) 09/15/18 01:40 VBG HCO3 24.3 mmol/l (21-28) 09/15/18 01:40 VBG Total CO2 25.7 mmol.L (22-28) 09/15/18 01:40 VBG O2 Sat (Calc) 68.3 % (40-65) H 09/15/18 01:40 VBG Base Excess -1.5 mmol/L (0.0-2.0) L 09/15/18 01:40 VBG Potassium 3.8 mmol/L (3.6-5.2) 09/15/18 01:40 Sodium 144.0 mmol/L (132-148) 09/16/18 06:00 Chloride 117.0 mmol/L (98-107) H 09/16/18 06:00 Glucose 93 mg/dl (75-110) 09/16/18 06:00 Lactate 0.6 mmol/L (0.7-2.1) L 09/16/18 06:00 FiO2 21.0 % 09/16/18 06:00 Crit Value Called To Lillian hoffman rn ccu 09/15/18 01:40 Crit Value Called By Sherrill 09/15/18 01:40 Blood Gas Notified Time 202 09/15/18 01:40 Sodium 130 mmol/L (132-148) L 09/28/18 06:15 Potassium 4.3 mmol/L (3.6-5.0) 09/28/18 06:15 Chloride 92 mmol/L (98-107) L 09/28/18 06:15 Carbon Dioxide 30 mmol/L (21-33) 09/28/18 06:15 Anion Gap 13 (10-20) 09/28/18 06:15 BUN 19 mg/dL (7-21) 09/28/18 06:15 Creatinine 0.5 mg/dl (0.8-1.5) L 09/28/18 06:15 Est GFR ( Amer) > 60 09/28/18 06:15 Est GFR (Non-Af Amer) > 60 09/28/18 06:15 POC Glucose (mg/dL) 95 mg/dL (65-110) 09/14/18 21:49 Random Glucose 95 mg/dL (70-110) 09/28/18 06:15 Calcium 9.5 mg/dL (8.4-10.5) 09/28/18 06:15 Phosphorus 2.8 mg/dL (2.5-4.5) 09/22/18 07:20 Magnesium 2.0 mg/dL (1.7-2.2) 09/22/18 07:20 Total Bilirubin 0.4 mg/dL (0.2-1.3) 09/28/18 06:15 GGT 150 U/L (8-78) H 09/15/18 07:00 AST 47 U/L (17-59) 09/28/18 06:15 ALT 30 U/L (7-56) 09/28/18 06:15 Alkaline Phosphatase 92 U/L (38-126) 09/28/18 06:15 Lactate Dehydrogenase 445 U/L (333-699) 09/15/18 09:45 Total Creatine Kinase 592 U/L (35-230) H 09/15/18 09:45 CK-MB (CK-2) 7.2 ng/mL (0.0-3.6) H 09/15/18 09:45 CK-MB (CK-2) % 1.2 % (2.5-3.0) L 09/15/18 07:00 Troponin I 0.01 ng/mL 09/15/18 09:45 NT-Pro-B Natriuret Pep 945 pg/mL (0-450) H 09/14/18 21:56 Total Protein 7.7 g/dL (5.8-8.3) 09/28/18 06:15 Albumin 3.6 g/dL (3.0-4.8) 09/28/18 06:15 Globulin 4.1 gm/dL 09/28/18 06:15 Albumin/Globulin Ratio 0.9 (1.1-1.8) L 09/28/18 06:15 Prostate Specific Ag 0.6 ng/mL (0.00-2.5) 09/16/18 12:20 Procalcitonin > 200.00 NG/ML (0.19-0.49) H 09/15/18 01:40 Arterial Blood Potassium 3.2 mmol/L (3.6-5.2) L 09/16/18 06:00 Venous Blood Potassium 3.8 mmol/L (3.6-5.2) 09/15/18 01:40 Urine Color Yellow (YELLOW) 09/16/18 09:30 Urine Appearance Clear (CLEAR) 09/16/18 09:30 Urine pH 6.0 (4.7-8.0) 09/16/18 09:30 Ur Specific [place] >= 1.030 (1.005-1.035) 09/16/18 09:30 Urine Protein Negative mg/dL (<30 mg/dL) 09/16/18 09:30 Urine Glucose (UA) Negative mg/dL (NEGATIVE) 09/16/18 09:30 Urine Ketones 15 mg/dL (NEGATIVE) H 09/16/18 09:30 Urine Blood Negative (NEGATIVE) 09/16/18 09:30 Urine Nitrate Negative (NEGATIVE) 09/16/18 09:30 Urine Bilirubin Negative (NEGATIVE) 09/16/18 09:30 Urine Urobilinogen 0.2 E.U./dL (<1 E.U./dL) 09/16/18 09:30 Ur Leukocyte Esterase Small Cyril/uL (NEGATIVE) H 09/16/18 09:30 Urine RBC 1 - 3 /hpf (0-2) H 09/16/18 09:30 Urine WBC 10 - 15 /hpf (0-6) H 09/16/18 09:30 Ur Epithelial Cells 3 - 4 /hpf (0-5) 09/16/18 09:30 Amorphous Sediment Small /hpf (NONE) 09/16/18 09:30 Urine Bacteria Many /hpf (NONE) 09/16/18 09:30 Levetiracetam 31.8 mcg/mL 09/14/18 21:56 Hepatitis A IgM Ab Negative (NEGATIVE) 09/15/18 09:45 Hep Bs Antigen Negative (NEGATIVE) 09/15/18 09:45 Hep B Core IgM Ab Negative (NEGATIVE) 09/15/18 09:45 Hepatitis C Antibody Negative (NEGATIVE) 09/15/18 09:45 Influenza Typ A,B (EIA) Negative for flu a/b (NEGATIVE) 09/15/18 06:00 Attending/Attestation - Attestation I have personally seen and examined this patient.: Yes I have fully participated in the care of the patient.: Yes I have reviewed all pertinent clinical information, including history, physical exam and plan: Yes Notes (Text): 09/30/18 18:12 Attending note; Patient seen and examined with resident during rounds. patient is alert and awake. Patient's mother by the bedside. Patient is a 47 year old male with past medical history significant for OIL RAG WASHER shunt, traumatic brain injury causing intracranial hemorrhage, seizure disorder, dysphagia s/p PEG, and hypophonic voice that presented to the emergency room with a cough. 1. Sacral decubitus ulcer; Wound vac in place. Wound vac changed. prescription for wound vac given by surgery. Case discussed with ID in detail. completed IV meropenem for 14 days. Surgery recommendations appreciated. Continue wound care. Continue to turn patient q2hrs. Continue with air mattress. Wound culture positive for E. Coli and Enterococcus Faecalis. 2. Septic shock with multiorgan dysfunction syndrome. resolved. ESBL UTI, ESBL sacral decubitus ulcer infection, and ESBL Bacteremia. Repeat blood cultures with no growth. Leukocytosis resolved. Patient is afebrile. 3. Toxic metabolic encephalopathy. resolved. Likely secondary to septic shock. Back to baseline. EEG per neurologist showed normal awake, drowsy, and sleep electroencephalogram. Continue supportive care. 4. Transaminitis. Likely secondary to septic shock and hypoperfusion. Resolved. Continue to monitor LFTs. 5. Seizure Disorder. Continue Keppra. Continue seizure precautions. 6. Hydrocephalus. S/P OIL RAG WASHER shunt. 8. Dysphagia. S/P PEG. Continue with tube feeds. Patient also on oral dysphagia diet per speech and swallow. Continue calorie count, tube feeds decreased. 9. GI/DVT prophylaxis. Protonix/Lovenox 10. Patient is a full code. Will be discharged home. Home care paperwork completed. case discussed with cyanide case hardener/ social worker masters in detail. follow Up with PMD Dr. Pena.
== END 2018-09-29 21:30 | disposition home health service (06) | DRG 584 ==
LOC: ED 21:12 → ERH 23:39 → CCU 09-15 01:30 → 5RNO 09-20 15:15
PROVIDERS: ADMIT Internal Medicine; ATTEND Internal Medicine
PROC: 06HY33Z Insertion of Infusion Device into Lower Vein, Percutaneous Approach (ICD-10-PCS; 2018-09-15)
PROC: 3E0G76Z Introduction of Nutritional Substance into Upper GI, Via Natural or Artificial Opening (ICD-10-PCS; 2018-09-21)
PROC: 0HD6XZZ Extraction of Back Skin, External Approach (ICD-10-PCS; principal; 2018-09-26)
DX: A41.51 Sepsis due to Escherichia coli [E. coli] (principal); R65.21 Severe sepsis with septic shock; L89.154 Pressure ulcer of sacral region, stage 4; G92 Toxic encephalopathy; L89.221 Pressure ulcer of left hip, stage 1; N12 Tubulo-interstitial nephritis, not specified as acute or chronic; G91.9 Hydrocephalus, unspecified; E87.2 Acidosis; R64 Cachexia; E87.1 Hypo-osmolality and hyponatremia; I42.9 Cardiomyopathy, unspecified; G93.89 Other specified disorders of brain; R13.11 Dysphagia, oral phase; Z68.1 Body mass index [BMI] 19.9 or less, adult; G40.909 Epilepsy, unspecified, not intractable, without status epilepticus; R19.7 Diarrhea, unspecified; D64.9 Anemia, unspecified; Z16.12 Extended spectrum beta lactamase (ESBL) resistance; Z93.1 Gastrostomy status; Z87.820 Personal history of traumatic brain injury; Z98.2 Presence of cerebrospinal fluid drainage device

== ENCOUNTER 2018-11-21 23:48 | Inpatient (IN) | payer MEDICAID ==
[2018-11-22 00:03] VITALS: BMI 16.4
[2018-11-22] MEDS ORDERED: Sodium Chloride 0.9% 1,000 ML IV STA (00:29)
--- NOTE | 2018-11-22 00:39 | ED PDOC ---
Arrival/HPI - General Chief Complaint: Altered Mental Status Time Seen by Provider: 11/21/18 23:58 Historian: Family - Critical Care Critical Care Minutes: 45 minutes (pt presented tachycardic, tachypneic, febrile, +lactate, with suspected UTI, pt met 4 SIRS criteria for sepsis, code sepsis called, antibiotics initiated, ICU consult obtained. 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 His mother states that he is having a blank gaze as well which started this evening. She adds that the patient had a similar presentation in Sep of this year and was admitted to this hospital. Otherwise she reports no rash, vomiting, diarrhea, sick contacts, recent travel. Complete HPI and ROS are not obtained due to the patient's condition. PMD Reisner Past Medical History - Cardiac Hx Cardiac Disorders: No - Pulmonary Hx Respiratory Disorders: No - Neurological HX Cerebrovascular Accident: Yes Hx Seizures: Yes Other/Comment: TBI---FEBRUARY 2019 THEN CRANIOTOMY X2 - HEENT Hx HEENT Disorder: No - Renal Hx Renal Disorder: No - Endocrine/Metabolic Hx Endocrine Disorders: No - Hematological/Oncological Hx Blood Disorders: No Hx AIDS: No - Integumentary Other/Comment: SACRAL DECUBITUS - Musculoskeletal/Rheumatological Hx Musculoskeletal Disorders: No Hx Falls: No - Gastrointestinal Other/Comment: PEG TUBE - Genitourinary/Gynecological Hx Genitourinary Disorders: Yes Hx Incontinence: Yes - Psychiatric Hx Substance Use: No Other/Comment: ON TRAZADONE - Surgical History Other/Comment: craniotomyx2 - Anesthesia Hx Anesthesia: Yes Hx Anesthesia Reactions: No Hx Malignant Hyperthermia: No Family/Social History Family/Social History: No Known Family HX Smoking Status: Never Smoked Hx Alcohol Use: No Hx Substance Use: No Allergies/Home Meds Allergies/Adverse Reactions: Allergies No Known Allergies Allergy (Verified 11/22/18 15:00) Home Medications: Home Meds Medication Instructions Recorded Confirmed Amantadine [Symmetrel] 20 ml PO QPM 07/12/18 07/21/18 Dantrolene Sodium [Dantrium] 50 mg PO Q8 07/12/18 07/21/18 Vitamin B Complex [Super B-50 1 cap PO DAILY 07/12/18 07/21/18 Complex] levETIRAcetam [Keppra] 500 mg PO Q12 07/12/18 07/21/18 traZODone [Desyrel] 50 mg PO HS 07/12/18 07/21/18 Review of Systems - Review of Systems Constitutional: Other (+weak). absent: Fevers ENT: absent: Rhinorrhea, Sinus Congestion Respiratory: SOB, Cough. absent: Wheezing Cardiovascular: absent: Chest Pain Gastrointestinal: Abdominal Pain. absent: Diarrhea, Vomiting Skin: absent: Rash, Skin Lesions Physical Exam Vital Signs Temp Pulse Resp BP Pulse Ox 11/22/18 00:03 98.9 F 135 H 18 111/93 H 98 Blood Pressure: Normal Pulse: Tachycardic Respiratory Rate: Tachypneic Appearance: Positive for: Comfortable, Ill-Appearing, Cachectic Pain Distress: None Mental Status: Positive for: Alert and Oriented X 3 - Systems Exam Head: Present: Atraumatic, Normocephalic Pupils: Present: PERRL Extroacular Muscles: Present: EOMI Conjunctiva: Present: Normal Mouth: Present: Moist Mucous Membranes Neck: Present: Normal Range of Motion, Other (+shunt to the R side of the neck). No: Meningeal Signs, Lymphadenopathy Respiratory/Chest: Present: Clear to Auscultation, Good Air Exchange. No: Respiratory Distress, Accessory Muscle Use Cardiovascular: Present: Regular Rate and Rhythm, Normal S1, S2. No: Murmurs Abdomen: Present: Feeding Tubes (+peg tube to the L side of the abdomen). No: Tenderness, Distention, Peritoneal Signs Back: Present: Normal Inspection Upper Extremity: Present: Normal Inspection. No: Cyanosis, Edema Lower Extremity: Present: Normal Inspection. No: Edema Neurological: Present: GCS=15, CN II-XII Intact Skin: Present: Warm, Dry, Normal Color. No: Rashes Psychiatric: Present: Alert Medical Decision Making ED Course and Treatment: 11/22/18 00:36 Plan : - IV - Labs - UA, urine cx - Influenza - Blood cx - EKG - CXR - NS bolus - Reassess / disposition - CT A/P w/ IV contrast Rectal temp 102. EKG : ST at 128bpm, no acute ST changes. CXR : NAD. Influenza : negative Labs : wbc 20, lactate 2.3, Na 158, K 3.2, bun 57, creat 0.8, UA +UTI. Patient meets 4 sepsis criteria. Code sepsis called at 0130, vancomycin IV and zosyn IV ordered. Consult to ICU obtained, case d/w Dr. Carter, states that since the pt's bp is stable to given NS bolus for now and admit to tele for now. Pt's family notified of diagnosis of sepsis, likely due to a UTI. Case d/w Dr. Barajas, notified of admission for sepsis in tele under the hospitalist service. - RAD Interpretation Narrative RAD Interpretations (Text): 11/22/18 03:34 CT Abdomen and Pelvis with IV contrast FINDINGS: LUNG BASES: Confluent right basilar opacity is noted compatible with pneumonia. LIVER: Unremarkable. GALLBLADDER AND BILE DUCTS: The gallbladder appears within normal limits. No radioopaque gallstones are seen. No biliary ductal dilatation is evident. PANCREAS: Unremarkable. SPLEEN: Unremarkable. ADRENAL GLANDS: Unremarkable. KIDNEYS, URETERS, AND BLADDER: The kidneys appear within normal limits. There is no hydronephrosis or hydroureter. No urinary calculi are seen. STOMACH AND BOWEL: PEG tube is noted. Large amount of fecal material is seen throughout the colon especially in the rectosigmoid compatible with fecal impaction. APPENDIX: No evidence of acute appendicitis on CT examination. PERITONEUM: No free fluid. No free air. QA SOFTWARE TEST ENGINEER shunt catheter is noted. LYMPH NODES: No lymphadenopathy is evident. REPRODUCTIVE: Unremarkable as visualized. VASCULATURE: No evidence of abdominal aortic aneurysm. IVC filter is noted. BONES: No aggressive appearing osseous lesion. No acute osseous pathology evident. IMPRESSION: 1. Large amount of fecal material is seen throughout the colon especially in the rectosigmoid compatible with fecal impaction. 2. Confluent right basilar opacity is noted compatible with pneumonia. Radiology Orders: 11/22/18 00:26 CHEST PORTABLE [RAD] Stat 11/22/18 00:30 ABD & PELVIS IV CONTRAST ONLY [CT] Stat - Medication Orders Current Medication Orders: Sodium Chloride (Sodium Chloride 0.9%) 1,000 mls @ 1,000 mls/hr IV .Q1H STA Stop: 11/22/18 01:28 - PA / RN APPEALS / Resident Statement MD/DO has reviewed & agrees with the documentation as recorded. Disposition/Present on Arrival - Present on Arrival Any Indicators Present on Arrival: No History of DVT/PE: No History of Uncontrolled Diabetes: No Urinary Catheter: No History of Decub. Ulcer: No History Surgical Site Infection Following: None - Disposition Have Diagnosis and Disposition been Completed?: Yes Diagnosis: UTI (urinary tract infection), Sepsis Disposition: HOSPITALIZED Disposition Time: 02:00 Patient Plan: Telemetry Patient Problems: Current Active Problems Problem Status Onset Sepsis Acute UTI (urinary tract infection) Acute Condition: GUARDED
[2018-11-22 01:16] LABS: URINE BILIRUBIN NEGATIVE (NEGATIVE); URINE BLOOD LARGE (NEGATIVE); URINE GLUCOSE (UA) NEGATIVE (NEGATIVE); URINE LEUKOCYTE ESTERASE TRACE Leu/uL (NEGATIVE); URINE PROTEIN 100 mg/dL (<30 mg/dL); URINE UROBILINOGEN 0.2 E.U./dL (<1 E.U./dL)
[2018-11-22 01:17] LABS: BASO # 0.02 K/mm3 (0.0-2.0); BASO % 0.1 % (0.0-3.0); EOS # 0.1 (0.0-0.7); EOS % 0.4 % (1.5-5.0); LYMPH # 3.3 (1.2-3.4); LYMPH % 16.2 % (22.0-35.0); MEAN CELL VOLUME 91.7 fl (80.0-105.0); MEAN CORPUSCULAR HEMOGLOBIN 27.3 pg (25.0-35.0); MEAN CORPUSCULAR HGB CONC 29.8 g/dl (31.0-37.0); MEAN PLATELET VOLUME 9.6 fl (7.0-11.0); MONO # 1.1 (0.1-0.6); MONO % 5.6 % (1.0-6.0); RBC 4.21 10^6/uL (3.5-6.1); RED CELL DISTRIBUTION WIDTH 18.1 % (11.5-14.5); WHITE BLOOD COUNT 20.2 10^3/uL (4.5-11.0)
[2018-11-22 01:19] LABS: VENOUS BLOOD GAS BASE EXCESS 0.8 mmol/L (0.0-2.0); VENOUS BLOOD GAS PO2 167 mm/Hg (30-55); VENOUS BLOOD PH 7.46 (7.32-7.43)
[2018-11-22 01:20] LABS: HEMOGLOBIN 11.5 g/dL (14.0-18.0); INR 1.34; PARTIAL THROMBOPLASTIN TIME 34.8 Seconds (26.9-38.3); PROTHROMBIN TIME 14.9 SECONDS (9.4-12.5); URINE APPEARANCE CLEAR (CLEAR); URINE COLOR YELLOW (YELLOW)
[2018-11-22 01:24] LABS: ALB/GLOB RATIO 0.7 (1.1-1.8); ALBUMIN 3.8 g/dL (3.0-4.8); ALT/SGPT 123 U/L (7-56); AST/SGOT 125 U/L (17-59); BLOOD UREA NITROGEN 57 mg/dL (7-21); CALCIUM 10.1 mg/dL (8.4-10.5); GFR NON-AFRICAN AMERICAN > 60; LIPASE 59 U/L (23-300)
[2018-11-22 01:28] LABS: URINE BACTERIA OCC /hpf; URINE EPITHELIAL CELLS 0 - 2 /hpf (0-5); URINE RBC 15 - 20 /hpf (0-2)
[2018-11-22 01:29] LABS: TROPONIN I < 0.01 ng/mL
[2018-11-22] MEDS ORDERED: Iohexol 350 MG/100 ML VIAL ONE (01:31)
--- NOTE | 2018-11-22 01:32 | CP.PCM.CON ---
History of Present Illness - History of Present Illness History of Present Illness: PGY-1 ICU Consult Note for Dr. Carter Past Patient History - Past Medical History & Family History Past Medical History?: Yes - Past Social History Smoking Status: Never Smoked - CARDIAC Hx Cardiac Disorders: No - PULMONARY Hx Respiratory Disorders: No - NEUROLOGICAL HX Cerebrovascular Accident: Yes Hx Seizures: Yes Other/Comment: TBI---FEBRUARY 2019 THEN CRANIOTOMY X2 - HEENT Hx HEENT Problems: No - RENAL Hx Chronic Kidney Disease: No - ENDOCRINE/METABOLIC Hx Endocrine Disorders: No - HEMATOLOGICAL/ONCOLOGICAL Hx Blood Disorders: No Hx AIDS: No - INTEGUMENTARY Other/Comment: SACRAL DECUBITUS - MUSCULOSKELETAL/RHEUMATOLOGICAL Hx Musculoskeletal Disorders: No Hx Falls: No - GASTROINTESTINAL Other/Comment: PEG TUBE - GENITOURINARY/GYNECOLOGICAL Hx Genitourinary Disorders: Yes Hx Incontinence: Yes - PSYCHIATRIC Hx Substance Use: No Other/Comment: ON TRAZADONE - SURGICAL HISTORY Other/Comment: craniotomyx2 - ANESTHESIA Hx Anesthesia: Yes Hx Anesthesia Reactions: No Hx Malignant Hyperthermia: No Meds Allergies/Adverse Reactions: Allergies Allergy/AdvReac Type Severity Reaction Status Date / Time No Known Allergies Allergy Verified 11/22/18 00:03 Results - Vital Signs Recent Vital Signs: Last Vital Signs Temp 98.9 F 11/22/18 00:03 Pulse 135 H 11/22/18 00:03 Resp 18 11/22/18 00:03 BP 111/93 H 11/22/18 00:03 Pulse Ox 98 11/22/18 00:03 - Labs Result Diagrams: 11/22/18 00:54 11/22/18 00:54 Labs: Laboratory Results - last 24 hr 11/22/18 11/22/18 11/22/18 00:54 00:54 00:54 WBC 20.2 H D RBC 4.21 Hgb 11.5 L D Hct 38.6 L MCV 91.7 MCH 27.3 MCHC 29.8 L RDW 18.1 H Plt Count 478 H MPV 9.6 Neut % (Auto) 77.7 H Lymph % (Auto) 16.2 L [place] % (Auto) 5.6 Eos % (Auto) 0.4 L Baso % (Auto) 0.1 Lymph # (Auto) 3.3 [place] # (Auto) 1.1 H Eos # (Auto) 0.1 Baso # (Auto) 0.02 Absolute Neuts (auto) 15.70 H PT 14.9 H INR 1.34 APTT 34.8 pO2 VBG pH VBG pCO2 VBG HCO3 VBG Total CO2 VBG O2 Sat (Calc) VBG Base Excess VBG Potassium Sodium 158 H* D Chloride 123 H Glucose Lactate FiO2 Crit Value Called To Crit Value Called By Blood Gas Notified Time Potassium 3.2 L Carbon Dioxide 24 Anion Gap 14 BUN 57 H Creatinine 0.8 Est GFR ( Amer) > 60 Est GFR (Non-Af Amer) > 60 Random Glucose 182 H Calcium 10.1 Total Bilirubin 0.3 AST 125 H D ALT 123 H Alkaline Phosphatase 177 H D Troponin I < 0.01 Total Protein 9.1 H Albumin 3.8 Globulin 5.4 Albumin/Globulin Ratio 0.7 L Lipase 59 Venous Blood Potassium Urine Color Urine Appearance Urine pH Ur Specific [place] Urine Protein Urine Glucose (UA) Urine Ketones Urine Blood Urine Nitrate Urine Bilirubin Urine Urobilinogen Ur Leukocyte Esterase Urine RBC Urine WBC Ur Epithelial Cells Urine Bacteria 11/22/18 11/22/18 00:54 00:54 WBC RBC Hgb Hct MCV MCH MCHC RDW Plt Count MPV Neut % (Auto) Lymph % (Auto) [place] % (Auto) Eos % (Auto) Baso % (Auto) Lymph # (Auto) [place] # (Auto) Eos # (Auto) Baso # (Auto) Absolute Neuts (auto) PT INR APTT pO2 167 H VBG pH 7.46 H VBG pCO2 34.0 L VBG HCO3 24.2 VBG Total CO2 25.2 VBG O2 Sat (Calc) 100.2 H VBG Base Excess 0.8 VBG Potassium 3.2 L Sodium 162.0 H* Chloride 126.0 H Glucose 185 H Lactate 2.3 H FiO2 21.0 Crit Value Called To Adrianna sandra ed sec Crit Value Called By Pratik Blood Gas Notified Time 119 Potassium Carbon Dioxide Anion Gap BUN Creatinine Est GFR ( Amer) Est GFR (Non-Af Amer) Random Glucose Calcium Total Bilirubin AST ALT Alkaline Phosphatase Troponin I Total Protein Albumin Globulin Albumin/Globulin Ratio Lipase Venous Blood Potassium 3.2 L Urine Color Yellow Urine Appearance Clear Urine pH 6.0 Ur Specific [place] 1.020 Urine Protein 100 H Urine Glucose (UA) Negative Urine Ketones Negative Urine Blood Large H Urine Nitrate Negative Urine Bilirubin Negative Urine Urobilinogen 0.2 Ur Leukocyte Esterase Trace H Urine RBC 15 - 20 H Urine WBC 1 - 3 Ur Epithelial Cells 0 - 2 Urine Bacteria Occ
[2018-11-22] MEDS ORDERED: Piperacillin/Tazobact 3.375 gm 100 ML IVPB STA (01:53)
[2018-11-22] MEDS ORDERED: Vancomycin 1gm in NS 250ml 1 GM/250 ML BAG IVPB STA (01:53)
[2018-11-22] MEDS ORDERED: Acetaminophen 650mg/20.3ml solution UD PEG STA (02:17)
--- NOTE | 2018-11-22 02:35 | CP.PCM.HP ---
<Natalia Sanches - Last Filed: 11/22/18 05:25> History of Present Illness - History of Present Illness History of Present Illness: PGY1 Medicine History and Physical Exam Note for Dr. Barajas This is a 47-year-old male with PMH of recent E. coli bacteremia (ESBL+, treated with merrem), UTI, and sacral decubitus (ESBL+), craniotomy x 2, hydrocephalus s/p [employer] shunt (07/19/18), TBI with intracranial hemorrhage, seizures, s/p PEG tube, who [place] [facility] [place] family for evaluation of decreased responsiveness, decrease PO intake and non-productive cough noticed late today. Per patient's mother, the patient had blank gaze, which compelled her to come for evaluation. Of note, the patient was receiving wound care for his sacral wound as an outpatient after being discharged from the Hospital for ESBL infection. A complete ROS could not be performed due to clinical condition of the Patient. PMD: Dr. Pena NeuroSx: Dr Siegel PMH: (from previous records) Brain Injury causing intracranial hemorrhage, , Seizure disorder, Dysphagia, PEG tube, hypophonic voice PSH: (from previous records) 2 Craniotomy's in 02/2018 Medications: Keppra, tylenol, Zofran, nephrovite Allergies: NKDA Social Hx: unattainable given mental status and acuity of condition Family Hx: non-contributory Present on Admission - Present on Admission Any Indicators Present on Admission: No History of DVT/PE: No History of Uncontrolled Diabetes: No Urinary Catheter: No Decubitus Ulcer Present: Yes Decubitus Ulcer Stage: IV Review of Systems - Review of Systems Systems not reviewed;Unavailable: Other (due to clinical condition ) Past Patient History - Past Medical History & Family History Past Medical History?: Yes - Past Social History Smoking Status: Never Smoked - CARDIAC Hx Cardiac Disorders: No - PULMONARY Hx Respiratory Disorders: No - NEUROLOGICAL HX Cerebrovascular Accident: Yes Hx Seizures: Yes Other/Comment: TBI---FEBRUARY 2019 THEN CRANIOTOMY X2 - HEENT Hx HEENT Problems: No - RENAL Hx Chronic Kidney Disease: No - ENDOCRINE/METABOLIC Hx Endocrine Disorders: No - HEMATOLOGICAL/ONCOLOGICAL Hx Blood Disorders: No Hx AIDS: No - INTEGUMENTARY Other/Comment: SACRAL DECUBITUS - MUSCULOSKELETAL/RHEUMATOLOGICAL Hx Musculoskeletal Disorders: No Hx Falls: No - GASTROINTESTINAL Other/Comment: PEG TUBE - GENITOURINARY/GYNECOLOGICAL Hx Genitourinary Disorders: Yes Hx Incontinence: Yes - PSYCHIATRIC Hx Substance Use: No Other/Comment: ON TRAZADONE - SURGICAL HISTORY Other/Comment: craniotomyx2 - ANESTHESIA Hx Anesthesia: Yes Hx Anesthesia Reactions: No Hx Malignant Hyperthermia: No Meds Allergies/Adverse Reactions: Allergies Allergy/AdvReac Type Severity Reaction Status Date / Time No Known Allergies Allergy Verified 11/22/18 00:03 Physical Exam - Constitutional Appears: Cachectic, Chronically Ill - Head Exam Head Exam: ATRAUMATIC, NORMAL INSPECTION - Eye Exam Eye Exam: EOMI, Normal appearance - ENT Exam ENT Exam: Mucous Membranes Dry, Normal Exam - Neck Exam Neck exam: Positive for: Normal Inspection - Respiratory Exam Respiratory Exam: NORMAL BREATHING PATTERN. absent: Accessory Muscle Use, Chest Wall Tenderness, Respiratory Distress - Cardiovascular Exam Cardiovascular Exam: Tachycardia, +S1, +S2 - GI/Abdominal Exam GI & Abdominal Exam: Soft. absent: Distended, Firm, Guarding, Rebound, Rigid, Tenderness Additional comments: peg tube to the L side of the abdomen - Exam Additional comments: Sacral ulcer about 8 inches in diameter (stage IV); no purulent material, no ex udates. Decubitus ulcer noted on left and right buttocks; no purulent material, no exudates. - Extremities Exam Extremities exam: Positive for: normal capillary refill, pedal pulses present. Negative for: pedal edema, tenderness Additional comments: atrophy observed in lower extremities - Back Exam Back exam: absent: muscle spasm - Neurological Exam Neurological exam: Alert Additional comments: Paralysis of lower extremities bilaterally Paralysis of upper extremities bilaterally - Psychiatric Exam Psychiatric exam: Depressed Results - Vital Signs Recent Vital Signs: Last Vital Signs Temp 102.3 F H 11/22/18 01:20 Pulse 125 H 11/22/18 01:20 Resp 20 11/22/18 01:20 BP 103/73 11/22/18 01:20 Pulse Ox 96 11/22/18 01:20 - Labs Result Diagrams: 11/22/18 00:54 11/22/18 00:54 Labs: Laboratory Results - last 24 hr 11/22/18 11/22/18 11/22/18 00:54 00:54 00:54 WBC 20.2 H D RBC 4.21 Hgb 11.5 L D Hct 38.6 L MCV 91.7 MCH 27.3 MCHC 29.8 L RDW 18.1 H Plt Count 478 H MPV 9.6 Neut % (Auto) 77.7 H Lymph % (Auto) 16.2 L [place] % (Auto) 5.6 Eos % (Auto) 0.4 L Baso % (Auto) 0.1 Lymph # (Auto) 3.3 [place] # (Auto) 1.1 H Eos # (Auto) 0.1 Baso # (Auto) 0.02 Absolute Neuts (auto) 15.70 H PT INR APTT pO2 VBG pH VBG pCO2 VBG HCO3 VBG Total CO2 VBG O2 Sat (Calc) VBG Base Excess VBG Potassium Sodium 158 H* D Chloride 123 H Glucose Lactate FiO2 Crit Value Called To Crit Value Called By Blood Gas Notified Time Potassium 3.2 L Carbon Dioxide 24 Anion Gap 14 BUN 57 H Creatinine 0.8 Est GFR ( Amer) > 60 Est GFR (Non-Af Amer) > 60 Random Glucose 182 H Calcium 10.1 Total Bilirubin 0.3 AST 125 H D ALT 123 H Alkaline Phosphatase 177 H D Troponin I < 0.01 Total Protein 9.1 H Albumin 3.8 Globulin 5.4 Albumin/Globulin Ratio 0.7 L Lipase 59 Venous Blood Potassium Urine Color Urine Appearance Urine pH Ur Specific [place] Urine Protein Urine Glucose (UA) Urine Ketones Urine Blood Urine Nitrate Urine Bilirubin Urine Urobilinogen Ur Leukocyte Esterase Urine RBC Urine WBC Ur Epithelial Cells Urine Bacteria Influenza Typ A,B (EIA) Negative for flu a/b 11/22/18 11/22/18 11/22/18 00:54 00:54 00:54 WBC RBC Hgb Hct MCV MCH MCHC RDW Plt Count MPV Neut % (Auto) Lymph % (Auto) [place] % (Auto) Eos % (Auto) Baso % (Auto) Lymph # (Auto) [place] # (Auto) Eos # (Auto) Baso # (Auto) Absolute Neuts (auto) PT 14.9 H INR 1.34 APTT 34.8 pO2 167 H VBG pH 7.46 H VBG pCO2 34.0 L VBG HCO3 24.2 VBG Total CO2 25.2 VBG O2 Sat (Calc) 100.2 H VBG Base Excess 0.8 VBG Potassium 3.2 L Sodium 162.0 H* Chloride 126.0 H Glucose 185 H Lactate 2.3 H FiO2 21.0 Crit Value Called To Adrianna sandra ed sec Crit Value Called By Sherrill Blood Gas Notified Time 119 Potassium Carbon Dioxide Anion Gap BUN Creatinine Est GFR ( Amer) Est GFR (Non-Af Amer) Random Glucose Calcium Total Bilirubin AST ALT Alkaline Phosphatase Troponin I Total Protein Albumin Globulin Albumin/Globulin Ratio Lipase Venous Blood Potassium 3.2 L Urine Color Yellow Urine Appearance Clear Urine pH 6.0 Ur Specific [place] 1.020 Urine Protein 100 H Urine Glucose (UA) Negative Urine Ketones Negative Urine Blood Large H Urine Nitrate Negative Urine Bilirubin Negative Urine Urobilinogen 0.2 Ur Leukocyte Esterase Trace H Urine RBC 15 - 20 H Urine WBC 1 - 3 Ur Epithelial Cells 0 - 2 Urine Bacteria Occ Influenza Typ A,B (EIA) Assessment & Plan - Assessment and Plan (Free Text) Assessment: Severe Sepsis, Unknown Etiology - previous ESBL+ wound culture and ESBL+ bacteremia - Keppra 500mg PO BID via PEG - Ativan 1mg IVP q6 prn (for seizure) - Motrin 400mg PO Q6H PRN for fever - Head CT w/o contrast - General surgery consulted for wound - Wound Care - Seizure precautions, aspiration precautions, fall precautions - Procalcitonin - Start Merrem - Repeat VBG shock panel - Vanco administered in ED - Lactic acid 2.3 - Monitor CBC - Archibald cultures (blood, urine, sacral decubiti) - ID consult - Aggressive fluid resuscitation 150cc 1/2NS - Serum Osc, Urine electrolytes Hypernatremia - Na = 158 - Aggressive fluid resuscitation 125cc 1/2NS - Serum Osc, Urine electrolytes - Monitor CMP, Mg, Phos Hypokalemia - 10 k-rider x2, 40mg K+ PEG - Replete as needed - F/U Magnesium - Monitor CMP, Mg, Phos GEORGINA - BUN/Cr 57/0.8 - Monitor renal function - Baseline of Cr 0.5 - Avoid nephrotoxic drugs - Monitor CMP, Mg, Phos Transmaminitis - Likely secondary to severe sepsis - F/U official read of CT abd/pelvis - Avoid hepatotoxic agents - Monitor Decubitus Ulcers - Elevate head of bed above 30 degrees - Sacral wound ulcer Q2, stage IV: air mattress, frequent turns, wound care PPx: DVT: SCD, Heparin 5000 SC Q8H GI: Protonix 40mg PO daily via PEG Colace via PEG Diet: Pureed diet PT/OT Patient seen and case discussed with Dr. Karl Sanches PGY1 <Sandra Barajas - Last Filed: 11/22/18 12:17> Results - Vital Signs Recent Vital Signs: Last Vital Signs Temp 98 F 11/22/18 06:11 Pulse 104 H 11/22/18 10:38 Resp 18 11/22/18 10:38 BP 98/51 L 11/22/18 10:38 Pulse Ox 96 11/22/18 10:38 - Labs Result Diagrams: 11/22/18 00:54 11/22/18 09:50 Labs: Laboratory Results - last 24 hr 11/22/18 11/22/18 11/22/18 00:54 00:54 00:54 WBC 20.2 H D RBC 4.21 Hgb 11.5 L D Hct 38.6 L MCV 91.7 MCH 27.3 MCHC 29.8 L RDW 18.1 H Plt Count 478 H MPV 9.6 Neut % (Auto) 77.7 H Lymph % (Auto) 16.2 L [place] % (Auto) 5.6 Eos % (Auto) 0.4 L Baso % (Auto) 0.1 Lymph # (Auto) 3.3 [place] # (Auto) 1.1 H Eos # (Auto) 0.1 Baso # (Auto) 0.02 Absolute Neuts (auto) 15.70 H PT INR APTT pO2 VBG pH VBG pCO2 VBG HCO3 VBG Total CO2 VBG O2 Sat (Calc) VBG Base Excess VBG Potassium Sodium 158 H* D Chloride 123 H Glucose Lactate FiO2 Crit Value Called To Crit Value Called By Blood Gas Notified Time Potassium 3.2 L Carbon Dioxide 24 Anion Gap 14 BUN 57 H Creatinine 0.8 Est GFR ( Amer) > 60 Est GFR (Non-Af Amer) > 60 Random Glucose 182 H Serum Osmolality Calcium 10.1 Magnesium Total Bilirubin 0.3 AST 125 H D ALT 123 H Alkaline Phosphatase 177 H D Total Creatine Kinase CK-MB (CK-2) CK-MB (CK-2) % Troponin I < 0.01 Total Protein 9.1 H Albumin 3.8 Globulin 5.4 Albumin/Globulin Ratio 0.7 L Lipase 59 Venous Blood Potassium Urine Color Urine Appearance Urine pH Ur Specific [place] Urine Protein Urine Glucose (UA) Urine Ketones Urine Blood Urine Nitrate Urine Bilirubin Urine Urobilinogen Ur Leukocyte Esterase Urine RBC Urine WBC Ur Epithelial Cells Urine Bacteria Urine Osmolality Ur Random Sodium Ur Random Potassium Influenza Typ A,B (EIA) Negative for flu a/b 11/22/18 11/22/18 11/22/18 00:54 00:54 00:54 WBC RBC Hgb Hct MCV MCH MCHC RDW Plt Count MPV Neut % (Auto) Lymph % (Auto) [place] % (Auto) Eos % (Auto) Baso % (Auto) Lymph # (Auto) [place] # (Auto) Eos # (Auto) Baso # (Auto) Absolute Neuts (auto) PT 14.9 H INR 1.34 APTT 34.8 pO2 167 H VBG pH 7.46 H VBG pCO2 34.0 L VBG HCO3 24.2 VBG Total CO2 25.2 VBG O2 Sat (Calc) 100.2 H VBG Base Excess 0.8 VBG Potassium 3.2 L Sodium 162.0 H* Chloride 126.0 H Glucose 185 H Lactate 2.3 H FiO2 21.0 Crit Value Called To Adrianna sandra ed sec Crit Value Called By [facility] Blood Gas Notified Time 119 Potassium Carbon Dioxide Anion Gap BUN Creatinine Est GFR ( Amer) Est GFR (Non-Af Amer) Random Glucose Serum Osmolality Calcium Magnesium Total Bilirubin AST ALT Alkaline Phosphatase Total Creatine Kinase CK-MB (CK-2) CK-MB (CK-2) % Troponin I Total Protein Albumin Globulin Albumin/Globulin Ratio Lipase Venous Blood Potassium 3.2 L Urine Color Yellow Urine Appearance Clear Urine pH 6.0 Ur Specific [place] 1.020 Urine Protein 100 H Urine Glucose (UA) Negative Urine Ketones Negative Urine Blood Large H Urine Nitrate Negative Urine Bilirubin Negative Urine Urobilinogen 0.2 Ur Leukocyte Esterase Trace H Urine RBC 15 - 20 H Urine WBC 1 - 3 Ur Epithelial Cells 0 - 2 Urine Bacteria Occ Urine Osmolality Ur Random Sodium Ur Random Potassium Influenza Typ A,B (EIA) 11/22/18 11/22/18 11/22/18 00:54 00:54 05:00 WBC RBC Hgb Hct MCV MCH MCHC RDW Plt Count MPV Neut % (Auto) Lymph % (Auto) [place] % (Auto) Eos % (Auto) Baso % (Auto) Lymph # (Auto) [place] # (Auto) Eos # (Auto) Baso # (Auto) Absolute Neuts (auto) PT INR APTT pO2 79 H VBG pH 7.38 VBG pCO2 44.0 VBG HCO3 26.0 VBG Total CO2 27.4 VBG O2 Sat (Calc) 97.1 H VBG Base Excess 0.5 VBG Potassium 3.8 Sodium 158.0 H Chloride 123.0 H Glucose 119 H Lactate 1.5 FiO2 21.0 Crit Value Called To Katerin desouza return clerk Crit Value Called By Js Blood Gas Notified Time 400 Potassium Carbon Dioxide Anion Gap BUN Creatinine Est GFR ( Amer) Est GFR (Non-Af Amer) Random Glucose Serum Osmolality Calcium Magnesium 2.3 H Total Bilirubin AST ALT Alkaline Phosphatase Total Creatine Kinase 267 H CK-MB (CK-2) 1.3 CK-MB (CK-2) % Cancelled Troponin I Total Protein Albumin Globulin Albumin/Globulin Ratio Lipase Venous Blood Potassium 3.8 Urine Color Urine Appearance Urine pH Ur Specific [place] Urine Protein Urine Glucose (UA) Urine Ketones Urine Blood Urine Nitrate Urine Bilirubin Urine Urobilinogen Ur Leukocyte Esterase Urine RBC Urine WBC Ur Epithelial Cells Urine Bacteria Urine Osmolality Ur Random Sodium Ur Random Potassium Influenza Typ A,B (EIA) 11/22/18 11/22/18 11/22/18 06:00 06:00 07:00 WBC RBC Hgb Hct MCV MCH MCHC RDW Plt Count MPV Neut % (Auto) Lymph % (Auto) [place] % (Auto) Eos % (Auto) Baso % (Auto) Lymph # (Auto) [place] # (Auto) Eos # (Auto) Baso # (Auto) Absolute Neuts (auto) PT INR APTT pO2 VBG pH VBG pCO2 VBG HCO3 VBG Total CO2 VBG O2 Sat (Calc) VBG Base Excess VBG Potassium Sodium Chloride Glucose Lactate FiO2 Crit Value Called To Crit Value Called By Blood Gas Notified Time Potassium Carbon Dioxide Anion Gap BUN Creatinine Est GFR ( Amer) Est GFR (Non-Af Amer) Random Glucose Serum Osmolality 242 L Calcium Magnesium Total Bilirubin AST ALT Alkaline Phosphatase Total Creatine Kinase CK-MB (CK-2) CK-MB (CK-2) % Troponin I Total Protein Albumin Globulin Albumin/Globulin Ratio Lipase Venous Blood Potassium Urine Color Urine Appearance Urine pH Ur Specific [place] Urine Protein Urine Glucose (UA) Urine Ketones Urine Blood Urine Nitrate Urine Bilirubin Urine Urobilinogen Ur Leukocyte Esterase Urine RBC Urine WBC Ur Epithelial Cells Urine Bacteria Urine Osmolality 695 Ur Random Sodium 11 Ur Random Potassium 29.6 Influenza Typ A,B (EIA) 11/22/18 09:50 WBC RBC Hgb Hct MCV MCH MCHC RDW Plt Count MPV Neut % (Auto) Lymph % (Auto) [place] % (Auto) Eos % (Auto) Baso % (Auto) Lymph # (Auto) [place] # (Auto) Eos # (Auto) Baso # (Auto) Absolute Neuts (auto) PT INR APTT pO2 VBG pH VBG pCO2 VBG HCO3 VBG Total CO2 VBG O2 Sat (Calc) VBG Base Excess VBG Potassium Sodium 155 H Chloride 123 H Glucose Lactate FiO2 Crit Value Called To Crit Value Called By Blood Gas Notified Time Potassium 3.2 L Carbon Dioxide 25 Anion Gap 12 BUN 35 H Creatinine 0.6 L Est GFR ( Amer) > 60 Est GFR (Non-Af Amer) > 60 Random Glucose 119 H Serum Osmolality Calcium 9.3 Magnesium Total Bilirubin 0.6 AST 60 H D ALT 87 H Alkaline Phosphatase 108 Total Creatine Kinase CK-MB (CK-2) CK-MB (CK-2) % Troponin I Total Protein 7.5 Albumin 3.2 Globulin 4.3 Albumin/Globulin Ratio 0.7 L Lipase Venous Blood Potassium Urine Color Urine Appearance Urine pH Ur Specific [place] Urine Protein Urine Glucose (UA) Urine Ketones Urine Blood Urine Nitrate Urine Bilirubin Urine Urobilinogen Ur Leukocyte Esterase Urine RBC Urine WBC Ur Epithelial Cells Urine Bacteria Urine Osmolality Ur Random Sodium Ur Random Potassium Influenza Typ A,B (EIA) Attending/Attestation - Attestation I have personally seen and examined this patient.: Yes I have fully participated in the care of the patient.: Yes I have reviewed all pertinent clinical information: Yes Notes (Text): 11/22/18 12:15 Pt seen with the resident by the bedside. Case discussed in detail. Agree with documentation,assessment and plan of treatment.
[2018-11-22] MEDS ORDERED: Sodium Chloride 0.45% 1,000 ML IV ONE ×2 (02:37→03:33)
[2018-11-22 03:21] LABS: CK-MB 1.3 ng/mL (0.0-3.6)
[2018-11-22] MEDS ORDERED: Potassium Chloride 20 mEq ER Tab PO STA (03:33)
--- NOTE | 2018-11-22 04:15 | PCM.SEPTIC ---
<Natalia Sanches - Last Filed: 11/22/18 04:11> Sepsis Progress Note - Reassessment Type Date of Evaluation: 11/22/18 Time of Evaluation: 04:11 Reassessment Type: Non-invasive reassessment - Non Invasive Reassessment Were the most recent vital sign reviewed: Yes Vital Sign (Latest): Temp Pulse Resp BP Pulse Ox 102.3 F H 125 H 20 103/73 96 11/22/18 01:20 11/22/18 01:20 11/22/18 01:20 11/22/18 01:20 11/22/18 01:20 Cardiovascular: Yes: Regular Rate, Rhythm, Chest Non Tender. No: Bradycardia, Irregularly Irregular Respiratory: Yes: Normal Breath Sounds. No: Accessory Muscle Use, Rales, Rhonchi, Stridor, Respiratory Distress Capillary Refill: Normal (Less than 2 sec) Skin: Normal Color, Other (sacral decubitus ulcer, left hip ulcer, right hip ulcer non-purulent, no oozing. ) <Sandra Barajas - Last Filed: 11/22/18 11:58> Sepsis Progress Note - Non Invasive Reassessment Vital Sign (Latest): Temp Pulse Resp BP Pulse Ox 98 F 104 H 18 98/51 L 96 11/22/18 06:11 11/22/18 10:38 11/22/18 10:38 11/22/18 10:38 11/22/18 10:38 Attending/Attestation - Attestation I have personally seen and examined this patient.: Yes I have fully participated in the care of the patient.: Yes I have reviewed all pertinent clinical information, including history, physical exam and plan: Yes Notes (Text): 11/22/18 11:54 Pt seen with the resident. Case discussed Agree with documentation.
[2018-11-22 05:38] LABS: VENOUS BLOOD GAS BASE EXCESS 0.5 mmol/L (0.0-2.0); VENOUS BLOOD GAS PO2 79 mm/Hg (30-55); VENOUS BLOOD PH 7.38 (7.32-7.43)
--- NOTE | 2018-11-22 05:53 | CP.PCM.CON ---
History of Present Illness - History of Present Illness History of Present Illness: General surgery consult note for Dr. Bernard Patterson, PGY-2 Pt seen/examined at bedside. History as per EMR and mother at bedside due to pt mental status. 47M w/PMH sig for multiple medical issues as below consulted for sacral decubitus ulcer. Pt admitted to medical service for sepsis in setting of previous ESBL positive wound and ESBL bacteremia. Per mother, pt with abdominal pain and decreased appetite that resulted in pt being brought into ED. Pt with chronic sacral decubitus ulcer, previously with edges debrided at bedside in september of 2018 with placement of wound vac to area. Pt currently being followed in wound care clinic by Dr. Mcintosh with next appointment 11/24. Pt has been receiving Santyl to wound as per Dr. Mcintosh. In ED pt febrile Tmax 102.3, tachycardic into 130's. WBC 20.2 with a left shift of 77.7, lactate of 2.3. 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 Pena Outpatient surgeon: Dr. Mcintosh Review of Systems - Review of Systems Systems not reviewed;Unavailable: Other (TBI resulting in brain damage) All systems: reviewed and no additional remarkable complaints except - Constitutional Constitutional: absent: Chills, Fever Past Patient History - Past Medical History & Family History Past Medical History?: Yes - Past Social History Smoking Status: Never Smoked - CARDIAC Hx Cardiac Disorders: No - PULMONARY Hx Respiratory Disorders: No - NEUROLOGICAL HX Cerebrovascular Accident: Yes Hx Seizures: Yes Other/Comment: TBI---FEBRUARY 2019 THEN CRANIOTOMY X2 - HEENT Hx HEENT Problems: No - RENAL Hx Chronic Kidney Disease: No - ENDOCRINE/METABOLIC Hx Endocrine Disorders: No - HEMATOLOGICAL/ONCOLOGICAL Hx Blood Disorders: No Hx AIDS: No - INTEGUMENTARY Other/Comment: SACRAL DECUBITUS - MUSCULOSKELETAL/RHEUMATOLOGICAL Hx Musculoskeletal Disorders: No Hx Falls: No - GASTROINTESTINAL Other/Comment: PEG TUBE - GENITOURINARY/GYNECOLOGICAL Hx Genitourinary Disorders: Yes Hx Incontinence: Yes - PSYCHIATRIC Hx Substance Use: No Other/Comment: ON TRAZADONE - SURGICAL HISTORY Other/Comment: craniotomyx2 - ANESTHESIA Hx Anesthesia: Yes Hx Anesthesia Reactions: No Hx Malignant Hyperthermia: No Meds Allergies/Adverse Reactions: Allergies Allergy/AdvReac Type Severity Reaction Status Date / Time No Known Allergies Allergy Verified 11/22/18 00:03 - Medications Medications: Current Medications Docusate Sodium (Colace) 100 mg PO DAILY KEYON Sodium Chloride (Sodium Chloride 0.45%) 1,000 mls @ 100 mls/hr IV .Q10H ONE Stop: 11/22/18 12:36 Last Admin: 11/22/18 02:37 Dose: 100 mls/hr Sodium Chloride (Sodium Chloride 0.45%) 1,000 mls @ 125 mls/hr IV .Q8H ONE Stop: 11/22/18 11:32 Last Admin: 11/22/18 04:31 Dose: 125 mls/hr Potassium Chloride (Potassium Chloride 10 Meq/100 Ml) 10 meq in 100 mls @ 100 mls/hr IVPB Q2H KEYON Stop: 11/22/18 06:44 Last Admin: 11/22/18 05:02 Dose: 100 mls/hr Meropenem (Merrem Iv 1 Gm Premix) 1 gm in 50 mls @ 100 mls/hr IVPB Q8 KEYON; Protocol Stop: 11/29/18 06:01 Vancomycin HCl (Vancomycin 1gm) 1 gm in 250 mls @ 167 mls/hr IVPB Q12H KEYON; Protocol Ibuprofen (Motrin Tab) 400 mg PO Q6H PRN PRN Reason: Fever >100.4 F Levetiracetam (Keppra) 500 mg PO BID KEYON Lorazepam (Ativan) 2 mg IVP Q6H PRN; Protocol PRN Reason: Seizure activity Pantoprazole Sodium (Protonix Ec Tab) 40 mg PO 0600 KEYON Physical Exam - Constitutional Appears: Non-toxic, No Acute Distress, Cachectic - Head Exam Head Exam: ATRAUMATIC, NORMAL INSPECTION, NORMOCEPHALIC Additional comments: Well healed scar over left lateral head - Eye Exam Eye Exam: EOMI, Normal appearance - ENT Exam ENT Exam: Mucous Membranes Moist, Normal Exam - Respiratory Exam Respiratory Exam: NORMAL BREATHING PATTERN - Cardiovascular Exam Cardiovascular Exam: Tachycardia, +S1, +S2 - GI/Abdominal Exam GI & Abdominal Exam: Soft. 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 in place - Extremities Exam Additional comments: Sacral area with large approximately 12 cm x 12 cm stage 2 sacral decubitus ulcer with clean base, left trochanter with smaller stage 2 DU with some fibrinous exudate, approximately 6 cm x 6cm - Neurological Exam Neurological exam: Alert - Psychiatric Exam Additional comments: slow affect - Skin Additional comments: see extremity exam for ulcer findings Results - Vital Signs Recent Vital Signs: Last Vital Signs Temp 102.3 F H 11/22/18 01:20 Pulse 98 H 11/22/18 05:01 Resp 18 11/22/18 05:01 BP 102/72 11/22/18 05:01 Pulse Ox 100 11/22/18 05:01 - Labs Result Diagrams: 11/22/18 00:54 11/22/18 00:54 Labs: Laboratory Results - last 24 hr 11/22/18 11/22/18 11/22/18 00:54 00:54 00:54 WBC 20.2 H D RBC 4.21 Hgb 11.5 L D Hct 38.6 L MCV 91.7 MCH 27.3 MCHC 29.8 L RDW 18.1 H Plt Count 478 H MPV 9.6 Neut % (Auto) 77.7 H Lymph % (Auto) 16.2 L [place] % (Auto) 5.6 Eos % (Auto) 0.4 L Baso % (Auto) 0.1 Lymph # (Auto) 3.3 [place] # (Auto) 1.1 H Eos # (Auto) 0.1 Baso # (Auto) 0.02 Absolute Neuts (auto) 15.70 H PT INR APTT pO2 VBG pH VBG pCO2 VBG HCO3 VBG Total CO2 VBG O2 Sat (Calc) VBG Base Excess VBG Potassium Sodium 158 H* D Chloride 123 H Glucose Lactate FiO2 Crit Value Called To Crit Value Called By Blood Gas Notified Time Potassium 3.2 L Carbon Dioxide 24 Anion Gap 14 BUN 57 H Creatinine 0.8 Est GFR ( Amer) > 60 Est GFR (Non-Af Amer) > 60 Random Glucose 182 H Calcium 10.1 Total Bilirubin 0.3 AST 125 H D ALT 123 H Alkaline Phosphatase 177 H D Total Creatine Kinase CK-MB (CK-2) CK-MB (CK-2) % Troponin I < 0.01 Total Protein 9.1 H Albumin 3.8 Globulin 5.4 Albumin/Globulin Ratio 0.7 L Lipase 59 Venous Blood Potassium Urine Color Urine Appearance Urine pH Ur Specific [place] Urine Protein Urine Glucose (UA) Urine Ketones Urine Blood Urine Nitrate Urine Bilirubin Urine Urobilinogen Ur Leukocyte Esterase Urine RBC Urine WBC Ur Epithelial Cells Urine Bacteria Influenza Typ A,B (EIA) Negative for flu a/b 11/22/18 11/22/18 11/22/18 00:54 00:54 00:54 WBC RBC Hgb Hct MCV MCH MCHC RDW Plt Count MPV Neut % (Auto) Lymph % (Auto) [place] % (Auto) Eos % (Auto) Baso % (Auto) Lymph # (Auto) [place] # (Auto) Eos # (Auto) Baso # (Auto) Absolute Neuts (auto) PT 14.9 H INR 1.34 APTT 34.8 pO2 167 H VBG pH 7.46 H VBG pCO2 34.0 L VBG HCO3 24.2 VBG Total CO2 25.2 VBG O2 Sat (Calc) 100.2 H VBG Base Excess 0.8 VBG Potassium 3.2 L Sodium 162.0 H* Chloride 126.0 H Glucose 185 H Lactate 2.3 H FiO2 21.0 Crit Value Called To Adrianna sandra ed sec Crit Value Called By Pratik Blood Gas Notified Time 119 Potassium Carbon Dioxide Anion Gap BUN Creatinine Est GFR ( Amer) Est GFR (Non-Af Amer) Random Glucose Calcium Total Bilirubin AST ALT Alkaline Phosphatase Total Creatine Kinase CK-MB (CK-2) CK-MB (CK-2) % Troponin I Total Protein Albumin Globulin Albumin/Globulin Ratio Lipase Venous Blood Potassium 3.2 L Urine Color Yellow Urine Appearance Clear Urine pH 6.0 Ur Specific [place] 1.020 Urine Protein 100 H Urine Glucose (UA) Negative Urine Ketones Negative Urine Blood Large H Urine Nitrate Negative Urine Bilirubin Negative Urine Urobilinogen 0.2 Ur Leukocyte Esterase Trace H Urine RBC 15 - 20 H Urine WBC 1 - 3 Ur Epithelial Cells 0 - 2 Urine Bacteria Occ Influenza Typ A,B (EIA) 11/22/18 11/22/18 00:54 05:00 WBC RBC Hgb Hct MCV MCH MCHC RDW Plt Count MPV Neut % (Auto) Lymph % (Auto) [place] % (Auto) Eos % (Auto) Baso % (Auto) Lymph # (Auto) [place] # (Auto) Eos # (Auto) Baso # (Auto) Absolute Neuts (auto) PT INR APTT pO2 79 H VBG pH 7.38 VBG pCO2 44.0 VBG HCO3 26.0 VBG Total CO2 27.4 VBG O2 Sat (Calc) 97.1 H VBG Base Excess 0.5 VBG Potassium 3.8 Sodium 158.0 H Chloride 123.0 H Glucose 119 H Lactate 1.5 FiO2 21.0 Crit Value Called To Katerin desouza corn cutter operator Crit Value Called By Sherrill Blood Gas Notified Time 400 Potassium Carbon Dioxide Anion Gap BUN Creatinine Est GFR ( Amer) Est GFR (Non-Af Amer) Random Glucose Calcium Total Bilirubin AST ALT Alkaline Phosphatase Total Creatine Kinase 267 H CK-MB (CK-2) 1.3 CK-MB (CK-2) % Cancelled Troponin I Total Protein Albumin Globulin Albumin/Globulin Ratio Lipase Venous Blood Potassium 3.8 Urine Color Urine Appearance Urine pH Ur Specific [place] Urine Protein Urine Glucose (UA) Urine Ketones Urine Blood Urine Nitrate Urine Bilirubin Urine Urobilinogen Ur Leukocyte Esterase Urine RBC Urine WBC Ur Epithelial Cells Urine Bacteria Influenza Typ A,B (EIA) Assessment & Plan - Assessment and Plan (Free Text) Assessment: 47M w/chronic sacral decubitus ulcers due to immobility Plan: Local wound care Air mattress Turn pt Q2H Santyl Further care as per primary team Please consult Dr. Mcintosh as pt is being closely followed already in wound care clinic PAULIE Patterson, PGY-2 - Date & Time Date: 11/22/18 Time: 05:50
[2018-11-22] MEDS ORDERED: Pantoprazole 40 mg EC Tab PO SCH (06:00)
[2018-11-22] MEDS: Meropenem IV 1 gm in NS 1 GM/50 ML BAG IVPB SCH ×3 (06:29→21:22)
--- NOTE | 2018-11-22 08:25 | CP.PCM.CON ---
History of Present Illness - History of Present Illness History of Present Illness: General surgery consult note for Dr. Mcintosh-Sharita Patterson, PGY-2 Pt seen/examined at bedside. History as per EMR and mother at bedside due to pt mental status. 47M w/PMH sig for multiple medical issues as below consulted for sacral de cubitus ulcer. Pt admitted to medical service for sepsis in setting of previous ESBL positive wound and ESBL bacteremia. Per mother, pt with abdominal pain and decreased appetite that resulted in pt being brought into ED. Pt with chronic sacral decubitus ulcer, previously with edges debrided at bedside in september of 2018 with placement of wound vac to area. Pt currently being followed in wound c are clinic by Dr. Mcintosh with next appointment 11/24. Pt has been receiving Santyl to wound as per Dr. Mcintosh. In ED pt febrile Tmax 102.3, tachycardic into 130's. WBC 20.2 with a left shift of 77.7, lactate of 2.3. PMH: hx TBI w/intracranial hemorrhage, seizure d/o, UTI, sacral decubitus, hy drocephalus PSH: Craniotomy x 2, BETA TESTER shunt (07/25), bedside debridement (09/26), IVC filter, All: NKDA SH: Unknown FH: Non-contributory PMD: Dr. Pena Outpatient surgeon: Dr. Mcintosh Review of Systems - Review of Systems Systems not reviewed;Unavailable: Other (traumatic brain injury, Limited ROS due to mental status) All systems: reviewed and no additional remarkable complaints except - Constitutional Constitutional: absent: Chills, Fever - Gastrointestinal Gastrointestinal: Abdominal Pain. absent: Constipation, Diarrhea, Hematemesis, Nausea, Vomiting - Genitourinary Genitourinary: absent: Dysuria, Pyuria Past Patient History - Past Medical History & Family History Past Medical History?: Yes - Past Social History Smoking Status: Never Smoked - CARDIAC Hx Cardiac Disorders: No - PULMONARY Hx Respiratory Disorders: No - NEUROLOGICAL HX Cerebrovascular Accident: Yes Hx Seizures: Yes Other/Comment: TBI---FEBRUARY 2019 THEN CRANIOTOMY X2 - HEENT Hx HEENT Problems: No - RENAL Hx Chronic Kidney Disease: No - ENDOCRINE/METABOLIC Hx Endocrine Disorders: No - HEMATOLOGICAL/ONCOLOGICAL Hx Blood Disorders: No Hx AIDS: No - INTEGUMENTARY Other/Comment: SACRAL DECUBITUS - MUSCULOSKELETAL/RHEUMATOLOGICAL Hx Musculoskeletal Disorders: No Hx Falls: No - GASTROINTESTINAL Other/Comment: PEG TUBE - GENITOURINARY/GYNECOLOGICAL Hx Genitourinary Disorders: Yes Hx Incontinence: Yes - PSYCHIATRIC Hx Substance Use: No Other/Comment: ON TRAZADONE - SURGICAL HISTORY Other/Comment: craniotomyx2 - ANESTHESIA Hx Anesthesia: Yes Hx Anesthesia Reactions: No Hx Malignant Hyperthermia: No Meds Allergies/Adverse Reactions: Allergies Allergy/AdvReac Type Severity Reaction Status Date / Time No Known Allergies Allergy Verified 11/22/18 15:00 - Medications Medications: Current Medications Docusate Sodium (Colace Liquid) 100 mg GT DAILY KEYON Sodium Chloride (Sodium Chloride 0.45%) 1,000 mls @ 100 mls/hr IV .Q10H ONE Stop: 11/22/18 12:36 Last Admin: 11/22/18 02:37 Dose: 100 mls/hr Sodium Chloride (Sodium Chloride 0.45%) 1,000 mls @ 125 mls/hr IV .Q8H ONE Stop: 11/22/18 11:32 Last Admin: 11/22/18 04:31 Dose: 125 mls/hr Meropenem (Merrem Iv 1 Gm Premix) 1 gm in 50 mls @ 100 mls/hr IVPB Q8 KEYON; Protocol Stop: 11/29/18 06:01 Last Admin: 11/22/18 06:29 Dose: 100 mls/hr Vancomycin HCl (Vancomycin 1gm) 1 gm in 250 mls @ 167 mls/hr IVPB Q12H KEYON; Protocol Ibuprofen (Motrin Tab) 400 mg PO Q6H PRN PRN Reason: Fever >100.4 F Levetiracetam (Keppra) 500 mg PEG BID KEYON Lorazepam (Ativan) 2 mg IVP Q6H PRN; Protocol PRN Reason: Seizure activity Pantoprazole Sodium (Protonix Ec Tab) 40 mg PO 0600 KEYON Physical Exam - Constitutional Appears: Non-toxic, No Acute Distress, Cachectic - Head Exam Head Exam: ATRAUMATIC, NORMAL INSPECTION, NORMOCEPHALIC Additional comments: well healed linear scar over left lateral head - Eye Exam Eye Exam: EOMI - ENT Exam ENT Exam: absent: Mucous Membranes Moist - Respiratory Exam Respiratory Exam: NORMAL BREATHING PATTERN. absent: Accessory Muscle Use - Cardiovascular Exam Cardiovascular Exam: Tachycardia, +S1, +S2 - GI/Abdominal Exam GI & Abdominal Exam: Soft. absent: Distended, Firm, Guarding Additional comments: not tender or distended palpable BETA TESTER shunt under right lateral abdominal skin - Extremities Exam Additional comments: large, approx 12 x 10 cm possible stage 2-3 sacral ulcer with clean base, necrotic margins of skin. Left trochanter with approx 6 x 6 cm stage 2 pressure ulcer with fibrinous exudate and necrotic margins of skin. - Neurological Exam Neurological exam: Alert - Psychiatric Exam Psychiatric exam: Normal Affect, Normal Mood - Skin Skin Exam: Dry, Normal Color, Warm Additional comments: excluding sacrum and left trochanter, see extremity exam Results - Vital Signs Recent Vital Signs: Last Vital Signs Temp 98 F 11/22/18 06:11 Pulse 100 H 11/22/18 08:23 Resp 18 11/22/18 08:23 BP 102/65 11/22/18 08:23 Pulse Ox 100 11/22/18 08:23 - Labs Result Diagrams: 11/22/18 00:54 11/22/18 09:50 Labs: Laboratory Results - last 24 hr 11/22/18 11/22/18 11/22/18 00:54 00:54 00:54 WBC 20.2 H D RBC 4.21 Hgb 11.5 L D Hct 38.6 L MCV 91.7 MCH 27.3 MCHC 29.8 L RDW 18.1 H Plt Count 478 H MPV 9.6 Neut % (Auto) 77.7 H Lymph % (Auto) 16.2 L [place] % (Auto) 5.6 Eos % (Auto) 0.4 L Baso % (Auto) 0.1 Lymph # (Auto) 3.3 [place] # (Auto) 1.1 H Eos # (Auto) 0.1 Baso # (Auto) 0.02 Absolute Neuts (auto) 15.70 H PT INR APTT pO2 VBG pH VBG pCO2 VBG HCO3 VBG Total CO2 VBG O2 Sat (Calc) VBG Base Excess VBG Potassium Sodium 158 H* D Chloride 123 H Glucose Lactate FiO2 Crit Value Called To Crit Value Called By Blood Gas Notified Time Potassium 3.2 L Carbon Dioxide 24 Anion Gap 14 BUN 57 H Creatinine 0.8 Est GFR ( Amer) > 60 Est GFR (Non-Af Amer) > 60 Random Glucose 182 H Calcium 10.1 Magnesium Total Bilirubin 0.3 AST 125 H D ALT 123 H Alkaline Phosphatase 177 H D Total Creatine Kinase CK-MB (CK-2) CK-MB (CK-2) % Troponin I < 0.01 Total Protein 9.1 H Albumin 3.8 Globulin 5.4 Albumin/Globulin Ratio 0.7 L Lipase 59 Venous Blood Potassium Urine Color Urine Appearance Urine pH Ur Specific [place] Urine Protein Urine Glucose (UA) Urine Ketones Urine Blood Urine Nitrate Urine Bilirubin Urine Urobilinogen Ur Leukocyte Esterase Urine RBC Urine WBC Ur Epithelial Cells Urine Bacteria Ur Random Sodium Ur Random Potassium Influenza Typ A,B (EIA) Negative for flu a/b 11/22/18 11/22/18 11/22/18 00:54 00:54 00:54 WBC RBC Hgb Hct MCV MCH MCHC RDW Plt Count MPV Neut % (Auto) Lymph % (Auto) [place] % (Auto) Eos % (Auto) Baso % (Auto) Lymph # (Auto) [place] # (Auto) Eos # (Auto) Baso # (Auto) Absolute Neuts (auto) PT 14.9 H INR 1.34 APTT 34.8 pO2 167 H VBG pH 7.46 H VBG pCO2 34.0 L VBG HCO3 24.2 VBG Total CO2 25.2 VBG O2 Sat (Calc) 100.2 H VBG Base Excess 0.8 VBG Potassium 3.2 L Sodium 162.0 H* Chloride 126.0 H Glucose 185 H Lactate 2.3 H FiO2 21.0 Crit Value Called To Adrianna sandra ed sec Crit Value Called By [facility] Blood Gas Notified Time 119 Potassium Carbon Dioxide Anion Gap BUN Creatinine Est GFR ( Amer) Est GFR (Non-Af Amer) Random Glucose Calcium Magnesium Total Bilirubin AST ALT Alkaline Phosphatase Total Creatine Kinase CK-MB (CK-2) CK-MB (CK-2) % Troponin I Total Protein Albumin Globulin Albumin/Globulin Ratio Lipase Venous Blood Potassium 3.2 L Urine Color Yellow Urine Appearance Clear Urine pH 6.0 Ur Specific [place] 1.020 Urine Protein 100 H Urine Glucose (UA) Negative Urine Ketones Negative Urine Blood Large H Urine Nitrate Negative Urine Bilirubin Negative Urine Urobilinogen 0.2 Ur Leukocyte Esterase Trace H Urine RBC 15 - 20 H Urine WBC 1 - 3 Ur Epithelial Cells 0 - 2 Urine Bacteria Occ Ur Random Sodium Ur Random Potassium Influenza Typ A,B (EIA) 11/22/18 11/22/1819 00:54 00:54 05:00 WBC RBC Hgb Hct MCV MCH MCHC RDW Plt Count MPV Neut % (Auto) Lymph % (Auto) [place] % (Auto) Eos % (Auto) Baso % (Auto) Lymph # (Auto) [place] # (Auto) Eos # (Auto) Baso # (Auto) Absolute Neuts (auto) PT INR APTT pO2 79 H VBG pH 7.38 VBG pCO2 44.0 VBG HCO3 26.0 VBG Total CO2 27.4 VBG O2 Sat (Calc) 97.1 H VBG Base Excess 0.5 VBG Potassium 3.8 Sodium 158.0 H Chloride 123.0 H Glucose 119 H Lactate 1.5 FiO2 21.0 Crit Value Called To Katerin desouza rn ed Crit Value Called By Pratikm Blood Gas Notified Time 400 Potassium Carbon Dioxide Anion Gap BUN Creatinine Est GFR ( Amer) Est GFR (Non-Af Amer) Random Glucose Calcium Magnesium 2.3 H Total Bilirubin AST ALT Alkaline Phosphatase Total Creatine Kinase 267 H CK-MB (CK-2) 1.3 CK-MB (CK-2) % Cancelled Troponin I Total Protein Albumin Globulin Albumin/Globulin Ratio Lipase Venous Blood Potassium 3.8 Urine Color Urine Appearance Urine pH Ur Specific [place] Urine Protein Urine Glucose (UA) Urine Ketones Urine Blood Urine Nitrate Urine Bilirubin Urine Urobilinogen Ur Leukocyte Esterase Urine RBC Urine WBC Ur Epithelial Cells Urine Bacteria Ur Random Sodium Ur Random Potassium Influenza Typ A,B (EIA) 11/22/18 07:00 WBC RBC Hgb Hct MCV MCH MCHC RDW Plt Count MPV Neut % (Auto) Lymph % (Auto) [place] % (Auto) Eos % (Auto) Baso % (Auto) Lymph # (Auto) [place] # (Auto) Eos # (Auto) Baso # (Auto) Absolute Neuts (auto) PT INR APTT pO2 VBG pH VBG pCO2 VBG HCO3 VBG Total CO2 VBG O2 Sat (Calc) VBG Base Excess VBG Potassium Sodium Chloride Glucose Lactate FiO2 Crit Value Called To Crit Value Called By Blood Gas Notified Time Potassium Carbon Dioxide Anion Gap BUN Creatinine Est GFR ( Amer) Est GFR (Non-Af Amer) Random Glucose Calcium Magnesium Total Bilirubin AST ALT Alkaline Phosphatase Total Creatine Kinase CK-MB (CK-2) CK-MB (CK-2) % Troponin I Total Protein Albumin Globulin Albumin/Globulin Ratio Lipase Venous Blood Potassium Urine Color Urine Appearance Urine pH Ur Specific [place] Urine Protein Urine Glucose (UA) Urine Ketones Urine Blood Urine Nitrate Urine Bilirubin Urine Urobilinogen Ur Leukocyte Esterase Urine RBC Urine WBC Ur Epithelial Cells Urine Bacteria Ur Random Sodium 11 Ur Random Potassium 29.6 Influenza Typ A,B (EIA) Assessment & Plan - Assessment and Plan (Free Text) Assessment: 47M with sacral ulcer and left trochanter pressure ulcers - chronic, initially assessed in september of 2018 Plan: Continue Santyl local wound care Turn pt Q2H Air mattress Further surgical intervention pending attending evaluation Further care as per primary team Will DW Dr. Arnaldo Patterson, PGY-2 - Date & Time Date: 11/22/18 Time: 05:55
--- NOTE | 2018-11-22 09:21 | RAD ---
Date of service: 11/22/2018 HISTORY: cough COMPARISON: 09/18/2018 TECHNIQUE: 1 view obtained. FINDINGS: LUNGS: No active pulmonary disease. PLEURA: No significant pleural effusion identified, no pneumothorax apparent. CARDIOVASCULAR: No aortic atherosclerotic calcification present. Normal cardiac size. No pulmonary vascular congestion. OSSEOUS STRUCTURES: No significant abnormalities. VISUALIZED UPPER ABDOMEN: Normal. OTHER FINDINGS: None. IMPRESSION: No active disease.
[2018-11-22] MEDS ORDERED: Potassium Chloride 40 MEQ in Sodium Chloride 0.45% 1,000 ML IV ONE (09:57)
[2018-11-22] MEDS ORDERED: Meropenem IV 1 gm in NS 1 GM/50 ML BAG IVPB SCH (10:00)
[2018-11-22 10:34] LABS: ALB/GLOB RATIO 0.7 (1.1-1.8); ALBUMIN 3.2 g/dL (3.0-4.8); ALT/SGPT 87 U/L (7-56); AST/SGOT 60 U/L (17-59); BLOOD UREA NITROGEN 35 mg/dL (7-21); CALCIUM 9.3 mg/dL (8.4-10.5); GFR NON-AFRICAN AMERICAN > 60
[2018-11-22] MEDS: levETIRAcetam 500 mg/5ml UD cups PEG SCH ×2 (12:27→20:00)
[2018-11-22] MEDS: Potassium Chloride 40 MEQ in Sodium Chloride 0.45% 1,000 ML IV SCH (12:28)
--- NOTE | 2018-11-22 13:48 | CT ---
Date of service: 11/22/2018 PROCEDURE: CT Abdomen and Pelvis with contrast HISTORY: pain, has peg tube COMPARISON: None. TECHNIQUE: Contrast dose: Radiation dose: Total exam DLP = 252.61 mGy-cm. This CT exam was performed using one or more of the following dose reduction techniques: Automated exposure control, adjustment of the mA and/or kV according to patient size, and/or use of iterative reconstruction technique. FINDINGS: LOWER THORAX: Right basilar discoid atelectasis. LIVER: Unremarkable. No gross lesion or ductal dilatation. GALLBLADDER AND BILE DUCTS: Unremarkable. PANCREAS: Unremarkable. No gross lesion or ductal dilatation. SPLEEN: Unremarkable. ADRENALS: Unremarkable. No mass. KIDNEYS AND URETERS: Unremarkable. No hydronephrosis. No solid mass. VASCULATURE: Unremarkable. No aortic aneurysm. No aortic atherosclerotic calcification or mural plaque present. BOWEL: Stool throughout the colon and rectum consistent with fecal impaction. APPENDIX: Normal appendix. PERITONEUM: Unremarkable. No free fluid. No free air. LYMPH NODES: Unremarkable. No enlarged lymph nodes. BLADDER: Unremarkable. REPRODUCTIVE: Unremarkable. BONES: No acute fracture. OTHER FINDINGS: Percutaneous gastrostomy. Intraperitoneal catheter. Inferior vena cava filter in place. IMPRESSION: Stool throughout the colon and rectum consistent with fecal impaction.
--- NOTE | 2018-11-22 13:51 | CT ---
Date of service: 11/22/2018 PROCEDURE: HISTORY: AMS COMPARISON: 09/14/2018 TECHNIQUE: FINDINGS: Unchanged occipital craniectomy as well as diffuse nonenhancing old defined hypodensity of the left cerebellar hemisphere. Stable bilateral frontal hypodensities and moderate hydrocephalus. Stable confluent hypodense foci in the periventricular and subcortical white matter. Right ventricular peritoneal shunt. No intraparenchymal hemorrhage. No acute infarct. Unremarkable paranasal sinuses. Left mastoid opacification. IMPRESSION: No interval change since prior exam.
[2018-11-22] MEDS: Vancomycin 1gm in NS 250ml 1 GM/250 ML BAG IVPB SCH (16:12)
--- NOTE | 2018-11-22 19:22 | CP.PCM.PCO ---
Assessment and Plan - Assessment and Plan (Free Text) Assessment: Procedure Date: 11/22/18 Provider: Dr. Mcintosh, Dr. Loja, Dr. Hartman Preoperative Diagnosis: Chronic left trochanteric decubitus ulcer Postoperative Diagnosis: Same EBL: 5 mL Complications: None Procedure: Bedside debridement of chronic left sided trochanteric decubitus ulcer Indications: This is a 47 year old male with a past medical history of TBI with intracranial hemorrhage, siezure disorder, and hydrocephalus, who presented with a chronic left sided trochanteric decubitus ulcer with visible necrotic and devitalized tissue. After thorough history and physical exam, a bedside debridement was indicated. All risks and benefits were discussed with patient's POA, his mother, who consented to the procedure. Description of Procedure: The patient was placed in the right lateral decubitus position. The left trochanter was cleaned with Povidene prep and draped. Correct patient, procedure, site and positioning were verified. Wound measured approximately [id number]. A sharp excisional debridement was performed with scissors and #15 scalpel. All devitalized and necrotic tissue was debrided down to fresh bleeding tissue at the depth of the muscle fascia. Surgicel was placed and hemostasis achieved. Wound was packed with Dakin's soaked kerlex and dressed with gauze and ABD pad. Patient tolerated procedure, with no complications. John Hartman PGY1
--- NOTE | 2018-11-22 20:10 | CARD ---
APPROVED REPORT Date of service: 11/22/2018 EKG Measurement Heart [id number] <Conclusion> Sinus tachycardia Left axis deviation Abnormal ECG
[2018-11-23] MEDS: Vancomycin 1gm in NS 250ml 1 GM/250 ML BAG IVPB SCH ×2 (02:00→15:31)
[2018-11-23] MEDS: Potassium Chloride 40 MEQ in Sodium Chloride 0.45% 1,000 ML IV SCH ×3 (04:00→11:35)
[2018-11-23] MEDS: Meropenem IV 1 gm in NS 1 GM/50 ML BAG IVPB SCH ×3 (05:21→22:11)
[2018-11-23] MEDS: Pantoprazole 40 mg EC Tab PO SCH (05:22)
--- NOTE | 2018-11-23 08:47 | CP.PCM.PN ---
Subjective - Date & Time of Evaluation Date of Evaluation: 11/23/18 Time of Evaluation: 07:10 - Subjective Subjective: General surgery progress note for Dr. Lauren Patterson, PGY-2 Pt seen/examined at bedside with surgical team Pt resting comfortably in bed. No acute events overnight as per nursing, recently changed exterior dressing of Left trochanter ulcer wound site. Objective - Vital Signs/Intake and Output Vital Signs (last 24 hours): Temp Pulse Resp BP Pulse Ox 98 F 105 H 18 100/59 L 94 L 11/22/18 06:11 11/23/18 06:00 11/22/18 15:20 11/22/18 15:20 11/22/18 15:20 - Medications Medications: Current Medications Docusate Sodium (Colace Liquid) 100 mg GT DAILY KEYON Last Admin: 11/22/18 12:27 Dose: 100 mg Heparin Sodium (Porcine) (Heparin) 5,000 units SC Q8 KEYON; Protocol Meropenem (Merrem Iv 1 Gm Premix) 1 gm in 50 mls @ 100 mls/hr IVPB Q8 KEYON; Protocol Stop: 11/29/18 06:01 Last Admin: 11/23/18 05:21 Dose: 100 mls/hr Vancomycin HCl (Vancomycin 1gm) 1 gm in 250 mls @ 167 mls/hr IVPB Q12H KEYON; Pro tocol Last Admin: 11/23/18 02:00 Dose: 167 mls/hr Potassium Chloride 40 meq/ (Sodium Chloride) 1,020 mls @ 125 mls/hr IV .Q8H10M KEYON Last Admin: 11/23/18 05:21 Dose: 125 mls/hr Ibuprofen (Motrin Tab) 400 mg PO Q6H PRN PRN Reason: Fever >100.4 F Last Admin: 11/22/18 21:24 Dose: 400 mg Levetiracetam (Keppra) 500 mg PEG BID KEYON Last Admin: 11/22/18 20:00 Dose: 500 mg Lorazepam (Ativan) 2 mg IVP Q6H PRN; Protocol PRN Reason: Seizure activity Pantoprazole Sodium (Protonix Ec Tab) 40 mg PO 0600 [facility] Last Admin: 11/23/18 05:22 Dose: 40 mg Sodium Hypochlorite (Dakins Solution 0.25%) 100 ml TOP DAILY [facility]ON - Labs Labs: 04/17/19 00:54 11/22/18 09:50 PT 14.9 SECONDS (9.4-12.5) H 11/22/18 00:54 INR 1.34 11/22/18 00:54 APTT 34.8 Seconds (26.9-38.3) 11/22/18 00:54 - Constitutional Appears: Non-toxic, No Acute Distress, Cachectic - Head Exam Head Exam: ATRAUMATIC, NORMAL INSPECTION, NORMOCEPHALIC Additional comments: Well healed linear scar over left scalp - Respiratory Exam Respiratory Exam: NORMAL BREATHING PATTERN - Cardiovascular Exam Cardiovascular Exam: REGULAR RHYTHM - GI/Abdominal Exam GI & Abdominal Exam: Soft. absent: Tenderness - Extremities Exam Additional comments: Left trochanter with dressing in place - clean/dry/intact, gauze packing visible. Optifoam in place over sacral wound - Neurological Exam Neurological Exam: Awake - Psychiatric Exam Additional comments: Currently not talking - Skin Skin Exam: Dry, Intact, Normal Color, Warm Additional comments: Excluding sacrum and left trochanter Assessment and Plan - Assessment and Plan (Free Text) Assessment: 47M w/chronic sacral decubitus ulcer, left trochanter ulcer POD#1 s/p bedside left trochanter debridement Plan: Continue local wound care to sacrum and left trochanter Continue air mattress Continue to turn pt Q2H further care as per primary team Will DW Dr. Arnaldo Patterson, PGY-2
[2018-11-23 09:05] LABS: BASO # 0.01 K/mm3 (0.0-2.0); BASO % 0.1 % (0.0-3.0); EOS # 0.2 (0.0-0.7); EOS % 1.4 % (1.5-5.0); HEMOGLOBIN 8.7 g/dL (14.0-18.0); LYMPH # 2.5 (1.2-3.4); LYMPH % 21.2 % (22.0-35.0); MEAN CELL VOLUME 89.9 fl (80.0-105.0); MEAN CORPUSCULAR HEMOGLOBIN 26.7 pg (25.0-35.0); MEAN CORPUSCULAR HGB CONC 29.7 g/dl (31.0-37.0); MEAN PLATELET VOLUME 9.1 fl (7.0-11.0); MONO # 0.4 (0.1-0.6); MONO % 3.8 % (1.0-6.0); RBC 3.26 10^6/uL (3.5-6.1)
[2018-11-23 09:10] LABS: INR 1.3; PARTIAL THROMBOPLASTIN TIME 32.7 Seconds (26.9-38.3); PROTHROMBIN TIME 14.7 SECONDS (9.4-12.5)
[2018-11-23 09:23] LABS: WHITE BLOOD COUNT 11.6 10^3/uL (4.5-11.0)
[2018-11-23 09:28] LABS: ALB/GLOB RATIO 0.7 (1.1-1.8); ALBUMIN 2.8 g/dL (3.0-4.8); ALT/SGPT 57 U/L (7-56); AST/SGOT 35 U/L (17-59); BLOOD UREA NITROGEN 12 mg/dL (7-21); GFR NON-AFRICAN AMERICAN > 60
[2018-11-23] MEDS: levETIRAcetam 500 mg/5ml UD cups PEG SCH ×2 (09:59→17:42)
[2018-11-23] MEDS ORDERED: Sodium Chloride 0.9% 500 ML IV STA (10:21)
--- NOTE | 2018-11-23 12:34 | CP.PCM.PN ---
<Chris Ortez - Last Filed: 11/23/18 14:28> Subjective - Date & Time of Evaluation Date of Evaluation: 11/23/18 Time of Evaluation: 11:00 - Subjective Subjective: INTERNAL MEDICINE PROGRESS NOTE FOR DR. SAMEER Ortez PGY1 Pt seen and examined at bedside this am. Pt had a 102.3 fever overnight. He also underwent bedside L trochanteric debridement. He tolerated the procedure well. This am, he was seen laying on his right side. He was awake, answering questions. resting comfortably, denying complaints. Objective - Vital Signs/Intake and Output Vital Signs (last 24 hours): Temp Pulse Resp BP Pulse Ox 98 F 100 H 18 100/59 L 94 L 11/22/18 06:11 11/23/18 10:00 11/22/18 15:20 11/22/18 15:20 11/22/18 15:20 - Medications Medications: Current Medications Docusate Sodium (Colace Liquid) 100 mg GT DAILY KEYON Last Admin: 11/23/18 09:58 Dose: 100 mg Heparin Sodium (Porcine) (Heparin) 5,000 units SC Q8 KEYON; Protocol Last Admin: 11/23/18 10:00 Dose: 5,000 units Meropenem (Merrem Iv 1 Gm Premix) 1 gm in 50 mls @ 100 mls/hr IVPB Q8 [facility]ON; Protocol Stop: 11/29/18 06:01 Last Admin: 11/23/18 05:21 Dose: 100 mls/hr Vancomycin HCl (Vancomycin 1gm) 1 gm in 250 mls @ 167 mls/hr IVPB Q12H [facility]ON; Protocol Last Admin: 11/23/18 02:00 Dose: 167 mls/hr Potassium Chloride 40 meq/ (Sodium Chloride) 1,020 mls @ 125 mls/hr IV .Q8H10M [facility]ON Last Admin: 11/23/18 11:35 Dose: 125 mls/hr Ibuprofen (Motrin Tab) 400 mg PO Q6H PRN PRN Reason: Fever >100.4 F Last Admin: 11/22/18 21:24 Dose: 400 mg Levetiracetam (Keppra) 500 mg PEG BID KEYON Last Admin: 11/23/18 09:59 Dose: 500 mg Lorazepam (Ativan) 2 mg IVP Q6H PRN; Protocol PRN Reason: Seizure activity Pantoprazole Sodium (Protonix Ec Tab) 40 mg PO 0600 [facility] Last Admin: 11/23/18 05:22 Dose: 40 mg Sodium Hypochlorite (Dakins Solution 0.25%) 100 ml TOP DAILY KEYON - Labs Labs: 11/23/18 08:50 11/23/18 08:50 PT 14.7 SECONDS (9.4-12.5) H 11/23/18 08:50 INR 1.30 11/23/18 08:50 APTT 32.7 Seconds (26.9-38.3) 11/23/18 08:50 - Additional Findings Additional findings: - Constitutional Appears: Cachectic, Chronically Ill - Head Exam Additional comments: craniotomy scars noted. C/D/I, well healed - Eye Exam Eye Exam: Nystagmus Pupil Exam: PERRL - ENT Exam ENT Exam: Mucous Membranes Moist, Normal Exam - Neck Exam Neck Exam: Normal Inspection. absent: Meningismus, Tenderness Additional comments: subcutaneous palpable OUTBOUND SUPERVISOR line along R neck - Respiratory Exam Respiratory Exam: Clear to Ausculation Bilateral, NORMAL BREATHING PATTERN - Cardiovascular Exam Cardiovascular Exam: Tachycardia, REGULAR RHYTHM, +S1, +S2 - GI/Abdominal Exam GI & Abdominal Exam: Soft. absent: Distended, Guarding, Rigid PEG tube in place. No purulence/erythema - Exam Additional comments: soliman in place, draining non-bloody urine - Extremities Exam Extremities Exam: Normal Inspection. absent: Calf Tenderness Additional comments: heel dressings in place - Back Exam Additional comments: dressing noted over stage 4 ulcer - Neurological Exam Neurological Exam: Awake - Skin Skin Exam: Dry, Warm Additional comments: sacral wound with dressing in place - Constitutional Appears: No Acute Distress, Cachectic Assessment and Plan - Assessment and Plan (Free Text) Assessment: 47-year-old male with PMH E. coli bacteremia (ESBL+, treated with merrem), UTI, and sacral decubitus (ESBL+), craniotomy x 2, hydrocephalus s/p [employer] SU[employer] shunt (07/19/18), TBI with intracranial hemorrhage, seizures, PEG tube, IVC filter admitted for sepsis 2/2 decubitus ulcer Plan: Severe Sepsis - Likely 2/2 sacral decubitus ulcer. POD1 (11/22) s/p bedside debridement - wound culture growing gram (+) cocci - history previous ESBL+ wound culture and ESBL+ bacteremia - continue vanc/merrem. IVF @125 mls/hr - Head CT unchanged - continue Wound Care - Motrin 400mg PO Q6H PRN for fever Hx of Seizures - Keppra 500mg PO BID via PEG - Ativan 1mg IVP q6 prn (for seizure) - Seizure precautions, aspiration precautions, fall precautions Hypernatremia - Currently 2 L free water deficit. Urine osm 695, Urine Na 11. Consistent with extrarenal H2O loss. Dehydration - Na = 151 - continue fluid resuscitation 1/2 NS@125 + 40meq Hypokalemia - repleting with IVF - Monitor CMP, Mg, Phos GEORGINA - Initially had increase of Cr 0.3 from baseline - currently resolved - monitor UOP - Avoid nephrotoxic drugs Case reviewed with attending physician, Dr. Sameer Ortez PGY1 <Escobar Johnson - Last Filed: 11/24/18 12:03> Objective - Vital Signs/Intake and Output Vital Signs (last 24 hours): Temp Pulse Resp BP Pulse Ox 97.9 F 96 H 20 109/67 98 11/24/18 06:00 11/24/18 10:00 11/24/18 06:00 11/24/18 06:00 11/24/18 06:00 Intake and Output: 11/24/18 11/24/18 06:59 18:59 Intake Total 600 Output Total 600 Balance 0 - Medications Medications: Current Medications Collagenase (Santyl) 0 gm TOP DAILY KEYON Docusate Sodium (Colace Liquid) 100 mg GT DAILY [facility] Last Admin: 11/24/18 10:16 Dose: 100 mg Heparin Sodium (Porcine) (Heparin) 5,000 units SC Q8 [facility]ON; Protocol Last Admin: 11/24/18 05:22 Dose: 5,000 units Meropenem (Merrem Iv 1 Gm Premix) 1 gm in 50 mls @ 100 mls/hr IVPB Q8 [facility]; Protocol Stop: 11/29/18 06:01 Last Admin: 11/24/18 05:23 Dose: 100 mls/hr Potassium Chloride 40 meq/ (Sodium Chloride) 1,020 mls @ 125 mls/hr IV .Q8H10M [facility] Last Admin: 11/24/18 00:17 Dose: 125 mls/hr Vancomycin HCl (Vancomycin 1gm) 1 gm in 250 mls @ 167 mls/hr IVPB DAILY [facility]; Protocol Last Admin: 11/24/18 10:17 Dose: 167 mls/hr Ibuprofen (Motrin Tab) 400 mg PO Q6H PRN PRN Reason: Fever >100.4 F Last Admin: 11/22/18 21:24 Dose: 400 mg Levetiracetam (Keppra) 500 mg PEG BID [facility]ON Last Admin: 11/24/18 10:17 Dose: 500 mg Lorazepam (Ativan) 2 mg IVP Q6H PRN; Protocol PRN Reason: Seizure activity Pantoprazole Sodium (Protonix Ec Tab) 40 mg PO 0600 [facility] Last Admin: 11/24/18 05:24 Dose: 40 mg Sodium Hypochlorite (Dakins Solution 0.25%) 100 ml TOP DAILY [facility] Last Admin: 11/24/18 10:17 Dose: Not Given - Labs Labs: 11/24/18 07:00 11/24/18 07:00 PT 14.7 SECONDS (9.4-12.5) H 11/23/18 08:50 INR 1.30 11/23/18 08:50 APTT 32.7 Seconds (26.9-38.3) 11/23/18 08:50 Attending/Attestation - Attestation I have personally seen and examined this patient.: Yes I have fully participated in the care of the patient.: Yes I have reviewed all pertinent clinical information, including history, physical exam and plan: Yes Notes (Text): 11/24/18 11:58 Attending note; Patient seen and examined with resident during rounds. Patient is alert and awake. Had T-max of 102.3. Blood pressure is improved. 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 1. Sepsis; possible sources include sacral decubitus, urinary infection and pneumonia. Patient is chronically bedbound. 2. Sacral decubitus ulcer; recently had wound VAC removed. Currently follows up with Dr. Mcintosh in the wound clinic. We will follow-up with surgery. Bedside debridement planned. 3. Leukocytosis; secondary to sepsis . Archibald culture ordered. Started on IV meropenem and vancomycin. Patient has previous history of ESBL UTI and decubitus. ID evaluation requested. 4. Transaminitis. Likely secondary to sepsis. Monitor closely. 5. Seizure Disorder. Continue Keppra. Continue seizure precautions. 6. Hydrocephalus. S/P OUTBOUND SUPERVISOR shunt. 8. Dysphagia/dysphonia; status post stroke . Currently tolerating diet. Patient also has been peg tube in place. 9. GI/DVT prophylaxis. Protonix/Lovenox 10. Patient is a full code. Follow-up with surgery closely.
[2018-11-23] MEDS: Dakin's Topical 0.25%-Half Strength (480 ml) TOP SCH (17:42)
--- NOTE | 2018-11-23 20:57 | CP.PCM.CON ---
History of Present Illness - History of Present Illness History of Present Illness: 47 year old male with PMH of severe sepsis due to ESBL E. coli bacteremia, with urine as the source , sacral decubitus ulcer, S/P [employer] shunt placement after traumatic brain injury, S/P PEG tube placement, history of hydrocephalus was brought in to [facility] because of decreased responsiveness of the patient, associated with decreased intake of food and some lethargy. There was no note of vomiting, no loss of consciousness, no diarrhea. Full ROS is unobtainable because of the patient's mental status. The patient does have a decubitus ulcer on his left hip area and surgery is to debride it. The patient did have fever on admission. Infectious Diseases consult is requested to further evaluate and manage. Review of Systems - Review of Systems All systems: reviewed and no additional remarkable complaints except (as per HPI) Past Patient History - Past Medical History & Family History Past Medical History?: Yes - Past Social History Smoking Status: Never Smoked - CARDIAC Hx Cardiac Disorders: No - PULMONARY Hx Respiratory Disorders: No - NEUROLOGICAL HX Cerebrovascular Accident: Yes Hx Seizures: Yes Other/Comment: TBI---FEBRUARY 2019 THEN CRANIOTOMY X2 - HEENT Hx HEENT Problems: No - RENAL Hx Chronic Kidney Disease: No - ENDOCRINE/METABOLIC Hx Endocrine Disorders: No - HEMATOLOGICAL/ONCOLOGICAL Hx Blood Disorders: No Hx AIDS: No - INTEGUMENTARY Other/Comment: SACRAL DECUBITUS - MUSCULOSKELETAL/RHEUMATOLOGICAL Hx Musculoskeletal Disorders: No Hx Falls: No - GASTROINTESTINAL Other/Comment: PEG TUBE - GENITOURINARY/GYNECOLOGICAL Hx Genitourinary Disorders: Yes Hx Incontinence: Yes - PSYCHIATRIC Hx Substance Use: No Other/Comment: ON TRAZADONE - SURGICAL HISTORY Other/Comment: craniotomyx2 - ANESTHESIA Hx Anesthesia: Yes Hx Anesthesia Reactions: No Hx Malignant Hyperthermia: No Meds Allergies/Adverse Reactions: Allergies Allergy/AdvReac Type Severity Reaction Status Date / Time No Known Allergies Allergy Verified 11/22/18 15:00 - Medications Medications: Current Medications Docusate Sodium (Colace) 100 mg PO DAILY [facility]ON Sodium Chloride (Sodium Chloride 0.45%) 1,000 mls @ 100 mls/hr IV .Q10H ONE Stop: 11/22/18 12:36 Last Admin: 11/22/18 02:37 Dose: 100 mls/hr Sodium Chloride (Sodium Chloride 0.45%) 1,000 mls @ 125 mls/hr IV .Q8H ONE Stop: 11/22/18 11:32 Last Admin: 11/22/18 04:31 Dose: 125 mls/hr Meropenem (Merrem Iv 1 Gm Premix) 1 gm in 50 mls @ 100 mls/hr IVPB Q12 [facility]ON; Protocol Stop: 11/22/18 10:29 Potassium Chloride (Potassium Chloride 10 Meq/100 Ml) 10 meq in 100 mls @ 100 mls/hr IVPB Q2H [facility]ON Stop: 11/22/18 06:44 Ibuprofen (Motrin Tab) 400 mg PO Q6H PRN PRN Reason: Fever >100.4 F Levetiracetam (Keppra) 500 mg PO BID KEYON Lorazepam (Ativan) 2 mg IVP Q6H PRN; Protocol PRN Reason: Seizure activity Pantoprazole Sodium (Protonix Ec Tab) 40 mg PO 0600 [facility] Physical Exam - Constitutional Appears: Chronically Ill - ENT Exam ENT Exam: Mucous Membranes Moist - Respiratory Exam Respiratory Exam: Decreased Breath Sounds - Cardiovascular Exam Cardiovascular Exam: +S1, +S2 - GI/Abdominal Exam GI & Abdominal Exam: Soft. absent: Tenderness - Extremities Exam Additional comments: left hip area with dressings in place Results - Vital Signs Recent Vital Signs: Last Vital Signs Temp 102.3 F H 11/22/18 01:20 Pulse 98 H 11/22/18 05:01 Resp 18 11/22/18 05:01 BP 102/72 11/22/18 05:01 Pulse Ox 100 11/22/18 05:01 - Labs Result Diagrams: 11/23/18 08:50 11/23/18 08:50 Labs: Laboratory Results - last 24 hr 11/22/18 11/22/18 11/22/18 00:54 00:54 00:54 WBC 20.2 H D RBC 4.21 Hgb 11.5 L D Hct 38.6 L MCV 91.7 MCH 27.3 MCHC 29.8 L RDW 18.1 H Plt Count 478 H MPV 9.6 Neut % (Auto) 77.7 H Lymph % (Auto) 16.2 L Isabella % (Auto) 5.6 Eos % (Auto) 0.4 L Baso % (Auto) 0.1 Lymph # (Auto) 3.3 Isabella # (Auto) 1.1 H Eos # (Auto) 0.1 Baso # (Auto) 0.02 Absolute Neuts (auto) 15.70 H PT INR APTT pO2 VBG pH VBG pCO2 VBG HCO3 VBG Total CO2 VBG O2 Sat (Calc) VBG Base Excess VBG Potassium Sodium 158 H* D Chloride 123 H Glucose Lactate FiO2 Crit Value Called To Crit Value Called By Blood Gas Notified Time Potassium 3.2 L Carbon Dioxide 24 Anion Gap 14 BUN 57 H Creatinine 0.8 Est GFR ( Amer) > 60 Est GFR (Non-Af Amer) > 60 Random Glucose 182 H Calcium 10.1 Total Bilirubin 0.3 AST 125 H D ALT 123 H Alkaline Phosphatase 177 H D Total Creatine Kinase CK-MB (CK-2) CK-MB (CK-2) % Troponin I < 0.01 Total Protein 9.1 H Albumin 3.8 Globulin 5.4 Albumin/Globulin Ratio 0.7 L Lipase 59 Venous Blood Potassium Urine Color Urine Appearance Urine pH Ur Specific Waldo Urine Protein Urine Glucose (UA) Urine Ketones Urine Blood Urine Nitrate Urine Bilirubin Urine Urobilinogen Ur Leukocyte Esterase Urine RBC Urine WBC Ur Epithelial Cells Urine Bacteria Influenza Typ A,B (EIA) Negative for flu a/b 11/22/18 11/22/18 11/22/18 00:54 00:54 00:54 WBC RBC Hgb Hct MCV MCH MCHC RDW Plt Count MPV Neut % (Auto) Lymph % (Auto) Isabella % (Auto) Eos % (Auto) Baso % (Auto) Lymph # (Auto) Isabella # (Auto) Eos # (Auto) Baso # (Auto) Absolute Neuts (auto) PT 14.9 H INR 1.34 APTT 34.8 pO2 167 H VBG pH 7.46 H VBG pCO2 34.0 L VBG HCO3 24.2 VBG Total CO2 25.2 VBG O2 Sat (Calc) 100.2 H VBG Base Excess 0.8 VBG Potassium 3.2 L Sodium 162.0 H* Chloride 126.0 H Glucose 185 H Lactate 2.3 H FiO2 21.0 Crit Value Called To Adrianna sandra ed sec Crit Value Called By Jsm Blood Gas Notified Time 119 Potassium Carbon Dioxide Anion Gap BUN Creatinine Est GFR ( Amer) Est GFR (Non-Af Amer) Random Glucose Calcium Total Bilirubin AST ALT Alkaline Phosphatase Total Creatine Kinase CK-MB (CK-2) CK-MB (CK-2) % Troponin I Total Protein Albumin Globulin Albumin/Globulin Ratio Lipase Venous Blood Potassium 3.2 L Urine Color Yellow Urine Appearance Clear Urine pH 6.0 Ur Specific Waldo 1.020 Urine Protein 100 H Urine Glucose (UA) Negative Urine Ketones Negative Urine Blood Large H Urine Nitrate Negative Urine Bilirubin Negative Urine Urobilinogen 0.2 Ur Leukocyte Esterase Trace H Urine RBC 15 - 20 H Urine WBC 1 - 3 Ur Epithelial Cells 0 - 2 Urine Bacteria Occ Influenza Typ A,B (EIA) 11/22/18 00:54 WBC RBC Hgb Hct MCV MCH MCHC RDW Plt Count MPV Neut % (Auto) Lymph % (Auto) Isabella % (Auto) Eos % (Auto) Baso % (Auto) Lymph # (Auto) Isabella # (Auto) Eos # (Auto) Baso # (Auto) Absolute Neuts (auto) PT INR APTT pO2 VBG pH VBG pCO2 VBG HCO3 VBG Total CO2 VBG O2 Sat (Calc) VBG Base Excess VBG Potassium Sodium Chloride Glucose Lactate FiO2 Crit Value Called To Crit Value Called By Blood Gas Notified Time Potassium Carbon Dioxide Anion Gap BUN Creatinine Est GFR ( Amer) Est GFR (Non-Af Amer) Random Glucose Calcium Total Bilirubin AST ALT Alkaline Phosphatase Total Creatine Kinase 267 H CK-MB (CK-2) 1.3 CK-MB (CK-2) % Cancelled Troponin I Total Protein Albumin Globulin Albumin/Globulin Ratio Lipase Venous Blood Potassium Urine Color Urine Appearance Urine pH Ur Specific Waldo Urine Protein Urine Glucose (UA) Urine Ketones Urine Blood Urine Nitrate Urine Bilirubin Urine Urobilinogen Ur Leukocyte Esterase Urine RBC Urine WBC Ur Epithelial Cells Urine Bacteria Influenza Typ A,B (EIA) Assessment & Plan - Assessment and Plan (Free Text) Plan: Assessment systemic inflammatory response syndorme, consider due to left hip decubitus infected ulcer S/P debridement history of severe sepsis due to ESBL E. coli bacteremia, with urine as the sourc e sacral decubitus ulcer S/P [employer] shunt placement after traumatic brain injury S/P PEG tube placement history of hydrocephalus Plan started with Vancomycin and Merrem and follow up wound cx, blood cx follow up further recommendations of surgery will monitor clinically
[2018-11-24] MEDS: Vancomycin 1gm in NS 250ml 1 GM/250 ML BAG IVPB SCH (00:17)
[2018-11-24] MEDS: Potassium Chloride 40 MEQ in Sodium Chloride 0.45% 1,000 ML IV SCH ×3 (00:17→21:44)
[2018-11-24] MEDS: Meropenem IV 1 gm in NS 1 GM/50 ML BAG IVPB SCH ×3 (05:23→21:44)
[2018-11-24] MEDS: Pantoprazole 40 mg EC Tab PO SCH (05:24)
[2018-11-24 07:38] LABS: BASO # 0.01 K/mm3 (0.0-2.0); BASO % 0.1 % (0.0-3.0); EOS # 0.1 (0.0-0.7); EOS % 1.5 % (1.5-5.0); HEMOGLOBIN 9.4 g/dL (14.0-18.0); LYMPH # 2.1 (1.2-3.4); LYMPH % 21.7 % (22.0-35.0); MEAN CELL VOLUME 88.4 fl (80.0-105.0); MEAN CORPUSCULAR HEMOGLOBIN 26.6 pg (25.0-35.0); MEAN PLATELET VOLUME 9.8 fl (7.0-11.0); MONO # 0.4 (0.1-0.6); MONO % 4.5 % (1.0-6.0); RBC 3.54 10^6/uL (3.5-6.1); RED CELL DISTRIBUTION WIDTH 17.6 % (11.5-14.5); WHITE BLOOD COUNT 9.6 10^3/uL (4.5-11.0)
--- NOTE | 2018-11-24 07:47 | CP.PCM.PN ---
Subjective - Date & Time of Evaluation Date of Evaluation: 11/24/18 Time of Evaluation: 07:43 - Subjective Subjective: Surgery Progress Note for Dr. Mcintosh 47M seen and evaluated at bedside this morning. No acute events overnight. Patient complaining of left hand pain where his peripheral IV site is. ROS unobtainable 2/2 mental status. Objective - Vital Signs/Intake and Output Vital Signs (last 24 hours): Temp Pulse Resp BP Pulse Ox 97.1 F L 99 H 19 101/61 99 11/24/18 00:01 11/24/18 02:00 11/24/18 00:01 11/24/18 00:01 11/24/18 00:01 Intake and Output: 11/24/18 11/24/18 06:59 18:59 Intake Total 600 Output Total 600 Balance 0 - Medications Medications: Current Medications Docusate Sodium (Colace Liquid) 100 mg GT DAILY [facility] Last Admin: 11/23/18 09:58 Dose: 100 mg Heparin Sodium (Porcine) (Heparin) 5,000 units SC Q8 [facility]ON; Protocol Last Admin: 11/24/18 05:22 Dose: 5,000 units Meropenem (Merrem Iv 1 Gm Premix) 1 gm in 50 mls @ 100 mls/hr IVPB Q8 [facility]ON; Protocol Stop: 11/29/18 06:01 Last Admin: 11/24/18 05:23 Dose: 100 mls/hr Vancomycin HCl (Vancomycin 1gm) 1 gm in 250 mls @ 167 mls/hr IVPB Q12H [facility]; Protocol Last Admin: 11/24/18 00:17 Dose: 167 mls/hr Potassium Chloride 40 meq/ (Sodium Chloride) 1,020 mls @ 125 mls/hr IV .Q8H10M [facility] Last Admin: 11/24/18 00:17 Dose: 125 mls/hr Ibuprofen (Motrin Tab) 400 mg PO Q6H PRN PRN Reason: Fever >100.4 F Last Admin: 11/22/18 21:24 Dose: 400 mg Levetiracetam (Keppra) 500 mg PEG BID [facility] Last Admin: 11/23/18 17:42 Dose: 500 mg Lorazepam (Ativan) 2 mg IVP Q6H PRN; Protocol PRN Reason: Seizure activity Pantoprazole Sodium (Protonix Ec Tab) 40 mg PO 0600 [facility] Last Admin: 11/24/18 05:24 Dose: 40 mg Sodium Hypochlorite (Dakins Solution 0.25%) 100 ml TOP DAILY [facility] Last Admin: 11/23/18 17:42 Dose: Not Given - Labs Labs: 11/24/18 07:00 11/23/18 08:50 PT 14.7 SECONDS (9.4-12.5) H 11/23/18 08:50 INR 1.30 11/23/18 08:50 APTT 32.7 Seconds (26.9-38.3) 11/23/18 08:50 - Constitutional Appears: Non-toxic, No Acute Distress - Head Exam Head Exam: ATRAUMATIC, NORMAL INSPECTION, NORMOCEPHALIC - Eye Exam Eye Exam: EOMI - ENT Exam ENT Exam: Mucous Membranes Dry - Respiratory Exam Respiratory Exam: absent: Wheezes, Respiratory Distress - GI/Abdominal Exam GI & Abdominal Exam: Soft, Normal Bowel Sounds. absent: Tenderness - Neurological Exam Neurological Exam: Alert, Awake - Skin Additional comments: Sacral and left trochanteric decubitus ulcers - good granulation tissue, no fibrinous or nonviable tissue, dressed w/ optifoam Assessment and Plan - Assessment and Plan (Free Text) Assessment: 47M w/ chronic left trochanteric and sacral decubitus ulcer stage 2 Plan: Will apply wound vac today Continue IV Abx per ID Local wound care Dressing changes PRN D/w Dr. Arnaldo Hartman PGY1
[2018-11-24 08:06] LABS: ALB/GLOB RATIO 0.7 (1.1-1.8); ALBUMIN 2.8 g/dL (3.0-4.8); ALT/SGPT 42 U/L (7-56); AST/SGOT 39 U/L (17-59); BLOOD UREA NITROGEN 7 mg/dL (7-21); CALCIUM 8.7 mg/dL (8.4-10.5); GFR NON-AFRICAN AMERICAN > 60
[2018-11-24] MEDS ORDERED: Vancomycin 1gm in NS 250ml 1 GM/250 ML BAG IVPB SCH (10:00)
[2018-11-24] MEDS: levETIRAcetam 500 mg/5ml UD cups PEG SCH ×2 (10:17→17:34)
[2018-11-24] MEDS: Dakin's Topical 0.25%-Half Strength (480 ml) TOP SCH (10:17)
[2018-11-24] MEDS ORDERED: Collagenase 250 Units/gm Ointment(30 gm) TOP SCH (10:45)
--- NOTE | 2018-11-24 12:26 | CP.PCM.PN ---
Subjective - Date & Time of Evaluation Date of Evaluation: 11/24/18 Time of Evaluation: 10:35 - Subjective Subjective: Comfortable in bed, no fevers. Objective - Vital Signs/Intake and Output Vital Signs (last 24 hours): Temp Pulse Resp BP Pulse Ox 97 F L 106 H 20 100/60 99 11/23/18 17:34 11/23/18 17:34 11/23/18 17:34 11/23/18 17:34 11/23/18 17:34 - Medications Medications: Current Medications Docusate Sodium (Colace Liquid) 100 mg GT DAILY [facility] Last Admin: 11/23/18 09:58 Dose: 100 mg Heparin Sodium (Porcine) (Heparin) 5,000 units SC Q8 [facility]; Protocol Last Admin: 11/23/18 15:29 Dose: 5,000 units Meropenem (Merrem Iv 1 Gm Premix) 1 gm in 50 mls @ 100 mls/hr IVPB Q8 [facility]; Protocol Stop: 11/29/18 06:01 Last Admin: 11/23/18 15:29 Dose: 100 mls/hr Vancomycin HCl (Vancomycin 1gm) 1 gm in 250 mls @ 167 mls/hr IVPB Q12H [facility]; Protocol Last Admin: 11/23/18 15:31 Dose: 167 mls/hr Potassium Chloride 40 meq/ (Sodium Chloride) 1,020 mls @ 125 mls/hr IV .Q8H10M [facility] Last Admin: 11/23/18 11:35 Dose: 125 mls/hr Ibuprofen (Motrin Tab) 400 mg PO Q6H PRN PRN Reason: Fever >100.4 F Last Admin: 11/22/18 21:24 Dose: 400 mg Levetiracetam (Keppra) 500 mg PEG BID [facility] Last Admin: 11/23/18 17:42 Dose: 500 mg Lorazepam (Ativan) 2 mg IVP Q6H PRN; Protocol PRN Reason: Seizure activity Pantoprazole Sodium (Protonix Ec Tab) 40 mg PO 0600 [facility] Last Admin: 11/23/18 05:22 Dose: 40 mg Sodium Hypochlorite (Dakins Solution 0.25%) 100 ml TOP DAILY [facility] Last Admin: 11/23/18 17:42 Dose: Not Given - Labs Labs: 11/23/18 08:50 11/23/18 08:50 PT 14.7 SECONDS (9.4-12.5) H 11/23/18 08:50 INR 1.30 11/23/18 08:50 APTT 32.7 Seconds (26.9-38.3) 11/23/18 08:50 - Constitutional Appears: Chronically Ill - Respiratory Exam Respiratory Exam: Decreased Breath Sounds - Cardiovascular Exam Cardiovascular Exam: +S1, +S2 - GI/Abdominal Exam GI & Abdominal Exam: Soft. absent: Tenderness Assessment and Plan - Assessment and Plan (Free Text) Plan: Assessment systemic inflammatory response syndorme, consider due to left hip decubitus infected ulcer S/P debridement history of severe sepsis due to ESBL E. coli bacteremia, with urine as the source sacral decubitus ulcer S/P [employer] shunt placement after traumatic brain injury S/P PEG tube placement history of hydrocephalus Plan continue Vancomycin and Merrem and follow up wound cx, blood cx follow up further recommendations of surgery will continue to monitor clinically
--- NOTE | 2018-11-24 15:09 | CP.PCM.PN ---
<Chris Ortez - Last Filed: 11/24/18 15:03> Subjective - Date & Time of Evaluation Date of Evaluation: 11/24/18 Time of Evaluation: 11:00 - Subjective Subjective: INTERNAL MEDICINE PROGRESS NOTE FOR DR. SAMEER Ortez PGY1 Pt seen and examined at bedside this am. No acute events overnight. Pt was verbal, awake and alert, denying complaints. Pt was seen with surgery team, while wound vac was being placed. Objective - Vital Signs/Intake and Output Vital Signs (last 24 hours): Temp Pulse Resp BP Pulse Ox 97.9 F 96 H 20 109/67 98 11/24/18 06:00 11/24/18 10:00 11/24/18 06:00 11/24/18 06:00 11/24/18 06:00 Intake and Output: 11/24/18 11/24/18 06:59 18:59 Intake Total 600 Output Total 600 Balance 0 - Medications Medications: Current Medications Collagenase (Santyl) 0 gm TOP DAILY [facility] Docusate Sodium (Colace Liquid) 100 mg GT DAILY [facility] Last Admin: 11/24/18 10:16 Dose: 100 mg Heparin Sodium (Porcine) (Heparin) 5,000 units SC Q8 [facility]; Protocol Last Admin: 11/24/18 05:22 Dose: 5,000 units Meropenem (Merrem Iv 1 Gm Premix) 1 gm in 50 mls @ 100 mls/hr IVPB Q8 [facility]; Protocol Stop: 11/29/18 06:01 Last Admin: 11/24/18 05:23 Dose: 100 mls/hr Potassium Chloride 40 meq/ (Sodium Chloride) 1,020 mls @ 125 mls/hr IV .Q8H10M [facility] Last Admin: 11/24/18 00:17 Dose: 125 mls/hr Vancomycin HCl (Vancomycin 1gm) 1 gm in 250 mls @ 167 mls/hr IVPB DAILY [facility]; Protocol Last Admin: 11/24/18 10:17 Dose: 167 mls/hr Ibuprofen (Motrin Tab) 400 mg PO Q6H PRN PRN Reason: Fever >100.4 F Last Admin: 11/22/18 21:24 Dose: 400 mg Levetiracetam (Keppra) 500 mg PEG BID [facility] Last Admin: 11/24/18 10:17 Dose: 500 mg Lorazepam (Ativan) 2 mg IVP Q6H PRN; Protocol PRN Reason: Seizure activity Pantoprazole Sodium (Protonix Ec Tab) 40 mg PO 0600 [facility] Last Admin: 11/24/18 05:24 Dose: 40 mg Sodium Hypochlorite (Dakins Solution 0.25%) 100 ml TOP DAILY [facility] Last Admin: 11/24/18 10:17 Dose: Not Given - Labs Labs: 11/24/18 07:00 11/24/18 07:00 PT 14.7 SECONDS (9.4-12.5) H 11/23/18 08:50 INR 1.30 11/23/18 08:50 APTT 32.7 Seconds (26.9-38.3) 11/23/18 08:50 - Constitutional Appears: Cachectic, Chronically Ill - Head Exam Additional comments: craniotomy scars noted. C/D/I, well healed - Eye Exam Eye Exam: Nystagmus Pupil Exam: PERRL - ENT Exam ENT Exam: Mucous Membranes Moist, Normal Exam - Neck Exam Neck Exam: Normal Inspection. absent: Meningismus, Tenderness Additional comments: subcutaneous palpable DEALMAKER line along R neck - Respiratory Exam Respiratory Exam: Clear to Ausculation Bilateral, NORMAL BREATHING PATTERN - Cardiovascular Exam Cardiovascular Exam: Tachycardia, REGULAR RHYTHM, +S1, +S2 - GI/Abdominal Exam GI & Abdominal Exam: Soft. absent: Distended, Guarding, Rigid PEG tube in place. No purulence/erythema - Exam Additional comments: soliman in place, draining non-bloody urine - Extremities Exam Extremities Exam: Normal Inspection. absent: Calf Tenderness Additional comments: heel dressings in place - Back Exam Additional comments: Wound vac and dressing noted over stage 4 ulcer - Neurological Exam Neurological Exam: Awake - Skin Skin Exam: Dry, Warm Additional comments: sacral wound with dressing in place Assessment and Plan - Assessment and Plan (Free Text) Assessment: 47-year-old male with PMH E. coli bacteremia (ESBL+, treated with merrem), UTI, and sacral decubitus (ESBL+), craniotomy x 2, hydrocephalus s/p DEALMAKER shunt (07/19/18), TBI with intracranial hemorrhage, seizures, PEG tube, IVC filter admitted for sepsis 2/2 decubitus ulcer Plan: Severe Sepsis - Likely 2/2 sacral decubitus ulcer. POD2 (11/22) s/p bedside sacral/trochanter debridement - wound culture growing gram (+) cocci, history previous ESBL+ wound culture and ESBL+ bacteremia. Flu (-) - continue vanc/merrem. IVF w/ potassium supplementation @125 mls/hr - Head CT unchanged - continue Wound Care. continue collagenase per surgery recs - Motrin 400mg PO Q6H PRN for fever Hx of Seizures - Keppra 500mg PO BID via PEG - Ativan 1mg IVP q6 prn (for seizure) - Seizure precautions, aspiration precautions, fall precautions Hypernatremia - resolved - continue fluid resuscitation 08/09 NS@125 + 40meq Hypokalemia - resolved - repleting with IVF - Monitor CMP, Mg, Phos GEORGINA - Initially had increase of Cr 0.3 from baseline - currently resolved - monitor UOP - Avoid nephrotoxic drugs Dispo: Pending block and case maker approval for home wound vac. Pt lives at home with mother who is the primary physician/ophthalmologist Case reviewed with attending physician, Dr. Sameer Ortez PGY1 <Escobar Johnson - Last Filed: 11/24/18 15:19> Objective - Vital Signs/Intake and Output Vital Signs (last 24 hours): Temp Pulse Resp BP Pulse Ox 97.9 F 96 H 20 109/67 98 11/24/18 06:00 11/24/18 10:00 11/24/18 06:00 11/24/18 06:00 11/24/18 06:00 Intake and Output: 11/24/18 11/24/18 06:59 18:59 Intake Total 600 Output Total 600 Balance 0 - Medications Medications: Current Medications Collagenase (Santyl) 0 gm TOP DAILY [facility] Docusate Sodium (Colace Liquid) 100 mg GT DAILY [facility] Last Admin: 11/24/18 10:16 Dose: 100 mg Heparin Sodium (Porcine) (Heparin) 5,000 units SC Q8 [facility]; Protocol Last Admin: 11/24/18 05:22 Dose: 5,000 units Meropenem (Merrem Iv 1 Gm Premix) 1 gm in 50 mls @ 100 mls/hr IVPB Q8 [facility]; Protocol Stop: 11/29/18 06:01 Last Admin: 11/24/18 05:23 Dose: 100 mls/hr Potassium Chloride 40 meq/ (Sodium Chloride) 1,020 mls @ 125 mls/hr IV .Q8H10M [facility] Last Admin: 11/24/18 00:17 Dose: 125 mls/hr Vancomycin HCl (Vancomycin 1gm) 1 gm in 250 mls @ 167 mls/hr IVPB DAILY [facility]; Protocol Last Admin: 11/24/18 10:17 Dose: 167 mls/hr Ibuprofen (Motrin Tab) 400 mg PO Q6H PRN PRN Reason: Fever >100.4 F Last Admin: 11/22/18 21:24 Dose: 400 mg Levetiracetam (Keppra) 500 mg PEG BID [facility] Last Admin: 11/24/18 10:17 Dose: 500 mg Lorazepam (Ativan) 2 mg IVP Q6H PRN; Protocol PRN Reason: Seizure activity Pantoprazole Sodium (Protonix Ec Tab) 40 mg PO 0600 [facility] Last Admin: 11/24/18 05:24 Dose: 40 mg Sodium Hypochlorite (Dakins Solution 0.25%) 100 ml TOP DAILY [facility] Last Admin: 11/24/18 10:17 Dose: Not Given - Labs Labs: 11/24/18 07:00 11/24/18 07:00 PT 14.7 SECONDS (9.4-12.5) H 11/23/18 08:50 INR 1.30 11/23/18 08:50 APTT 32.7 Seconds (26.9-38.3) 11/23/18 08:50 Attending/Attestation - Attestation I have personally seen and examined this patient.: Yes I have fully participated in the care of the patient.: Yes I have reviewed all pertinent clinical information, including history, physical exam and plan: Yes Notes (Text): 11/24/18 15:15 Attending note; Patient seen and examined with resident. Patient is alert and awake. Surgery residents were at the bedside placing wound VAC. Wound care nurse by the bedside. Local wound care done. Patient is a 47 year old male with past medical history significant for DEALMAKER shunt, traumatic brain injury causing intracranial hemorrhage, seizure disorder, dysphagia s/p PEG, and hypophonic voice, sepsis , sacral decubitus , bedbound is admitted for fevers. 1. Sepsis; possible sources include sacral decubitus. Wound culture is positive for Staphylococcus. Patient is chronically bedbound. Turn position frequently. 2. Sacral decubitus ulcer; status post bedside debridement. Wound VAC placed today. 3. Leukocytosis; secondary to sepsis. Leukocytosis resolved. Culture, urine culture is negative. started on IV meropenem and vancomycin. Patient has previous history of ESBL UTI and decubitus. ID evaluation appreciated. 4. Transaminitis. Likely secondary to sepsis. Resolved. 5. Seizure Disorder. Continue Keppra. Continue seizure precautions. 6. Hydrocephalus. S/P DEALMAKER shunt. 8. Dysphagia/dysphonia; status post stroke . Currently tolerating diet. 9. GI/DVT prophylaxis. Protonix/Lovenox 10. Patient is a full code. Patient needs to go home with wound VAC. Case discussed with case operator in detail. Upon discharge the patient will follow up with PMD Dr. Mcdonough.
[2018-11-25] MEDS: Potassium Chloride 40 MEQ in Sodium Chloride 0.45% 1,000 ML IV SCH ×2 (05:21→21:38)
[2018-11-25] MEDS: Meropenem IV 1 gm in NS 1 GM/50 ML BAG IVPB SCH ×3 (05:56→21:38)
[2018-11-25 07:00] LABS: BASO # 0.01 K/mm3 (0.0-2.0); BASO % 0.1 % (0.0-3.0); EOS # 0.1 (0.0-0.7); EOS % 1.4 % (1.5-5.0); HEMOGLOBIN 9.6 g/dL (14.0-18.0); LYMPH # 2.2 (1.2-3.4); LYMPH % 25.4 % (22.0-35.0); MEAN CELL VOLUME 85.8 fl (80.0-105.0); MEAN CORPUSCULAR HEMOGLOBIN 26.8 pg (25.0-35.0); MEAN CORPUSCULAR HGB CONC 31.3 g/dl (31.0-37.0); MEAN PLATELET VOLUME 9.8 fl (7.0-11.0); MONO # 0.5 (0.1-0.6); MONO % 5.5 % (1.0-6.0); RBC 3.58 10^6/uL (3.5-6.1); RED CELL DISTRIBUTION WIDTH 16.8 % (11.5-14.5); WHITE BLOOD COUNT 8.7 10^3/uL (4.5-11.0)
[2018-11-25 07:10] LABS: ALB/GLOB RATIO 0.7 (1.1-1.8); ALBUMIN 2.9 g/dL (3.0-4.8); ALT/SGPT 34 U/L (7-56); AST/SGOT 40 U/L (17-59); BLOOD UREA NITROGEN 7 mg/dL (7-21); GFR NON-AFRICAN AMERICAN > 60
--- NOTE | 2018-11-25 07:59 | CP.PCM.PN ---
Subjective - Date & Time of Evaluation Date of Evaluation: 11/25/18 Time of Evaluation: 07:55 - Subjective Subjective: Surgery Progress Note for Dr. Mcintosh 47M seen and evaluated at bedside this morning. Patient's wound vac leaking this morning, was readjusted. Right ischial wound dressing changed. No complaints this morning. Denies f/c, n/v/d, SOB, CP, or urinary symptoms. Objective - Vital Signs/Intake and Output Vital Signs (last 24 hours): Temp Pulse Resp BP Pulse Ox 98.6 F 90 20 118/83 96 11/24/18 18:00 11/25/18 06:00 11/24/18 18:00 11/24/18 18:00 11/24/18 18:00 Intake and Output: 11/25/18 11/25/18 06:59 18:59 Intake Total 1760 Output Total 350 Balance 1410 - Medications Medications: Current Medications Collagenase (Santyl) 0 gm TOP DAILY [facility] Last Admin: 11/24/18 15:45 Dose: Not Given Docusate Sodium (Colace Liquid) 100 mg GT DAILY [facility] Last Admin: 11/24/18 10:16 Dose: 100 mg Heparin Sodium (Porcine) (Heparin) 5,000 units SC Q8 [facility]; Protocol Last Admin: 11/25/18 05:21 Dose: 5,000 units Meropenem (Merrem Iv 1 Gm Premix) 1 gm in 50 mls @ 100 mls/hr IVPB Q8 [facility]; Protocol Stop: 11/29/18 06:01 Last Admin: 11/25/18 05:56 Dose: 100 mls/hr Potassium Chloride 40 meq/ (Sodium Chloride) 1,020 mls @ 125 mls/hr IV .Q8H10M [facility] Last Admin: 11/25/18 05:21 Dose: 125 mls/hr Vancomycin HCl (Vancomycin 1gm) 1 gm in 250 mls @ 167 mls/hr IVPB DAILY [facility]; Protocol Last Admin: 11/24/18 10:17 Dose: 167 mls/hr Ibuprofen (Motrin Tab) 400 mg PO Q6H PRN PRN Reason: Fever >100.4 F Last Admin: 11/22/18 21:24 Dose: 400 mg Levetiracetam (Keppra) 500 mg PEG BID [facility] Last Admin: 11/24/18 17:34 Dose: 500 mg Lorazepam (Ativan) 2 mg IVP Q6H PRN; Protocol PRN Reason: Seizure activity Pantoprazole Sodium (Protonix Ec Tab) 40 mg PO 0600 [facility] Last Admin: 11/24/18 05:24 Dose: 40 mg Sodium Hypochlorite (Dakins Solution 0.25%) 100 ml TOP DAILY [facility] Last Admin: 11/24/18 10:17 Dose: Not Given - Labs Labs: 11/25/18 06:10 11/25/18 06:10 PT 14.7 SECONDS (9.4-12.5) H 11/23/18 08:50 INR 1.30 11/23/18 08:50 APTT 32.7 Seconds (26.9-38.3) 11/23/18 08:50 - Constitutional Appears: Well, Non-toxic, No Acute Distress - Eye Exam Eye Exam: EOMI - ENT Exam ENT Exam: Mucous Membranes Moist - Respiratory Exam Respiratory Exam: Clear to Ausculation Bilateral, NORMAL BREATHING PATTERN. absent: Wheezes, Respiratory Distress - Cardiovascular Exam Cardiovascular Exam: REGULAR RHYTHM, +S1, +S2. absent: Murmur - GI/Abdominal Exam GI & Abdominal Exam: Soft, Normal Bowel Sounds. absent: Tenderness - Rectal Exam Rectal Exam: NORMAL INSPECTION - Neurological Exam Neurological Exam: Alert, Awake, Oriented x3 - Skin Additional comments: Sacral and left ischial wound vac in place - leak noted, reinforced and no leak noted anymore Assessment and Plan - Assessment and Plan (Free Text) Assessment: 47M w/ chronic left ischial and sacral stage 3 decubitus ulcer s/p wound vac placement 11/23 Plan: Wound vac - low, cont 125mmHg Change wound vac Mondays and Monitor for leakage Maintain area clean and dry so as not to disrupt wound vac adhesive Turn and reposition Q2 Air mattress Wound care team on board for wound vac management Medical management per primary team D/w Dr. Arnaldo Hartman PGY1
[2018-11-25] MEDS ORDERED: Vancomycin 1gm in NS 250ml 1 GM/250 ML BAG IVPB SCH (09:45)
[2018-11-25] MEDS: Enoxaparin 40 mg Syringe SC SCH (10:06)
[2018-11-25] MEDS: levETIRAcetam 500 mg/5ml UD cups PEG SCH (10:07)
--- NOTE | 2018-11-25 11:52 | CP.PCM.PN ---
Subjective - Date & Time of Evaluation Date of Evaluation: 11/25/18 Time of Evaluation: 09:55 - Subjective Subjective: Comfortable in bed, afebrile. Objective - Vital Signs/Intake and Output Vital Signs (last 24 hours): Temp Pulse Resp BP Pulse Ox 97.9 F 96 H 20 109/67 98 11/24/18 06:00 11/24/18 10:00 11/24/18 06:00 11/24/18 06:00 11/24/18 06:00 Intake and Output: 11/24/18 11/24/18 06:59 18:59 Intake Total 600 Output Total 600 Balance 0 - Medications Medications: Current Medications Collagenase (Santyl) 0 gm TOP DAILY [facility] Docusate Sodium (Colace Liquid) 100 mg GT DAILY [facility] Last Admin: 11/24/18 10:16 Dose: 100 mg Heparin Sodium (Porcine) (Heparin) 5,000 units SC Q8 [facility]; Protocol Last Admin: 11/24/18 05:22 Dose: 5,000 units Meropenem (Merrem Iv 1 Gm Premix) 1 gm in 50 mls @ 100 mls/hr IVPB Q8 [facility]; Protocol Stop: 11/29/18 06:01 Last Admin: 11/24/18 05:23 Dose: 100 mls/hr Potassium Chloride 40 meq/ (Sodium Chloride) 1,020 mls @ 125 mls/hr IV .Q8H10M [facility] Last Admin: 11/24/18 00:17 Dose: 125 mls/hr Vancomycin HCl (Vancomycin 1gm) 1 gm in 250 mls @ 167 mls/hr IVPB DAILY [facility]; Protocol Last Admin: 11/24/18 10:17 Dose: 167 mls/hr Ibuprofen (Motrin Tab) 400 mg PO Q6H PRN PRN Reason: Fever >100.4 F Last Admin: 11/22/18 21:24 Dose: 400 mg Levetiracetam (Keppra) 500 mg PEG BID [facility] Last Admin: 11/24/18 10:17 Dose: 500 mg Lorazepam (Ativan) 2 mg IVP Q6H PRN; Protocol PRN Reason: Seizure activity Pantoprazole Sodium (Protonix Ec Tab) 40 mg PO 0600 [facility] Last Admin: 11/24/18 05:24 Dose: 40 mg Sodium Hypochlorite (Dakins Solution 0.25%) 100 ml TOP DAILY [facility] Last Admin: 11/24/18 10:17 Dose: Not Given - Labs Labs: 11/24/18 07:00 11/24/18 07:00 PT 14.7 SECONDS (9.4-12.5) H 11/23/18 08:50 INR 1.30 11/23/18 08:50 APTT 32.7 Seconds (26.9-38.3) 11/23/18 08:50 - Constitutional Appears: Chronically Ill - Head Exam Head Exam: NORMAL INSPECTION - Respiratory Exam Respiratory Exam: Decreased Breath Sounds - Cardiovascular Exam Cardiovascular Exam: +S1, +S2 - GI/Abdominal Exam GI & Abdominal Exam: Soft. absent: Tenderness Additional comments: sacral area with dressings in place Assessment and Plan - Assessment and Plan (Free Text) Plan: Assessment systemic inflammatory response syndorme, consider due to left hip decubitus infected ulcer S/P debridement, growing MSSA in the wound but previously had ESBL-producing bacteria history of severe sepsis due to ESBL E. 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
--- NOTE | 2018-11-25 13:47 | CP.PCM.PN ---
<Chris Ortez - Last Filed: 11/25/18 13:39> Subjective - Date & Time of Evaluation Date of Evaluation: 11/25/18 Time of Evaluation: 08:00 - Subjective Subjective: INTERNAL MEDICINE PROGRESS NOTE FOR DR. SAMEER Ortez PGY1 Pt seen and examined at bedside this am. No acute events overnight. Pt denying complaints. Objective - Vital Signs/Intake and Output Vital Signs (last 24 hours): Temp Pulse Resp BP Pulse Ox 98.5 F 98 H 19 129/60 100 11/25/18 08:11 11/25/18 08:11 11/25/18 08:11 11/25/18 08:11 11/25/18 08:11 Intake and Output: 11/25/18 11/25/18 06:59 18:59 Intake Total 1760 Output Total 450 Balance 1310 - Medications Medications: Current Medications Collagenase (Santyl) 0 gm TOP DAILY [facility] Last Admin: 11/24/18 15:45 Dose: Not Given Docusate Sodium (Colace Liquid) 100 mg GT DAILY [facility] Last Admin: 11/25/18 10:08 Dose: 100 mg Enoxaparin Sodium (Lovenox) 40 mg SC DAILY [facility]; Protocol Last Admin: 11/25/18 10:06 Dose: 40 mg Meropenem (Merrem Iv 1 Gm Premix) 1 gm in 50 mls @ 100 mls/hr IVPB Q8 [facility]; Protocol Stop: 11/29/18 06:01 Last Admin: 11/25/18 13:27 Dose: 100 mls/hr Potassium Chloride 40 meq/ (Sodium Chloride) 1,020 mls @ 125 mls/hr IV .Q8H10M [facility] Last Admin: 11/25/18 05:21 Dose: 125 mls/hr Ibuprofen (Motrin Tab) 400 mg PO Q6H PRN PRN Reason: Fever >100.4 F Last Admin: 11/22/18 21:24 Dose: 400 mg Levetiracetam (Keppra) 500 mg PEG BID [facility] Last Admin: 11/25/18 10:07 Dose: 500 mg Lorazepam (Ativan) 2 mg IVP Q6H PRN; Protocol PRN Reason: Seizure activity Pantoprazole Sodium (Protonix Ec Tab) 40 mg PO 0600 [facility] Last Admin: 11/24/18 05:24 Dose: 40 mg Sodium Hypochlorite (Dakins Solution 0.25%) 100 ml TOP DAILY [facility] Last Admin: 11/24/18 10:17 Dose: Not Given - Labs Labs: 11/25/18 06:10 11/25/18 06:10 PT 14.7 SECONDS (9.4-12.5) H 11/23/18 08:50 INR 1.30 11/23/18 08:50 APTT 32.7 Seconds (26.9-38.3) 11/23/18 08:50 - Constitutional Appears: Cachectic, Chronically Ill - Head Exam Additional comments: craniotomy scars noted. C/D/I, well healed - Eye Exam Eye Exam: Nystagmus Pupil Exam: PERRL - ENT Exam ENT Exam: Mucous Membranes Moist, Normal Exam - Neck Exam Neck Exam: Normal Inspection. absent: Meningismus, Tenderness Additional comments: subcutaneous palpable CLIENT INSIGHTS CONSULTANT line along R neck - Respiratory Exam Respiratory Exam: Clear to Ausculation Bilateral, NORMAL BREATHING PATTERN - Cardiovascular Exam Cardiovascular Exam: Tachycardia, REGULAR RHYTHM, +S1, +S2 - GI/Abdominal Exam GI & Abdominal Exam: Soft. absent: Distended, Guarding, Rigid PEG tube in place. No purulence/erythema - Exam Additional comments: soliman in place, draining non-bloody urine - Extremities Exam Extremities Exam: Normal Inspection. absent: Calf Tenderness Additional comments: heel dressings in place - Back Exam Additional comments: Wound vac and dressing noted over stage 4 ulcer. Minimal drainage - Neurological Exam Neurological Exam: Awake - Skin Skin Exam: Dry, Warm Additional comments: sacral wound vac in place Assessment and Plan - Assessment and Plan (Free Text) Assessment: 47-year-old male with PMH E. 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 POD2 (11/22) s/p bedside sacral/trochanter debridement - wound culture growing s. aureus, history previous ESBL+ wound culture and ESBL+ bacteremia. Flu (-) - continue merrem. IVF w/ potassium supplementation @125 mls/hr - Head CT unchanged - continue Wound Care. continue collagenase per surgery recs - Motrin 400mg PO Q6H PRN for fever Hx of Seizures - Keppra 500mg PO BID via PEG - Ativan 1mg IVP q6 prn (for seizure) - Seizure precautions, aspiration precautions, fall precautions Hypernatremia - resolved - continue fluid resuscitation 1/2 NS@125 + 40meq Hypokalemia - resolved - repleting with IVF - Monitor CMP, Mg, Phos GEORGINA - Initially had increase of Cr 0.3 from baseline - currently resolved - monitor UOP - Avoid nephrotoxic drugs Dispo: Pending human services case manager approval for home wound vac. Pt lives at home with mother who is the primary loss prevention leader DVT/GI: protonix/lovenox Case reviewed with attending physician, Dr. Sameer Ortez PGY1 <Escobar Johnson - Last Filed: 11/26/18 11:29> Objective - Vital Signs/Intake and Output Vital Signs (last 24 hours): Temp Pulse Resp BP Pulse Ox 98 F 106 H 20 98/68 L 98 11/26/18 08:22 11/26/18 08:22 11/26/18 08:22 11/26/18 08:22 11/26/18 08:22 Intake and Output: 11/26/18 11/26/18 06:59 18:59 Intake Total 480 Output Total 550 Balance -70 - Medications Medications: Current Medications Ascorbic Acid (Vitamin C 500 Mg Tab) 500 mg PO BID [facility] Collagenase (Santyl) 0 gm TOP DAILY [facility] Last Admin: 11/24/18 15:45 Dose: Not Given Docusate Sodium (Colace Liquid) 100 mg GT DAILY [facility] Last Admin: 11/26/18 10:25 Dose: 100 mg Enoxaparin Sodium (Lovenox) 40 mg SC DAILY [facility]; Protocol Last Admin: 11/26/18 10:25 Dose: 40 mg Meropenem (Merrem Iv 1 Gm Premix) 1 gm in 50 mls @ 100 mls/hr IVPB Q8 [facility]; Protocol Stop: 11/29/18 06:01 Last Admin: 11/26/18 06:25 Dose: 100 mls/hr Potassium Chloride 40 meq/ (Sodium Chloride) 1,020 mls @ 75 mls/hr IV .[id number] [facility] Last Admin: 11/26/18 04:23 Dose: Not Given Ibuprofen (Motrin Tab) 400 mg PO Q6H PRN PRN Reason: Fever >100.4 F Last Admin: 11/22/18 21:24 Dose: 400 mg Levetiracetam (Keppra) 500 mg PEG BID [facility] Last Admin: 11/26/18 10:25 Dose: 500 mg Lorazepam (Ativan) 2 mg IVP Q6H PRN; Protocol PRN Reason: Seizure activity Multivitamins/Minerals (Therapeutic-M Tab) 1 tab PO 0800 [facility] Pantoprazole Sodium (Protonix Susp) 40 mg PO 0600 [facility] Last Admin: 11/26/18 06:26 Dose: 40 mg Sodium Hypochlorite (Dakins Solution 0.25%) 100 ml TOP DAILY [facility] Last Admin: 11/24/18 10:17 Dose: Not Given Zinc Sulfate (Zinc Sulfate 220 Mg Cap) 220 mg PO DAILY [facility] - Labs Labs: 11/25/18 06:10 11/25/18 06:10 PT 14.7 SECONDS (9.4-12.5) H 11/23/18 08:50 INR 1.30 11/23/18 08:50 APTT 32.7 Seconds (26.9-38.3) 11/23/18 08:50 Attending/Attestation - Attestation I have personally seen and examined this patient.: Yes I have fully participated in the care of the patient.: Yes I have reviewed all pertinent clinical information, including history, physical exam and plan: Yes Notes (Text): 11/26/18 11:22 Attending note; Patient seen and examined with resident. Patient is alert and awake. s/p wound vac placement yesterday. Patient is a 47 year old male with past medical history significant for CLIENT INSIGHTS CONSULTANT shunt, traumatic brain injury causing intracranial hemorrhage, seizure disorder, dysphagia s/p PEG, and hypophonic voice, sepsis , sacral decubitus , bedbound is admitted for fevers. 1. Sepsis; resolved. Secondary to sacral decubitus. Wound culture is positive for Staphylococcus. Patient is chronically bedbound. Turn position frequently. 2. Sacral decubitus ulcer; status post bedside debridement. Wound VAC placed. Monitor closely. 3. Leukocytosis; resolved. Culture, urine culture is negative. Wound cultures positive for MSSA . Patient has previous history of ESBL UTI and decubitus. ID evaluation appreciated. Currently on meropenem. Will switch to p.o. Augmentin upon discharge. Case discussed with ID in detail. 4. Transaminitis. Likely secondary to sepsis. Resolved. 5. Seizure Disorder. Continue Keppra. Continue seizure precautions. 6. Hydrocephalus. S/P CLIENT INSIGHTS CONSULTANT shunt. 8. Dysphagia/dysphonia; status post stroke . Currently tolerating diet. Dietitian evaluation requested. We will start supplemental PEG feeding at night. Patient takes p.o. diet during the daytime. 9. GI/DVT prophylaxis. Protonix/Lovenox 10. Patient is a full code. Patient needs to go home with wound VAC. Paperwork will be completed by yuki michael. Case discussed with disability case manager in detail. We will discuss discharge planning with disability case manager tomorrow. Upon discharge the patient will follow up with PMD Dr. Mcdonough.
[2018-11-26] MEDS: Potassium Chloride 40 MEQ in Sodium Chloride 0.45% 1,000 ML IV SCH (04:23)
[2018-11-26] MEDS: Meropenem IV 1 gm in NS 1 GM/50 ML BAG IVPB SCH ×3 (06:25→22:20)
[2018-11-26] MEDS: Pantoprazole 40 mg Susp UD PO SCH (06:26)
--- NOTE | 2018-11-26 07:35 | CP.PCM.PN ---
Subjective - Date & Time of Evaluation Date of Evaluation: 11/26/18 Time of Evaluation: 07:30 - Subjective Subjective: Surgery Progress Note for Dr. Mcintosh 47M seen and evaluated at bedside this morning. No acute events overnight. Patient wound vac leaking this morning after repositioning. Condom cath noted to have fallen out. Soliman placed. Afebrile. Remains on contact for history of ESBL. Objective - Vital Signs/Intake and Output Vital Signs (last 24 hours): Temp Pulse Resp BP Pulse Ox 98.8 F 113 H 18 132/64 99 11/25/18 16:45 11/26/18 02:00 11/25/18 16:45 11/25/18 16:45 11/25/18 16:45 Intake and Output: 11/26/18 11/26/18 06:59 18:59 Intake Total 480 Output Total 550 Balance -70 - Medications Medications: Current Medications Collagenase (Santyl) 0 gm TOP DAILY [facility] Last Admin: 11/24/18 15:45 Dose: Not Given Docusate Sodium (Colace Liquid) 100 mg GT DAILY [facility] Last Admin: 11/25/18 10:08 Dose: 100 mg Enoxaparin Sodium (Lovenox) 40 mg SC DAILY [facility]; Protocol Last Admin: 11/25/18 10:06 Dose: 40 mg Meropenem (Merrem Iv 1 Gm Premix) 1 gm in 50 mls @ 100 mls/hr IVPB Q8 [facility]; Protocol Stop: 11/29/18 06:01 Last Admin: 11/26/18 06:25 Dose: 100 mls/hr Potassium Chloride 40 meq/ (Sodium Chloride) 1,020 mls @ 75 mls/hr IV .[id number] [facility] Last Admin: 11/26/18 04:23 Dose: Not Given Ibuprofen (Motrin Tab) 400 mg PO Q6H PRN PRN Reason: Fever >100.4 F Last Admin: 11/22/18 21:24 Dose: 400 mg Levetiracetam (Keppra) 500 mg PEG BID [facility] Last Admin: 11/25/18 10:07 Dose: 500 mg Lorazepam (Ativan) 2 mg IVP Q6H PRN; Protocol PRN Reason: Seizure activity Pantoprazole Sodium (Protonix Susp) 40 mg PO 0600 [facility] Last Admin: 11/26/18 06:26 Dose: 40 mg Sodium Hypochlorite (Dakins Solution 0.25%) 100 ml TOP DAILY [facility] Last Admin: 11/24/18 10:17 Dose: Not Given - Labs Labs: 11/25/18 06:10 11/25/18 06:10 PT 14.7 SECONDS (9.4-12.5) H 11/23/18 08:50 INR 1.30 11/23/18 08:50 APTT 32.7 Seconds (26.9-38.3) 11/23/18 08:50 - Constitutional Appears: Well, Non-toxic, No Acute Distress - Eye Exam Eye Exam: EOMI - ENT Exam ENT Exam: Mucous Membranes Dry - Respiratory Exam Respiratory Exam: NORMAL BREATHING PATTERN. absent: Wheezes, Respiratory Distress - Cardiovascular Exam Cardiovascular Exam: REGULAR RHYTHM, +S1, +S2 - GI/Abdominal Exam GI & Abdominal Exam: Soft, Normal Bowel Sounds. absent: Tenderness - Extremities Exam Extremities Exam: Normal Inspection. absent: Pedal Edema - Neurological Exam Neurological Exam: Alert, Awake - Psychiatric Exam Psychiatric exam: Flat Affect - Skin Additional comments: sacral and left ischial wound vac adjusted and reinforced - no leak noted cont 125mmHg right ischial wound santyl+mepelex dressing changed c/d/i Assessment and Plan - Assessment and Plan (Free Text) Assessment: 47M w/ chronic sacral and left ischial decubitus ulcer s/p wound vac placement Plan: Leakage from wound vac noted again 2/2 soiling from displaced condom cath Replaced condom cath with soliman to maintain clean, dry area around wound vac so as to preserve adhesive Wound vac reinforced with no leakage noted - low, cont 125mmHg Next wound vac change 11/28 Santyl+mepelex on right ischial wound, change dressing daily Turn and reposition Q2 Clinitron mattress Wound care nurse on board for wound vac management Continue medical management per primary team D/w Dr. Arnaldo Hartman PGY1
[2018-11-26] MEDS: Enoxaparin 40 mg Syringe SC SCH (10:25)
[2018-11-26] MEDS: levETIRAcetam 500 mg/5ml UD cups PEG SCH ×2 (10:25→18:47)
--- NOTE | 2018-11-26 11:53 | CP.PCM.PN ---
<Chris Ortez - Last Filed: 11/26/18 11:49> Subjective - Date & Time of Evaluation Date of Evaluation: 11/26/18 Time of Evaluation: 11:49 - Subjective Subjective: INTERNAL MEDICINE PROGRESS NOTE FOR DR. SAMEER Ortez PGY1 Pt seen and examined at bedside this am. No acute events overnight. Pt is verbal, talking. IV from was L arm was removed d/t infiltration. He denies 12 point ROS Objective - Vital Signs/Intake and Output Vital Signs (last 24 hours): Temp Pulse Resp BP Pulse Ox 98 F 106 H 20 98/68 L 98 11/26/18 08:22 11/26/18 08:22 11/26/18 08:22 11/26/18 08:22 11/26/18 08:22 Intake and Output: 11/26/18 11/26/18 06:59 18:59 Intake Total 480 Output Total 550 Balance -70 - Medications Medications: Current Medications Ascorbic Acid (Vitamin C 500 Mg Tab) 500 mg PO BID [facility] Collagenase (Santyl) 0 gm TOP DAILY [facility] Last Admin: 11/24/18 15:45 Dose: Not Given Docusate Sodium (Colace Liquid) 100 mg GT DAILY [facility] Last Admin: 11/26/18 10:25 Dose: 100 mg Enoxaparin Sodium (Lovenox) 40 mg SC DAILY [facility]; Protocol Last Admin: 11/26/18 10:25 Dose: 40 mg Meropenem (Merrem Iv 1 Gm Premix) 1 gm in 50 mls @ 100 mls/hr IVPB Q8 [facility]; Protocol Stop: 11/29/18 06:01 Last Admin: 11/26/18 06:25 Dose: 100 mls/hr Potassium Chloride 40 meq/ (Sodium Chloride) 1,020 mls @ 75 mls/hr IV .[id number] [facility] Last Admin: 11/26/18 04:23 Dose: Not Given Ibuprofen (Motrin Tab) 400 mg PO Q6H PRN PRN Reason: Fever >100.4 F Last Admin: 11/22/18 21:24 Dose: 400 mg Levetiracetam (Keppra) 500 mg PEG BID [facility] Last Admin: 11/26/18 10:25 Dose: 500 mg Lorazepam (Ativan) 2 mg IVP Q6H PRN; Protocol PRN Reason: Seizure activity Multivitamins/Minerals (Therapeutic-M Tab) 1 tab PO 0800 [facility] Pantoprazole Sodium (Protonix Susp) 40 mg PO 0600 [facility] Last Admin: 11/26/18 06:26 Dose: 40 mg Sodium Hypochlorite (Dakins Solution 0.25%) 100 ml TOP DAILY [facility] Last Admin: 11/24/18 10:17 Dose: Not Given Zinc Sulfate (Zinc Sulfate 220 Mg Cap) 220 mg PO DAILY [facility] - Labs Labs: 11/25/18 06:10 11/25/18 06:10 PT 14.7 SECONDS (9.4-12.5) H 11/23/18 08:50 INR 1.30 11/23/18 08:50 APTT 32.7 Seconds (26.9-38.3) 11/23/18 08:50 - Constitutional Appears: Cachectic, Chronically Ill - Head Exam Additional comments: craniotomy scars noted. C/D/I, well healed - Eye Exam Eye Exam: Nystagmus Pupil Exam: PERRL - ENT Exam ENT Exam: Mucous Membranes Moist, Normal Exam - Neck Exam Neck Exam: Normal Inspection. absent: Meningismus, Tenderness Additional comments: subcutaneous palpable [employer]INCIPAL DEVELOPER line along R neck - Respiratory Exam Respiratory Exam: Clear to Ausculation Bilateral, NORMAL BREATHING PATTERN - Cardiovascular Exam Cardiovascular Exam: Tachycardia, REGULAR RHYTHM, +S1, +S2 - GI/Abdominal Exam GI & Abdominal Exam: Soft. absent: Distended, Guarding, Rigid PEG tube in place. No purulence/erythema - Exam Additional comments: soliman in place, draining non-bloody urine - Extremities Exam Extremities Exam: Normal Inspection. absent: Calf Tenderness Additional comments: heel dressings in place - Back Exam Additional comments: Wound vac and dressing noted over stage 4 ulcer. Minimal drainage - Neurological Exam Neurological Exam: Awake - Skin Skin Exam: Dry, Warm Additional comments: sacral wound vac in place Assessment and Plan - Assessment and Plan (Free Text) Assessment: 47-year-old male with PMH E. coli bacteremia (ESBL+, treated with merrem), UTI, and sacral decubitus (ESBL+), craniotomy x 2, hydrocephalus s/p PRINCIPAL DEVELOPER shunt (07/19/18), TBI with intracranial hemorrhage, seizures, PEG tube, IVC filter admitted for sepsis 2/2 decubitus ulcer Plan: Severe Sepsis - Likely 2/2 sacral decubitus ulcer. POD2 (11/22) s/p bedside sacral/trochanter debridement - wound culture growing s. aureus, history previous ESBL+ wound culture and ESBL+ bacteremia. Flu (-) - continue merrem. IVF w/ potassium supplementation @125 mls/hr - Head CT unchanged - continue Wound Care. continue collagenase per surgery recs - Motrin 400mg PO Q6H PRN for fever - will start zinc, ascorbic acid, multivitamin Hx of Seizures - Keppra 500mg PO BID via PEG - Ativan 1mg IVP q6 prn (for seizure) - Seizure precautions, aspiration precautions, fall precautions Hypernatremia - resolved - continue fluid resuscitation 1/2 NS@125 + 40meq Hypokalemia - resolved - repleting with IVF - Monitor CMP, Mg, Phos GEORGINA - Initially had increase of Cr 0.3 from baseline - currently resolved - monitor UOP - Avoid nephrotoxic drugs Dispo: Pending pillowcase sewer approval for home wound vac. Pt lives at home with mother who is the primary day worker. D/t to home stressors, rehab may be better option DVT/GI: protonix/lovenox Case reviewed with attending physician, Dr. Sameer Ortez PGY1 <Escobar Johnson - Last Filed: 11/26/18 15:54> Objective - Vital Signs/Intake and Output Vital Signs (last 24 hours): Temp Pulse Resp BP Pulse Ox 98 F 106 H 20 98/68 L 98 11/26/18 08:22 11/26/18 08:22 11/26/18 08:22 11/26/18 08:22 11/26/18 08:22 Intake and Output: 11/26/18 11/26/18 06:59 18:59 Intake Total 480 Output Total 550 50 Balance -70 -50 - Medications Medications: Current Medications Ascorbic Acid (Vitamin C 500 Mg Tab) 500 mg PO BID [facility] Last Admin: 11/26/18 10:00 Dose: 500 mg Collagenase (Santyl) 0 gm TOP DAILY [facility] Last Admin: 11/24/18 15:45 Dose: Not Given Docusate Sodium (Colace Liquid) 100 mg GT DAILY [facility] Last Admin: 11/26/18 10:25 Dose: 100 mg Enoxaparin Sodium (Lovenox) 40 mg SC DAILY [facility]; Protocol Last Admin: 11/26/18 10:25 Dose: 40 mg Meropenem (Merrem Iv 1 Gm Premix) 1 gm in 50 mls @ 100 mls/hr IVPB Q8 [facility]; Protocol Stop: 11/29/18 06:01 Last Admin: 11/26/18 14:59 Dose: 100 mls/hr Potassium Chloride 40 meq/ (Sodium Chloride) 1,020 mls @ 75 mls/hr IV .[id number] [facility] Last Admin: 11/26/18 04:23 Dose: Not Given Ibuprofen (Motrin Tab) 400 mg PO Q6H PRN PRN Reason: Fever >100.4 F Last Admin: 11/22/18 21:24 Dose: 400 mg Levetiracetam (Keppra) 500 mg PEG BID [facility] Last Admin: 11/26/18 10:25 Dose: 500 mg Lorazepam (Ativan) 2 mg IVP Q6H PRN; Protocol PRN Reason: Seizure activity Multivitamins/Minerals (Therapeutic-M Tab) 1 tab PO 0800 [facility] Pantoprazole Sodium (Protonix Susp) 40 mg PO 0600 [facility] Last Admin: 11/26/18 06:26 Dose: 40 mg Sodium Hypochlorite (Dakins Solution 0.25%) 100 ml TOP DAILY [facility] Last Admin: 11/24/18 10:17 Dose: Not Given Zinc Sulfate (Zinc Sulfate 220 Mg Cap) 220 mg PO DAILY [facility] Last Admin: 11/26/18 10:00 Dose: 220 mg - Labs Labs: 11/25/18 06:10 11/25/18 06:10 PT 14.7 SECONDS (9.4-12.5) H 11/23/18 08:50 INR 1.30 11/23/18 08:50 APTT 32.7 Seconds (26.9-38.3) 11/23/18 08:50 Attending/Attestation - Attestation I have personally seen and examined this patient.: Yes I have fully participated in the care of the patient.: Yes I have reviewed all pertinent clinical information, including history, physical exam and plan: Yes Notes (Text): 11/26/18 15:52 Attending note; Patient seen and examined with resident. Patient is alert and awake. s/p wound vac placement. Soliman catheter placed by surgery to promote wound healing and avoid soiling. Patient is a 47 year old male with past medical history significant for PRINCIPAL DEVELOPER shunt, traumatic brain injury causing intracranial hemorrhage, seizure disorder, dysphagia s/p PEG, and hypophonic voice, sepsis , sacral decubitus , bedbound is admitted for fevers. 1. Sepsis; resolved. Secondary to sacral decubitus. Wound culture is positive for MSSA. Patient is chronically bedbound. Turn position frequently. 2. Sacral decubitus ulcer; status post bedside debridement. Wound VAC placed. Monitor closely. Needs to go home with wound VAC. 3. Leukocytosis; resolved. Culture, urine culture is negative. Wound cultures positive for MSSA . Patient has previous history of ESBL UTI and decubitus. ID evaluation appreciated. Currently on meropenem. Will switch to p.o. Augmentin upon discharge. Case discussed with ID in detail. 4. Transaminitis. Likely secondary to sepsis. Resolved. 5. Seizure Disorder. Continue Keppra. Continue seizure precautions. 6. Hydrocephalus. S/P PRINCIPAL DEVELOPER shunt. 8. Dysphagia/dysphonia; status post stroke . Currently tolerating diet. Dietitian evaluation appreciated. We will start supplemental PEG feeding at night. Patient takes p.o. diet during the daytime. 9. GI/DVT prophylaxis. Protonix/Lovenox 10. Patient is a full code. Patient needs to go home with wound VAC. Paperwork will be completed by surgery. Case discussed with pillowcase sewer in detail. We will discuss discharge planning with pillowcase sewer tomorrow. Upon discharge the patient will follow up with PMD Dr. Mcdonough.
--- NOTE | 2018-11-26 23:11 | PN ---
DATE: 11/26/2018 SUBJECTIVE: The patient is in bed, in no acute distress, was seen earlier today in [facility], bed 1. PHYSICAL EXAMINATION: VITAL SIGNS: Temperature is 98, blood pressure is 100/60, respiratory rate of 18. HEENT: Unremarkable. NECK: Supple. LUNGS: Decreased breath sounds. HEART: Normal S1 and S2. ABDOMEN: Soft. LABORATORY EXAMINATION: Reveals the patient's white count of 8.7, hemoglobin of 9. Chemistry reveals BUN of 7, creatinine of 0.5. Urinalysis is noted. Serology is noted. Microbiology reveals Staph aureus in the sacral cultures. The blood cultures are no growth. The Staph aureus is sensitive to oxacillin. REVIEW OF ORDERS: Reveals the patient have to be on meropenem. ASSESSMENT AND PLAN: This is a 47-year-old male seen earlier today with systemic inflammatory response syndrome with left hip infected decubitus ulcers status post debridement, on meropenem with cultures positive for sensitive Staphylococcus aureus. I will follow with you. Santi Jones MD
[2018-11-27] MEDS: Meropenem IV 1 gm in NS 1 GM/50 ML BAG IVPB SCH ×2 (06:25→13:28)
[2018-11-27] MEDS: Pantoprazole 40 mg Susp UD PO SCH (06:27)
[2018-11-27] MEDS: Potassium Chloride 40 MEQ in Sodium Chloride 0.45% 1,000 ML IV SCH (06:28)
[2018-11-27] MEDS ORDERED: Multivitamin With Minerals Tab PO SCH (08:00)
--- NOTE | 2018-11-27 08:17 | CP.PCM.PN ---
Subjective - Date & Time of Evaluation Date of Evaluation: 11/27/18 Time of Evaluation: 08:15 - Subjective Subjective: Surgery Progress Note for Dr. Mcintosh 47M seen and evaluated at bedside this morning. No acute events overnight. No complaints today. Patient's wound vac in place, no leak noted. Denies f/c, n/v,d SOB, CP. Objective - Vital Signs/Intake and Output Vital Signs (last 24 hours): Temp Pulse Resp BP Pulse Ox 97 F L 105 H 20 100/64 98 11/26/18 16:24 11/26/18 18:00 11/26/18 16:24 11/26/18 16:24 11/26/18 16:24 Intake and Output: 11/27/18 11/27/18 06:59 18:59 Intake Total 1320 Output Total 2000 Balance -680 - Medications Medications: Current Medications Ascorbic Acid (Vitamin C 500 Mg Tab) 500 mg PO BID [facility] Last Admin: 11/26/18 18:47 Dose: 500 mg Collagenase (Santyl) 0 gm TOP DAILY [facility] Last Admin: 11/24/18 15:45 Dose: Not Given Docusate Sodium (Colace Liquid) 100 mg GT DAILY [facility] Last Admin: 11/26/18 10:25 Dose: 100 mg Enoxaparin Sodium (Lovenox) 40 mg SC DAILY [facility]; Protocol Last Admin: 11/26/18 10:25 Dose: 40 mg Meropenem (Merrem Iv 1 Gm Premix) 1 gm in 50 mls @ 100 mls/hr IVPB Q8 [facility]; Protocol Stop: 11/29/18 06:01 Last Admin: 11/27/18 06:25 Dose: 100 mls/hr Potassium Chloride 40 meq/ (Sodium Chloride) 1,020 mls @ 75 mls/hr IV .[id number] [facility] Last Admin: 11/27/18 06:28 Dose: 75 mls/hr Ibuprofen (Motrin Tab) 400 mg PO Q6H PRN PRN Reason: Fever >100.4 F Last Admin: 11/22/18 21:24 Dose: 400 mg Levetiracetam (Keppra) 500 mg PEG BID [facility] Last Admin: 11/26/18 18:47 Dose: 500 mg Lorazepam (Ativan) 2 mg IVP Q6H PRN; Protocol PRN Reason: Seizure activity Multivitamins/Minerals (Therapeutic-M Tab) 1 tab PO 0800 [facility] Pantoprazole Sodium (Protonix Susp) 40 mg PO 0600 [facility] Last Admin: 11/27/18 06:27 Dose: 40 mg Sodium Hypochlorite (Dakins Solution 0.25%) 100 ml TOP DAILY [facility] Last Admin: 11/24/18 10:17 Dose: Not Given Zinc Sulfate (Zinc Sulfate 220 Mg Cap) 220 mg PO DAILY [facility] Last Admin: 11/26/18 10:00 Dose: 220 mg - Labs Labs: 11/25/18 06:10 11/25/18 06:10 PT 14.7 SECONDS (9.4-12.5) H 11/23/18 08:50 INR 1.30 11/23/18 08:50 APTT 32.7 Seconds (26.9-38.3) 11/23/18 08:50 - Constitutional Appears: Well, Non-toxic, No Acute Distress - Eye Exam Eye Exam: EOMI - ENT Exam ENT Exam: Mucous Membranes Dry - Respiratory Exam Respiratory Exam: NORMAL BREATHING PATTERN. absent: Wheezes, Respiratory Distress - Cardiovascular Exam Cardiovascular Exam: REGULAR RHYTHM, +S1, +S2 - GI/Abdominal Exam GI & Abdominal Exam: Soft, Normal Bowel Sounds. absent: Tenderness - Neurological Exam Neurological Exam: Alert, Awake - Skin Additional comments: Sacral and left ischial wound vac bridged, in place - low, cont suction at 125mmHg Right ischial wound santyl+mepelex Assessment and Plan - Assessment and Plan (Free Text) Assessment: 47M w/ chronic sacral and left ischial decubitus ulcer s/p wound vac placement Plan: Replaced condom cath with soliman to maintain clean, dry area around wound vac so as to preserve adhesive Wound vac with no leakage noted - low, cont 125mmHg Next wound vac change 11/28 Santyl+mepelex on right ischial wound, change dressing daily Turn and reposition Q2 Clinitron mattress Wound care nurse on board for wound vac management Continue medical management per primary team D/w Dr. Arnaldo Hartman PGY1
[2018-11-27 08:54] LABS: BASO # 0.01 K/mm3 (0.0-2.0); BASO % 0.1 % (0.0-3.0); EOS # 0.1 (0.0-0.7); EOS % 0.7 % (1.5-5.0); HEMOGLOBIN 9.9 g/dL (14.0-18.0); LYMPH # 1.8 (1.2-3.4); LYMPH % 17.1 % (22.0-35.0); MEAN CELL VOLUME 84.2 fl (80.0-105.0); MEAN CORPUSCULAR HGB CONC 32.1 g/dl (31.0-37.0); MEAN PLATELET VOLUME 8.9 fl (7.0-11.0); MONO # 0.9 (0.1-0.6); MONO % 8.2 % (1.0-6.0); RBC 3.66 10^6/uL (3.5-6.1); RED CELL DISTRIBUTION WIDTH 17.2 % (11.5-14.5); WHITE BLOOD COUNT 10.5 10^3/uL (4.5-11.0)
[2018-11-27 09:12] LABS: ALB/GLOB RATIO 0.8 (1.1-1.8); ALBUMIN 3.2 g/dL (3.0-4.8); ALT/SGPT 57 U/L (7-56); AST/SGOT 60 U/L (17-59); BLOOD UREA NITROGEN 5 mg/dL (7-21); CALCIUM 9.1 mg/dL (8.4-10.5); GFR NON-AFRICAN AMERICAN > 60
--- NOTE | 2018-11-27 09:55 | US ---
PROCEDURE: Left upper extremity venous ultrasound HISTORY: Arm pain and swelling. Evaluate for deep venous thrombosis. PHYSICIAN(S): Basilio Frey MD. FINDINGS: The visualized leftinternal jugular vein is atretic. No evidence of acute thrombus is seen. The visualized segments of the left subclavian vein are patent with normal waveforms. No sonographic evidence of obstruction or thrombosis is seen. The visualized deep venous system of the proximal leftupper extremity is sonographically normal and compressible. IMPRESSION: 1. No sonographic evidence for deep venous thrombosis in the visualized segments of the left upper extremity.
[2018-11-27] MEDS: Enoxaparin 40 mg Syringe SC SCH (10:07)
[2018-11-27] MEDS: levETIRAcetam 500 mg/5ml UD cups PEG SCH (10:08)
--- NOTE | 2018-11-27 13:26 | CP.PCM.PN ---
<Chris Ortez - Last Filed: 11/27/18 13:20> Subjective - Date & Time of Evaluation Date of Evaluation: 11/27/18 Time of Evaluation: 09:00 - Subjective Subjective: INTERNAL MEDICINE PROGRESS NOTE FOR DR. SAMANTHA Ortez PGY1 Pt seen and examined at bedside this am. No acute events overnight. Pt is awake & alert, denying complaints. He denies fevers, chills, headache, dizziness,chest palpitations, shortness of breath. Objective - Vital Signs/Intake and Output Vital Signs (last 24 hours): Temp Pulse Resp BP Pulse Ox 98.5 F 122 H 20 111/67 96 11/27/18 08:44 11/27/18 10:00 11/27/18 08:44 11/27/18 08:44 11/27/18 10:00 Intake and Output: 11/27/18 11/27/18 06:59 18:59 Intake Total 1320 Output Total 2000 Balance -680 - Medications Medications: Current Medications Ascorbic Acid (Vitamin C 500 Mg Tab) 500 mg PO BID [facility] Last Admin: 11/27/18 10:08 Dose: 500 mg Collagenase (Santyl) 0 gm TOP DAILY [facility] Last Admin: 11/24/18 15:45 Dose: Not Given Docusate Sodium (Colace Liquid) 100 mg GT DAILY [facility] Last Admin: 11/27/18 10:08 Dose: 100 mg Enoxaparin Sodium (Lovenox) 40 mg SC DAILY [facility]; Protocol Last Admin: 11/27/18 10:07 Dose: 40 mg Meropenem (Merrem Iv 1 Gm Premix) 1 gm in 50 mls @ 100 mls/hr IVPB Q8 [facility]; Protocol Stop: 11/29/18 06:01 Last Admin: 11/27/18 06:25 Dose: 100 mls/hr Potassium Chloride 40 meq/ (Sodium Chloride) 1,020 mls @ 75 mls/hr IV .[id number] [facility] Last Admin: 11/27/18 06:28 Dose: 75 mls/hr Ibuprofen (Motrin Tab) 400 mg PO Q6H PRN PRN Reason: Fever >100.4 F Last Admin: 11/22/18 21:24 Dose: 400 mg Levetiracetam (Keppra) 500 mg PEG BID [facility] Last Admin: 11/27/18 10:08 Dose: 500 mg Lorazepam (Ativan) 2 mg IVP Q6H PRN; Protocol PRN Reason: Seizure activity Multivitamins/Minerals (Therapeutic-M Tab) 1 tab PO 0800 [facility] Last Admin: 11/27/18 10:08 Dose: 1 tab Pantoprazole Sodium (Protonix Susp) 40 mg PO 0600 [facility] Last Admin: 11/27/18 06:27 Dose: 40 mg Sodium Hypochlorite (Dakins Solution 0.25%) 100 ml TOP DAILY [facility] Last Admin: 11/24/18 10:17 Dose: Not Given Zinc Sulfate (Zinc Sulfate 220 Mg Cap) 220 mg PO DAILY [facility] Last Admin: 11/27/18 10:08 Dose: 220 mg - Labs Labs: 11/27/18 08:30 11/27/18 08:30 PT 14.7 SECONDS (9.4-12.5) H 11/23/18 08:50 INR 1.30 11/23/18 08:50 APTT 32.7 Seconds (26.9-38.3) 11/23/18 08:50 - Constitutional Appears: Cachectic, Chronically Ill - Head Exam Additional comments: craniotomy scars noted. C/D/I, well healed - Eye Exam Eye Exam: Nystagmus Pupil Exam: PERRL - ENT Exam ENT Exam: Mucous Membranes Moist, Normal Exam - Neck Exam Neck Exam: Normal Inspection. absent: Meningismus, Tenderness Additional comments: subcutaneous palpable TAX ACCOUNTING ASSISTANT line along R neck - Respiratory Exam Respiratory Exam: Clear to Ausculation Bilateral, NORMAL BREATHING PATTERN - Cardiovascular Exam Cardiovascular Exam: Tachycardia, REGULAR RHYTHM, +S1, +S2 - GI/Abdominal Exam GI & Abdominal Exam: Soft. absent: Distended, Guarding, Rigid PEG tube in place. No purulence/erythema - Exam Additional comments: soliman in place, draining non-bloody urine - Extremities Exam Extremities Exam: Normal Inspection. absent: Calf Tenderness Additional comments: heel dressings in place - Back Exam Additional comments: Wound vac and dressing noted over stage 4 ulcer. Minimal drainage - Neurological Exam Neurological Exam: Awake - Skin Skin Exam: Dry, Warm Additional comments: sacral wound vac in place Assessment and Plan - Assessment and Plan (Free Text) Assessment: 47-year-old male with PMH E. coli bacteremia (ESBL+, treated with merrem), UTI, and sacral decubitus (ESBL+), craniotomy x 2, hydrocephalus s/p TAX ACCOUNTING ASSISTANT shunt (07/19/18), TBI with intracranial hemorrhage, seizures, PEG tube, IVC filter admitted for sepsis 2/2 decubitus ulcer Plan: Severe Sepsis - tachycardic, likely 2/2 underlying infection - Likely 2/2 sacral decubitus ulcer. (11/22) s/p bedside sacral/trochanter debridement - wound culture growing MSSA, history previous ESBL+ wound culture and ESBL+ bacteremia. Flu (-) - Wound vac in place, pt need to be discharged with wound vac - continue merrem. IVF w/ potassium supplementation @75 mls/hr - Head CT unchanged - continue Wound Care. continue collagenase per surgery recs - Motrin 400mg PO Q6H PRN for fever - will start zinc, ascorbic acid, multivitamin Hx of Seizures - Keppra 500mg PO BID via PEG - Ativan 1mg IVP q6 prn (for seizure) - Seizure precautions, aspiration precautions, fall precautions Hypernatremia - resolved - continue fluid resuscitation 1/2 NS@125 + 40meq Hypokalemia - resolved - repleting with IVF - Monitor CMP, Mg, Phos GEORGINA - Initially had increase of Cr 0.3 from baseline - currently resolved - monitor UOP - Avoid nephrotoxic drugs Dispo: Pending manager of case approval for home wound vac. Pt lives at home with mother who is the primary java systems analyst. DVT/GI: protonix/lovenox Case reviewed with attending physician, Dr. Elizabeth Ortez PGY1 <Keke Reid - Last Filed: 11/27/18 14:07> Objective - Vital Signs/Intake and Output Vital Signs (last 24 hours): Temp Pulse Resp BP Pulse Ox 98.5 F 122 H 20 111/67 96 11/27/18 08:44 11/27/18 10:00 11/27/18 08:44 11/27/18 08:44 11/27/18 10:00 Intake and Output: 11/27/18 11/27/18 06:59 18:59 Intake Total 1320 Output Total 2000 Balance -680 - Medications Medications: Current Medications Ascorbic Acid (Vitamin C 500 Mg Tab) 500 mg PO BID [facility] Last Admin: 11/27/18 10:08 Dose: 500 mg Collagenase (Santyl) 0 gm TOP DAILY [facility] Last Admin: 11/24/18 15:45 Dose: Not Given Docusate Sodium (Colace Liquid) 100 mg GT DAILY [facility] Last Admin: 11/27/18 10:08 Dose: 100 mg Enoxaparin Sodium (Lovenox) 40 mg SC DAILY [facility]; Protocol Last Admin: 11/27/18 10:07 Dose: 40 mg Meropenem (Merrem Iv 1 Gm Premix) 1 gm in 50 mls @ 100 mls/hr IVPB Q8 [facility]; Protocol Stop: 11/29/18 06:01 Last Admin: 11/27/18 13:28 Dose: 100 mls/hr Ibuprofen (Motrin Tab) 400 mg PO Q6H PRN PRN Reason: Fever >100.4 F Last Admin: 11/22/18 21:24 Dose: 400 mg Levetiracetam (Keppra) 500 mg PEG BID [facility] Last Admin: 11/27/18 10:08 Dose: 500 mg Lorazepam (Ativan) 2 mg IVP Q6H PRN; Protocol PRN Reason: Seizure activity Multivitamins/Minerals (Therapeutic-M Tab) 1 tab PO 0800 [facility] Last Admin: 11/27/18 10:08 Dose: 1 tab Pantoprazole Sodium (Protonix Susp) 40 mg PO 0600 [facility] Last Admin: 11/27/18 06:27 Dose: 40 mg Sodium Hypochlorite (Dakins Solution 0.25%) 100 ml TOP DAILY [facility] Last Admin: 11/24/18 10:17 Dose: Not Given Zinc Sulfate (Zinc Sulfate 220 Mg Cap) 220 mg PO DAILY [facility] Last Admin: 11/27/18 10:08 Dose: 220 mg - Labs Labs: 11/27/18 08:30 11/27/18 08:30 PT 14.7 SECONDS (9.4-12.5) H 11/23/18 08:50 INR 1.30 11/23/18 08:50 APTT 32.7 Seconds (26.9-38.3) 11/23/18 08:50 Attending/Attestation - Attestation I have personally seen and examined this patient.: Yes I have fully participated in the care of the patient.: Yes I have reviewed all pertinent clinical information, including history, physical exam and plan: Yes Notes (Text): Patient seen and examined by me with resident at approximately 9:45AM on 4/22/19. Case including HPI, physical exam, and assessment and plan discussed with resident. Agree with above with following additions/corrections. Patient is a 47-year-old male with past medical history significant for TAX ACCOUNTING ASSISTANT shunt, traumatic brain injury causing intracranial hemorrhage, seizure disorder, dysphagia s/p PEG,hypophonic voice, septic shock, ESBL positive decubitus ulcer, ESBL bacteremia, UTI, and transaminitis that presented to the emergency room with family for decreased responsiveness, decreased oral intake, and a non- productive cough. Patient awake and alert. Patient states he is feeling fine. Complains of leg pain but unsure which leg. Denies chest pain or shortness of breath. Does not answer other questions. Unable to obtain full review of systems from patient. Patient is afebrile. Physical exam: General: Awake and alert lying sitting up in bed in no acute distress, cachectic appearing HEENT: Healed scar left scalp. Extraocular muscles intact, pupils equal and reactive, no scleral icterus. Neck is supple. Cardiovascular: Tachycardic S1 and S2. No murmurs, rubs, or gallops appreciated Pulmonary: Normal respiratory effort. No rhonchi, rales, or wheezing appreciated. Patient does not take in deep breaths when asked to. Gastrointestinal: Soft, nondistended. Nontender. Positive bowel sounds all 4 quadrants. No guarding. Positive PEG with no signs of infection. Musculoskeletal: Extremities contracted. No edema appreciated. Central nervous system: Awake and alert. Answers few questions Dermatologic: Skin warm and dry. Sacral wound vac in place. Assessment and plan: Patient is a 47-year-old male with past medical history significant for TAX ACCOUNTING ASSISTANT shunt, traumatic brain injury causing intracranial hemorrhage, seizure disorder, dysphagia s/p PEG,hypophonic voice, septic shock, ESBL positive decubitus ulcer, ESBL bacteremia, UTI, and transaminitis that presented to the emergency room with family for decreased responsiveness, decreased oral intake, and a non-productive cough. 1. Sepsis. Likely secondary to infected sacral decubitus ulcer. Febrile, tachycardic, and with leukocytosis on admission. Wound culture positive for staph aureus. ID following, recommendations appreciated. Continue Merrem. Leukocytosis resolved. Patient now afebrile. Blood cultures with no growth. Urine culture with no growth. 2. Sacral decubitus ulcer present on admission. Wound vac in place. Surgery recommendations appreciated. Continue wound care. Continue to turn patient q2hrs. Continue with air mattress. Wound culture positive staph aureus. ID following, recommendations appreciated. Continue Merrem. 3. Seizure Disorder. Continue Keppra. Continue seizure precautions. 4. Hydrocephalus. S/P TAX ACCOUNTING ASSISTANT shunt. No current issues. Head CT per radiologist showed no interval change since prior exam. 5. Dysphagia. S/P PEG. Continue with tube feeds at night. Patient also on oral dysphagia diet during day. 6. Hypernatremia. Resolved with IV fluids. Continue to monitor 7. Hypokalemia. Resolved. Continue to monitor 8. GI/DVT prophylaxis. Protonix/Lovenox
--- NOTE | 2018-11-27 16:41 | PN ---
DATE: 11/27/2018 SUBJECTIVE: The patient is in room 368 bed 1. Seen earlier today. No fevers. No chills. No nausea. PHYSICAL EXAMINATION VITAL SIGNS: On exam, temperature is 98, blood pressure is 111/60, respiratory rate of 20 and heart rate of 105. HEENT: Unremarkable. NECK: Supple. LUNGS: Have decreased breath sounds. HEART: Normal S1 and S2. ABDOMEN: Soft. LABORATORY EXAMINATION: Reveals a white count of 10,000 and hemoglobin of 9. BUN of 5 and creatinine of 0.4. LFTs are noted. Urinalysis is noted and serology is noted. Microbiology reveals as sensitive staph aureus. ASSESSMENT AND PLAN: He is a 47-year-old male who was seen earlier today with systemic inflammatory response syndrome and left hip infected, actually sepsis with a sensitive Staphylococcus aureus ulcer and switch to p.o. The patient's family is requesting the patient to be discharged on p.o. antibiotics for personal reasons. We will switch to p.o. Keflex 250 mg q.i.d. x5 days . Santi Jones MD
[2018-11-27 17:10] VITALS: TEMP 99.1
[2018-11-27 17:11] VITALS: BP 134/82; PULSE 92; RESP 19; O2SAT 95
--- NOTE | 2018-11-28 06:27 | CP.PCM.DIS ---
<Chris Ortez - Last Filed: 11/28/18 13:35> Provider - Provider Date of Admission: 11/22/18 02:04 Attending physician: Escobar Johnson MD Primary care physician: She Mcdonough MD Consults: 11/22/18 03:29 Infectious Disease Consult Routine Comment: Consulting Provider: Santi Jones Consulting Physician: Santi Jones Reason for Consult: Previous ESBL+ sacral wound / ESBL + bacteremia / CODE SEPSIS 11/22/18 07:18 Consult [Physician Consult] Routine Comment: Consulting Provider: Jean Mcintosh Consulting Physician: Jean Mcintosh Reason for Consult: sacral decubitus 11/22/18 19:23 Wound Care [Nursing Referral for Wound Care] Routine Comment: Physician Instructions: s/p bedside debridement Reason For Exam: chronic sacral and left trochanter decubitus ulcer 11/23/18 03:42 Nursing Referral for Palliative Care Routine Comment: Physician Instructions: Reason For Exam: May benefit from Palliative 11/23/18 11:05 Nursing Referral for Wound Care Routine Comment: Physician Instructions: Reason For Exam: sacral wound 11/24/18 10:30 Wound Care [Nursing Referral for Wound Care] Routine Comment: Physician Instructions: Tuesday, Reason For Exam: wound care nurse to change wound vac dressing 11/24/18 21:34 Nursing Referral for Wound Care Routine Comment: Physician Instructions: Reason For Exam: pressure ulcers 11/25/18 15:57 Nursing Referral for Wound Care Routine Comment: Physician Instructions: Reason For Exam: decubiti 11/26/18 13:53 Nursing Referral for Wound Care Routine Comment: Physician Instructions: Reason For Exam: wound on left buttocks Time Spent in preparation of Discharge (in minutes): 45 Hospital Course - Lab Results Lab Results: Micro Results 11/22/18 01:00 Blood Blood Culture - Final NO GROWTH AFTER 5 DAYS 11/22/18 01:00 Blood Gram Stain - Final TEST NOT PERFORMED 11/22/18 00:44 Blood Blood Culture - Final NO GROWTH AFTER 5 DAYS 11/22/18 00:44 Blood Gram Stain - Final TEST NOT PERFORMED 11/22/18 03:00 Sacral Gram Stain - Final 11/22/18 03:00 Sacral Wound Culture - Final Staphylococcus Aureus 11/22/18 00:54 Urine,Clean Catch Urine Culture - Final No Growth (<1,000 CFU/ML) Most Recent Lab Values WBC 10.5 10^3/uL (4.5-11.0) D 11/27/18 08:30 RBC 3.66 10^6/uL (3.5-6.1) 11/27/18 08:30 Hgb 9.9 g/dL (14.0-18.0) L 11/27/18 08:30 Hct 30.8 % (42.0-52.0) L 11/27/18 08:30 MCV 84.2 fl (80.0-105.0) 11/27/18 08:30 MCH 27.0 pg (25.0-35.0) 11/27/18 08:30 MCHC 32.1 g/dl (31.0-37.0) 11/27/18 08:30 RDW 17.2 % (11.5-14.5) H 11/27/18 08:30 Plt Count 449 10^3/uL (120.0-450.0) 11/27/18 08:30 MPV 8.9 fl (7.0-11.0) 11/27/18 08:30 Neut % (Auto) 73.9 % (50.0-68.0) H 11/27/18 08:30 Lymph % (Auto) 17.1 % (22.0-35.0) L 11/27/18 08:30 [place] % (Auto) 8.2 % (1.0-6.0) H 11/27/18 08:30 Eos % (Auto) 0.7 % (1.5-5.0) L 11/27/18 08:30 Baso % (Auto) 0.1 % (0.0-3.0) 11/27/18 08:30 Lymph # (Auto) 1.8 (1.2-3.4) 11/27/18 08:30 [place] # (Auto) 0.9 (0.1-0.6) H 11/27/18 08:30 Eos # (Auto) 0.1 (0.0-0.7) 11/27/18 08:30 Baso # (Auto) 0.01 K/mm3 (0.0-2.0) 11/27/18 08:30 Absolute Neuts (auto) 7.76 (1.4-6.5) H 11/27/18 08:30 PT 14.7 SECONDS (9.4-12.5) H 11/23/18 08:50 INR 1.30 11/23/18 08:50 APTT 32.7 Seconds (26.9-38.3) 11/23/18 08:50 pO2 79 mm/Hg (30-55) H 11/22/18 05:00 VBG pH 7.38 (7.32-7.43) 11/22/18 05:00 VBG pCO2 44.0 (40-60) 11/22/18 05:00 VBG HCO3 26.0 mmol/l (21-28) 11/22/18 05:00 VBG Total CO2 27.4 mmol.L (22-28) 11/22/18 05:00 VBG O2 Sat (Calc) 97.1 % (40-65) H 11/22/18 05:00 VBG Base Excess 0.5 mmol/L (0.0-2.0) 11/22/18 05:00 VBG Potassium 3.8 mmol/L (3.6-5.2) 11/22/18 05:00 Sodium 158.0 mmol/L (132-148) H 11/22/18 05:00 Chloride 123.0 mmol/L (98-107) H 11/22/18 05:00 Glucose 119 mg/dl (75-110) H 11/22/18 05:00 Lactate 1.5 mmol/L (0.7-2.1) 11/22/18 05:00 FiO2 21.0 % 11/22/18 05:00 Crit Value Called To Katerin desouza internal communications specialist 11/22/18 05:00 Crit Value Called By Sherrill 11/22/18 05:00 Blood Gas Notified Time 400 11/22/18 05:00 Sodium 138 mmol/L (132-148) 11/27/18 08:30 Potassium 4.2 mmol/L (3.6-5.0) 11/27/18 08:30 Chloride 101 mmol/L (98-107) 11/27/18 08:30 Carbon Dioxide 27 mmol/L (21-33) 11/27/18 08:30 Anion Gap 15 (10-20) 11/27/18 08:30 BUN 5 mg/dL (7-21) L 11/27/18 08:30 Creatinine 0.4 mg/dl (0.8-1.5) L 11/27/18 08:30 Est GFR ( Amer) > 60 11/27/18 08:30 Est GFR (Non-Af Amer) > 60 11/27/18 08:30 Random Glucose 104 mg/dL (70-110) 11/27/18 08:30 Serum Osmolality 242 mosm/kg (272-300) L 11/22/18 06:00 Calcium 9.1 mg/dL (8.4-10.5) 11/27/18 08:30 Phosphorus 3.7 mg/dL (2.5-4.5) 11/27/18 08:30 Magnesium 1.9 mg/dL (1.7-2.2) 11/27/18 08:30 Total Bilirubin 0.4 mg/dL (0.2-1.3) 11/27/18 08:30 AST 60 U/L (17-59) H D 11/27/18 08:30 ALT 57 U/L (7-56) H 11/27/18 08:30 Alkaline Phosphatase 105 U/L (38-126) 11/27/18 08:30 Total Creatine Kinase 267 U/L (35-230) H 11/22/18 00:54 CK-MB (CK-2) 1.3 ng/mL (0.0-3.6) 11/22/18 00:54 CK-MB (CK-2) % Cancelled 11/22/18 00:54 Troponin I < 0.01 ng/mL 11/22/18 00:54 Total Protein 7.5 g/dL (5.8-8.3) 11/27/18 08:30 Albumin 3.2 g/dL (3.0-4.8) 11/27/18 08:30 Globulin 4.2 gm/dL 11/27/18 08:30 Albumin/Globulin Ratio 0.8 (1.1-1.8) L 11/27/18 08:30 Lipase 59 U/L (23-300) 11/22/18 00:54 Venous Blood Potassium 3.8 mmol/L (3.6-5.2) 11/22/18 05:00 Urine Color Yellow (YELLOW) 11/22/18 00:54 Urine Appearance Clear (CLEAR) 11/22/18 00:54 Urine pH 6.0 (4.7-8.0) 11/22/18 00:54 Ur Specific [place] 1.020 (1.005-1.035) 11/22/18 00:54 Urine Protein 100 mg/dL (<30 mg/dL) H 11/22/18 00:54 Urine Glucose (UA) Negative mg/dL (NEGATIVE) 11/22/18 00:54 Urine Ketones Negative mg/dL (NEGATIVE) 11/22/18 00:54 Urine Blood Large (NEGATIVE) H 11/22/18 00:54 Urine Nitrate Negative (NEGATIVE) 11/22/18 00:54 Urine Bilirubin Negative (NEGATIVE) 11/22/18 00:54 Urine Urobilinogen 0.2 E.U./dL (<1 E.U./dL) 11/22/18 00:54 Ur Leukocyte Esterase Trace Cyril/uL (NEGATIVE) H 11/22/18 00:54 Urine RBC 15 - 20 /hpf (0-2) H 11/22/18 00:54 Urine WBC 1 - 3 /hpf (0-6) 11/22/18 00:54 Ur Epithelial Cells 0 - 2 /hpf (0-5) 11/22/18 00:54 Urine Bacteria Occ /hpf (NONE) 11/22/18 00:54 Urine Osmolality 695 mosm/kg (300-1000) 11/22/18 06:00 Ur Random Sodium 11 meq/L 11/22/18 07:00 Ur Random Potassium 29.6 meq/L 11/22/18 07:00 Influenza Typ A,B (EIA) Negative for flu a/b (NEGATIVE) 11/22/18 00:54 - Hospital Course Hospital Course: Upon Admission: 47-year-old male with PMH of recent E. 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 Per patient's mother, the patient had blank gaze, which compelled her to come for evaluation. Of note, the patient was receiving wound care for his sacral wound as an outpatient after being discharged from the Hospital for ESBL infection. Hospital Course: Pt was admitted for sepsis likely 2/2 to sacral decubitus ulcer. He was febrile, tachycardiac with leukocytosis on admission. His wound culture grew s. aureus, ID was consulted and Merrem was recommended and initiated. Pts clinical course was improving, was become afebrile and leukocytosis rsolved. Surgery consult was placed for management of sacral/trochanter wound. Bedside debridement performed by surgery and wound vac was placed. Wound care was also consulted for wound care management. Pt was started on oral & tube feeds to maintain nutrition. Pt was hypernatremic on admission which was resolving with IVF hydration On 11/27: Pt's family/movie extra at bedside request patient to sign out against medical advice. Pt & family were explained, in great detail about the benefits, risks and alternatives of hospital admission & receiving treatment in the hospital. Pt & pt's family demonstrated understanding of conversation. Appropriate paperwork was filled out by primary movie extra and physician. Wound care arrangements were made with the assistance of case management. CXR 11/22: No active disease CT A/P 11/22: Stool throughout the colon and rectum consistent with fecal impaction CT Head 11/22: No interval change since prior exam Discharge Exam - Head Exam Head Exam: NORMAL INSPECTION - Eye Exam Eye Exam: EOMI - Neck Exam Neck exam: Normal Inspection - Respiratory Exam Respiratory Exam: UNREMARKABLE - Cardiovascular Exam Cardiovascular Exam: REGULAR RHYTHM, +S1, +S2 - GI/Abdominal Exam GI & Abdominal Exam: Soft. absent: Tenderness - Back Exam Additional comments: sacral decubitus ulcer with wound vac - Neurological Exam Neurological exam: Alert, Oriented x3 - Psychiatric Exam Psychiatric exam: Normal Affect, Normal Mood - Skin Skin Exam: Dry, Warm Discharge Plan - Follow Up Plan Condition: GUARDED Disposition: AGAINST MEDICAL ADVICE Instructions: Sepsis (ED) Referrals: She Mcdonough MD [Primary Care Provider] - <Keke Reid - Last Filed: 11/28/18 18:01> Provider - Provider Date of Admission: 11/22/18 02:04 Attending physician: Escobar Johnson MD Primary care physician: She Mcdonough MD Consults: 11/22/18 03:29 Infectious Disease Consult Routine Comment: Consulting Provider: Santi Jones Consulting Physician: Santi Jones Reason for Consult: Previous ESBL+ sacral wound / ESBL + bacteremia / CODE SEPSIS 11/22/18 07:18 Consult [Physician Consult] Routine Comment: Consulting Provider: Jean Mcintosh Consulting Physician: Jean Mcintosh Reason for Consult: sacral decubitus 11/22/18 19:23 Wound Care [Nursing Referral for Wound Care] Routine Comment: Physician Instructions: s/p bedside debridement Reason For Exam: chronic sacral and left trochanter decubitus ulcer 11/23/18 03:42 Nursing Referral for Palliative Care Routine Comment: Physician Instructions: Reason For Exam: May benefit from Palliative 11/23/18 11:05 Nursing Referral for Wound Care Routine Comment: Physician Instructions: Reason For Exam: sacral wound 11/24/18 10:30 Wound Care [Nursing Referral for Wound Care] Routine Comment: Physician Instructions: Tuesday, Reason For Exam: wound care nurse to change wound vac dressing 11/24/18 21:34 Nursing Referral for Wound Care Routine Comment: Physician Instructions: Reason For Exam: pressure ulcers 11/25/18 15:57 Nursing Referral for Wound Care Routine Comment: Physician Instructions: Reason For Exam: decubiti 11/26/18 13:53 Nursing Referral for Wound Care Routine Comment: Physician Instructions: Reason For Exam: wound on left buttocks Hospital Course - Lab Results Lab Results: Micro Results 11/22/18 01:00 Blood Blood Culture - Final NO GROWTH AFTER 5 DAYS 11/22/18 01:00 Blood Gram Stain - Final TEST NOT PERFORMED 11/22/18 00:44 Blood Blood Culture - Final NO GROWTH AFTER 5 DAYS 11/22/18 00:44 Blood Gram Stain - Final TEST NOT PERFORMED 11/22/18 03:00 Sacral Gram Stain - Final 11/22/18 03:00 Sacral Wound Culture - Final Staphylococcus Aureus 11/22/18 00:54 Urine,Clean Catch Urine Culture - Final No Growth (<1,000 CFU/ML) Most Recent Lab Values WBC 10.5 10^3/uL (4.5-11.0) D 11/27/18 08:30 RBC 3.66 10^6/uL (3.5-6.1) 11/27/18 08:30 Hgb 9.9 g/dL (14.0-18.0) L 11/27/18 08:30 Hct 30.8 % (42.0-52.0) L 11/27/18 08:30 MCV 84.2 fl (80.0-105.0) 11/27/18 08:30 MCH 27.0 pg (25.0-35.0) 11/27/18 08:30 MCHC 32.1 g/dl (31.0-37.0) 11/27/18 08:30 RDW 17.2 % (11.5-14.5) H 11/27/18 08:30 Plt Count 449 10^3/uL (120.0-450.0) 11/27/18 08:30 MPV 8.9 fl (7.0-11.0) 11/27/18 08:30 Neut % (Auto) 73.9 % (50.0-68.0) H 11/27/18 08:30 Lymph % (Auto) 17.1 % (22.0-35.0) L 11/27/18 08:30 [place] % (Auto) 8.2 % (1.0-6.0) H 11/27/18 08:30 Eos % (Auto) 0.7 % (1.5-5.0) L 11/27/18 08:30 Baso % (Auto) 0.1 % (0.0-3.0) 11/27/18 08:30 Lymph # (Auto) 1.8 (1.2-3.4) 11/27/18 08:30 [place] # (Auto) 0.9 (0.1-0.6) H 11/27/18 08:30 Eos # (Auto) 0.1 (0.0-0.7) 11/27/18 08:30 Baso # (Auto) 0.01 K/mm3 (0.0-2.0) 11/27/18 08:30 Absolute Neuts (auto) 7.76 (1.4-6.5) H 11/27/18 08:30 PT 14.7 SECONDS (9.4-12.5) H 11/23/18 08:50 INR 1.30 11/23/18 08:50 APTT 32.7 Seconds (26.9-38.3) 11/23/18 08:50 pO2 79 mm/Hg (30-55) H 11/22/18 05:00 VBG pH 7.38 (7.32-7.43) 11/22/18 05:00 VBG pCO2 44.0 (40-60) 11/22/18 05:00 VBG HCO3 26.0 mmol/l (21-28) 11/22/18 05:00 VBG Total CO2 27.4 mmol.L (22-28) 11/22/18 05:00 VBG O2 Sat (Calc) 97.1 % (40-65) H 11/22/18 05:00 VBG Base Excess 0.5 mmol/L (0.0-2.0) 11/22/18 05:00 VBG Potassium 3.8 mmol/L (3.6-5.2) 11/22/18 05:00 Sodium 158.0 mmol/L (132-148) H 11/22/18 05:00 Chloride 123.0 mmol/L (98-107) H 11/22/18 05:00 Glucose 119 mg/dl (75-110) H 11/22/18 05:00 Lactate 1.5 mmol/L (0.7-2.1) 11/22/18 05:00 FiO2 21.0 % 11/22/18 05:00 Crit Value Called To Katerin desouza internal communications specialist 11/22/18 05:00 Crit Value Called By Sherrill 11/22/18 05:00 Blood Gas Notified Time 400 11/22/18 05:00 Sodium 138 mmol/L (132-148) 11/27/18 08:30 Potassium 4.2 mmol/L (3.6-5.0) 11/27/18 08:30 Chloride 101 mmol/L (98-107) 11/27/18 08:30 Carbon Dioxide 27 mmol/L (21-33) 11/27/18 08:30 Anion Gap 15 (10-20) 11/27/18 08:30 BUN 5 mg/dL (7-21) L 11/27/18 08:30 Creatinine 0.4 mg/dl (0.8-1.5) L 11/27/18 08:30 Est GFR ( Amer) > 60 11/27/18 08:30 Est GFR (Non-Af Amer) > 60 11/27/18 08:30 Random Glucose 104 mg/dL (70-110) 11/27/18 08:30 Serum Osmolality 242 mosm/kg (272-300) L 11/22/18 06:00 Calcium 9.1 mg/dL (8.4-10.5) 11/27/18 08:30 Phosphorus 3.7 mg/dL (2.5-4.5) 11/27/18 08:30 Magnesium 1.9 mg/dL (1.7-2.2) 11/27/18 08:30 Total Bilirubin 0.4 mg/dL (0.2-1.3) 11/27/18 08:30 AST 60 U/L (17-59) H D 11/27/18 08:30 ALT 57 U/L (7-56) H 11/27/18 08:30 Alkaline Phosphatase 105 U/L (38-126) 11/27/18 08:30 Total Creatine Kinase 267 U/L (35-230) H 11/22/18 00:54 CK-MB (CK-2) 1.3 ng/mL (0.0-3.6) 11/22/18 00:54 CK-MB (CK-2) % Cancelled 11/22/18 00:54 Troponin I < 0.01 ng/mL 11/22/18 00:54 Total Protein 7.5 g/dL (5.8-8.3) 11/27/18 08:30 Albumin 3.2 g/dL (3.0-4.8) 11/27/18 08:30 Globulin 4.2 gm/dL 11/27/18 08:30 Albumin/Globulin Ratio 0.8 (1.1-1.8) L 11/27/18 08:30 Lipase 59 U/L (23-300) 11/22/18 00:54 Venous Blood Potassium 3.8 mmol/L (3.6-5.2) 11/22/18 05:00 Urine Color Yellow (YELLOW) 11/22/18 00:54 Urine Appearance Clear (CLEAR) 11/22/18 00:54 Urine pH 6.0 (4.7-8.0) 11/22/18 00:54 Ur Specific [place] 1.020 (1.005-1.035) 11/22/18 00:54 Urine Protein 100 mg/dL (<30 mg/dL) H 11/22/18 00:54 Urine Glucose (UA) Negative mg/dL (NEGATIVE) 11/22/18 00:54 Urine Ketones Negative mg/dL (NEGATIVE) 11/22/18 00:54 Urine Blood Large (NEGATIVE) H 11/22/18 00:54 Urine Nitrate Negative (NEGATIVE) 11/22/18 00:54 Urine Bilirubin Negative (NEGATIVE) 11/22/18 00:54 Urine Urobilinogen 0.2 E.U./dL (<1 E.U./dL) 11/22/18 00:54 Ur Leukocyte Esterase Trace Cyril/uL (NEGATIVE) H 11/22/18 00:54 Urine RBC 15 - 20 /hpf (0-2) H 11/22/18 00:54 Urine WBC 1 - 3 /hpf (0-6) 11/22/18 00:54 Ur Epithelial Cells 0 - 2 /hpf (0-5) 11/22/18 00:54 Urine Bacteria Occ /hpf (NONE) 11/22/18 00:54 Urine Osmolality 695 mosm/kg (300-1000) 11/22/18 06:00 Ur Random Sodium 11 meq/L 11/22/18 07:00 Ur Random Potassium 29.6 meq/L 11/22/18 07:00 Influenza Typ A,B (EIA) Negative for flu a/b (NEGATIVE) 11/22/18 00:54 Attending/Attestation - Attestation I have personally seen and examined this patient.: Yes I have fully participated in the care of the patient.: Yes I have reviewed all pertinent clinical information, including history, physical exam and plan: Yes Notes (Text): Please note this DC summary is for 11/27/18 Patient seen and examined by me with resident at approximately 9:45 AM and at time of signing out AMA. Case including discussed with resident. Agree with above with following additions/corrections. Patient is a 47-year-old male with past medical history significant for MAT[employer]ING MANAGER shunt, traumatic brain injury causing intracranial hemorrhage, seizure disorder, dysphagia s/p PEG,hypophonic voice, septic shock, ESBL positive decubitus ulcer, ESBL bacteremia, UTI, and transaminitis that presented to the emergency room with family for decreased responsiveness, decreased oral intake, and a non- productive cough. Please see H&P for full details. Patient was found to have sepsis, sacral decubitus ulcer and left ischial ulcer, seizure disorder, hydrocephalus s/p [employer]ING MANAGER shunt, hyponatremia, hypokalemia, transaminits, and elevated BUN. Sepsis was likely secondary to the infected decubitus ulcer. Patient was febrile, tachycardic, and had leukocytosis on admission. Wound culture was found to be positive for staph aureus. Patient was seen by ID. Patient was being treated on Merrem. Patient was given a prescription for Keflex per infectious disease doctor upon signing out AMA. Leukocytosis resolved. Patient was afebrile. Cultures showed no growth. Urine cultures showed no growth. Patient was seen by surgical team for sacral decubitus ulcer and left it should ulcer. Wound VAC was placed. Local wound care was continued. He was turned every 2 hours. Patient was placed on air mattress. Patient was continued on home Keppra for seizure disorder. Patient did not have any seizures in the hospital. Patient also with a history of hydrocephalus status post [employer]ING MANAGER shunt. Patient had no current issues. Head CT per radiologist showed no interval change since prior exam. Patient did have CT abdomen and pelvis which showed fecal impaction. Patient was being treated with Colace. Further treatment was pending. Patient was continued with tube feeds at night and was placed on oral dysphagia diet during the day. Patient was also found to have hypernatremia and hypokalemia which resolved. Patient also had infiltration of the IV in left arm. Left arm venous Doppler was obtained which showed no evidence for deep vein thrombosis. Patient was also persistently tachycardic. Patient was also found to have transaminitis. Workup and treatment was being continued when patient's mother and father decided to sign the patient out AGAINST MEDICAL ADVICE to attend a for patient's brother. Patient's parents requested to sign patient out against medical advice. This action is against my medical advice and the decision was made with informed refusal. The patient's parents was told that further work up and treatment is necessary and a full explanation of my rationale was given. The risks for leaving were explained to the patient's parents and include but are not limited to worsening of known or unknown conditions, permanent disability, and . Patient's parents were AAOx3 and were able to make this informed decision and understood the clinical situation and my explanation of the risks of leaving. The patient's parents voluntarily accepted these risks and signed an AMA form. The patient's parents were given the opportunity to ask questions and reconsider. The patient was encouraged to return to the emergency room at any time for further treatment. Physical exam: General: Awake and alert lying sitting up in bed in no acute distress, cachectic appearing HEENT: Healed scar left scalp. Extraocular muscles intact, pupils equal and reactive, no scleral icterus. Neck is supple. Cardiovascular: Tachycardic S1 and S2. No murmurs, rubs, or gallops appreciated Pulmonary: Normal respiratory effort. No rhonchi, rales, or wheezing appreciated. Patient does not take in deep breaths when asked to. Gastrointestinal: Soft, nondistended. Nontender. Positive bowel sounds all 4 quadrants. No guarding. Positive PEG with no signs of infection. Musculoskeletal: Extremities contracted. No edema appreciated. Central nervous system: Awake and alert. Answers few questions Dermatologic: Skin warm and dry. Sacral wound vac in place. Please see chart for full details.
== END 2018-11-27 19:47 | disposition left against medical advice (07) | DRG 581 ==
LOC: ED 23:48 → ERH 11-22 02:04 → 3RNO 11-22 18:26
PROVIDERS: ADMIT Internal Medicine; ATTEND Internal Medicine
PROC: 0KBP0ZZ Excision of Left Hip Muscle, Open Approach (ICD-10-PCS; principal; 2018-11-22)
DX: A41.9 Sepsis, unspecified organism (principal); L89.154 Pressure ulcer of sacral region, stage 4; L89.324 Pressure ulcer of left buttock, stage 4; L89.229 Pressure ulcer of left hip, unspecified stage; N39.0 Urinary tract infection, site not specified; G91.9 Hydrocephalus, unspecified; E87.0 Hyperosmolality and hypernatremia; E87.6 Hypokalemia; R64 Cachexia; Z68.1 Body mass index [BMI] 19.9 or less, adult; B95.61 Methicillin susceptible Staphylococcus aureus infection as the cause of diseases classified elsewhere; K56.41 Fecal impaction; G40.909 Epilepsy, unspecified, not intractable, without status epilepticus; I69.391 Dysphagia following cerebral infarction; Z74.01 Bed confinement status; Z87.820 Personal history of traumatic brain injury; Z98.2 Presence of cerebrospinal fluid drainage device; Z93.1 Gastrostomy status; Z87.440 Personal history of urinary (tract) infections